=== PATIENT | female | born 1975 | race Hispanic/Latino ===

== ENCOUNTER 2020-10-05 17:20 | Inpatient (IN) | payer SELFPAY ==
[2020-10-05] MEDS ORDERED: METHYLPREDNISOLONE 125 MG INJ ONE (19:07)
[2020-10-05] MEDS ORDERED: NA CHLORIDE 0.9% 250 ML ONE (19:07)
[2020-10-05] MEDS ORDERED: CEFTRIAXONE 1000 MG/VIAL ONE (19:07)
[2020-10-05] MEDS ORDERED: AZITHROMYCIN 500 MG INJ IVPB ONE (19:07)
[2020-10-05 19:18] LABS: Absolute Lymphocytes (CBC) 0.6 K/uL (0.7-4.9); Basophils % 0.9 % (0-1.3); Hematocrit 39.4 % (36.0-45.0); Lymphocytes % 7.6 % (15.3-44.8); MPV 8.9 fL (7.6-11.3); RBC Red Blood Cell Count 4.82 M/uL (3.86-4.86)
--- NOTE | 2020-10-05 19:27 | RAD REPORT ---
EXAM DESCRIPTION: RAD - Chest Single View - 10/05/2020 7:14 pm CLINICAL HISTORY: CONGESTIONreason history of COVID pneumonia COMPARISON: None TECHNIQUE: AP portable chest image was obtained 10/05/2020 7:14 pm . FINDINGS: Lung volumes are very low. Bilateral airspace opacities are present in a pattern commonly seen in COVID pneumonia. Heart and vasculature are normal. No pneumothorax or large pleural effusion. Small pleural effusions could be masked by the exam limitations. No acute bony abnormality seen. No acute aortic findings suspected. IMPRESSION: Bilateral moderate severity pneumonia pattern consistent with a COVID-19 pneumonia.
[2020-10-05 19:30] LABS: Protime INR 1.13
[2020-10-05 19:40] LABS: ALT/SGPT 57 U/L (12-78); AST/SGOT 21 U/L (15-37); Alkaline Phosphatase 72 U/L (45-117); Amylase 32 U/L (25-115); BUN Blood Urea Nitrogen 7 mg/dL (7-18); Bicarbonate 27 mmol/L (21-32); Bilirubin Direct 0.2 mg/dL (0-0.2); CKMB Creatine Kinase MB 3.1 ng/mL (0.3-3.6); Creatine Phosphokinase 54 U/L (26-192); Glucose Level 186 mg/dL (74-106); Lipase 96 U/L (73-393); Potassium 4.1 mmol/L (3.5-5.1); Protein, Total 7.6 g/dL (6.4-8.2); Sodium Level 139 mmol/L (136-145); Troponin (Emerg Dept Use Only) 0.04 ng/mL (0.0-0.045)
[2020-10-05] MEDS ORDERED: IPRATROPIUM BROM 0.5MG/2.5ML ONE ×2 (19:41→19:50)
[2020-10-05] MEDS ORDERED: LEVALBUTEROL 1.25 MG/3 ML NEB ONE (19:41)
--- NOTE | 2020-10-05 20:27 | RAD REPORT ---
EXAM DESCRIPTION: CT - Chest For Pe Angio - 10/05/2020 8:16 pm CLINICAL HISTORY: CHEST PAIN COMPARISON: Chest Single View dated 10/05/2020 TECHNIQUE: Dynamically enhanced 3 mm thick images of the chest were obtained during administration o f approximately 150mL Isovue 370 IV contrast. Coronal and oblique MIP reconstruction images were gene rated and reviewed. Exam utilizes a protocol to evaluate the pulmonary arterial tree. All CT scans are performed using dose optimization technique as appropriate and may include automated exposure control or mA/KV adjustment according to patient size. FINDINGS: Pulmonary emboli are present at the right pulmonary bifurcation into the right middle, rig ht upper and right lower lobe pulmonary arteries. Additional segmental branch pulmonary emboli seen i n the right lower lobe and right middle lobe. Suspected medial segmental left lower lobe pulmonary em boli noted. No saddle embolus is present. No left upper lobe pulmonary emboli confirmed. The aorta as imaged shows no acute or suspicious finding. No pericardial thickening or effusion. Extensive bilateral airspace opacification is present in a pattern commonly described with significan t COVID-19 pneumonia. No pleural effusion or pleural thickening. No mediastinal or hilar suspicious masses. No chest wall masses or abnormal axillary lymphadenopathy. IMPRESSION: Multiple lobar and segmental size pulmonary emboli identified. Extensive bilateral COVID-19 pneumonia changes of the lung parenchyma.
[2020-10-05 20:40] LABS: Urine Blood Negative (Negative); Urine Glucose Negative (Negative); Urine Protein 2+ (Negative); Urine Specific Gravity >=1.030 (1.005-1.030); Urine pH 5.5 (5.0-7.0)
[2020-10-05 20:45] LABS: SARS-COV-2 RT PCR POSITIVE (NEGATIVE)
[2020-10-05 20:49] LABS: C-Reactive Protein 70.4 mg/L (<3.00); Ferritin 34.9 ng/mL (8-388)
--- NOTE | 2020-10-05 20:49 | ER ---
Nurse's Notes [facility] Name: Saida Coyle Age: 45 yrs Sex: Female : 1975 Arrival Date: 10/05/2020 Time: 17:22 Bed 24 Private MD: Diagnosis: Pulmonary embolism;Pneumonia due to SARS-associated coronavirus;Dyspnea Presentation: 10/05 17:22 Chief complaint: EMS states: Covid+ 09/06/2020. Also had Covid Pneumonia. Called in for ca1 SOB, SPO2 at 89% on RA, now sats at 95% at 4LPM. BGL 254, HR 120, RR 16, BP 160/74. Reports chest pain with deep breathing. Coronavirus screen: Client denies travel out of the [place] in the last 14 days. Client reports previous positive COVID test result. Date of collection: September 06, 2020 Staff notified of need for isolation. Ebola Screen: Patient negative for fever greater than or equal to 101.5 degrees Fahrenheit, and additional compatible Ebola Virus Disease symptoms Patient denies exposure to infectious person. Patient denies travel to an Ebola-affected area in the 21 days before illness onset. No symptoms or risks identified at this time. Initial Sepsis Screen: Does the patient meet any 2 criteria? RR > 20 per min. HR > 90 bpm. Yes Does the patient have a suspected source of infection? Yes: Productive cough/pneumonia. Risk Assessment: Do you want to hurt yourself or someone else? Patient reports no desire to harm self or others. Onset of symptoms was October 05, 2020. 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 Flu vaccine is not up to date. - Social history:: Smoking status: Patient denies any tobacco usage or history of. Screenin:20 Abuse screen: Denies threats or abuse. Denies injuries from another. Nutritional rr5 screening: No deficits noted. Tuberculosis screening: No symptoms or risk factors identified. Fall Risk IV access (20 points). Total Swenson Fall Scale indicates No Risk (0-24 pts). Assessment: 18:42 Reassessment: SOB when pt stood up from wheelchair and moved to the bed. O2 sats went ca1 down to 78% at 4LPM. Notified Dr. Singh. 19:30 General: Appears in no apparent distress. uncomfortable, Behavior is calm, cooperative. rr5 Pain: Denies pain. Neuro: Level of Consciousness is awake, alert, obeys commands, Oriented to person, place, time. Cardiovascular: Capillary refill < 3 seconds Patient's skin is warm and dry. Respiratory: Reports shortness of breath cough that is Airway is patent Respiratory effort is even, unlabored, Respiratory pattern is tachypnea. GI: Abdomen is round obese. : No signs and/or symptoms were reported regarding the genitourinary system. EENT: No signs and/or symptoms were reported regarding the EENT system. Derm: Bruising that is dark purple, on abdomen. Musculoskeletal: Capillary refill < 3 seconds. 20:17 Reassessment: not to give the whole bolus per sepsis, verbal order to give first 2 rr5 liters. 20:30 Reassessment: Patient appears in no apparent distress at this time. Patient is alert, rr5 oriented x 3, equal unlabored respirations, skin warm/dry/pink. 21:00 Reassessment: Patient appears in no apparent distress at this time. hospitalist called rr5 with telephone order " can give the lovenox". Vital Signs: 17:29 BP 153 / 88; Pulse 128; Resp 20; Temp 97.5(TE); Pulse Ox 93% on 4 lpm NC; Weight 125.65 ca1 kg (R); Height 5 ft. 2 in. (157.48 cm) (R); Pain 8/10; 18:41 BP 126 / 94; Pulse 128; Resp 40; Pulse Ox 88% on 4 lpm NC; ca1 20:03 BP 137 / 92; Pulse 121; Resp 30; Pulse Ox 92% on 4 lpm NC; rr5 20:52 BP 156 / 72; Pulse 125; Resp 36; Pulse Ox 90% on 4 lpm NC; rr5 17:29 Body Mass Index 50.66 (125.65 kg, 157.48 cm) ca1 ED Course: 17:22 Patient arrived in ED. ca1 17:27 Triage completed. ca1 17:31 Arm band placed on right wrist. ca1 17:36 EKG completed in triage. Results shown to MD. ca1 18:40 Inserted saline lock: 20 gauge in right antecubital area, using aseptic technique. kg 18:44 Naila Pickard, PUJA is Primary Nurse. tr6 18:56 Serina Hartley is Primary Nurse. kg 19:14 Chest Single View XRAY In Process Unspecified. EDMS 19:17 Report given to Phil LUO. kg 19:18 Primary Nurse role handed off by Serina Hartley mw2 19:19 Phil Chaidez RN is Primary Nurse. rr5 19:21 Sean Douglas NP is PHCP. pm1 19:21 Ruben Drummond MD is Attending Physician. pm1 19:30 Patient has correct armband on for positive identification. Bed in low position. Call rr5 light in reach. 19:30 hall monitor on. Pulse ox on. NIBP on. rr5 20:16 CT Chest For PE Angio In Process Unspecified. EDMS 20:48 Phil Pedroza MD is Hospitalizing Provider. pm1 21:30 No provider procedures requiring assistance completed. Patient admitted, IV remains in rr5 place. intact, No redness/swelling at site. 05 09:49 Primary Nurse role handed off by Phil Chaidez RN sv Administered Medications: 10/05 19:18 Drug: Rocephin (cefTRIAXone) 1 grams Route: IV; Rate: calculated rate; Site: right kg antecubital; 20:23 Follow up: Response: No adverse reaction; IV Status: Completed infusion; IV Intake: [id number] 19:18 Drug: AZITHromycin 500 mg Route: IVPB; Infused Over: 1 hrs; Site: right antecubital; kg 20:30 Follow up: Response: No adverse reaction; IV Status: Completed infusion; IV Intake: rr5 250ml 19:18 Drug: MethylPrednisoLONE 125 mg Route: IVP; Site: right antecubital; kg 20:20 Follow up: Response: No adverse reaction rr5 19:19 Drug: NS 0.9% (30 ml/kg) 30 ml/kg Route: IV; Rate: bolus; Site: right antecubital; kg 19:26 Drug: Xopenex (levalbuterol) 1.25 mg Route: Inhalation; kg 20:30 Follow up: Response: No adverse reaction rr5 19:26 Drug: AtroVENT (ipratropium) Aerosol 0.5 mg Route: Inhalation; kg 19:38 Drug: AtroVENT (ipratropium) Aerosol 0.5 mg Route: Inhalation; rr5 20:00 Drug: AtroVENT (ipratropium) Aerosol 0.5 mg Route: Inhalation; rr5 21:00 Follow up: Response: No adverse reaction rr5 20:12 Drug: NS 0.9% (30 ml/kg) 30 ml/kg Route: IV; Rate: bolus; Site: right antecubital; rr5 21:30 Follow up: Response: No adverse reaction; IV Status: Order to discontinue infusion; IV rr5 Intake: 2000ml 21:00 Drug: Lovenox (enoxaparin) 1 mg/kg Route: Sub-Q; Site: left lower abdomen; rr5 22:25 Follow up: Response: No adverse reaction rr5 22:18 Drug: Flagyl (metroNIDAZOLE) 2 grams Route: PO; rr5 22:25 Follow up: Response: No adverse reaction rr5 Intake: 20:23 IV: 10ml; Total: 10ml. rr5 20:30 IV: 250ml; Total: 260ml. rr5 21:30 IV: 2000ml; Total: 2260ml. rr5 Outcome: 20:49 Decision to Hospitalize by Provider. pm1 21:30 Admitted to ER Hold. Please see [facility] for further documentation. rr5 21:30 Condition: stable 21:30 Instructed on the need for admit. 10/06 21:47 Patient left the ED. mw2 Signatures: Dispatcher [employer] EDMS Stephanie Munroe RN Sean Yarbrough NP FRUIT HARVEST WORKER pm1 Alejandro Montelongo mw2 Phil Chaidez RN RN rr5 Teresita Howell RN RN ca1 Naila Pickard RN RN tr6 Serina Hartley kg Corrections: (The following items were deleted from the chart) 10/05 17:30 17:22 Chief complaint: EMS states: Covid+ 09/06/2020. Also had Covid Pneumonia. Called ca1 in for SOB, SPO2 at 89% on RA, now sats at 95% at 4LPM. BGL 254, HR 120, RR 16, BP 160/74 ca1 17:32 17:22 Acuity: VERITO 3 ca1 ca1 18:41 17:22 Initial Sepsis Screen: Does the patient meet any 2 criteria? No. Patient's ca1 initial sepsis screen is negative. Does the patient have a suspected source of infection? No. Patient's initial sepsis screen is negative. ca1
--- NOTE | 2020-10-05 20:49 | EDPHYS ---
Physician Documentation [facility] Name: Saida Coyle Age: 45 yrs Sex: Female : 1975 Arrival Date: 10/05/2020 Time: 17:22 Bed 24 Private MD: ED Physician Ruben Drummond HPI: 10/05 19:06 This 45 yrs old Female presents to ER via EMS with complaints of Shortness Of pm1 Breath. 19:06 The patient has shortness of breath at rest. Onset: The symptoms/episode began/occurred pm1 yesterday. Duration: The symptoms are continuous. The patient's shortness of breath is aggravated by light activity, is alleviated by nothing. Associated signs and symptoms: The patient has no apparent associated signs or symptoms, Pertinent negatives: chest pain, non-productive cough, fever, nausea, vomiting. Severity of symptoms: in the emergency department the symptoms are worse. The patient has experienced a previous episode, Patient was admitted for 1 week and discharged home for COVID with PE. Discharged 9 days ago. Discharged home with eliquis. 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 Flu vaccine is not up to date. - Social history:: Smoking status: Patient denies any tobacco usage or history of. ROS: 19:06 Constitutional: Negative for fever, chills, and weight loss, Eyes: Negative for injury, pm1 pain, redness, and discharge, ENT: Negative for injury, pain, and discharge, Neck: Negative for injury, pain, and swelling, Cardiovascular: Negative for chest pain, palpitations, and edema. 19:06 Abdomen/GI: Negative for abdominal pain, nausea, vomiting, diarrhea, and constipation, Back: Negative for injury and pain, : Negative for injury, bleeding, discharge, and swelling, MS/Extremity: Negative for injury and deformity, Skin: Negative for injury, rash, and discoloration, Neuro: Negative for headache, weakness, numbness, tingling, and seizure. 19:06 Respiratory: Positive for shortness of breath, Negative for cough, sputum production, wheezing. Exam: 19:06 Constitutional: This is a well developed, well nourished patient who is awake, alert, pm1 and in no acute distress. Head/Face: Normocephalic, atraumatic. Eyes: Pupils equal round and reactive to light, extra-ocular motions intact. Lids and lashes normal. Conjunctiva and sclera are non-icteric and not injected. Cornea within normal limits. Periorbital areas with no swelling, redness, or edema. ENT: Nares patent. No nasal discharge, no septal abnormalities noted. Tympanic membranes are normal and external auditory canals are clear. Oropharynx with no redness, swelling, or masses, exudates, or evidence of obstruction, uvula midline. Mucous membranes moist. Chest/axilla: Normal chest wall appearance and motion. Nontender with no deformity. No lesions are appreciated. 19:06 Abdomen/GI: Soft, non-tender, with normal bowel sounds. No distension or tympany. No guarding or rebound. No evidence of tenderness throughout. Back: No spinal tenderness. No costovertebral tenderness. Full range of motion. Skin: Warm, dry with normal turgor. Normal color with no rashes, no lesions, and no evidence of cellulitis. MS/ Extremity: Pulses equal, no cyanosis. Neurovascular intact. Full, normal range of motion. 19:06 Cardiovascular: Rate: tachycardic, Rhythm: regular, Pulses: no pulse deficits are appreciated, Heart sounds: normal, Edema: is not appreciated. 19:06 Respiratory: mild respiratory distress is noted, Respirations: tachypnea, Breath sounds: are clear throughout, no rales, rhonchi, no wheezing. 19:06 Neuro: Orientation: is normal, Mentation: is normal, Motor: is normal, moves all fours. Vital Signs: 17:29 BP 153 / 88; Pulse 128; Resp 20; Temp 97.5(TE); Pulse Ox 93% on 4 lpm NC; Weight 125.65 ca1 kg (R); Height 5 ft. 2 in. (157.48 cm) (R); Pain 8/10; 18:41 BP 126 / 94; Pulse 128; Resp 40; Pulse Ox 88% on 4 lpm NC; ca1 20:03 BP 137 / 92; Pulse 121; Resp 30; Pulse Ox 92% on 4 lpm NC; rr5 20:52 BP 156 / 72; Pulse 125; Resp 36; Pulse Ox 90% on 4 lpm NC; rr5 17:29 Body Mass Index 50.66 (125.65 kg, 157.48 cm) ca1 MDM: 19:33 Patient medically screened. pm1 20:47 Data reviewed: vital signs. pm1 20:47 Counseling: I had a detailed discussion with the patient and/or guardian regarding: the pm1 historical points, exam findings, and any diagnostic results supporting the discharge/admit diagnosis, lab results, radiology results, the need for further work-up and treatment in the hospital. 10/05 18:42 Order name: Amylase, Serum; Complete Time: 19:42 [facility] 10/05 18:42 Order name: Basic Metabolic Panel; Complete Time: 19:42 mt2 10/05 18:42 Order name: Blood Culture Adult (2) [facility] 10/05 18:42 Order name: CBC with Diff; Complete Time: 19:34 mt2 10/05 18:42 Order name: Ckmb; Complete Time: 19:42 mt2 10/05 18:42 Order name: CPK; Complete Time: 19:42 mt2 10/05 18:42 Order name: Lactate; Complete Time: 19:42 [facility] 10/05 18:42 Order name: LFT's; Complete Time: 19:42 mt2 10/05 18:42 Order name: Lipase; Complete Time: 19:42 [facility] 10/05 18:42 Order name: Protime (+inr); Complete Time: 19:34 mt2 10/05 18:42 Order name: Ptt, Activated; Complete Time: 19:34 mt2 10/05 18:42 Order name: Troponin (emerg Dept Use Only); Complete Time: 19:42 mt2 10/05 18:42 Order name: Urine Microscopic Only; Complete Time: 21:31 ma2 10/05 19:08 Order name: Glucose, Ancillary Testing; Complete Time: 19:26 EDMS 10/05 19:43 Order name: CRP; Complete Time: 20:53 la1 10/05 19:43 Order name: Ferritin; Complete Time: 20:53 la1 10/05 20:40 Order name: Urine Dipstick-Ancillary; Complete Time: 20:41 EDMS 10/05 20:40 Order name: Urine --Ancillary (enter results); Complete Time: 21:00 [facility] 10/05 20:46 Order name: COVID-19/FLU A+B; Complete Time: 20:53 [facility] 10/05 22:29 Order name: Glucose, Ancillary Testing; Complete Time: 00:24 [facility] 10/06 00:03 Order name: Troponin I; Complete Time: 00:24 [facility] 10/06 05:27 Order name: CBC with Automated Diff; Complete Time: 00:24 [facility] 10/06 05:59 Order name: Comprehensive Metabolic Panel; Complete Time: 00:24 [facility] 10/06 05:59 Order name: Troponin I; Complete Time: 00:24 [facility] 10/06 05:59 Order name: C-Reactive Protein; Complete Time: 00:24 [facility] 10/06 05:59 Order name: T4 Free; Complete Time: 00:24 [facility] 10/06 05:59 Order name: Magnesium; Complete Time: 00:24 [facility] 10/05 17:32 Order name: EKG; Complete Time: 17:33 [facility] 10/05 17:32 Order name: EKG - Nurse/Tech; Complete Time: 17:36 [facility] 10/05 18:42 Order name: Chest Single View XRAY; Complete Time: 19:34 mt2 10/05 18:42 Order name: Accucheck; Complete Time: 18:57 [facility] 10/05 18:42 Order name: Cardiac monitoring; Complete Time: 18:57 [facility] 10/05 18:42 Order name: IV Saline Lock - Large Bore; Complete Time: 18:57 [facility] 10/05 18:42 Order name: Labs collected and sent; Complete Time: 18:58 mt2 10/05 18:42 Order name: O2 Per Protocol; Complete Time: 18:57 mt2 10/05 18:42 Order name: O2 Sat Monitoring; Complete Time: 18:57 mt2 10/05 18:42 Order name: Urine Dipstick-Ancillary (obtain specimen); Complete Time: 22:19 [facility] 10/05 18:42 Order name: CT Chest For PE Angio; Complete Time: 20:32 mt2 10/06 05:59 Order name: Thyroid Stimulating Hormone; Complete Time: 00:24 [facility] 10/06 05:59 Order name: Ferritin; Complete Time: 00:24 EDMS 10/06 06:07 Order name: Hemoglobin A1c; Complete Time: 00:24 EDMS 10/06 08:50 Order name: CBC Smear Scan; Complete Time: 00:24 EDMS 10/06 08:54 Order name: Glucose, Ancillary Testing; Complete Time: 00:24 EDMS 10/06 08:57 Order name: Urinalysis; Complete Time: 00:24 EDMS 10/06 11:33 Order name: Glucose, Ancillary Testing; Complete Time: 00:24 EDMS 10/06 15:30 Order name: Glucose, Ancillary Testing; Complete Time: 00:24 EDMS Administered Medications: 19:18 Drug: Rocephin (cefTRIAXone) 1 grams Route: IV; Rate: calculated rate; Site: right kg antecubital; 20:23 Follow up: Response: No adverse reaction; IV Status: Completed infusion; IV Intake: 16mopb4 19:18 Drug: AZITHromycin 500 mg Route: IVPB; Infused Over: 1 hrs; Site: right antecubital; kg 20:30 Follow up: Response: No adverse reaction; IV Status: Completed infusion; IV Intake: rr5 250ml 19:18 Drug: MethylPrednisoLONE 125 mg Route: IVP; Site: right antecubital; kg 20:20 Follow up: Response: No adverse reaction rr5 19:19 Drug: NS 0.9% (30 ml/kg) 30 ml/kg Route: IV; Rate: bolus; Site: right antecubital; kg 19:26 Drug: Xopenex (levalbuterol) 1.25 mg Route: Inhalation; kg 20:30 Follow up: Response: No adverse reaction rr5 19:26 Drug: AtroVENT (ipratropium) Aerosol 0.5 mg Route: Inhalation; kg 19:38 Drug: AtroVENT (ipratropium) Aerosol 0.5 mg Route: Inhalation; rr5 20:00 Drug: AtroVENT (ipratropium) Aerosol 0.5 mg Route: Inhalation; rr5 21:00 Follow up: Response: No adverse reaction rr5 20:12 Drug: NS 0.9% (30 ml/kg) 30 ml/kg Route: IV; Rate: bolus; Site: right antecubital; rr5 21:30 Follow up: Response: No adverse reaction; IV Status: Order to discontinue infusion; IV rr5 Intake: 2000ml 21:00 Drug: Lovenox (enoxaparin) 1 mg/kg Route: Sub-Q; Site: left lower abdomen; rr5 22:25 Follow up: Response: No adverse reaction rr5 22:18 Drug: Flagyl (metroNIDAZOLE) 2 grams Route: PO; rr5 22:25 Follow up: Response: No adverse reaction rr5 Disposition: 10/06 22:13 Co-signature as Attending Physician, Ruben Drummond MD. [email or web address] Disposition: 10/05/20 20:49 Hospitalization ordered by Phil Pedroza for Inpatient Admission. Preliminary diagnosis are Pneumonia due to SARS-associated coronavirus, Pulmonary embolism, Dyspnea. - Bed requested for Intensive Care Unit. - Status is Inpatient Admission. mw2 - Condition is Stable. - Problem is new. - Symptoms have improved. Signatures: Dispatcher [employer] EDMS Ruben Drummond MD MD pkMaurice White, SPRINKLER TRUCK DRIVER-C SPRINKLER TRUCK DRIVER-Cla1 Maribell Easley, RN RN cg Sean Douglas, DIVE SUPERVISOR DIVE SUPERVISOR pm1 Andrew Singh MD MD ma2 Alejandro Montelongo mw2 Phil Chaidez, RN RN rr5 Teresita Howell RN RN ca1 Serina Hartley kg Corrections: (The following items were deleted from the chart) 10/05 19:35 19:22 CORONAVIRUS+MR.LAB.BRZ ordered. EDIL EDMS 19:51 19:47 Influenza Screen (A \T\ B)+BA.LAB.BRZ ordered. EDIL EDMS 21:27 20:49 Hospitalization Ordered by Phil Pedroza MD for Inpatient Admission. Preliminary mw2 diagnosis is Pneumonia due to SARS-associated coronavirusPulmonary embolism; Dyspnea. Bed requested for Telemetry/MedSurg (Inpatient). Status is Inpatient Admission. Condition is Stable. Problem is new. Symptoms have improved. pm1 10/06 19:37 10/05 21:27 10/05/2020 20:49 Hospitalization Ordered by Phil Pedroza MD for Inpatient cg Admission. Preliminary diagnosis is Pneumonia due to SARS-associated coronavirusPulmonary embolism; Dyspnea. Bed requested for [facility] ER HOLD. Status is Inpatient Admission. Condition is Stable. Problem is new. Symptoms have improved. mw2 10/06 21:47 19:37 10/05/2020 20:49 Hospitalization Ordered by Phli Pedroza MD for Inpatient mw2 Admission. Preliminary diagnosis is Pneumonia due to SARS-associated coronavirusPulmonary embolism; Dyspnea. Bed requested for Intensive Care Unit. Status is Inpatient Admission. Condition is Stable. Problem is new. Symptoms have improved. cg
[2020-10-05 20:56] LABS: Urine Specific Gravity/Preg >1.030 (1.005-1.030)
[2020-10-05] MEDS ORDERED: ENOXAPARIN 100 MG/ML SYR SQ ONE (21:06)
[2020-10-05] MEDS ORDERED: ENOXAPARIN 30 MG/0.3 ML SQ ONE (21:06)
[2020-10-05 21:15] LABS: Urine RBC NONE SEEN /HPF (NONE SEEN)
[2020-10-05 21:17] LABS: Urine Bacteria <20 /HPF (<20); Urine Trichomonas PRESENT (NONE SEEN)
--- NOTE | 2020-10-05 21:45 | P.HP ---
Certification for Inpatient Patient admitted to: Inpatient With expected LOS: >2 Midnights Patient will require the following post-hospital care: None Practitioner: I am a practitioner with admitting privileges, knowledge of patient current condition, hospital course, and medical plan of care. Services: Services provided to patient in accordance with Admission requirements found in Title 42 Section 412.3 of the Code of Federal Regulations Patient History Date of Service: 10/05/20 Reason for admission: Pulmonary embolism, COVID-19 pneumonia History of Present Illness: 45-year-old female with history of diabetes mellitus type 2, COVID presents emergency department for shortness of breath. Patient 1st tested positive for [place] virus on 09/06/2020 and was admitted from 09/09/20 to 09/24/2020 in [facility], patient reports that she is on nasal cannula throughout most of this admission there was discharged on Eliquis 2.5 mg p.o. twice daily for DVT prophylaxis. Patient ports increasing shortness of breath over the course of the last few days, upon arrival to the hospital patient is to be significantly hypoxic. Labs reveal C-reactive protein 70.4, glucose 186 chest x-ray demonstrates moderate bilateral COVID-19, CT PE protocol demonstrates multiple lobar and segmental size pulmonary emboli identified with extensive bilateral COVID-19 changes. Patient currently on nasal cannula around 5-6 L saturating around 90-91%. Case was discussed with pulmonology, pulmonology recommends admission with high-dose Eliquis (10mg PO BID), high dose steroids, oral supplements,ivermectin and he will evaluate in the morning. 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 moist/pink Neck: Supple, 2+ carotid pulse no bruit, No LAD Respiratory: Diminished, Other (Patient dyspneic, tachypneic) Cardiovascular: Regular rate/rhythm (Sinus tachycardia 120), Normal S1 S2 Capillary refill: <2 Seconds Gastrointestinal: Normal bowel sounds, No tenderness Musculoskeletal: No tenderness Integumentary: No rashes Neurological: Normal speech, Normal strength at 5/5 x4 extr, Normal tone, Normal affect - Studies Laboratory Data (last 24 hrs) 10/05/20 18:42: PT 13.0 H, INR 1.13, APTT 32.4 10/05/20 18:42: WBC 7.80, Hgb 12.7, Hct 39.4, Plt Count 172 10/05/20 18:42: Sodium 139, Potassium 4.1, BUN 7, Creatinine 0.62, Glucose 186 H, Total Bilirubin 1.0, AST 21, ALT 57, Alkaline Phosphatase 72, Amylase 32, Lipase 96 Assessment and Plan - Plan Assessment Acute hypoxic respiratory failure secondary to bilateral COVID-19 pneumonia complicated with bilateral segmental/subsegmental pulmonary emboli Diabetes mellitus type 2 Plan Acute hypoxic respiratory failure secondary to bilateral COVID-19 pneumonia complicated with bilateral segmental/subsegmental pulmonary emboli: Monitor on telemetry, continue with high-dose IV steroids, oral supplements, ivermectin, supplemental oxygen to maintain saturations greater than 92%, full-dose PE treatment with Eliquis 10 mg p.o. b.i.d. per pulmonology. Trend CRP, ferritin levels. Appreciate further input from pulmonology. Diabetes mellitus type 2: A.c. HS Accu-Cheks, sliding scale insulin therapy. A1c. Discharge Plan: Home Plan to discharge in: Greater than 2 days - Advance Directives Does patient have a Living Will: No Does patient have a Durable POA for Healthcare: No - Code Status/Comfort Care Code Status Assessed: Yes (Full code) Critical Care: No Time Spent Managing Pts Care (In Minutes): 55
[2020-10-05] MEDS ORDERED: BENZONATATE 100 MG CAP PO PRN (21:49)
[2020-10-05] MEDS ORDERED: ACETAMINOPHEN 500 MG TAB PO PRN (21:49)
[2020-10-05] MEDS ORDERED: ONDANSETRON 4 MG/2 ML VIAL IV PRN (21:49)
[2020-10-05] MEDS ORDERED: metroNIDAZOLE 500 MG TABLET ONE (22:26)
[2020-10-05] MEDS: INSULIN -REGULAR HUMAN 50 UNIT/0.5 ML ML SQ SCH (22:47)
[2020-10-05] MEDS ORDERED: INSULIN -REGULAR HUMAN 50 UNIT/0.5 ML ML ONE (23:04)
[2020-10-06] MEDS ORDERED: ACETAMINOPHEN 500 MG TAB ONE (00:53)
[2020-10-06] MEDS: MELATONIN 5 MG TABLET PO PRN (01:27)
[2020-10-06] MEDS ORDERED: MELATONIN 5 MG TABLET PO ONE (01:34)
[2020-10-06 05:26] LABS: Absolute Lymphocytes (CBC) 0.4 K/uL (0.7-4.9); Basophils % 0.4 % (0-1.3); Hematocrit 34.4 % (36.0-45.0); Lymphocytes % 7.4 % (15.3-44.8); MPV 8.7 fL (7.6-11.3); RBC Red Blood Cell Count 4.26 M/uL (3.86-4.86)
[2020-10-06 05:59] LABS: ALT/SGPT 45 U/L (12-78); AST/SGOT 17 U/L (15-37); Albumin 2.5 g/dL (3.4-5.0); Alkaline Phosphatase 61 U/L (45-117); BUN Blood Urea Nitrogen 8 mg/dL (7-18); Bicarbonate 23 mmol/L (21-32); Bilirubin Total 0.7 mg/dL (0.2-1.0); Glucose Level 254 mg/dL (74-106); Magnesium 2.1 mg/dL (1.8-2.4); Potassium 4.3 mmol/L (3.5-5.1); Protein, Total 6.7 g/dL (6.4-8.2); Sodium Level 139 mmol/L (136-145); Thyroid Stimulating Hormone 0.334 uIU/mL (0.360-3.740); Troponin I 0.07 ng/mL (0.0-0.045)
[2020-10-06] MEDS: INSULIN -REGULAR HUMAN 50 UNIT/0.5 ML ML SQ SCH ×4 (08:00→20:32)
--- NOTE | 2020-10-06 08:07 | P.CNS ---
Date of Consult: 10/06/20 Reason for Consult: Pulmonary embolism in huber virus pneumonia Chief Complaint: Pulmonary embolism, COVID-19 pneumonia History of Present Illness: Patient is 45 years of age with diabetes and history of huber virus presented to the emergency room with shortness of breath his 1st diagnosed on September 06 in the [facility] [place] and was discharged on low-dose Eliquis the main with worsening dyspnea for hypoxic and was found to have bilateral pulmonary emboli feeling a little better Allergies No Known Drug Allergies Allergy (Verified 10/06/20 01:49) Unknown - Past Medical/Surgical History Diabetic: Yes -: Diabetes mellitus type 2 -: Huber virus infection -: Tubal ligation Psychosocial/ Personal History: 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 [employer] - Family History Father History Unknown: Yes Medical History: Diabetes Mother Medical History: Diabetes - Social History Alcohol use: Yes CD- Drugs: No Caffeine use: Yes Place of Residence: Home Review of Systems 10-point ROS is otherwise unremarkable General: Weakness Respiratory: Cough, Shortness of Breath Physical Examination Temp Pulse Resp BP Pulse Ox 98.8 F 107 H 28 H 110/71 94 10/06/20 04:00 10/06/20 04:00 10/06/20 04:00 10/06/20 04:00 10/06/20 04:00 Laboratory Data (last 24 hrs) 10/05/20 18:42: PT 13.0 H, INR 1.13, APTT 32.4 10/05/20 18:42: WBC 7.80, Hgb 12.7, Hct 39.4, Plt Count 172 10/05/20 18:42: Sodium 139, Potassium 4.1, BUN 7, Creatinine 0.62, Glucose 186 H, Total Bilirubin 1.0, AST 21, ALT 57, Alkaline Phosphatase 72, Amylase 32, Lipase 96 - Problems (1) Pulmonary embolism associated with COVID-19 Current Visit: Yes Status: Acute Plan: Patient is 45 years of age admitted with pulmonary embolism from huber virus currently on high-flow oxygen chest x-ray shows significant interstitial changes blood pressure stable continue with full anticoagulation with Eliquis blood pressure is stable continue with high-dose steroids possible discharge tomorrow if he can wean her down to 4 L full therapeutic anticoagulation and steroids
[2020-10-06 08:49] LABS: Blood Morphology Comment NOT SEEN (NOT SEEN); Platelet Estimate ADEQ; Platelets, Giant PRESENT; White Blood Cell Scan OK (OK)
[2020-10-06] MEDS ORDERED: ZINC SULFATE 220 MG CAP ONE (08:53)
[2020-10-06] MEDS ORDERED: APIXABAN 5 MG TABLET ONE ×2 (08:53→19:54)
[2020-10-06] MEDS ORDERED: METHYLPREDNISOLONE 125 MG INJ ONE (08:53)
[2020-10-06] MEDS ORDERED: FUROSEMIDE 20 MG/ 2ML VIAL ONE (08:53)
[2020-10-06] MEDS ORDERED: VITAMIN D 1000 UNIT TAB ONE (08:53)
[2020-10-06] MEDS ORDERED: THIAMINE HCL 100 MG TABLET ONE (08:53)
[2020-10-06] MEDS ORDERED: ASCORBIC ACID 500 MG TABLET ONE ×4 (08:53→19:54)
[2020-10-06] MEDS ORDERED: INSULIN -REGULAR HUMAN 50 UNIT/0.5 ML ML ONE ×4 (08:54→20:51)
[2020-10-06 08:57] LABS: Urine Appearance CLEAR (Clear); Urine Bilirubin NEGATIVE (Negataive); Urine Blood NEGATIVE (Negative); Urine Color YELLOW (Yellow); Urine Glucose 3+ (Negative); Urine Microscopic Reflex NO UMIC; Urine Protein NEGATIVE (Negative); Urine Specific Gravity >=1.030 (1.005-1.030); Urine Urobilinogen 0.2 mg/dL (0.2-1.0); Urine pH 5.5 (5.0-7.0)
[2020-10-06] MEDS: ZINC SULFATE 220 MG CAP PO SCH (08:58)
[2020-10-06] MEDS: THIAMINE HCL 100 MG TABLET PO SCH (08:58)
[2020-10-06] MEDS: ASCORBIC ACID 500 MG TABLET PO SCH ×4 (08:58→20:33)
[2020-10-06] MEDS: APIXABAN 5 MG TABLET PO SCH ×2 (08:58→20:33)
[2020-10-06] MEDS: VITAMIN D 1000 UNIT TAB PO SCH (08:58)
[2020-10-06] MEDS: FUROSEMIDE 20 MG/ 2ML VIAL IV SCH (08:58)
[2020-10-06] MEDS: IVERMECTIN 3 MG TABLET PO SCH (09:00)
[2020-10-06] MEDS: METHYLPREDNISOLONE 40 MG INJ IV SCH ×3 (09:02→20:33)
[2020-10-06] MEDS ORDERED: METHYLPREDNISOLONE 40 MG INJ ONE ×3 (09:21→19:54)
--- NOTE | 2020-10-06 18:09 | P.PN ---
Subjective Date of Service: 10/06/20 Chief Complaint: Pulmonary embolism, COVID-19 pneumonia Subjective: Improving (feeling better, still requiring HFNC, but breathing more comfortably. has some chest pain - states same she has had since COVID diagnosis, no change. no nausea/vomiting) Review of Systems 10-point ROS is otherwise unremarkable Physical Examination - Vital Signs Temperature: 98.5 F Blood Pressure: 136/85 Pulse: 110 Respirations: 23 Pulse Ox (%): 91 - Studies Laboratory Data (last 24 hrs) 10/05/20 18:42: PT 13.0 H, INR 1.13, APTT 32.4 10/05/20 18:42: WBC 7.80, Hgb 12.7, Hct 39.4, Plt Count 172 10/05/20 18:42: Sodium 139, Potassium 4.1, BUN 7, Creatinine 0.62, Glucose 186 H, Total Bilirubin 1.0, AST 21, ALT 57, Alkaline Phosphatase 72, Amylase 32, Lipase 96 Assessment & Plan Physician Review Additional Text: Physical Exam General: Alert, NAD HEENT: normal conjunctiva, sclera anicteric Respiratory: Diminished, tachypneic, on HFNC Cardiovascular: sinus tachycardia, 100-110s Gastrointestinal: soft, nontender,nondistended Integumentary: No rashes Neurological: Normal speech, Normal strength at 5/5 x4 extr, Normal tone, Normal affect Problem List Acute hypoxic respiratory failure secondary to bilateral COVID-19 pneumonia complicated with bilateral segmental/subsegmental pulmonary emboli Diabetes mellitus type 2 -IV steroids, supplements, oxygen as needed -eliquis 10mg PO BID per pulm -trend inflammatory markers -echo ordered to eval r heart strain -insulin sliding scale, accucheks VTE: eliquis Code: full Dispo: anticipate dc home with home O2, when stable <4L NC Time Spent Managing Pts Care (In Minutes): 35
[2020-10-07 04:40] LABS: Absolute Lymphocytes (CBC) 0.5 K/uL (0.7-4.9); Hematocrit 31.8 % (36.0-45.0); Lymphocytes % 5.4 % (15.3-44.8); MPV 8.6 fL (7.6-11.3); RBC Red Blood Cell Count 3.96 M/uL (3.86-4.86)
[2020-10-07 05:17] LABS: ALT/SGPT 35 U/L (12-78); AST/SGOT 11 U/L (15-37); Albumin 2.5 g/dL (3.4-5.0); Alkaline Phosphatase 57 U/L (45-117); BUN Blood Urea Nitrogen 14 mg/dL (7-18); Bicarbonate 27 mmol/L (21-32); Bilirubin Total 0.5 mg/dL (0.2-1.0); Ferritin 33.9 ng/mL (8-388); Glucose Level 245 mg/dL (74-106); Potassium 3.9 mmol/L (3.5-5.1); Protein, Total 6.4 g/dL (6.4-8.2); Sodium Level 141 mmol/L (136-145)
[2020-10-07] MEDS: INSULIN -REGULAR HUMAN 50 UNIT/0.5 ML ML SQ SCH ×4 (07:30→19:36)
[2020-10-07] MEDS: ZINC SULFATE 220 MG CAP PO SCH (08:13)
[2020-10-07] MEDS: VITAMIN D 1000 UNIT TAB PO SCH (08:13)
[2020-10-07] MEDS: ASCORBIC ACID 500 MG TABLET PO SCH ×4 (08:13→19:35)
[2020-10-07] MEDS: APIXABAN 5 MG TABLET PO SCH ×2 (08:13→19:35)
[2020-10-07] MEDS: FUROSEMIDE 20 MG/ 2ML VIAL IV SCH (08:13)
[2020-10-07] MEDS: THIAMINE HCL 100 MG TABLET PO SCH (08:13)
[2020-10-07] MEDS: METHYLPREDNISOLONE 40 MG INJ IV SCH (08:14)
--- NOTE | 2020-10-07 12:16 | P.PN ---
Subjective Date of Service: 10/07/20 Chief Complaint: Pulmonary embolism, COVID-19 pneumonia Subjective: Improving (Patient is improving subjectively feeling better) Review of Systems General: Weakness Respiratory: Shortness of Breath Physical Examination - Vital Signs Temperature: 99.5 F Blood Pressure: 119/76 Pulse: 100 Respirations: 34 Pulse Ox (%): 95 Assessment & Plan - Problems (Diagnosis) (1) Pulmonary embolism associated with COVID-19 Current Visit: Yes Status: Acute Plan: Admitted with huber virus pneumonia pulmonary embolism improving continue with full anticoagulation titrate O2 down possible discharge chemistries reviewed
--- NOTE | 2020-10-07 13:55 | P.PN ---
Subjective Date of Service: 10/07/20 Chief Complaint: Pulmonary embolism, COVID-19 pneumonia No major changes from yesterday. She is maintained on high-flow oxygen. Physical Examination - Vital Signs Temperature: 99.5 F Blood Pressure: 119/76 Pulse: 100 Respirations: 34 Pulse Ox (%): 95 - Physical Exam General: Alert, In no apparent distress HEENT: Other (High-flow oxygen) Neck: JVD not distended Respiratory: Other (Nonlabored breathing) Cardiovascular: No edema, Normal S1 S2, Other (Regular and tachycardic) Gastrointestinal: Soft and benign, Non-distended, No tenderness Musculoskeletal: No swelling Integumentary: No rashes Neurological: Normal strength at 5/5 x4 extr Assessment And Plan - Current Problems (Diagnosis) (1) Pulmonary embolism associated with COVID-19 Current Visit: Yes Status: Acute (2) Acute respiratory failure with hypoxemia Current Visit: Yes Status: Acute (3) Pneumonia due to COVID-19 virus Current Visit: Yes Status: Acute (4) DM type 2 (diabetes mellitus, type 2) Current Visit: Yes Status: Acute (5) Morbid obesity Current Visit: Yes Status: Acute Physician Review Additional Text: Problem List Acute hypoxic respiratory failure secondary to bilateral COVID-19 pneumonia complicated with bilateral segmental/subsegmental pulmonary emboli Diabetes mellitus type 2 -continue IV steroids, supplements, oxygen as needed -continue eliquis 10mg PO BID. -trend inflammatory markers -insulin sliding scale for glucose management -wean oxygen as tolerated. VTE: eliquis Code: full
[2020-10-07] MEDS: METHYLPREDNISOLONE 125 MG INJ IV SCH ×2 (14:09→19:35)
[2020-10-08 04:52] LABS: Absolute Lymphocytes (CBC) 0.5 K/uL (0.7-4.9); Basophils % 0.5 % (0-1.3); Hematocrit 34.4 % (36.0-45.0); Lymphocytes % 6.2 % (15.3-44.8); MPV 8.8 fL (7.6-11.3); RBC Red Blood Cell Count 4.26 M/uL (3.86-4.86)
[2020-10-08 05:11] LABS: ALT/SGPT 34 U/L (12-78); AST/SGOT 10 U/L (15-37); Albumin 2.6 g/dL (3.4-5.0); Alkaline Phosphatase 61 U/L (45-117); BUN Blood Urea Nitrogen 21 mg/dL (7-18); Bicarbonate 29 mmol/L (21-32); Bilirubin Total 0.5 mg/dL (0.2-1.0); Ferritin 33.1 ng/mL (8-388); Glucose Level 251 mg/dL (74-106); Magnesium 2.3 mg/dL (1.8-2.4); Potassium 3.8 mmol/L (3.5-5.1); Protein, Total 6.5 g/dL (6.4-8.2); Sodium Level 140 mmol/L (136-145)
[2020-10-08] MEDS: INSULIN -REGULAR HUMAN 50 UNIT/0.5 ML ML SQ SCH ×4 (07:30→20:39)
[2020-10-08] MEDS: VITAMIN D 1000 UNIT TAB PO SCH (08:16)
[2020-10-08] MEDS: METHYLPREDNISOLONE 125 MG INJ IV SCH ×3 (08:17→20:38)
[2020-10-08] MEDS: IVERMECTIN 3 MG TABLET PO SCH (08:17)
[2020-10-08] MEDS: APIXABAN 5 MG TABLET PO SCH ×2 (08:17→20:40)
[2020-10-08] MEDS: THIAMINE HCL 100 MG TABLET PO SCH (08:18)
[2020-10-08] MEDS: FUROSEMIDE 20 MG/ 2ML VIAL IV SCH (08:18)
[2020-10-08] MEDS: ASCORBIC ACID 500 MG TABLET PO SCH ×4 (08:18→20:40)
[2020-10-08] MEDS: ZINC SULFATE 220 MG CAP PO SCH (08:18)
--- NOTE | 2020-10-08 09:29 | ECHO ---
HEIGHT: 5 ft 2 in WEIGHT: 260 lb 12.8 oz DATE OF STUDY: 10/07/[address]: Phil Pedroza MD 2-DIMENSIONAL: YES M.MODE: YES DOPPLER: YES COLOR FLOW: YES TDS: PORTABLE: DEFINITY: BUBBLE STUDY: DIAGNOSIS: PE, EVALUATE RIGHT HEART STRAIN CARDIAC HISTORY: CATHERIZATION: NO SURGERY: NO PROSTHETIC VALVE: NO PACEMAKER: NO MEASUREMENTS (cm) DIASTOLIC (NORMALS) SYSTOLIC (NORMALS) IVSd 1.0 (0.6-1.2) LA Diam 2.8 (1.9-4.0) LVEF 57% LVIDd 2.7 (3.5-5.7) LVIDs 1.9 (2.0-3.5) %FS 29% LVPWd 1.1 (0.6-1.2) Ao Diam 2.7 (2.0-3.7) 2 DIMENSIONAL ASSESSMENT: RIGHT ATRIUM: NORMAL LEFT ATRIUM: NORMAL RIGHT VENTRICLE: NORMAL LEFT VENTRICLE: NORMAL TRICUSPID VALVE: NORMAL MITRAL VALVE: NORMAL PULMONIC VALVE: NORMAL AORTIC VALVE: NORMAL PERICARDIAL EFFUSION: NONE AORTIC ROOT: NORMAL LEFT VENTRICULAR WALL MOTION: NORMAL DOPPLER/COLOR FLOW: NORMAL COMMENTS: NORMAL LEFT VENTRICULAR SIZE AND FUNCTION. NO WALL MOTION ABNORMALITY. NO PULMONARY HYPERTENSION. TECHNOLOGIST: MARISABEL SANDOVAL
[2020-10-08] MEDS ORDERED: PNEUMOCOCCAL VACCINE 0.5 ML IMVAC ONE (12:00)
--- NOTE | 2020-10-08 16:02 | P.PN ---
Subjective Date of Service: 10/08/20 Chief Complaint: Pulmonary embolism, COVID-19 pneumonia Patient doing better today. She is requiring high-flow oxygen but FiO2 being weaned down. Physical Examination - Vital Signs Temperature: 97.2 F Blood Pressure: 130/72 Pulse: 96 Respirations: 36 Pulse Ox (%): 86 - Physical Exam General: Alert, In no apparent distress HEENT: Other (High-flow oxygen) Respiratory: Other (Nonlabored breathing) Cardiovascular: Regular rate/rhythm, Normal S1 S2 Gastrointestinal: Soft and benign, Non-distended Musculoskeletal: No swelling Integumentary: No rashes Neurological: Normal strength at 5/5 x4 extr Assessment And Plan - Current Problems (Diagnosis) (1) Pulmonary embolism associated with COVID-19 Current Visit: Yes Status: Acute (2) Acute respiratory failure with hypoxemia Current Visit: Yes Status: Acute (3) Pneumonia due to COVID-19 virus Current Visit: Yes Status: Acute (4) DM type 2 (diabetes mellitus, type 2) Current Visit: Yes Status: Acute (5) Morbid obesity Current Visit: Yes Status: Acute Physician Review Additional Text: Problem List Acute hypoxic respiratory failure secondary to bilateral COVID-19 pneumonia complicated with bilateral segmental/subsegmental pulmonary emboli Diabetes mellitus type 2 -gradually improving -continue IV steroids, supplements, oxygen as needed -continue eliquis 10mg PO BID. -insulin sliding scale for glucose management -continue to wean oxygen as tolerated. VTE: eliquis Code: full
[2020-10-08] MEDS: MELATONIN 5 MG TABLET PO PRN (20:40)
[2020-10-09 05:51] LABS: C-Reactive Protein 8.34 mg/L (<3.00)
[2020-10-09] MEDS: METHYLPREDNISOLONE 125 MG INJ IV SCH ×3 (08:29→20:03)
[2020-10-09] MEDS: FUROSEMIDE 20 MG/ 2ML VIAL IV SCH (08:30)
[2020-10-09] MEDS: VITAMIN D 1000 UNIT TAB PO SCH (08:30)
[2020-10-09] MEDS: ZINC SULFATE 220 MG CAP PO SCH (08:32)
[2020-10-09] MEDS: INSULIN -REGULAR HUMAN 50 UNIT/0.5 ML ML SQ SCH ×4 (08:32→20:03)
[2020-10-09] MEDS: APIXABAN 5 MG TABLET PO SCH ×2 (08:32→20:04)
[2020-10-09] MEDS: ASCORBIC ACID 500 MG TABLET PO SCH ×4 (08:33→20:04)
[2020-10-09] MEDS: THIAMINE HCL 100 MG TABLET PO SCH (08:49)
--- NOTE | 2020-10-09 15:06 | P.PN ---
Subjective Date of Service: 10/09/20 Chief Complaint: Pulmonary embolism, COVID-19 pneumonia Patient doing much better. She is now tolerating oxygen by nasal cannula. Physical Examination - Vital Signs Temperature: 97.7 F Blood Pressure: 125/84 Pulse: 99 Respirations: 23 Pulse Ox (%): 90 - Physical Exam General: Alert, In no apparent distress, Oriented x3 HEENT: Other (Oxygen by nasal cannula) Neck: JVD not distended Respiratory: Other (Nonlabored breathing) Cardiovascular: No edema, Regular rate/rhythm, Normal S1 S2 Gastrointestinal: Soft and benign, Non-distended Musculoskeletal: No swelling Integumentary: No rashes Neurological: Normal strength at 5/5 x4 extr Assessment And Plan - Current Problems (Diagnosis) (1) Pulmonary embolism associated with COVID-19 Current Visit: Yes Status: Acute (2) Acute respiratory failure with hypoxemia Current Visit: Yes Status: Acute (3) Pneumonia due to COVID-19 virus Current Visit: Yes Status: Acute (4) DM type 2 (diabetes mellitus, type 2) Current Visit: Yes Status: Acute (5) Morbid obesity Current Visit: Yes Status: Acute Physician Review Additional Text: Problem List Acute hypoxic respiratory failure secondary to bilateral COVID-19 pneumonia complicated with bilateral segmental/subsegmental pulmonary emboli Diabetes mellitus type 2 -significantly improved -continue IV steroids, supplements, oxygen as needed -continue eliquis 10mg PO BID. -insulin sliding scale for glucose management -continue to wean oxygen as tolerated. -possible discharge in am once she is able to tolerate 4 L oxygen by nasal cannula. VTE: eliquis Code: full
[2020-10-09] MEDS ORDERED: D50W 25 GM/50 ML SYRINGE IV PRN (15:08)
[2020-10-09] MEDS ORDERED: GLUCAGON 1 MG/VIAL IM PRN (15:08)
--- NOTE | 2020-10-09 15:10 | CON ---
Date of Consultation: 10/06/2020 Reason For Consultation: Shortness of breath. History Of Present Illness: Ms. Coyle is a 45-year-old female with history of diabetes f or which she takes metformin who comes in with shortness of breath, progressive with minimal __ she was discharged home on Eliquis. When she came back, CT angiogram and chest x-ray revealed mul tiple . Past Medical History: As stated above. Allergies: NONE. Review of Systems: Negative. Social History: Negative. Family History: Negative. Medications: At home include metformin and Physical Examination: Vital Signs: Stable. She was tachycardic . Neck: Supple with no bruit. Chest: Reveals crackles at bases. Cardiac: Reveals gallops or rubs. Abdomen: Benign. Extremities: Revealed no clubbing, cyanosis, or edema. Diagnostic Data: Shows glucose of 255. C-reactive protein . Impression: . NB/MODL Voice ID: [id number] Report ID: [id number]
[2020-10-09] MEDS ORDERED: INSULIN GLARGINE 100 UNITS/ML SQ SCH (21:00)
[2020-10-10 05:32] LABS: Absolute Lymphocytes (CBC) 0.6 K/uL (0.7-4.9); Basophils % 0.7 % (0-1.3); Hematocrit 36.6 % (36.0-45.0); Lymphocytes % 8.7 % (15.3-44.8); RBC Red Blood Cell Count 4.51 M/uL (3.86-4.86)
[2020-10-10 06:28] LABS: ALT/SGPT 44 U/L (12-78); AST/SGOT 13 U/L (15-37); Albumin 2.6 g/dL (3.4-5.0); Alkaline Phosphatase 55 U/L (45-117); BUN Blood Urea Nitrogen 22 mg/dL (7-18); Bicarbonate 31 mmol/L (21-32); Bilirubin Total 0.4 mg/dL (0.2-1.0); C-Reactive Protein 5.17 mg/L (<3.00); Ferritin 28.8 ng/mL (8-388); Glucose Level 285 mg/dL (74-106); Potassium 4.5 mmol/L (3.5-5.1); Protein, Total 6.3 g/dL (6.4-8.2); Sodium Level 140 mmol/L (136-145)
[2020-10-10] MEDS: VITAMIN D 1000 UNIT TAB PO SCH (07:39)
[2020-10-10] MEDS: FUROSEMIDE 20 MG/ 2ML VIAL IV SCH (07:40)
[2020-10-10] MEDS: APIXABAN 5 MG TABLET PO SCH ×2 (07:40→20:36)
[2020-10-10] MEDS: THIAMINE HCL 100 MG TABLET PO SCH (07:40)
[2020-10-10] MEDS: INSULIN -REGULAR HUMAN 50 UNIT/0.5 ML ML SQ SCH ×4 (07:40→20:36)
[2020-10-10] MEDS: ZINC SULFATE 220 MG CAP PO SCH (07:53)
[2020-10-10] MEDS: ASCORBIC ACID 500 MG TABLET PO SCH ×4 (07:53→20:36)
[2020-10-10] MEDS: METHYLPREDNISOLONE 125 MG INJ IV SCH ×2 (07:53→20:35)
[2020-10-10 08:22] LABS: Blood Morphology Comment NOT SEEN (NOT SEEN); Platelet Estimate ADEQ
--- NOTE | 2020-10-10 10:31 | P.PN ---
Subjective Date of Service: 10/10/20 Chief Complaint: Pulmonary embolism, COVID-19 pneumonia Subjective: Improving (Patient is improving although experiencing significant desat on minimal exertion this take of 4 - 5 min to recover) Review of Systems General: Weakness Respiratory: Shortness of Breath Physical Examination - Vital Signs Temperature: 97.0 F Blood Pressure: 139/84 Pulse: 72 Respirations: 20 Pulse Ox (%): 96 Assessment & Plan - Problems (Diagnosis) (1) Pulmonary embolism associated with COVID-19 Current Visit: Yes Status: Acute Plan: Patient is improving room-air sats satisfactory on 3 L however she is experiencing desat on minimal exertion CT scan shows extensive disease blood sugars elevated increase insulin reduce the dose of Solu-Medrol repeat chest x- ray had ivermectin labs reviewed
[2020-10-10] MEDS: IVERMECTIN 3 MG TABLET PO SCH (11:09)
--- NOTE | 2020-10-10 14:19 | P.PN ---
Subjective Date of Service: 10/10/20 Chief Complaint: Pulmonary embolism, COVID-19 pneumonia Patient is tolerating 3L oxygen by nasal cannula but easy desaturates with the slightest exertion. Physical Examination - Vital Signs Temperature: 97.0 F Blood Pressure: 139/84 Pulse: 72 Respirations: 20 Pulse Ox (%): 96 - Physical Exam General: Alert, In no apparent distress Neck: JVD not distended Respiratory: Other (Nonlabored breathing) Cardiovascular: No edema, Regular rate/rhythm Gastrointestinal: Soft and benign, Non-distended Musculoskeletal: No swelling Integumentary: No rashes Assessment And Plan - Current Problems (Diagnosis) (1) Pulmonary embolism associated with COVID-19 Current Visit: Yes Status: Acute (2) Acute respiratory failure with hypoxemia Current Visit: Yes Status: Acute (3) Pneumonia due to COVID-19 virus Current Visit: Yes Status: Acute (4) DM type 2 (diabetes mellitus, type 2) Current Visit: Yes Status: Acute (5) Morbid obesity Current Visit: Yes Status: Acute Physician Review Additional Text: Problem List Acute hypoxic respiratory failure secondary to bilateral COVID-19 pneumonia complicated with bilateral segmental/subsegmental pulmonary emboli Diabetes mellitus type 2 -significantly improved. -continue IV steroids, supplements, oxygen as needed -continue eliquis 10mg PO BID. -insulin sliding scale for glucose management -continue to wean oxygen as tolerated. -will monitor her for 1 or 2 more days until she is able to tolerate oxygen with exertion. VTE: eliquis Code: full
[2020-10-10] MEDS: INSULIN 70/30 100 UNITS/ML SQ SCH (16:33)
[2020-10-11 05:19] LABS: Absolute Lymphocytes (CBC) 0.6 K/uL (0.7-4.9); Basophils % 0.3 % (0-1.3); Lymphocytes % 7.6 % (15.3-44.8); RBC Red Blood Cell Count 4.59 M/uL (3.86-4.86)
[2020-10-11 05:58] LABS: BUN Blood Urea Nitrogen 23 mg/dL (7-18); Bicarbonate 33 mmol/L (21-32); C-Reactive Protein < 2.90 mg/L (<3.00); Ferritin 28.6 ng/mL (8-388); Glucose Level 236 mg/dL (74-106); Potassium 4.4 mmol/L (3.5-5.1); Sodium Level 139 mmol/L (136-145)
[2020-10-11] MEDS: THIAMINE HCL 100 MG TABLET PO SCH (08:21)
[2020-10-11] MEDS: ASCORBIC ACID 500 MG TABLET PO SCH ×4 (08:21→21:55)
[2020-10-11] MEDS: INSULIN -REGULAR HUMAN 50 UNIT/0.5 ML ML SQ SCH ×4 (08:21→21:00)
[2020-10-11] MEDS: VITAMIN D 1000 UNIT TAB PO SCH (08:21)
[2020-10-11] MEDS: APIXABAN 5 MG TABLET PO SCH (08:21)
[2020-10-11] MEDS: ZINC SULFATE 220 MG CAP PO SCH (08:21)
[2020-10-11] MEDS: METHYLPREDNISOLONE 125 MG INJ IV SCH ×2 (08:22→21:00)
[2020-10-11] MEDS: INSULIN 70/30 100 UNITS/ML SQ SCH ×2 (08:22→20:40)
--- NOTE | 2020-10-11 11:30 | P.DS ---
Admission Date: 10/05/20 Discharge Date: 10/11/20 Disposition: ROUTINE DISCHARGE Discharge Condition: FAIR Reason for Admission: Pulmonary embolism, COVID-19 pneumonia - Problems (1) Pulmonary embolism associated with COVID-19 Current Visit: Yes Status: Acute (2) Acute respiratory failure with hypoxemia Current Visit: Yes Status: Acute (3) Pneumonia due to COVID-19 virus Current Visit: Yes Status: Acute (4) DM type 2 (diabetes mellitus, type 2) Current Visit: Yes Status: Acute (5) Morbid obesity Current Visit: Yes Status: Acute Brief History of Present Illness: 45-year-old woman with a history of diabetes mellitus type 2, COVID infection presented to the emergency department with a complaint of shortness of breath. Patient 1st tested positive for COVID on 09/06/2020 and was admitted from 09/09/2020 to 09/24/2020. Patient was on nasal cannula throughout most of that admission and was discharged on Eliquis 2.5 mg twice a day. She was hypoxic on arrival to the ED. Chest x-ray demonstrated bilateral pneumonia CT PE protocol demonstrated multiple lobar and segmental pulmonary emboli and extensive bilateral infiltrates. She was requiring 5-6 L of oxygen. Patient was admitted for further management. Hospital Course: Patient admitted to the medical floor and started on IV steroid, bronchodilators, vitamin supplementation. She was given Ivermectin. Her respiratory condition got worse, patient required high-flow oxygen. She was l ater weaned off high-flow oxygen to oxygen by nasal cannula which she tolerated. Patient has clinically improved. She is tolerating 3 L of oxygen by nasal cannula. She does have some shortness of breath with ambulation. Patient seen by pulmonary in consultation who assisted with treatment. Her blood sugar was managed with Novolin 70/30 and insulin sliding scale. She has steroid induced hyperglycemia. Patient deemed clinically stable for discharge. She is discharged with Eliquis protocol for acute pulmonary embolus. Vital Signs/Physical Exam: Temp Pulse Resp BP Pulse Ox 97.4 F 58 20 101/62 98 10/11/20 04:00 10/11/20 04:00 10/11/20 04:00 10/11/20 04:00 10/11/20 04:00 General: Alert, In no apparent distress HEENT: Other (Oxygen by nasal canula) Neck: JVD not distended Respiratory: Other (Nonlabored breathing) Cardiovascular: Regular rate/rhythm, Normal S1 S2 Gastrointestinal: Soft and benign, Non-distended Musculoskeletal: No swelling Integumentary: No rashes Neurological: Normal strength at 5/5 x4 extr Laboratory Data at Discharge: WBC 8.00 K/uL (4.3-10.9) 10/11/20 04:19 Hgb 12.0 g/dL (12.0-15.0) 10/11/20 04:19 Hct 37.0 % (36.0-45.0) 10/11/20 04:19 Plt Count 247 K/uL (152-406) 10/11/20 04:19 PT 13.0 SECONDS (9.5-12.5) H 10/05/20 18:42 INR 1.13 10/05/20 18:42 APTT 32.4 SECONDS (24.3-36.9) 10/05/20 18:42 Sodium 139 mmol/L (136-145) 10/11/20 04:19 Potassium 4.4 mmol/L (3.5-5.1) 10/11/20 04:19 BUN 23 mg/dL (7-18) H 10/11/20 04:19 Creatinine 0.60 mg/dL (0.55-1.3) 10/11/20 04:19 Glucose 236 mg/dL (74-106) H 10/11/20 04:19 Magnesium 2.3 mg/dL (1.8-2.4) 10/08/20 04:09 Total Bilirubin 0.4 mg/dL (0.2-1.0) 10/10/20 04:12 AST 13 U/L (15-37) L 10/10/20 04:12 ALT 44 U/L (12-78) 10/10/20 04:12 Alkaline Phosphatase 55 U/L (45-117) 10/10/20 04:12 Troponin I 0.07 ng/mL (0.0-0.045) H 10/06/20 05:00 Amylase 32 U/L (25-115) 10/05/20 18:42 Lipase 96 U/L (73-393) 10/05/20 18:42 Home Medications: Albuterol Sulfate [Proair Hfa] 2 puff IH Q4HP PRN 10/06/20 Fluticasone Furoate [Arnuity Ellipta] 1 in IN DAILY 10/06/20 Metformin HCl [Glucophage*] 1 tab PO BID 10/06/20 Apixaban [Eliquis] 10 mg PO BID #64 tablet 10/11/20 Ascorbic Acid [Vitamin C*] 500 mg PO QID #120 tablet 10/11/20 Benzonatate [Tessalon Perle*] 100 mg PO TID PRN #30 cap 10/11/20 Cholecalciferol (Vitamin D3) [Vitamin D 1000 Iu Tab*] 4,000 unit PO DAILY #120 tab 10/11/20 Insulin 70/30 NPH/Reg Human [Novolin *] 12 unit SQ BIDAC #10 ml 10/11/20 Thiamine HCl [Vitamin B-1*] 200 mg PO DAILY #30 tablet 10/11/20 Zinc Sulfate [Zinc Sulfate*] 220 mg PO DAILY #30 cap 10/11/20 predniSONE [Prednisone] 20 mg PO BID #21 tablet 10/11/20 New Medications: Apixaban [Eliquis] 10 mg PO BID #64 tablet Insulin 70/30 NPH/Reg Human [Novolin 7030*] 12 unit SQ BIDAC #10 ml predniSONE [Prednisone] 20 mg PO BID #21 tablet Benzonatate [Tessalon Perle*] 100 mg PO TID PRN #30 cap PRN Reason: Cough Thiamine HCl [Vitamin B-1*] 200 mg PO DAILY #30 tablet Ascorbic Acid [Vitamin C*] 500 mg PO QID #120 tablet Cholecalciferol (Vitamin D3) [Vitamin D 1000 Iu Tab*] 4,000 unit PO DAILY #120 tab Zinc Sulfate [Zinc Sulfate*] 220 mg PO DAILY #30 cap Diet: ADA Activity: Ad summer Followup: NONE,NONE [Primary Care Provider] - Harjinder Cruz MD [ACTIVE - CAN ADMIT] - 1 Week Time spent managing pt's care (in minutes): 40
[2020-10-11] MEDS ORDERED: PNEUMOCOCCAL VACCINE 0.5 ML IMVAC ONE (12:53)
[2020-10-11] MEDS ORDERED: ENOXAPARIN 60 MG/0.6 ML SQ SCH (21:00)
[2020-10-11] MEDS ORDERED: WARFARIN SODIUM 5 MG TAB PO SCH (21:00)
[2020-10-11 22:31] LABS: Potassium 4.6 mmol/L (3.5-5.1)
[2020-10-11] MEDS ORDERED: WARFARIN SODIUM 2.5 MG TAB ONE (22:46)
[2020-10-12 04:17] LABS: Protime INR 1.18
[2020-10-12] MEDS: INSULIN -REGULAR HUMAN 50 UNIT/0.5 ML ML SQ SCH ×4 (08:15→20:19)
[2020-10-12] MEDS: INSULIN 70/30 100 UNITS/ML SQ SCH ×2 (08:16→16:52)
[2020-10-12] MEDS: THIAMINE HCL 100 MG TABLET PO SCH (08:20)
[2020-10-12] MEDS: IVERMECTIN 3 MG TABLET PO SCH (08:20)
[2020-10-12] MEDS: Enoxaparin 120 MG/0.8 ML SYR SQ SCH ×2 (08:20→20:21)
[2020-10-12] MEDS: METHYLPREDNISOLONE 125 MG INJ IV SCH ×2 (08:21→20:19)
[2020-10-12] MEDS: VITAMIN D 1000 UNIT TAB PO SCH (08:21)
[2020-10-12] MEDS: ZINC SULFATE 220 MG CAP PO SCH (08:21)
[2020-10-12] MEDS: ASCORBIC ACID 500 MG TABLET PO SCH ×4 (09:00→20:19)
--- NOTE | 2020-10-12 12:13 | P.PN ---
Subjective Date of Service: 10/12/20 Chief Complaint: Pulmonary embolism, COVID-19 pneumonia Patient is tolerating 3L oxygen by nasal cannula. Patient was able to afford Eliquis. She has no new complain. Physical Examination - Vital Signs Temperature: 97.6 F Blood Pressure: 122/78 Pulse: 61 Respirations: 27 Pulse Ox (%): 95 - Physical Exam General: Alert, In no apparent distress Neck: JVD not distended Respiratory: Other (Nonlabored breathing.) Cardiovascular: No edema, Regular rate/rhythm Gastrointestinal: Normal bowel sounds, Soft and benign, Non-distended Musculoskeletal: No swelling Integumentary: No rashes Neurological: Normal strength at 5/5 x4 extr Assessment And Plan - Current Problems (Diagnosis) (1) Pulmonary embolism associated with COVID-19 Current Visit: Yes Status: Acute (2) Acute respiratory failure with hypoxemia Current Visit: Yes Status: Acute (3) Pneumonia due to COVID-19 virus Current Visit: Yes Status: Acute (4) DM type 2 (diabetes mellitus, type 2) Current Visit: Yes Status: Acute (5) Morbid obesity Current Visit: Yes Status: Acute Physician Review Additional Text: Problem List Acute hypoxic respiratory failure secondary to bilateral COVID-19 pneumonia complicated with bilateral segmental/subsegmental pulmonary emboli Diabetes mellitus type 2 -significantly improved and stable on 3 L oxygen by nasal cannula. -continue IV steroids, supplements, oxygen as needed -Eliquis changed to Coumadin with Lovenox bridge. Titrate Coumadin for INR target of 2. INR need to be therapeutic before discharge. -insulin sliding scale for glucose management -continue to wean oxygen as tolerated. VTE: Coumadin. Code: full
--- NOTE | 2020-10-12 15:49 | P.PN ---
Subjective Date of Service: 10/11/20 Chief Complaint: Pulmonary embolism, COVID-19 pneumonia Patient is tolerating 3L oxygen by nasal cannula. Patient was able to afford Eliquis. She has no new complain. Physical Examination - Vital Signs Temperature: 97.6 F Blood Pressure: 122/78 Pulse: 61 Respirations: 27 Pulse Ox (%): 95 Assessment And Plan - Current Problems (Diagnosis) (1) Pulmonary embolism associated with COVID-19 Current Visit: Yes Status: Acute (2) Acute respiratory failure with hypoxemia Current Visit: Yes Status: Acute (3) Pneumonia due to COVID-19 virus Current Visit: Yes Status: Acute (4) DM type 2 (diabetes mellitus, type 2) Current Visit: Yes Status: Acute (5) Morbid obesity Current Visit: Yes Status: Acute Physician Review Additional Text: Problem List Acute hypoxic respiratory failure secondary to bilateral COVID-19 pneumonia complicated with bilateral segmental/subsegmental pulmonary emboli Diabetes mellitus type 2 -significantly improved and stable on 3 L oxygen by nasal cannula. -continue IV steroids, supplements, oxygen as needed -Eliquis changed to Coumadin with Lovenox bridge. Titrate Coumadin for INR target of 2. INR need to be therapeutic before discharge. -insulin sliding scale for glucose management -continue to wean oxygen as tolerated. VTE: Coumadin. Code: full
[2020-10-12] MEDS ORDERED: WARFARIN SODIUM 5 MG TAB PO SCH (17:00)
[2020-10-12] MEDS: MELATONIN 5 MG TABLET PO PRN (20:19)
[2020-10-12] MEDS ORDERED: MELATONIN 5 MG TABLET PO ONE (20:35)
[2020-10-13 05:13] LABS: Absolute Lymphocytes (CBC) 0.5 K/uL (0.7-4.9); Basophils % 0.3 % (0-1.3); Hematocrit 37.2 % (36.0-45.0); Lymphocytes % 6.2 % (15.3-44.8); RBC Red Blood Cell Count 4.62 M/uL (3.86-4.86)
[2020-10-13 05:19] LABS: Protime INR 1.69
[2020-10-13 05:34] LABS: Ferritin 26.5 ng/mL (8-388)
[2020-10-13 05:37] LABS: C-Reactive Protein < 2.90 mg/L (<3.00)
[2020-10-13 06:41] VITALS: BMI 47.2
[2020-10-13] MEDS: INSULIN -REGULAR HUMAN 50 UNIT/0.5 ML ML SQ SCH ×4 (08:20→21:29)
[2020-10-13] MEDS: INSULIN 70/30 100 UNITS/ML SQ SCH ×2 (09:02→17:06)
[2020-10-13] MEDS: Enoxaparin 120 MG/0.8 ML SYR SQ SCH ×2 (09:03→21:28)
[2020-10-13] MEDS: THIAMINE HCL 100 MG TABLET PO SCH (09:03)
[2020-10-13] MEDS: METHYLPREDNISOLONE 125 MG INJ IV SCH ×2 (09:03→21:29)
[2020-10-13] MEDS: ASCORBIC ACID 500 MG TABLET PO SCH ×4 (09:04→21:29)
[2020-10-13] MEDS: VITAMIN D 1000 UNIT TAB PO SCH (09:05)
[2020-10-13] MEDS: ZINC SULFATE 220 MG CAP PO SCH (09:05)
--- NOTE | 2020-10-13 12:24 | P.PN ---
Subjective Date of Service: 10/13/20 Chief Complaint: Pulmonary embolism, COVID-19 pneumonia Patient is doing well on 3L oxygen by nasal cannula. Patient not able to afford Eliquis. She has no new complain. Physical Examination - Vital Signs Temperature: 97.8 F Blood Pressure: 124/86 Pulse: 71 Respirations: 23 Pulse Ox (%): 86 - Physical Exam General: Alert, In no apparent distress Respiratory: Other (Nonlabored breathing) Cardiovascular: No edema, Regular rate/rhythm, Normal S1 S2 Gastrointestinal: Soft and benign, Non-distended Musculoskeletal: No swelling Integumentary: No rashes Neurological: Normal strength at 5/5 x4 extr Assessment And Plan - Current Problems (Diagnosis) (1) Pulmonary embolism associated with COVID-19 Current Visit: Yes Status: Acute (2) Acute respiratory failure with hypoxemia Current Visit: Yes Status: Acute (3) Pneumonia due to COVID-19 virus Current Visit: Yes Status: Acute (4) DM type 2 (diabetes mellitus, type 2) Current Visit: Yes Status: Acute (5) Morbid obesity Current Visit: Yes Status: Acute Physician Review Additional Text: Problem List Acute hypoxic respiratory failure secondary to bilateral COVID-19 pneumonia complicated with bilateral segmental/subsegmental pulmonary emboli Diabetes mellitus type 2 -stable on 3 L oxygen by nasal cannula. -continue IV steroids, supplements, oxygen as needed -continue Coumadin with Lovenox bridge. Titrate Coumadin for INR target of 2. INR need to be therapeutic before discharge. -insulin sliding scale for glucose management. -resume metformin -continue to wean oxygen as tolerated. VTE: Coumadin. Code: full
[2020-10-13] MEDS ORDERED: ALBUTEROL INHALER 60 PUFF/8 GM IH PRN (12:25)
[2020-10-13] MEDS ORDERED: WARFARIN SODIUM 7.5 MG TAB PO SCH (17:00)
[2020-10-13] MEDS: METFORMIN HCL 500 MG TAB PO SCH (21:28)
[2020-10-14 07:40] VITALS: TEMP 97.4
[2020-10-14] MEDS: ZINC SULFATE 220 MG CAP PO SCH (07:48)
[2020-10-14] MEDS: ASCORBIC ACID 500 MG TABLET PO SCH ×2 (07:48→12:11)
[2020-10-14] MEDS: THIAMINE HCL 100 MG TABLET PO SCH (07:48)
[2020-10-14] MEDS: METFORMIN HCL 500 MG TAB PO SCH (07:48)
[2020-10-14] MEDS: VITAMIN D 1000 UNIT TAB PO SCH (07:48)
[2020-10-14] MEDS: Enoxaparin 120 MG/0.8 ML SYR SQ SCH (07:49)
[2020-10-14] MEDS: METHYLPREDNISOLONE 125 MG INJ IV SCH (07:49)
[2020-10-14] MEDS: INSULIN -REGULAR HUMAN 50 UNIT/0.5 ML ML SQ SCH ×2 (07:50→11:30)
[2020-10-14] MEDS: INSULIN 70/30 100 UNITS/ML SQ SCH (07:50)
[2020-10-14 08:41] VITALS: O2SAT 97
[2020-10-14] MEDS ORDERED: HOME MED 1 EA UNK (Fluticasone Furoate [Arnuity Ellipta] 100 MCG Blst.W.Dev) IH SCH (09:00)
[2020-10-14 14:20] VITALS: BP 139/96
--- NOTE | 2020-10-14 20:36 | P.DS ---
Admission Date: 10/05/20 Discharge Date: 10/14/20 Disposition: ROUTINE DISCHARGE Discharge Condition: FAIR Reason for Admission: Pulmonary embolism, COVID-19 pneumonia Consultations: Pulm - Dr. Cruz Procedures: CXR (10/05): Bilateral moderate severity pneumonia pattern consistent with a COVID-19 pneumonia. CTA Chest (10/05): Multiple lobar and segmental size pulmonary emboli identified. Extensive bilateral COVID-19 pneumonia changes of the lung parenchyma. TTE (10/07): normal LVEF (57%), no wall motion abnormality. no pulmonary hypertension. Problem List acute hypoxemic respiratory failure COVID 19 pneumonia PE associated with COVID-19 DM2, insulin dependent Morbid obesity Brief History of Present Illness: 45-year-old woman with a history of diabetes mellitus type 2, COVID infection presented to the emergency department with a complaint of shortness of breath. Patient 1st tested positive for COVID on 09/06/2020 and was admitted from 09/09/2020 to 09/24/2020. Patient was on nasal cannula throughout most of that admission and was discharged on Eliquis 2.5 mg twice a day. She was hypoxic on arrival to the ED. Chest x-ray demonstrated bilateral pneumonia CT PE protocol demonstrated multiple lobar and segmental pulmonary emboli and extensive bilateral infiltrates. She was requiring 5-6 L of oxygen. Patient was admitted for further management. Hospital Course: Patient admitted to the medical floor and started on IV steroid, bronchodilators, vitamin supplementation. She was given Ivermectin. Her respiratory condition got worse, patient required high-flow oxygen. She was later weaned off high-flow oxygen to oxygen by nasal cannula which she tolerated. Patient has clinically improved. She is tolerating 2 L of oxygen by nasal cannula. She does have some shortness of breath with ambulation. Patient seen by pulmonary in consultation who assisted with treatment. Her blood sugar was managed with Novolin 70/30 and insulin sliding scale. She has steroid induced hyperglycemia. Patient deemed clinically stable for discharge. She was initially discharged with Eliquis, however patient stated she couldn't afford this medication so she remained in the hospital until she was successfully bridged to coumadin with lovenox. She was discharged on 5mg daily coumadin and will need to have her INR checked later this week. Follow up with PCP in 3-5 days. Follow up with Dr. Quinteros in ~1 week. Vital Signs/Physical Exam: Temp Pulse Resp BP Pulse Ox 97.4 F 102 H 19 139/96 H 96 10/14/20 07:38 10/14/20 11:36 10/14/20 11:36 10/14/20 11:36 10/14/20 11:36 General: Alert, In no apparent distress, Oriented x3 HEENT: Sclerae nonicteric Neck: Supple, 2+ carotid pulse no bruit Respiratory: Normal air movement, Other (nonlabored respirations) Cardiovascular: No edema, Regular rate/rhythm, Normal S1 S2 Gastrointestinal: Soft and benign, Non-distended, No tenderness Musculoskeletal: No erythema, No tenderness Integumentary: No rashes, No breakdown Neurological: Normal speech, Normal affect Laboratory Data at Discharge: WBC 8.40 K/uL (4.3-10.9) 10/13/20 04:35 Hgb 12.1 g/dL (12.0-15.0) 10/13/20 04:35 Hct 37.2 % (36.0-45.0) 10/13/20 04:35 Plt Count 257 K/uL (152-406) 10/13/20 04:35 PT 34.9 SECONDS (9.5-12.5) H 10/14/20 04:28 INR 3.00 10/14/20 04:28 APTT 32.4 SECONDS (24.3-36.9) 10/05/20 18:42 Sodium 136 mmol/L (136-145) 10/11/20 21:57 Potassium 4.6 mmol/L (3.5-5.1) 10/11/20 21:57 BUN 27 mg/dL (7-18) H 10/11/20 21:57 Creatinine 0.87 mg/dL (0.55-1.3) 10/11/20 21:57 Glucose 477 mg/dL (74-106) H* 10/11/20 21:57 Magnesium 2.3 mg/dL (1.8-2.4) 10/08/20 04:09 Total Bilirubin 0.4 mg/dL (0.2-1.0) 10/10/20 04:12 AST 13 U/L (15-37) L 10/10/20 04:12 ALT 44 U/L (12-78) 10/10/20 04:12 Alkaline Phosphatase 55 U/L (45-117) 10/10/20 04:12 Troponin I 0.07 ng/mL (0.0-0.045) H 10/06/20 05:00 Amylase 32 U/L (25-115) 10/05/20 18:42 Lipase 96 U/L (73-393) 10/05/20 18:42 Home Medications: Albuterol Sulfate [Proair Hfa] 2 puff IH Q4HP PRN 10/06/20 Fluticasone Furoate [Arnuity Ellipta] 1 in IN DAILY 10/06/20 Metformin HCl [Glucophage*] 1 tab PO BID 10/06/20 Alcohol Antiseptic Pads [Alcohol Swabs] 1 each TP TID #100 med..pad 10/11/20 Ascorbic Acid [Vitamin C*] 500 mg PO QID #120 tablet 10/11/20 Benzonatate [Tessalon Perle*] 100 mg PO TID PRN #30 cap 10/11/20 Blood Sugar Diagnostic [Glucose Test Strip] 1 each MC TID #90 strip 10/11/20 Cholecalciferol (Vitamin D3) [Vitamin D 1000 Iu Tab*] 4,000 unit PO DAILY #120 tab 10/11/20 Insulin 70/30 NPH/Reg Human [Novolin 70/30*] 12 unit SQ BIDAC #10 ml 10/11/20 Lancets [Lancets Thin] 1 each MC TID #100 each 10/11/20 Syring-Needl,Disp,Insul,0.3 ml [Insulin Syringe] 1 each MC TID #100 disp.syrin 10/11/20 Thiamine HCl [Vitamin B-1*] 200 mg PO DAILY #30 tablet 10/11/20 Zinc Sulfate [Zinc Sulfate*] 220 mg PO DAILY #30 cap 10/11/20 predniSONE [Prednisone] 20 mg PO BID #21 tablet 10/11/20 Warfarin Sodium [Coumadin] 5 mg PO DAILY 5 PM 30 Days #30 tab 10/14/20 New Medications: Alcohol Antiseptic Pads [Alcohol Swabs] 1 each TP TID #100 med..pad Warfarin Sodium [Coumadin] 5 mg PO DAILY 5 PM 30 Days #30 tab Blood Sugar Diagnostic [Glucose Test Strip] 1 each MC TID #90 strip Syring-Needl,Disp,Insul,0.3 ml [Insulin Syringe] 1 each MC TID #100 disp.syrin Lancets [Lancets Thin] 1 each MC TID #100 each Insulin 70/30 NPH/Reg Human [Novolin 70/30*] 12 unit SQ BIDAC #10 ml predniSONE [Prednisone] 20 mg PO BID #21 tablet Benzonatate [Tessalon Perle*] 100 mg PO TID PRN #30 cap PRN Reason: Cough Thiamine HCl [Vitamin B-1*] 200 mg PO DAILY #30 tablet Ascorbic Acid [Vitamin C*] 500 mg PO QID #120 tablet Cholecalciferol (Vitamin D3) [Vitamin D 1000 Iu Tab*] 4,000 unit PO DAILY #120 tab Zinc Sulfate [Zinc Sulfate*] 220 mg PO DAILY #30 cap Physician Discharge Instructions: Follow up with your PCP. You are started on Coumadin (blood thinner) 5mg once a day. You will need a lab test (INR) later this week. Your PCP will continue to manage these results / coumadin dosage. Follow up with Dr. Cruz in 1 week - call his office to schedule appointment. Diet: ADA Activity: Ad summer Followup: Harjinder Cruz MD [ACTIVE - CAN ADMIT] - 1 Week (call to schedule appointment) NONE,NONE [Primary Care Provider] - (call to schedule appointment) Time spent managing pt's care (in minutes): 40
== END 2020-10-14 13:25 | disposition home or self-care (01) | DRG 177 ==
LOC: ER 17:20 → ERHOLD 21:04 → 3RD-ICU 10-06 21:19 → UNDODISIN 10-11 14:45
PROVIDERS: ADMIT Hospitalist; ATTEND Hospitalist
PROC: 5A09557 Assistance with Respiratory Ventilation, Greater than 96 Consecutive Hours, Continuous Positive Airway Pressure (ICD-10-PCS; principal; 2020-10-05)
DX: U07.1 COVID-19 (principal); J12.82 Pneumonia due to coronavirus disease 2019; J96.01 Acute respiratory failure with hypoxia; I26.93 Single subsegmental thrombotic pulmonary embolism without acute cor pulmonale; Z68.42 Body mass index [BMI] 45.0-49.9, adult; E66.01 Morbid (severe) obesity due to excess calories; E11.65 Type 2 diabetes mellitus with hyperglycemia; T38.0X5A Adverse effect of glucocorticoids and synthetic analogues, initial encounter; R00.0 Tachycardia, unspecified; Z98.51 Tubal ligation status; Z23 Encounter for immunization; Z79.52 Long term (current) use of systemic steroids; Z79.01 Long term (current) use of anticoagulants; Z79.899 Other long term (current) drug therapy; Z79.4 Long term (current) use of insulin
CPT/HCPCS: 0240U; 36415; 71045; 71275; 80048; 80053; 80076; 81003; 81015; 81025; 82150; 82550; 82553; 82728; 82947; 83036; 83605; 83690; 83735; 84439; 84443; 84484; 85025; 85610; 85730; 86140; 87040; 90471; 90732; 93005; 93306; 94002; 94003; 96365; 96367; 96368; 96372; 96375; 99285; J0456; J1650; J1815; J1940; J2920; J2930; J7050; Q9967

== ENCOUNTER 2020-10-25 10:05 | Inpatient (IN) | payer OTHER, SELFPAY ==
--- OUTSIDE RECORDS SUMMARY | 2020-10-25 10:08 | XMS REPORT | Continuity of Care Document ---
:1975 Author Organization [facility] t Address [address] [place] [address] Care Team Providers Name Role Phone Kurt MENDOZA Attending Clinician Problems This patient has no known problems. Allergies, Adverse Reactions, Alerts This patient has no known allergies or adverse reactions. Medications This patient has no known medications. Procedures This patient has no known procedures. Encounters Start End Encounter Admission Attending Care Care Encounter Source Date/Time Date/Time Type Type Clinicians Facility Department ID 2019-01-04 [id number] 10:35:24 12:30:00 Ovi Dalal [id number] [place] [id number] [place] [id number] Results This patient has no known results.
[2020-10-25 11:07] LABS: Absolute Lymphocytes (CBC) 0.8 K/uL (0.7-4.9); Basophils % 0.4 % (0-1.3); Hematocrit 36.7 % (36.0-45.0); Lymphocytes % 7.5 % (15.3-44.8); RBC Red Blood Cell Count 4.56 M/uL (3.86-4.86)
[2020-10-25] MEDS ORDERED: ONDANSETRON 4 MG/2 ML VIAL ONE ×2 (11:13→14:33)
[2020-10-25] MEDS ORDERED: MORPHINE 2 MG/ML SYR ONE (11:13)
[2020-10-25] MEDS ORDERED: NA CHLORIDE 0.9% 1,000 ML ONE ×3 (11:13→14:51)
[2020-10-25 11:15] LABS: Protime INR 3.21
[2020-10-25] MEDS ORDERED: MORPHINE 4 MG/ML SYR ONE (11:16)
[2020-10-25 11:37] LABS: ALT/SGPT 40 U/L (12-78); AST/SGOT 12 U/L (15-37); Albumin 1.9 g/dL (3.4-5.0); Alkaline Phosphatase 95 U/L (45-117); Amylase 17 U/L (25-115); BUN Blood Urea Nitrogen 9 mg/dL (7-18); Bicarbonate 24 mmol/L (21-32); Bilirubin Direct 0.4 mg/dL (0-0.2); Bilirubin Total 1.5 mg/dL (0.2-1.0); CKMB Creatine Kinase MB < 1.0 ng/mL (1.0-3.6); Creatine Phosphokinase 32 U/L (26-192); Glucose Level 326 mg/dL (74-106); Lipase 51 U/L (73-393); Potassium 4.2 mmol/L (3.5-5.1); Protein, Total 7.4 g/dL (6.4-8.2); Sodium Level 136 mmol/L (136-145); Troponin (Emerg Dept Use Only) < 0.02 ng/mL (0.0-0.045)
--- NOTE | 2020-10-25 11:48 | RAD REPORT ---
EXAM DESCRIPTION: RAD - Chest Single View - 10/25/2020 11:43 am CLINICAL HISTORY: SOB Chest pain. COMPARISON: Chest Single View dated 10/05/2020 FINDINGS: Portable technique limits examination quality. Moderate bilateral pulmonary opacities appear similar to comparative study 10/05/2020. This is presum ably related to infection/ pneumonia. Heart is upper normal size.
--- NOTE | 2020-10-25 12:18 | RAD REPORT ---
EXAM DESCRIPTION: CTAbdomen Pelvis W Contrast - 10/25/2020 12:03 pm CLINICAL HISTORY: Abdominal pain. ESTRELLITA-RECTAL ABCESS COMPARISON: No comparisons TECHNIQUE: Biphasic CT imaging of the abdomen and pelvis was performed with 100 ml non-ionic IV cont rast. All CT scans are performed using dose optimization technique as appropriate and may include automated exposure control or mA/KV adjustment according to patient size. FINDINGS: Moderate bibasilar interstitial lung opacities. The liver, spleen, pancreas, adrenal glands and kidneys are within normal limits. No bowel obstruction, free air, free fluid or abscess. The appendix is normal. No evidence of signi ficant lymphadenopathy. No suspicious bony findings. There is a large amount of inflammation in the buttock soft tissue air p resent as well as skin thickening and phlegmon. The approximate size of the region follow-up is 19 x 10 cm. 21 x 16 mm perirectal abscess is present anterior aspect rectum significant thickening of soft tissues noted. IMPRESSION: Significant necrotizing infection is suspected involving the left buttock with soft tiss ue gas present. Area inflammation involving left but off quite extensive almost 20 x 10 cm. Small 21 mm perirectal abscess is also present on the left.
[2020-10-25] MEDS ORDERED: HYDROMORPHONE HCL 2 MG/ML inj ONE (12:41)
[2020-10-25] MEDS ORDERED: PIPER/TAZO/NS 3.375gm 3.375 GM/100 ML BAG ONE (12:42)
[2020-10-25] MEDS ORDERED: Levofloxacin 750mg IV 750 MG/150 ML BAG IV ONE (12:42)
[2020-10-25 12:44] LABS: Blood Morphology Comment NOT SEEN (NOT SEEN); Platelet Estimate ADEQ
--- NOTE | 2020-10-25 13:01 | ER ---
Nurse's Notes [facility] Name: Saida Coyle Age: 45 yrs Sex: Female : 1975 Arrival Date: 10/25/2020 Time: 10:08 Bed 14 Private MD: Diagnosis: Sepsis, unspecified organism-Due to perirectal abscess;Abscess of anal and rectal regions-perirectal abscess Presentation: 10/25 10:13 Chief complaint: Patient states: possible abcess to left buttocks that began 4 days aa5 ago. Pt reports she was d/c'd from hospital 1 week ago with COVID-19 Pneumonia and on home O2. 10:13 Acuity: VERITO 2 aa5 10:13 Method Of Arrival: Wheelchair aa5 10:13 Coronavirus screen: Client reports previous positive COVID test result. Ebola Screen: aa5 Patient negative for fever greater than or equal to 101.5 degrees Fahrenheit, and additional compatible Ebola Virus Disease symptoms. Initial Sepsis Screen: Does the patient meet any 2 criteria? RR > 20 per min. HR > 90 bpm. Yes Does the patient have a suspected source of infection? Yes:. Risk Assessment: Do you want to hurt yourself or someone else? Patient reports no desire to harm self or others. Onset of symptoms was October 2020. TREE MARKER: 13:55 LMP N/A - Tubal ligation vg1 Historical: - Allergies: 10:16 No Known Allergies; aa5 - PMHx: 10:16 Diabetes - NIDDM; aa5 - PSHx: 10:16 None; aa5 - Immunization history:: Adult Immunizations unknown. - Social history:: Smoking status: Patient denies any tobacco usage or history of. Screenin:07 Abuse screen: Denies threats or abuse. Nutritional screening: No deficits noted. vg1 Tuberculosis screening: No symptoms or risk factors identified. Fall Risk No fall in past 12 months (0 pts). No secondary diagnosis (0 pts). IV access (20 points). Ambulatory Aid- None/Bed Rest/Nurse Assist (0 pts). Gait- Normal/Bed Rest/Wheelchair (0 pts) Mental Status- Oriented to own ability (0 pts). Total Swenson Fall Scale indicates No Risk (0-24 pts). Assessment: 10:15 General: Appears in no apparent distress. uncomfortable, Behavior is calm, cooperative, vg1 crying. Pain: Complains of pain in buttocks Pain currently is 10 out of 10 on a pain scale. Noted to be grimacing, moaning. Neuro: Level of Consciousness is awake, alert, obeys commands, Oriented to person, place, time, situation. Cardiovascular: Patient's skin is warm and dry. Rhythm is sinus tachycardia. Respiratory: Airway is patent Respiratory effort is even, unlabored, Respiratory pattern is tachypnea Breath sounds are clear bilaterally. GI: No signs and/or symptoms were reported involving the gastrointestinal system. : No signs and/or symptoms were reported regarding the genitourinary system. EENT: No signs and/or symptoms were reported regarding the EENT system. Derm: Skin is intact, Abscess located on buttocks. Musculoskeletal: Circulation, motion, and sensation intact. 11:53 Reassessment: Received VO from Stella PERALTA to straight cath pt for urine sample. vg1 12:58 Reassessment: Patient appears in no apparent distress at this time. No changes from vg1 previously documented assessment. Patient and/or family updated on plan of care and expected duration. Pain level reassessed. Patient is alert, oriented x 3, equal unlabored respirations, skin warm/dry/pink. Vital Signs: 10:13 BP 118 / 75; Pulse 150; Resp 30 S; Temp 99.5(TE); Pulse Ox 87% on R/A; Weight 112.04 kg aa5 (R); Height 5 ft. 2 in. (157.48 cm) (R); 10:56 BP 105 / 70; Pulse 132; Resp 26; Pulse Ox 100% on 2 lpm NC; vg1 11:00 BP 103 / 78; Pulse 130; Resp 22; Pulse Ox 100% on 2 lpm NC; vg1 12:40 BP 110 / 72; Pulse 126; Resp 22; Pulse Ox 100% on 2 lpm NC; vg1 10:13 Body Mass Index 45.18 (112.04 kg, 157.48 cm) aa5 ED Course: 10:08 Patient arrived in ED. mr 10:13 Arm band placed on. aa5 10:15 Triage completed. aa5 10:27 Sean Douglas NP is PHCP. pm1 10:27 Bassem Valladares MD is Attending Physician. pm1 10:48 Initial lab(s) drawn, by me, sent to lab. Inserted saline lock: 22 gauge in right vg1 antecubital area, using aseptic technique. Blood collected. 10:48 First set of blood cultures drawn by me. vg1 10:55 Deirdre Easley, RN is Primary Nurse. vg1 11:06 Second set of blood cultures drawn by me. vg1 11:07 Patient has correct armband on for positive identification. Placed in gown. Bed in low vg1 position. Call light in reach. Side rails up X 1. 11:42 Chest Single View XRAY In Process Unspecified. EDMS 12:03 CT Abd/Pelvis - IV Contrast Only In Process Unspecified. EDMS 12:45 Straight cath inserted, using sterile technique, 16 Fr. Specimen obtained. vg1 13:00 Mat Em is Hospitalizing Provider. pm1 14:20 No provider procedures requiring assistance completed. Patient admitted, IV remains in vg1 place. Administered Medications: 10:59 Drug: morphine 4 mg Route: IVP; Site: right forearm; tr6 12:39 Follow up: Response: No adverse reaction; Pain is unchanged, physician notified vg1 10:59 Drug: Zofran (Ondansetron) 4 mg Route: IVP; Site: right forearm; tr6 12:39 Follow up: Response: No adverse reaction; Nausea is decreased vg1 11:00 Drug: NS 0.9% (30 ml/kg) 30 ml/kg Route: IV; Rate: bolus; Site: right antecubital; vg1 12:28 Drug: Dilaudid (HYDROmorphone) 1 mg Route: IVP; Site: right antecubital; vg1 13:00 Follow up: Response: No adverse reaction; Pain is unchanged, physician notified vg1 12:30 Drug: Zosyn (piperacillin-tazobactam) 3.375 grams Route: IVPB; Infused Over: 60 mins; vg1 Site: right antecubital; 13:54 Follow up: IV Status: Completed infusion; IV Intake: 100ml vg1 12:45 Drug: NS 0.9% (30 ml/kg) 30 ml/kg Route: IV; Rate: bolus; Site: left antecubital; vg1 12:59 Follow up: IV Intake: 1000ml vg1 12:45 Drug: LevaQUIN (levofloxacin) 750 mg Volume: 150 ml; Route: IVPB; Infused Over: 90 vg1 mins; Site: left antecubital; 14:20 Follow up: IV Status: Completed infusion vg1 13:06 Drug: Dilaudid (HYDROmorphone) 1 mg Route: IVP; Site: right antecubital; vg1 13:54 Follow up: Response: No adverse reaction; Pain is unchanged, physician notified vg1 Intake: 12:59 IV: 1000ml; Total: 1000ml. vg1 13:54 IV: 100ml; Total: 1100ml. vg1 Outcome: 13:00 Decision to Hospitalize by Provider. pm1 14:21 Admitted to OR accompanied by nurse, via stretcher, with chart. vg1 14:21 Condition: stable 14:21 Instructed on the need for admit. 14:21 Patient left the ED. vg1 Signatures: Dispatcher [employer] EDHaley Corbett Audri RN RN aa5 Sean Douglas NP SIGNAL REPAIRER pm1 Deirdre Easley RN RN vg1 Naila Pickard RN RN tr6
--- NOTE | 2020-10-25 13:01 | EDPHYS ---
Physician Documentation [facility] Name: Saida Coyle Age: 45 yrs Sex: Female : 1975 Arrival Date: 10/25/2020 Time: 10:08 Bed 14 Private MD: ED Physician Bassem Valladares HPI: 10/25 11:03 This 45 yrs old Female presents to ER via Wheelchair with complaints of pm1 Abscess. 11:03 The patient presents with an abscess of the buttocks. Description: swollen, tense. pm1 Onset: The symptoms/episode began/occurred 3 day(s) ago. Possible cause(s): unknown. Associated signs and symptoms: Pertinent positives: constipation for 4 days, Pertinent negatives: discharge, drainage, fever. Modifying factors: the symptoms are alleviated by nothing, the symptoms are aggravated by movement, pressure, sitting, touching. Severity of symptoms: in the emergency department the symptoms are actually worse, larger and more painful. The patient has not experienced similar symptoms in the past. The patient has been recently seen by a physician: Dr. Cruz on Tuesday for follow up of covid and PE. Patient is currently taking coumadin for management. [place]: 13:55 LMP N/A - Tubal ligation vg1 Historical: - Allergies: 10:16 No Known Allergies; aa5 - PMHx: 10:16 Diabetes - NIDDM; aa5 - PSHx: 10:16 None; aa5 - Immunization history:: Adult Immunizations unknown. - Social history:: Smoking status: Patient denies any tobacco usage or history of. ROS: 11:03 Constitutional: Negative for fever, chills, and weight loss, Eyes: Negative for injury, pm1 pain, redness, and discharge, ENT: Negative for injury, pain, and discharge, Neck: Negative for injury, pain, and swelling, Cardiovascular: Negative for chest pain, palpitations, and edema, Respiratory: Negative for shortness of breath, cough, wheezing, and pleuritic chest pain, Back: Negative for injury and pain, : Negative for injury, bleeding, discharge, and swelling, MS/Extremity: Negative for injury and deformity. 11:03 Neuro: Negative for headache, weakness, numbness, tingling, and seizure. 11:03 Abdomen/GI: Positive for constipation, Negative for abdominal pain, nausea, vomiting, and diarrhea. 11:03 Skin: Positive for abscess, of the left gluteus gabriele. Exam: 11:03 Head/Face: Normocephalic, atraumatic. pm1 11:03 Back: No spinal tenderness. No costovertebral tenderness. Full range of motion. MS/ Extremity: Pulses equal, no cyanosis. Neurovascular intact. Full, normal range of motion. 11:03 Constitutional: The patient appears alert, awake, non-diaphoretic, non-toxic, well developed, well hydrated, well groomed, well nourished, in obvious pain. 11:03 Eyes: Exam is negative for acute changes, Periorbital structures: appear normal, Extraocular movements: no acute changes, Conjunctiva: normal, Lids and lashes: appear normal. 11:03 ENT: Mouth: Lips: normal, Oral mucosa: normal, pink and intact, moist. 11:03 Cardiovascular: Rate: tachycardic, Rhythm: regular, Pulses: no pulse deficits are appreciated, Heart sounds: normal, normal S1and S2, Edema: is not appreciated. 11:03 Respiratory: the patient does not display signs of respiratory distress, Respirations: normal, Breath sounds: are clear throughout. 11:03 Abdomen/GI: Inspection: obese Palpation: abdomen is soft and non-tender, in all quadrants, Rectal exam: rectal tone normal, Stool: brown, hemorrhoid(s), are not appreciated, Left gluteus with large area of tenderness and swelling. Supervisor Fleshing: Zoey LUO. 11:03 Skin: Appearance: normal except for affected area, cellulitis, well demarcated, on the left gluteus gabriele. 11:03 Neuro: Exam negative for acute changes, Orientation: is normal, Motor: is normal, moves all fours. Vital Signs: 10:13 BP 118 / 75; Pulse 150; Resp 30 S; Temp 99.5(TE); Pulse Ox 87% on R/A; Weight 112.04 kg aa5 (R); Height 5 ft. 2 in. (157.48 cm) (R); 10:56 BP 105 / 70; Pulse 132; Resp 26; Pulse Ox 100% on 2 lpm NC; vg1 11:00 BP 103 / 78; Pulse 130; Resp 22; Pulse Ox 100% on 2 lpm NC; vg1 12:40 BP 110 / 72; Pulse 126; Resp 22; Pulse Ox 100% on 2 lpm NC; vg1 10:13 Body Mass Index 45.18 (112.04 kg, 157.48 cm) aa5 MDM: 10:27 Patient medically screened. [place] 12:40 Data reviewed: vital signs. pm1 12:42 Counseling: I had a detailed discussion with the patient and/or guardian regarding: the pm1 historical points, exam findings, and any diagnostic results supporting the discharge/admit diagnosis, lab results, radiology results, the need for further work-up and treatment in the hospital. 12:45 Physician consultation: Michael Guerra MD was called at 12:45, was contacted at 12:45, pm1 regarding consult, patient's condition, and will see patient in ED, shortly. 12:56 Physician consultation: Mat Em was called at 12:52, was contacted at 12:52, pm1 regarding admission, patient's condition, and will see patient. 13:32 Physician consultation: Michael Guerra MD in the emergency department to see patient at pm1 13:32. 10/25 10:42 Order name: Amylase, Serum pm10/25 10:42 Order name: Basic Metabolic Panel pm1 10/25 10:42 Order name: Blood Culture Adult (2) pm10/25 10:42 Order name: CBC with Diff; Complete Time: 13:02 pm10/25 10:42 Order name: Ckmb; Complete Time: 11:46 pm10/25 10:42 Order name: CPK; Complete Time: 11:46 pm10/25 10:42 Order name: Lactate; Complete Time: 11:46 pm10/25 10:42 Order name: LFT's; Complete Time: 11:46 pm10/25 10:42 Order name: Lipase; Complete Time: 11:46 pm10/25 10:42 Order name: Procalcitonin; Complete Time: 11:58 pm10/25 10:42 Order name: Protime (+inr); Complete Time: 11:46 pm10/25 10:42 Order name: Ptt, Activated; Complete Time: 11:46 pm10/25 10:42 Order name: Troponin (emerg Dept Use Only); Complete Time: 11:47 pm1 06/05 10:42 Order name: Urine Microscopic Only; Complete Time: 14:18 pm1 10/25 10:42 Order name: Chest Single View XRAY; Complete Time: 11:58 pm1 10/25 10:42 Order name: CT Abd/Pelvis - IV Contrast Only; Complete Time: 12:28 pm1 10/25 10:42 Order name: Amylase; Complete Time: 11:46 EDMS 10/25 10:42 Order name: Basic Metabolic Panel; Complete Time: 11:46 EDMS 10/25 12:44 Order name: Manual Differential; Complete Time: 13:02 EDMS 10/25 13:03 Order name: Urine Dipstick-Ancillary; Complete Time: 13:11 EDMS 10/25 13:10 Order name: Urine --Ancillary (enter results); Complete Time: 14:18 eb 10/25 13:19 Order name: COVID-19 : Document "Date of Symptom Onset" if Symptomatic. vg1 10/25 14:15 Order name: Lactate Sepsis 2 HR Follow-up; Complete Time: 14:18 EDMS 10/25 10:42 Order name: Urine Test (obtain specimen); Complete Time: 13:23 pm1 10/25 10:42 Order name: Accucheck; Complete Time: 11:06 pm1 10/25 10:42 Order name: Cardiac monitoring; Complete Time: 11:06 pm1 10/25 10:42 Order name: EKG - Nurse/Tech; Complete Time: 11:06 pm1 10/25 10:42 Order name: IV Saline Lock - Large Bore; Complete Time: 11:06 pm1 10/25 10:42 Order name: Labs collected and sent; Complete Time: 11:06 pm10/25 10:42 Order name: O2 Per Protocol; Complete Time: 11:06 pm10/25 10:42 Order name: O2 Sat Monitoring; Complete Time: 11:06 pm1 10/25 10:42 Order name: Urine Dipstick-Ancillary (obtain specimen); Complete Time: 13:23 pm1 10/25 11:56 Order name: Straight Cath - Urine; Complete Time: 13:06 vg1 Administered Medications: 10:59 Drug: morphine 4 mg Route: IVP; Site: right forearm; tr6 12:39 Follow up: Response: No adverse reaction; Pain is unchanged, physician notified vg1 10:59 Drug: Zofran (Ondansetron) 4 mg Route: IVP; Site: right forearm; tr6 12:39 Follow up: Response: No adverse reaction; Nausea is decreased vg1 11:00 Drug: NS 0.9% (30 ml/kg) 30 ml/kg Route: IV; Rate: bolus; Site: right antecubital; vg1 12:28 Drug: Dilaudid (HYDROmorphone) 1 mg Route: IVP; Site: right antecubital; vg1 13:00 Follow up: Response: No adverse reaction; Pain is unchanged, physician notified vg1 12:30 Drug: Zosyn (piperacillin-tazobactam) 3.375 grams Route: IVPB; Infused Over: 60 mins; vg1 Site: right antecubital; 13:54 Follow up: IV Status: Completed infusion; IV Intake: 100ml vg1 12:45 Drug: NS 0.9% (30 ml/kg) 30 ml/kg Route: IV; Rate: bolus; Site: left antecubital; vg1 12:59 Follow up: IV Intake: 1000ml vg1 12:45 Drug: LevaQUIN (levofloxacin) 750 mg Volume: 150 ml; Route: IVPB; Infused Over: 90 vg1 mins; Site: left antecubital; 14:20 Follow up: IV Status: Completed infusion vg1 13:06 Drug: Dilaudid (HYDROmorphone) 1 mg Route: IVP; Site: right antecubital; vg1 13:54 Follow up: Response: No adverse reaction; Pain is unchanged, physician notified vg1 Disposition: 10/25/20 13:00 Hospitalization ordered by Mat Em for Inpatient Admission. Preliminary diagnosis are Sepsis, unspecified organism - Due to perirectal abscess, Abscess of anal and rectal regions - perirectal abscess. - Bed requested for Intensive Care Unit. - Status is Inpatient Admission. vg1 - Condition is Stable. - Problem is new. - Symptoms have improved. Addendum: 10/28/2020 07:39 Co-signature as Attending Physician, Bassem Valladares MD I agree with the assessment and c gill plan of care. Signatures: Dispatcher [employer] Bassem Marina MD MD cha Calderon, Audri, RN RN aa5 Sean Douglas, VITREO RETINAL SURGEON VITREO RETINAL SURGEON pm1 Deirdre Easley, RN RN vg1 Naila Pickard RN RN tr6 Corrections: (The following items were deleted from the chart) 10/25 14:21 13:00 Hospitalization Ordered by Mat Em for Inpatient Admission. Preliminary vg1 diagnosis is Sepsis, unspecified organism - Due to perirectal abscess; Abscess of anal and rectal regions - perirectal abscess. Bed requested for Intensive Care Unit. Status is Inpatient Admission. Condition is Stable. Problem is new. Symptoms have improved. pm1
[2020-10-25 13:03] LABS: Urine Blood Trace-intact (Negative); Urine Glucose 3+ (Negative); Urine Protein 2+ (Negative); Urine pH 5.5 (5.0-7.0)
[2020-10-25 13:18] LABS: Urine Bacteria <20 /HPF (<20)
[2020-10-25 13:19] LABS: Urine Amorphous Sediment 1+ /HPF (NONE SEEN); Urine Coarse Granular Casts 0-5 /LPF (NONE SEEN)
--- NOTE | 2020-10-25 13:37 | P.HP ---
Certification for Inpatient Patient admitted to: Inpatient With expected LOS: >2 Midnights Practitioner: I am a practitioner with admitting privileges, knowledge of patient current condition, hospital course, and medical plan of care. Services: Services provided to patient in accordance with Admission requirements found in Title 42 Section 412.3 of the Code of Federal Regulations Patient History Date of Service: 10/25/20 Reason for admission: Left gluteal swelling and pain History of Present Illness: 45-year-old woman recently hospitalized for COVID pneumonia with hypoxia, p ulmonary embolus and discharged with Coumadin anticoagulation and home oxygen presented to the emergency department with a complaint of painful swelling in the left gluteal area which rapidly increased in size over the past 4 days. Patient reports severe pain with the swelling. CT done in the emergency department demonstrated large gluteal abscess with necrotic changes, small perirectal abscess. Her pro calcitonin is elevated. No leukocytosis and patient does not meet criteria for sepsis. INR elevated to 3. General surgery Dr. Guerra was contacted who recommended urgent surgical debridement. Patient started on IV antibiotics and hospitalized for further management. Patient was seen after the surgical debridement. Allergies No Known Drug Allergies Allergy (Verified 10/06/20 01:49) Unknown Home Medications: Albuterol Sulfate [Proair Hfa] 2 puff IH Q4HP PRN 10/06/20 Fluticasone Furoate [Arnuity Ellipta] 1 in IN DAILY 10/06/20 Metformin HCl [Glucophage*] 1 tab PO BID 10/06/20 Alcohol Antiseptic Pads [Alcohol Swabs] 1 each TP TID #100 med..pad 10/11/20 Ascorbic Acid [Vitamin C*] 500 mg PO QID #120 tablet 10/11/20 Benzonatate [Tessalon Perle*] 100 mg PO TID PRN #30 cap 10/11/20 Blood Sugar Diagnostic [Glucose Test Strip] 1 each MC TID #90 strip 10/11/20 Cholecalciferol (Vitamin D3) [Vitamin D 1000 Iu Tab*] 4,000 unit PO DAILY #120 tab 10/11/20 Insulin 70/30 NPH/Reg Human [Novolin 70/30*] 12 unit SQ BIDAC #10 ml 10/11/20 Lancets [Lancets Thin] 1 each MC TID #100 each 10/11/20 Syring-Needl,Disp,Insul,0.3 ml [Insulin Syringe] 1 each MC TID #100 disp.syrin 10/11/20 Thiamine HCl [Vitamin B-1*] 200 mg PO DAILY #30 tablet 10/11/20 Zinc Sulfate [Zinc Sulfate*] 220 mg PO DAILY #30 cap 10/11/20 predniSONE [Prednisone] 20 mg PO BID #21 tablet 10/11/20 Warfarin Sodium [Coumadin] 5 mg PO DAILY 5 PM 30 Days #30 tab 10/14/20 - Past Medical/Surgical History Diabetic: Yes -: Diabetes mellitus type 2 -: [place] virus infection -: Pulmonary embolism -: Tubal ligation Psychosocial/ Personal History: 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 Physical Examination - Physical Exam General: Alert, In no apparent distress, Oriented x3 HEENT: Normocephalic, PERRLA, Mucous membr. moist/pink, EOMI, Sclerae nonicteric Neck: Supple, JVD not distended Respiratory: Clear to auscultation bilaterally, Normal air movement Cardiovascular: No edema, Regular rate/rhythm, Normal S1 S2 Capillary refill: <2 Seconds Gastrointestinal: Normal bowel sounds, Soft and benign, Non-distended, No tenderness Musculoskeletal: No swelling, No tenderness Integumentary: Other (Dressed wound in the left gluteal area) Neurological: Normal strength at 5/5 x4 extr, Cranial nerves 3-12 intact Lymphatics: No axilla or inguinal lymphadenopathy - Studies Laboratory Data (last 24 hrs) 10/25/20 10:48: PT 37.4 H, INR 3.21, APTT 37.9 H 10/25/20 10:48: WBC 10.80 D, Hgb 11.9 L, Hct 36.7, Plt Count 270 10/25/20 10:48: Sodium 136, Potassium 4.2, BUN 9, Creatinine 0.90, Glucose 326 H, Total Bilirubin 1.5 H, AST 12 L, ALT 40, Alkaline Phosphatase 95, Amylase 17 L, Lipase 51 L Assessment and Plan - Problems (Diagnosis) (1) Gluteal abscess Current Visit: Yes Status: Acute (2) Perirectal abscess Current Visit: Yes Status: Acute (3) Acute respiratory failure with hypoxemia Current Visit: No Status: Acute (4) DM type 2 (diabetes mellitus, type 2) Current Visit: No Status: Acute (5) Morbid obesity Current Visit: No Status: Acute (6) Pulmonary embolism Current Visit: Yes Status: Acute (7) History of COVID-19 Current Visit: Yes Status: Acute - Plan Patient admitted to the medical floor. Start IV vancomycin and Cefepime. Follow deep tissue wound culture. Follow blood culturess. Pain management with IV opioid. Aggressive blood sugar control with insulin sliding scale and Novolin 70/30. Supplemental oxygen p.r.n. Hold Coumadin for elevated INR. Monitor INR daily and resume Coumadin once INR is between 2-3. Her COVID pneumonia has been relatively stable. Patient stated she has been using oxygen only intermittently. Discontinue steroid. General surgery to follow. Wound care per surgery. - Advance Directives Does patient have a Living Will: No Does patient have a Durable POA for Healthcare: No
[2020-10-25] MEDS ORDERED: dexAMETHasone 4 MG/ML VIAL ONE (14:32)
[2020-10-25] MEDS ORDERED: FENTANYL CITR 100 MCG/2 ML ONE (14:32)
[2020-10-25] MEDS ORDERED: MIDAZOLAM HCL 2 MG/2 ML INJ ONE (14:32)
[2020-10-25] MEDS ORDERED: ETOMIDATE 20 MG/10 ML VIAL IV ONE (14:33)
--- NOTE | 2020-10-25 14:39 | P.CNS ---
Date of Consult: 10/25/20 PC: This 45-year-old female presented to the emergency room with severe left perirectal and buttock pain for diagnosis and treatment. HPC: Patient been recently in the hospital, was treated for cavity. She had been discharged and have been doing okay at home. Over the last 2 days she noticed she was developing what she thought was a boy a red pimple in the left side of her buttock in the perirectal area. It has however increase intensified and now she no longer stand the pain. PMH: [id number] diabetes PSHx: Negative SOC: No known drug allergies SYS REVIEW: No cough or wheeze, no urinary complaints. Has not had a bowel movement however and 2-3 days. Finding it very uncomfortable at the moment to try to walk. Had some temperatures and fevers last night. O/E awake alert tachycardic HEENT: Not jaundiced Chest: Chest movement equal bilaterally, not tachypneic ABD: Soft nontender LOCO: Her left buttock is tense and under pressure. I do not palpate any crepitus. DATA: White count normal, CT scan demonstrates left perirectal and buttock abscess IMPRESSION: Abscess of left buttock and perirectal area PLAN: I will to the operating room for incision, drainage, sharp debridement of this abscess of her left buttock and deya rectal area. The risks of this procedure have been discussed. The possibility of bleeding, infection, injury to surrounding structures has been explained. The possible need for further surgeries and procedures was discussed. Complicated postoperative wound care was outlined. She understands and wants to proceed.
--- NOTE | 2020-10-25 15:24 | P.OP ---
Preoperative diagnosis: Large perirectal abscess (8 x 18 cm) Postoperative diagnosis: The same Primary procedure: Incision, drainage, sharp debridement of perirectal abscess Anesthesia: General Estimated blood loss: Less than 15 cc Specimen: Cultures sent for both a aerobic and anaerobic culture Operative Technique: The patient brought the operating room and placed supine on the table. After the induction of adequate general endotracheal anesthesia, the patient was placed in lithotomy position. The area of the perineum and left buttock was then prepped with a Betadine solution, and she is draped in usual aseptic manner. At this point AE 14 gauge needle on a 10 cc syringe was used to identify and localize the abscess. It was inserted through the skin and aspirated. We encounter some bloody purulent drainage. This was sent for culture both a aerobic and anaerobic. Having identified the area of maximum fluctuance, an 11 blade was used to make a skin incision. This brought down through the skin and subcutaneous tissue. We encounter this large abscess cavity. The opening was widened to allow AE index finger to explore the abscess itself. It extended quite extensively around. The loculations were broken down. The [place] suction was now used to aspirate the purulent material. We were able to make a counter incision higher on the buttock. Through this were able to irrigate out this wound, and placing a finger on the other incision insure that we had broken down all the loculations of this abscess cavity. The abscess cavity was now sharply debrided with a cutting 11 surgical blade, and a surgical curette. At this point the wound was irrigated with a copious amount of saline solution. A [place] drain was passed into the superior portion and brought out the inferior tied upon itself to keep it open and draining during the postoperative period. At the end of the procedure she was in a stable condition when sent to the recovery room. Needle sponge instrument count were correct. 1 specimen was sent for culture and sensitivity. 1 [place] drain was placed. Estimated blood loss was less than 50 cc. Complications: None Drain(s): Other ([place] drain) Transferred to: Recovery Room Condition: Good
[2020-10-25] MEDS: INSULIN -REGULAR HUMAN 50 UNIT/0.5 ML ML SQ SCH ×2 (15:44→20:22)
[2020-10-25] MEDS ORDERED: ACETAMINOPHEN 500 MG TAB PO PRN (15:50)
[2020-10-25] MEDS ORDERED: ONDANSETRON 4 MG/2 ML VIAL IV PRN ×2 (15:50)
[2020-10-25] MEDS ORDERED: HYDROCODONE/APAP 5/325 MG TAB PO PRN (15:50)
[2020-10-25] MEDS: NA CHLORIDE 0.9% 1,000 ML IV SCH ×2 (15:50→20:13)
[2020-10-25] MEDS: HYDROMORPHONE HCL 1 MG/ML INJ ONE ×2 (16:08→16:19)
[2020-10-25] MEDS ORDERED: NA CHLORIDE 0.9% 500 ML ONE (16:27)
[2020-10-25] MEDS: CEFEPIME/SWI 1gm 10 ML IV SCH (17:00)
[2020-10-25] MEDS ORDERED: CEFEPIME 1 GM/VIAL IV SCH (17:00)
[2020-10-25 18:15] VITALS: BMI 47.3
[2020-10-25] MEDS: VANCOMYCIN 2 GM in NA CHLORIDE 0.9% 500 ML IVPB SCH (18:29)
[2020-10-25] MEDS: MORPHINE 4 MG/ML SYR IV PRN (18:30)
[2020-10-25] MEDS: MINERAL OIL 30 ML UCUP PO ONE ×2 (19:00→20:13)
[2020-10-25] MEDS ORDERED: GLUCAGON 1 MG/VIAL IM PRN (19:07)
[2020-10-25] MEDS ORDERED: D50W 25 GM/50 ML SYRINGE IV PRN (19:07)
[2020-10-25] MEDS: INSULIN 70/30 100 UNITS/ML SQ SCH (20:23)
[2020-10-25] MEDS: HYDROCODONE/APAP 7.5/325 MG TAB PO PRN (20:42)
[2020-10-26] MEDS: CEFEPIME/SWI 1gm 10 ML IV SCH ×3 (00:15→16:32)
[2020-10-26] MEDS: NA CHLORIDE 0.9% 1,000 ML IV SCH ×2 (04:11→16:36)
[2020-10-26 06:07] LABS: Absolute Lymphocytes (CBC) 0.5 K/uL (0.7-4.9); Basophils % 0.4 % (0-1.3); Hematocrit 29.9 % (36.0-45.0); Lymphocytes % 8.5 % (15.3-44.8); MPV 9.2 fL (7.6-11.3); RBC Red Blood Cell Count 3.67 M/uL (3.86-4.86)
[2020-10-26 06:08] LABS: BUN Blood Urea Nitrogen 8 mg/dL (7-18); Bicarbonate 23 mmol/L (21-32); Glucose Level 197 mg/dL (74-106); Magnesium 1.7 mg/dL (1.8-2.4); Phosphorus 3.3 mg/dL (2.5-4.9); Potassium 3.5 mmol/L (3.5-5.1); Sodium Level 138 mmol/L (136-145)
[2020-10-26 06:25] LABS: Protime INR 4.28
[2020-10-26] MEDS: HYDROCODONE/APAP 7.5/325 MG TAB PO PRN ×2 (08:39→20:44)
[2020-10-26] MEDS: INSULIN 70/30 100 UNITS/ML SQ SCH ×2 (08:40→20:40)
[2020-10-26] MEDS: INSULIN -REGULAR HUMAN 50 UNIT/0.5 ML ML SQ SCH ×4 (08:41→20:39)
[2020-10-26] MEDS ORDERED: MAGNESIUM SULFATE 1 gm IVPB 1 GM/100 ML BAG IV ONE (09:00)
[2020-10-26] MEDS ORDERED: POTASSIUM CL SA 10 MEQ TAB PO ONE (09:00)
[2020-10-26] MEDS: MORPHINE 4 MG/ML SYR IV PRN ×3 (10:39→16:31)
--- NOTE | 2020-10-26 10:57 | P.PN ---
Subjective Date of Service: 10/26/20 Chief Complaint: Left gluteal swelling and pain Status post I&D of left gluteal abscess. Patient complaining of pain. Blood sugar readings have improved compared to yesterday. No fever. No leukocytosis. INR increased to 4 today. Physical Examination - Vital Signs Temperature: 97.9 F Blood Pressure: 97/53 Pulse: 88 Respirations: 18 Pulse Ox (%): 94 - Physical Exam General: Alert, In no apparent distress, Oriented x3, Obese HEENT: Mucous membr. moist/pink Neck: JVD not distended Respiratory: Clear to auscultation bilaterally, Normal air movement Cardiovascular: No edema, Regular rate/rhythm, Normal S1 S2 Gastrointestinal: Soft and benign, Non-distended, No tenderness Musculoskeletal: No swelling Integumentary: Other (Large left gluteal abscess I and D wound with soaked dressing) Neurological: Normal strength at 5/5 x4 extr - Studies Laboratory Data (last 24 hrs) 10/25/20 10:48: PT 37.4 H, INR 3.21, APTT 37.9 H 10/25/20 10:48: WBC 10.80 D, Hgb 11.9 L, Hct 36.7, Plt Count 270 10/25/20 10:48: Sodium 136, Potassium 4.2, BUN 9, Creatinine 0.90, Glucose 326 H, Total Bilirubin 1.5 H, AST 12 L, ALT 40, Alkaline Phosphatase 95, Amylase 17 L, Lipase 51 L Assessment And Plan - Current Problems (Diagnosis) (1) Gluteal abscess Current Visit: Yes Status: Acute (2) Perirectal abscess Current Visit: Yes Status: Acute (3) Acute respiratory failure with hypoxemia Current Visit: No Status: Acute (4) DM type 2 (diabetes mellitus, type 2) Current Visit: No Status: Acute (5) Morbid obesity Current Visit: No Status: Acute (6) Pulmonary embolism Current Visit: Yes Status: Acute (7) History of COVID-19 Current Visit: Yes Status: Acute - Plan Continue IV vancomycin and Cefepime. Follow deep tissue wound culture. Follow blood cultures. Pain management with IV morphine and oral hydrocodone. Continue current dose Novolin 70/30 and insulin sliding scale. Blood sugar target of less than 180. Supplemental oxygen p.r.n. Hold Coumadin for elevated INR. Monitor INR daily and resume Coumadin once INR is between 2-3. General surgery to follow. Wound care per surgery.
[2020-10-26] MEDS: MORPHINE 2 MG/ML SYR IV PRN (11:49)
[2020-10-26] MEDS: VANCOMYCIN 2 GM in NA CHLORIDE 0.9% 500 ML IVPB SCH (13:10)
--- NOTE | 2020-10-26 16:25 | P.PN ---
Date of Service: 10/26/20 S: The patient is a feels much better, still says she is having lot of pain in her buttock. Has just started getting up and moving around this afternoon. O: Buttock onto or nearly restored. Minimal drainage out onto the dressing. Overlying cellulitis seems to have resolved. A: Surgically improving P: Continue IV antibiotics, continue pain medicine. Will allow patient to shower, and instruct on dressing changes. Hopefully and will be able to discharge in the a.m. with follow up with me in my office.
[2020-10-27] MEDS: CEFEPIME/SWI 1gm 10 ML IV SCH ×3 (00:10→18:22)
[2020-10-27] MEDS: HYDROCODONE/APAP 7.5/325 MG TAB PO PRN ×2 (03:59→14:53)
[2020-10-27] MEDS: VANCOMYCIN 2 GM in NA CHLORIDE 0.9% 500 ML IVPB SCH ×2 (05:14→23:58)
[2020-10-27 05:38] LABS: Absolute Lymphocytes (CBC) 0.8 K/uL (0.7-4.9); Basophils % 0.4 % (0-1.3); Hematocrit 27.2 % (36.0-45.0); MPV 8.8 fL (7.6-11.3); Protime INR 3.83; RBC Red Blood Cell Count 3.36 M/uL (3.86-4.86)
[2020-10-27 05:45] LABS: BUN Blood Urea Nitrogen 7 mg/dL (7-18); Bicarbonate 27 mmol/L (21-32); Glucose Level 94 mg/dL (74-106); Potassium 3.4 mmol/L (3.5-5.1); Sodium Level 142 mmol/L (136-145)
[2020-10-27] MEDS: INSULIN -REGULAR HUMAN 50 UNIT/0.5 ML ML SQ SCH ×4 (07:30→21:50)
[2020-10-27] MEDS: NA CHLORIDE 0.9% 1,000 ML IV SCH ×2 (08:55→21:51)
[2020-10-27] MEDS: INSULIN 70/30 100 UNITS/ML SQ SCH ×2 (09:00→21:50)
[2020-10-27] MEDS ORDERED: POTASSIUM CL SA 10 MEQ TAB PO ONE (09:00)
[2020-10-27] MEDS: MORPHINE 2 MG/ML SYR IV PRN ×2 (09:04→22:09)
--- NOTE | 2020-10-27 12:49 | P.PN ---
Subjective Date of Service: 10/27/20 Chief Complaint: Left gluteal swelling and pain Status post I&D of left gluteal abscess. Patient complaining of pain and insomnia related to the pain. No fever. Physical Examination - Vital Signs Temperature: 98 F Blood Pressure: 114/59 Pulse: 106 Respirations: 20 Pulse Ox (%): 99 - Physical Exam General: Alert, Mild distress (Due to pain), Obese HEENT: Mucous membr. moist/pink Neck: JVD not distended Respiratory: Clear to auscultation bilaterally, Normal air movement Cardiovascular: No edema, Regular rate/rhythm, Normal S1 S2 Gastrointestinal: Soft and benign, Non-distended, No tenderness Musculoskeletal: No swelling Integumentary: Other (Left gluteal abscess I&D wound dressed.) Neurological: Normal strength at 5/5 x4 extr Assessment And Plan - Current Problems (Diagnosis) (1) Gluteal abscess Current Visit: Yes Status: Acute (2) Perirectal abscess Current Visit: Yes Status: Acute (3) Acute respiratory failure with hypoxemia Current Visit: No Status: Acute (4) DM type 2 (diabetes mellitus, type 2) Current Visit: No Status: Acute (5) Morbid obesity Current Visit: No Status: Acute (6) Pulmonary embolism Current Visit: Yes Status: Acute (7) History of COVID-19 Current Visit: Yes Status: Acute (8) Acute blood loss anemia Current Visit: Yes Status: Acute - Plan Wound culture is growing GNR and GPC. Continue IV vancomycin and Cefepime. Follow deep tissue wound culture. Blood cultures: No growth to date. Pain management with IV morphine and oral hydrocodone. Titrate hydrocodone. Continue current dose Novolin 70/30 and insulin sliding scale. Blood sugar target of less than 180. Supplemental oxygen p.r.n. Hold Coumadin for elevated INR. Monitor INR daily and resume Coumadin once INR is between 2-3. Consult to wound care. Continue to monitor H&H. Transfuse p.r.n. for hemoglobin less than 7. Dispo: Waiting for wound culture organism identification and sensitivity for appropriate outpatient antibiotics. Patient will follow up with wound care for wound dressing.
--- NOTE | 2020-10-27 14:49 | P.PN ---
Date of Service: 10/27/20 S: Patient early very uncomfortable. Says is not a lot of pain in that buttock. However she does got up, walked around, use the restroom. O: Wound actually looks very much improved. Even less swollen than yesterday. Having some drainage out through the [place] drain. Remains afebrile. A: Surgically stable P: Still having some difficulty with getting her pain under control. This was a considerable size abscess and her buttock. Will continue work on pain management, and wound care. Anticipate discharge hopefully in a.m..
[2020-10-27] MEDS ORDERED: IBUPROFEN 400 MG TAB PO PRN (17:40)
[2020-10-28] MEDS: HYDROCODONE/APAP 10/325 TAB PO PRN ×5 (01:18→21:33)
[2020-10-28] MEDS: CEFEPIME/SWI 1gm 10 ML IV SCH ×3 (01:51→16:18)
[2020-10-28 06:36] LABS: Absolute Lymphocytes (CBC) 0.9 K/uL (0.7-4.9); Basophils % 0.8 % (0-1.3); Hematocrit 29.2 % (36.0-45.0); Lymphocytes % 15.2 % (15.3-44.8); MPV 8.5 fL (7.6-11.3); Protime INR 1.92; RBC Red Blood Cell Count 3.63 M/uL (3.86-4.86)
[2020-10-28 06:38] LABS: BUN Blood Urea Nitrogen 5 mg/dL (7-18); Bicarbonate 28 mmol/L (21-32); Glucose Level 146 mg/dL (74-106); Potassium 3.1 mmol/L (3.5-5.1); Sodium Level 139 mmol/L (136-145)
[2020-10-28] MEDS ORDERED: KCL 20 MEQ/100 mL IVPB 20 MEQ/100 ML BAG IV SCH (07:00)
[2020-10-28] MEDS: INSULIN -REGULAR HUMAN 50 UNIT/0.5 ML ML SQ SCH ×4 (07:30→21:28)
--- NOTE | 2020-10-28 08:58 | P.PN ---
Date of Service: 10/28/20 S: Patient is still complaining of discomfort. She is afraid to move due to the pain. O: Vital signs are stable, incisions clean, minimal drainage. Culture report noted. A: This patient is doing well status post incision drainage of this large abscess on her buttock. She is however having dealt difficulty mobilizing herself. PE: I will ask for a PT console. The patient is be encouraged to get up out of bed ambulate move around continue were incentive spirometry.
[2020-10-28] MEDS: INSULIN 70/30 100 UNITS/ML SQ SCH ×2 (09:00→21:27)
[2020-10-28] MEDS ORDERED: POTASSIUM CL SA 10 MEQ TAB PO ONE (09:00)
--- NOTE | 2020-10-28 09:43 | P.PN ---
Subjective Date of Service: 10/28/20 Chief Complaint: Left gluteal swelling and pain Subjective: Improving (minimal improvement with pain, +flatus, no nausea/vomiting. not moving much due to pain, gets up to 8-9/10, down to 4-5/10 after pain medication) Review of Systems 10-point ROS is otherwise unremarkable Physical Examination - Vital Signs Temperature: 100.0 F Blood Pressure: 122/74 Pulse: 118 Respirations: 20 Pulse Ox (%): 93 Assessment & Plan Physician Review Additional Text: Physical Exam General: Alert, appears uncomfortable HEENT: Mucous membr. moist/pink Respiratory: Clear to auscultation bilaterally, Normal air movement, on 2L NC Cardiovascular: No edema, Regular rate/rhythm, Normal S1 S2 Gastrointestinal: Soft and benign, Non-distended, No tenderness Musculoskeletal: No joint swelling Integumentary: Left gluteal abscess with wound dressing in place Neurological: Normal strength at 5/5 x4 extr Problem List Gluteal/perirectal abscess Acute respiratory failure with hypoxemia DM type 2, insulin - dependent Morbid obesity h/o Pulmonary embolism h/o COVID-19 on home O2 Acute blood loss anemia -febrile last night to 101.6 -wound cx - GNR & GPC, awaiting final cultures - expect them to return today, -continue IV Vanc and cefepime for now, ID consulted -blood cx - no growth -pain management with PO norco 10s -continue insulin, target glc <180 -continue O2 PRN -coumadin held due to supratherapeutic levels, will restart today -continue wound care - consulted -H/H stable Dispo: needs final cultures and better symptomatic control, still febrile anticipate dc home tomorrow Patient will follow up with wound care for wound dressing. Time Spent Managing Pts Care (In Minutes): 40
--- NOTE | 2020-10-28 10:41 | P.CNS ---
Date of Consult: 10/28/20 Chief Complaint: Left gluteal swelling and pain History of Present Illness: The patient is a 45-year-old woman with a past medical history of diabetes type 2, and recent hospitalization due to COVID 19 pneumonia with pulmonary embolism requiring anticoagulation therapy who presented to the emergency department due two painful swelling in the left gluteal/perianal area. Patient reports severe pain and states that the size increased over the past [address] showed large gluteal abscess with necrotic changes with a small perirectal abscess. Patient also had elevated procalcitonin at 2.01, no leukocytosis noted. Dr. Guerra has been consulted and he performed a surgical I and D on 10/25, he then placed a [place] drain which is still placed. Patient empirically started on vancomycin and cefepime. Wound cultures growing Proteus meropenem sensitive to cefepime, vancomycin has been Dc. Patient currently denying any nausea, vomiting, diarrhea, shortness breath, chest pain. Patient still has significant pain to left gluteal/perianal abscess I and D incision. Allergies No Known Drug Allergies Allergy (Verified 10/06/20 01:49) Unknown Home Medications: Albuterol Sulfate [Proair Hfa] 2 puff IH Q4HP PRN 10/06/20 Fluticasone Furoate [Arnuity Ellipta] 1 in IN DAILY 10/06/20 Metformin HCl [Glucophage*] 1 tab PO BID 10/06/20 Alcohol Antiseptic Pads [Alcohol Swabs] 1 each TP TID #100 med..pad 10/11/20 Ascorbic Acid [Vitamin C*] 500 mg PO QID #120 tablet 10/11/20 Benzonatate [Tessalon Perle*] 100 mg PO TID PRN #30 cap 10/11/20 Blood Sugar Diagnostic [Glucose Test Strip] 1 each MC TID #90 strip 10/11/20 Cholecalciferol (Vitamin D3) [Vitamin D 1000 Iu Tab*] 4,000 unit PO DAILY #120 tab 10/11/20 Insulin 70/30 NPH/Reg Human [Novolin 70/30*] 12 unit SQ BIDAC #10 ml 10/11/20 Lancets [Lancets Thin] 1 each MC TID #100 each 10/11/20 Syring-Needl,Disp,Insul,0.3 ml [Insulin Syringe] 1 each MC TID #100 disp.syrin 10/11/20 Thiamine HCl [Vitamin B-1*] 200 mg PO DAILY #30 tablet 10/11/20 Zinc Sulfate [Zinc Sulfate*] 220 mg PO DAILY #30 cap 10/11/20 Warfarin Sodium [Coumadin] 5 mg PO DAILY 5 PM 30 Days #30 tab 10/14/20 - Past Medical/Surgical History Diabetic: Yes -: Diabetes mellitus type 2 -: [place] virus infection -: Pulmonary embolism -: Tubal ligation Psychosocial/ Personal History: 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 [employer] - Family History Father Medical History: Diabetes Mother Medical History: Diabetes - Social History Alcohol use: Yes CD- Drugs: No Caffeine use: Yes Place of Residence: Home Review of Systems 10-point ROS is otherwise unremarkable Physical Examination Temp Pulse Resp BP Pulse Ox 100.0 F 118 H 20 122/74 93 10/28/20 09:43 10/28/20 09:43 10/28/20 09:43 10/28/20 09:43 10/28/20 09:43 General: Alert, In no apparent distress, Obese HEENT: Atraumatic, Normocephalic Neck: Supple, 2+ carotid pulse no bruit Respiratory: Clear to auscultation bilaterally, Normal air movement Cardiovascular: No edema, Normal pulses, Regular rate/rhythm Capillary refill: <2 Seconds Gastrointestinal: Normal bowel sounds, Soft and benign Musculoskeletal: No clubbing, No swelling External genitalia: Other (Left gluteal/. A known abscess status post I and D: Area still draining serosanguineous fluid. The erythema and swelling noted to area P) Temp Pulse Resp BP Pulse Ox 100.0 F 118 H 20 122/74 93 10/28/20 09:43 10/28/20 09:43 10/28/20 09:43 10/28/20 09:43 10/28/20 09:43 Laboratory Last Values WBC 10.80 K/uL (4.3-10.9) D 10/25/20 10:48 RBC 4.56 M/uL (3.86-4.86) 10/25/20 10:48 Hgb 11.9 g/dL (12.0-15.0) L 10/25/20 10:48 Hct 36.7 % (36.0-45.0) 10/25/20 10:48 MCV 80.6 fL (80-100) 10/25/20 10:48 MCH 26.1 pg (27.0-35.0) L 10/25/20 10:48 MCHC 32.4 g/dL (32.0-36.0) 10/25/20 10:48 RDW 19.3 % (12.1-15.2) H 10/25/20 10:48 Plt Count 270 K/uL (152-406) 10/25/20 10:48 MPV 9.0 fL (7.6-11.3) 10/25/20 10:48 Neutrophils % 87.7 % (41.7-73.7) H 10/25/20 10:48 Lymphocytes % 7.5 % (15.3-44.8) L 10/25/20 10:48 Monocytes % 4.3 % (3.3-12.3) 10/25/20 10:48 Eosinophils % 0.1 % (0-4.4) 10/25/20 10:48 Basophils % 0.4 % (0-1.3) 10/25/20 10:48 Absolute Neutrophils 9.5 K/uL (1.8-8.0) H 10/25/20 10:48 Segmented Neutrophils 84 % (40-80) H 10/25/20 10:48 Band Neutrophils 4 % (0-1) H 10/25/20 10:48 Absolute Lymphocytes 0.8 K/uL (0.7-4.9) 10/25/20 10:48 Lymphocytes 8 % (15-42) L 10/25/20 10:48 Monocytes 4 % (0-10) 10/25/20 10:48 Absolute Monocytes 0.5 K/uL (0.1-1.3) 10/25/20 10:48 Absolute Eosinophils 0.0 K/uL (0-0.5) 10/25/20 10:48 Absolute Basophils 0.0 K/uL (0-0.5) 10/25/20 10:48 Platelet Estimate Adeq 10/25/20 10:48 Morphology Comment Not seen (NOT SEEN) 10/25/20 10:48 PT 37.4 SECONDS (9.5-12.5) H 10/25/20 10:48 INR 3.21 10/25/20 10:48 APTT 37.9 SECONDS (24.3-36.9) H 10/25/20 10:48 Sodium 136 mmol/L (136-145) 10/25/20 10:48 Potassium 4.2 mmol/L (3.5-5.1) 10/25/20 10:48 Chloride 101 mmol/L (98-107) 10/25/20 10:48 Carbon Dioxide 24 mmol/L (21-32) 10/25/20 10:48 BUN 9 mg/dL (7-18) 10/25/20 10:48 Creatinine 0.90 mg/dL (0.55-1.3) 10/25/20 10:48 Estimated GFR 67 mL/min (=/>90) L 10/25/20 10:48 Glucose 326 mg/dL (74-106) H 10/25/20 10:48 Lactic Acid 3.1 mmol/L (0.4-2.0) H 10/25/20 10:48 Calcium 9.5 mg/dL (8.5-10.1) 10/25/20 10:48 Total Bilirubin 1.5 mg/dL (0.2-1.0) H 10/25/20 10:48 Direct Bilirubin 0.4 mg/dL (0-0.2) H 10/25/20 10:48 AST 12 U/L (15-37) L 10/25/20 10:48 ALT 40 U/L (12-78) 10/25/20 10:48 Alkaline Phosphatase 95 U/L (45-117) 10/25/20 10:48 Creatine Kinase 32 U/L (26-192) 10/25/20 10:48 CK-MB (CK-2) < 1.0 ng/mL (1.0-3.6) L 10/25/20 10:48 Rapid Troponin I < 0.02 ng/mL (0.0-0.045) 10/25/20 10:48 Serum Total Protein 7.4 g/dL (6.4-8.2) 10/25/20 10:48 Albumin 1.9 g/dL (3.4-5.0) L 10/25/20 10:48 Globulin 5.5 g/dL (2.3-3.5) H 10/25/20 10:48 Albumin/Globulin Ratio 0.3 (1.1-1.8) L 10/25/20 10:48 Amylase 17 U/L (25-115) L 10/25/20 10:48 Lipase 51 U/L (73-393) L 10/25/20 10:48 Procalcitonin 2.01 ng/mL (<0.050) H 10/25/20 10:48 Urine pH 5.5 (5.0-7.0) 10/25/20 13:00 Ur Specific [place] 1.010 (1.005-1.030) 10/25/20 13:00 Glucose (UA)(Auto) 3+ (Negative) H 10/25/20 13:00 Urine Ketones 4+ (Negative) H 10/25/20 13:00 Urine Blood Trace-intact (Negative) H 10/25/20 13:00 Urine Nitrite Negative (Negative) 10/25/20 13:00 Ur Leukocyte Esterase Negative (Negative) 10/25/20 13:00 Urine RBC 10-20 /HPF (NONE SEEN) H 10/25/20 12:54 Urine WBC <5 /HPF (<5) 10/25/20 12:54 Ur Squamous Epith Cells 5-10 /HPF (NONE SEEN) H 10/25/20 12:54 Amorphous Sediment 1+ /HPF (NONE SEEN) 10/25/20 12:54 Urine Bacteria <20 /HPF (<20) 10/25/20 12:54 Fine Granular Casts 0-5 /LPF (NONE SEEN) 10/25/20 12:54 Coarse Granular Casts 0-5 /LPF (NONE SEEN) 10/25/20 12:54 Urine Yeast Transport Conductor 10/25/20 12:54 Ur Yeast w Hyphae Transport Conductor 10/25/20 12:54 Urine Sperm Transport Conductor 10/25/20 12:54 Urine Culture Reflexed Not needed 10/25/20 12:54 Urine Total Protein 2+ (Negative) H 10/25/20 13:00 Ur Specific [place] (HCG) 1.010 (1.005-1.030) 10/25/20 13:10 Urine Test Neg (NEG) 10/25/20 13:10 SARS-CoV-2 RNA (RT-PCR) Positive (NEGATIVE) A 10/25/20 13:25 Conclusions/Impression: Antibiotics: Vancomycin Start: 10/25 stop: 10/28 Cefepime Start: 10/25 stop: -- Assessment: -left gluteal/ perianal abscess status post I&D -morbid obesity -diabetes mellitus type 2 -recent hospitalization due to cocaine 19 pneumonia with pulmonary embolism Plan: -surgical I& D performed on 10/25. Wound cultures growing Proteus mirabilis sensitive to cefepime. Continue IV cefepime for duration of hospital stay, can switch to oral Augmentin for discharge. Patient will need antibiotic course of at least 2 weeks. Patient will need follow up outpatient with primary care physician. -medical management per primary team -continue monitor CBC and BMP -continue monitor for signs infection Plan of care discussed with Dr. Mayfield Thank you for consultation.
[2020-10-28] MEDS ORDERED: VANCOMYCIN 2 GM in NA CHLORIDE 0.9% 500 ML IVPB SCH (12:00)
[2020-10-28] MEDS ORDERED: KETOROLAC 30 MG/ML INJ IV ONE (15:00)
[2020-10-28] MEDS ORDERED: D50W 25 GM/50 ML VIAL IV PRN (16:00)
[2020-10-28] MEDS ORDERED: ALBUMIN HUM 5% 500 ML IV SCH (17:30)
[2020-10-28] MEDS ORDERED: WARFARIN SODIUM 5 MG TAB PO SCH (18:00)
--- NOTE | 2020-10-28 18:34 | RAD REPORT ---
EXAM DESCRIPTION: [place] Single View10/28/2020 6:03 pm CLINICAL HISTORY: Chest pain COMPARISON: October 25 2020 FINDINGS: No significant change in the diffuse bilateral pulmonary opacities. The heart is normal size. A pleural effusion is not seen IMPRESSION: No significant change in the bilateral pulmonary opacities likely pneumonia
[2020-10-28 19:04] LABS: Urine Appearance TURBID (Clear); Urine Bilirubin NEGATIVE (Negative); Urine Blood 3+ (Negative); Urine Color DK YELLOW (Yellow); Urine Glucose 1+ (Negative); Urine Protein 2+ (Negative); Urine pH 6.5 (5.0-7.0)
[2020-10-28 19:06] LABS: Urine Amorphous Sediment 2+ /HPF (NONE SEEN); Urine Bacteria >50 /HPF (<20); Urine Microscopic Reflex ORDER UMIC; Urine RBC >50 /HPF (NONE SEEN)
[2020-10-29] MEDS: CEFEPIME/SWI 1gm 10 ML IV SCH ×2 (00:34→12:55)
[2020-10-29] MEDS: HYDROCODONE/APAP 10/325 TAB PO PRN ×4 (01:12→15:19)
[2020-10-29 04:31] LABS: Protime INR 1.8
[2020-10-29 04:37] LABS: Absolute Lymphocytes (CBC) 1.4 K/uL (0.7-4.9); Basophils % 0.9 % (0-1.3); Hematocrit 28.1 % (36.0-45.0); Lymphocytes % 21.8 % (15.3-44.8); MPV 8.7 fL (7.6-11.3); RBC Red Blood Cell Count 3.51 M/uL (3.86-4.86)
[2020-10-29 04:53] LABS: ALT/SGPT 71 U/L (12-78); AST/SGOT 38 U/L (15-37); Albumin 1.8 g/dL (3.4-5.0); Alkaline Phosphatase 81 U/L (45-117); BUN Blood Urea Nitrogen 5 mg/dL (7-18); Bicarbonate 28 mmol/L (21-32); Bilirubin Total 0.8 mg/dL (0.2-1.0); Glucose Level 99 mg/dL (74-106); Protein, Total 6.3 g/dL (6.4-8.2); Sodium Level 142 mmol/L (136-145)
[2020-10-29] MEDS: INSULIN -REGULAR HUMAN 50 UNIT/0.5 ML ML SQ SCH ×2 (07:30→11:30)
[2020-10-29] MEDS: INSULIN 70/30 100 UNITS/ML SQ SCH (08:45)
--- NOTE | 2020-10-29 09:47 | P.PN ---
Subjective Date of Service: 10/29/20 Chief Complaint: Left gluteal swelling and pain Patient seen examined at bedside, fever of 99. Continue to monitor. Review of Systems 10-point ROS is otherwise unremarkable Physical Examination - Vital Signs Temperature: 99 F Blood Pressure: 111/69 Pulse: 120 Respirations: 18 Pulse Ox (%): 96 - Studies Microbiology 10/25/20 11:06 Blood - Blood Aerobic Blood Culture - Preliminary No growth in 24 hours. 10/25/20 11:06 Blood - Blood Anaerobic Blood Culture - Preliminary No growth in 24 hours. 10/25/20 10:48 Blood - Blood Aerobic Blood Culture - Preliminary No growth in 24 hours. 10/25/20 10:48 Blood - Blood Anaerobic Blood Culture - Preliminary No growth in 24 hours. Laboratory Last Values WBC 10.80 K/uL (4.3-10.9) D 10/25/20 10:48 RBC 4.56 M/uL (3.86-4.86) 10/25/20 10:48 Hgb 11.9 g/dL (12.0-15.0) L 10/25/20 10:48 Hct 36.7 % (36.0-45.0) 10/25/20 10:48 MCV 80.6 fL (80-100) 10/25/20 10:48 MCH 26.1 pg (27.0-35.0) L 10/25/20 10:48 MCHC 32.4 g/dL (32.0-36.0) 10/25/20 10:48 RDW 19.3 % (12.1-15.2) H 10/25/20 10:48 Plt Count 270 K/uL (152-406) 10/25/20 10:48 MPV 9.0 fL (7.6-11.3) 10/25/20 10:48 Neutrophils % 87.7 % (41.7-73.7) H 10/25/20 10:48 Lymphocytes % 7.5 % (15.3-44.8) L 10/25/20 10:48 Monocytes % 4.3 % (3.3-12.3) 10/25/20 10:48 Eosinophils % 0.1 % (0-4.4) 10/25/20 10:48 Basophils % 0.4 % (0-1.3) 10/25/20 10:48 Absolute Neutrophils 9.5 K/uL (1.8-8.0) H 10/25/20 10:48 Segmented Neutrophils 84 % (40-80) H 10/25/20 10:48 Band Neutrophils 4 % (0-1) H 10/25/20 10:48 Absolute Lymphocytes 0.8 K/uL (0.7-4.9) 10/25/20 10:48 Lymphocytes 8 % (15-42) L 10/25/20 10:48 Monocytes 4 % (0-10) 10/25/20 10:48 Absolute Monocytes 0.5 K/uL (0.1-1.3) 10/25/20 10:48 Absolute Eosinophils 0.0 K/uL (0-0.5) 10/25/20 10:48 Absolute Basophils 0.0 K/uL (0-0.5) 10/25/20 10:48 Platelet Estimate Adeq 10/25/20 10:48 Morphology Comment Not seen (NOT SEEN) 10/25/20 10:48 PT 37.4 SECONDS (9.5-12.5) H 10/25/20 10:48 INR 3.21 10/25/20 10:48 APTT 37.9 SECONDS (24.3-36.9) H 10/25/20 10:48 Sodium 136 mmol/L (136-145) 10/25/20 10:48 Potassium 4.2 mmol/L (3.5-5.1) 10/25/20 10:48 Chloride 101 mmol/L (98-107) 10/25/20 10:48 Carbon Dioxide 24 mmol/L (21-32) 10/25/20 10:48 BUN 9 mg/dL (7-18) 10/25/20 10:48 Creatinine 0.90 mg/dL (0.55-1.3) 10/25/20 10:48 Estimated GFR 67 mL/min (=/>90) L 10/25/20 10:48 Glucose 326 mg/dL (74-106) H 10/25/20 10:48 Lactic Acid 3.1 mmol/L (0.4-2.0) H 10/25/20 10:48 Calcium 9.5 mg/dL (8.5-10.1) 10/25/20 10:48 Total Bilirubin 1.5 mg/dL (0.2-1.0) H 10/25/20 10:48 Direct Bilirubin 0.4 mg/dL (0-0.2) H 10/25/20 10:48 AST 12 U/L (15-37) L 10/25/20 10:48 ALT 40 U/L (12-78) 10/25/20 10:48 Alkaline Phosphatase 95 U/L (45-117) 10/25/20 10:48 Creatine Kinase 32 U/L (26-192) 10/25/20 10:48 CK-MB (CK-2) < 1.0 ng/mL (1.0-3.6) L 10/25/20 10:48 Rapid Troponin I < 0.02 ng/mL (0.0-0.045) 10/25/20 10:48 Serum Total Protein 7.4 g/dL (6.4-8.2) 10/25/20 10:48 Albumin 1.9 g/dL (3.4-5.0) L 10/25/20 10:48 Globulin 5.5 g/dL (2.3-3.5) H 10/25/20 10:48 Albumin/Globulin Ratio 0.3 (1.1-1.8) L 10/25/20 10:48 Amylase 17 U/L (25-115) L 10/25/20 10:48 Lipase 51 U/L (73-393) L 10/25/20 10:48 Procalcitonin 2.01 ng/mL (<0.050) H 10/25/20 10:48 Urine pH 5.5 (5.0-7.0) 10/25/20 13:00 Ur Specific [place] 1.010 (1.005-1.030) 10/25/20 13:00 Glucose (UA)(Auto) 3+ (Negative) H 10/25/20 13:00 Urine Ketones 4+ (Negative) H 10/25/20 13:00 Urine Blood Trace-intact (Negative) H 10/25/20 13:00 Urine Nitrite Negative (Negative) 10/25/20 13:00 Ur Leukocyte Esterase Negative (Negative) 10/25/20 13:00 Urine RBC 10-20 /HPF (NONE SEEN) H 10/25/20 12:54 Urine WBC <5 /HPF (<5) 10/25/20 12:54 Ur Squamous Epith Cells 5-10 /HPF (NONE SEEN) H 10/25/20 12:54 Amorphous Sediment 1+ /HPF (NONE SEEN) 10/25/20 12:54 Urine Bacteria <20 /HPF (<20) 10/25/20 12:54 Fine Granular Casts 0-5 /LPF (NONE SEEN) 10/25/20 12:54 Coarse Granular Casts 0-5 /LPF (NONE SEEN) 10/25/20 12:54 Urine Yeast Learning Facilitator 10/25/20 12:54 Ur Yeast w Hyphae Learning Facilitator 10/25/20 12:54 Urine Sperm Learning Facilitator 10/25/20 12:54 Urine Culture Reflexed Not needed 10/25/20 12:54 Urine Total Protein 2+ (Negative) H 10/25/20 13:00 Ur Specific [place] (HCG) 1.010 (1.005-1.030) 10/25/20 13:10 Urine Test Neg (NEG) 10/25/20 13:10 SARS-CoV-2 RNA (RT-PCR) Positive (NEGATIVE) A 10/25/20 13:25 Assessment And Plan - Plan General: Alert, In no apparent distress, Obese HEENT: Atraumatic, Normocephalic Neck: Supple, 2+ carotid pulse no bruit Respiratory: Clear to auscultation bilaterally, Normal air movement Cardiovascular: No edema, Normal pulses, Regular rate/rhythm Capillary refill: <2 Seconds Gastrointestinal: Normal bowel sounds, Soft and benign Musculoskeletal: No clubbing, No swelling External genitalia: Other (Left gluteal/. A known abscess status post I and D: Area still draining serosanguineous fluid. The erythema and swelling noted to area ) Conclusions/Impression: Antibiotics: current: Cefepime Start: 10/25 stop: -- DC: Vancomycin Start: 10/25 stop: 10/28 Assessment: -left gluteal/ perianal abscess status post I&D -morbid obesity -diabetes mellitus type 2 -recent hospitalization due to cocaine 19 pneumonia with pulmonary embolism Plan: -surgical I& D performed on 10/25. Wound cultures growing Proteus mirabilis sensitive to cefepime. Continue IV cefepime for duration of hospital stay, can switch to oral Augmentin for discharge. Patient will need antibiotic course of at least 2 weeks. Patient will need follow up outpatient with primary care physician. -medical management per primary team -continue monitor CBC and BMP -continue monitor for signs infection Plan of care discussed with Dr. Mayfield Thank you for consultation. Physician Review Additional Text: Physical Exam General: Alert, appears uncomfortable HEENT: Mucous membr. moist/pink Respiratory: Clear to auscultation bilaterally, Normal air movement, on 2L NC Cardiovascular: No edema, Regular rate/rhythm, Normal S1 S2 Gastrointestinal: Soft and benign, Non-distended, No tenderness Musculoskeletal: No joint swelling Integumentary: Left gluteal abscess with wound dressing in place Neurological: Normal strength at 5/5 x4 extr Problem List Gluteal/perirectal abscess Acute respiratory failure with hypoxemia DM type 2, insulin - dependent Morbid obesity h/o Pulmonary embolism h/o COVID-19 on home O2 Acute blood loss anemia -febrile last night to 101.6 -wound cx - GNR & GPC, awaiting final cultures - expect them to return today, -continue IV Vanc and cefepime for now, ID consulted -blood cx - no growth -pain management with PO norco 10s -continue insulin, target glc <180 -continue O2 PRN -coumadin held due to supratherapeutic levels, will restart today -continue wound care - consulted -H/H stable Dispo: needs final cultures and better symptomatic control, still febrile anticipate dc home tomorrow Patient will follow up with wound care for wound dressing.
[2020-10-29] MEDS ORDERED: ALBUMIN HUMAN 25% 100 ML IV ONE (10:52)
[2020-10-29] MEDS ORDERED: POTASSIUM 25 MEQ EFFERV TAB PO ONE (11:22)
[2020-10-29 11:47] VITALS: BP 106/67; TEMP 97
[2020-10-29 13:44] VITALS: O2SAT 96
--- NOTE | 2020-10-29 14:04 | P.DS ---
Admission Date: 10/25/20 Discharge Date: 10/29/20 Disposition: ROUTINE DISCHARGE Discharge Condition: FAIR Reason for Admission: Left gluteal swelling and pain Consultations: General Surgery - Dr. Guerra Infectious Disease - Dr. Mayfield Procedures: CXR (10/25): Moderate bilateral pulmonary opacities appear similar to comparative study 10/05/2020. This is presumably related to infection/ pneumonia. Heart is upper normal size. CT Abd/pelvis (10/25): FINDINGS: Moderate bibasilar interstitial lung opacities. The liver, spleen, pancreas, adrenal glands and kidneys are within normal limits. No bowel obstruction, free air, free fluid or abscess. The appendix is normal. No evidence of significant lymphadenopathy. No suspicious bony findings. There is a large amount of inflammation in the buttock soft tissue air present as well as skin thickening and phlegmon. The approximate size of the region follow-up is 19 x 10 cm. 21 x 16 mm perirectal abscess is present anterior aspect rectum significant thickening of soft tissues noted. IMPRESSION: Significant necrotizing infection is suspected involving the left buttock with soft tissue gas present. Area inflammation involving left but off quite extensive almost 20 x 10 cm. Small 21 mm perirectal abscess is also present on the left. I&D perirectal abscess (10/25) by Dr. Guerra: 8x18cm. Wound abscess culture: proteus mirabilis CXR (10/28): FINDINGS: No significant change in the diffuse bilateral pulmonary opacities. The heart is normal size. A pleural effusion is not seen IMPRESSION: No significant change in the bilateral pulmonary opacities likely pneumonia Problem List Gluteal/perirectal abscess (8x18cm) Acute on chronic respiratory failure with hypoxemia DM type 2, insulin - dependent Morbid obesity h/o Pulmonary embolism on coumadin Supratherapeutic INR h/o COVID-19 on home O2 Acute blood loss anemia Brief History of Present Illness: 45-year-old woman recently hospitalized for COVID pneumonia with hypoxia, pulmonary embolus and discharged with Coumadin anticoagulation and home oxygen presented to the emergency department with a complaint of painful swelling in the left gluteal area which rapidly increased in size over the past 4 days. Patient reports severe pain with the swelling. CT done in the emergency department demonstrated large gluteal abscess with necrotic changes, small perirectal abscess. Her pro calcitonin is elevated. No leukocytosis and pat ient does not meet criteria for sepsis. INR elevated to 3. General surgery Dr. Guerra was contacted who recommended urgent surgical debridement. Patient started on IV antibiotics and hospitalized for further management. Patient was seen after the surgical debridement. Hospital Course: Large perirectal abscess - taken to OR by Dr. Guerra for I&D, diego drain placement. Cultures grew proteus. Patient was treated empirically with Cefepime and Vanc, discharged on Bactrim per ID and General surgery preference/recommendations. -patient had significant pain and required high doses of pain medication. Continue daily wound care hypoxia, h/o COVID-19 and PE, with supratherapeutic INR while taking coumadin. Patient had elevated INR, coumadin was initially held. Coumadin restarted on 10/28. On discharge her coumadin dose was pre-emptively reduced by 50% to 2.5mg due to interaction /risk with Bactrim (CYP inhibition). She will need INR check in 3-5 days. Patient expressed understanding. She was noted to have sinus tachycardia throughout her hospitalization. At one point her blood pressure was low and patient received some albumin for volume resuscitation with improvement. Her albumin on admission was 1.9. Sinus tachycardia seemed to only partially respond to volume resuscitation and responded better to pain control and improved on day of discharge. Follow up: PCP in 3-[address] Guerra this coming Tuesday Vital Signs/Physical Exam: Physical Exam General: Alert, NAD without movement HEENT: Mucous membr. moist/pink Respiratory: Clear to auscultation bilaterally, Normal air movement, on 3L NC Cardiovascular: No edema, Regular rate/rhythm, Normal S1 S2 Gastrointestinal: Soft and benign, Non-distended, No tenderness Musculoskeletal: No joint swelling Integumentary: Left gluteal abscess s/p I&D, drain in place, tender to palpation, +induration Neurological: Normal strength at 5/5 x4 extr Temp Pulse Resp BP Pulse Ox 97 F 117 H 16 106/67 96 10/29/20 11:46 10/29/20 11:46 10/29/20 11:46 10/29/20 11:46 10/29/20 11:46 Laboratory Data at Discharge: WBC 6.40 K/uL (4.3-10.9) 10/29/20 04:01 Hgb 9.4 g/dL (12.0-15.0) L 10/29/20 04:01 Hct 28.1 % (36.0-45.0) L 10/29/20 04:01 Plt Count 224 K/uL (152-406) 10/29/20 04:01 PT 20.8 SECONDS (9.5-12.5) H 10/29/20 04:01 INR 1.80 10/29/20 04:01 APTT 37.9 SECONDS (24.3-36.9) H 10/25/20 10:48 Sodium 142 mmol/L (136-145) 10/29/20 04:01 Potassium 3.0 mmol/L (3.5-5.1) L 10/29/20 04:01 BUN 5 mg/dL (7-18) L 10/29/20 04:01 Creatinine 0.47 mg/dL (0.55-1.3) L 10/29/20 04:01 Glucose 99 mg/dL (74-106) 10/29/20 04:01 Phosphorus 3.0 mg/dL (2.5-4.9) 10/29/20 04:01 Magnesium 2.0 mg/dL (1.8-2.4) 10/29/20 04:01 Total Bilirubin 0.8 mg/dL (0.2-1.0) 10/29/20 04:01 AST 38 U/L (15-37) H 10/29/20 04:01 ALT 71 U/L (12-78) 10/29/20 04:01 Alkaline Phosphatase 81 U/L (45-117) 10/29/20 04:01 Amylase 17 U/L (25-115) L 10/25/20 10:48 Lipase 51 U/L (73-393) L 10/25/20 10:48 Home Medications: Albuterol Sulfate [Proair Hfa] 2 puff IH Q4HP PRN 10/06/20 Fluticasone Furoate [Arnuity Ellipta] 1 in IN DAILY 10/06/20 Metformin HCl [Glucophage*] 1 tab PO BID 10/06/20 Alcohol Antiseptic Pads [Alcohol Swabs] 1 each TP TID #100 med..pad 10/11/20 Ascorbic Acid [Vitamin C*] 500 mg PO QID #120 tablet 10/11/20 Benzonatate [Tessalon Perle*] 100 mg PO TID PRN #30 cap 10/11/20 Blood Sugar Diagnostic [Glucose Test Strip] 1 each MC TID #90 strip 10/11/20 Cholecalciferol (Vitamin D3) [Vitamin D 1000 Iu Tab*] 4,000 unit PO DAILY #120 tab 10/11/20 Insulin 70/30 NPH/Reg Human [Novolin 70/30*] 12 unit SQ BIDAC #10 ml 10/11/20 Lancets [Lancets Thin] 1 each MC TID #100 each 10/11/20 Syring-Needl,Disp,Insul,0.3 ml [Insulin Syringe] 1 each MC TID #100 disp.syrin 10/11/20 Thiamine HCl [Vitamin B-1*] 200 mg PO DAILY #30 tablet 10/11/20 Zinc Sulfate [Zinc Sulfate*] 220 mg PO DAILY #30 cap 10/11/20 Sulfamethoxazole/Trimethoprim [Bactrim Ds Tablet] 2 each PO BID 12 Days #48 tablet 10/29/20 Warfarin Sodium [Coumadin*] 2.5 mg PO DAILY 5 PM 30 Days #30 tab 10/29/20 New Medications: Sulfamethoxazole/Trimethoprim [Bactrim Ds Tablet] 2 each PO BID 12 Days #48 tablet Warfarin Sodium [Coumadin*] 2.5 mg PO DAILY 5 PM 30 Days #30 tab Physician Discharge Instructions: You were found to have a large abscess in your buttocks. This required incision and drainage, as well as IV antibiotics. You are stable for discharge home to continue to improve. You are discharged with antibiotics and pain medication. The antibiotic can make the warfarin more effective, so for the next 2 weeks, please take 2.5mg warfarin instead of your 5mg. You will need to have your INR checked in 3-5 days. Follow up with your PCP in ~1 week Follow up with Dr. Guerra on Tuesday. Diet: ADA Activity: Ad summer Followup: Michael Guerra MD [ACTIVE - CAN ADMIT] - NONE,NONE [Primary Care Provider] - Time spent managing pt's care (in minutes): 50
== END 2020-10-29 17:09 | disposition home or self-care (01) | DRG 356 ==
LOC: ER 10:05 → ERHOLD 13:29 → 2ND 17:42
PROVIDERS: ADMIT Internal Medicine; ATTEND Internal Medicine
PROC: 0JBC0ZZ Excision of Pelvic Region Subcutaneous Tissue and Fascia, Open Approach (ICD-10-PCS; principal; 2020-10-25 14:30)
DX: K61.1 Rectal abscess (principal); J96.21 Acute and chronic respiratory failure with hypoxia; Z68.42 Body mass index [BMI] 45.0-49.9, adult; D62 Acute posthemorrhagic anemia; B96.4 Proteus (mirabilis) (morganii) as the cause of diseases classified elsewhere; E11.9 Type 2 diabetes mellitus without complications; E66.01 Morbid (severe) obesity due to excess calories; R00.0 Tachycardia, unspecified; Z99.81 Dependence on supplemental oxygen; Z86.711 Personal history of pulmonary embolism; Z79.01 Long term (current) use of anticoagulants; Z86.16 Personal history of COVID-19
CPT/HCPCS: 36415; 51702; 71045; 74177; 80048; 80053; 80076; 80202; 81003; 81015; 81025; 82150; 82550; 82553; 82947; 83605; 83690; 83735; 84100; 84145; 84484; 85025; 85610; 85730; 86140; 87040; 87070; 87075; 87077; 87086; 87088; 87186; 87205; 93005; 94010; 94760; 97110; 97116; 97161; 97530; 99285; J0692; J1100; J1170; J1815; J2250; J2270; J2405; J2543; J3010; J3370; J3475; J7030; J7040; P9045; P9047; Q9967; U0003

== ENCOUNTER 2020-11-22 11:32 | Emergency (ER) | payer OTHER ==
--- OUTSIDE RECORDS SUMMARY | 2020-11-22 11:49 | XMS REPORT | Continuity of Care Document ---
:1975 Author Organization [facility] t Address [address] [place] [address] Care Team Providers Name Role Phone Mario Bradford Attending Clinician Anton Hahn Attending Clinician Kurt MENDOZA Attending Clinician Anton Hahn Admitting Clinician Problems Condition Condition Condition Status Onset Resolution Last Treating Co mments Source Name Details Category Date Date Treatment Clinician Date LF Diagnosis Active 2020-11-20 Mem oria BILLING#31 6-11 09:24:00 l 01 LF 00:00: Garland BILLING#31 00 01 Active [facility] CVA Diagnosis Active 2020-11-20 Mem oria 6- 09:24:00 l CVA 00:00: Chivo 00 Active 10/31/2020 [facility] Morbid Problem Active 2020-11-10 Memor ia obesity 22:13:19 l (disorder) Morbid Herm jose antonio obesity (disorder) Active Problem 11/10/2020 [facility] CEREBRAL Diagnosis Active 2020-11-20 M emoria INFARCTION 09:24:00 l , CEREBRAL Harlan n UNSPECIFIE INFARCTION D , UNSPECIFIE D Active [facility] Morbid Problem 2020-11-10 2020-11-10 M emoria (severe) 6-12 22:13:19 22:13:19 l obesity Morbid 12:49: Chivo due to (severe) 14 excess obesity calories due to excess calories 11/10/2020 [facility] Allergies, Adverse Reactions, Alerts This patient has no known allergies or adverse reactions. Social History Social Habit Start Date Stop Date Quantity Comments Source Social History 2020-11-01 2020-11-01 [facility] 06:05:22 06:05:22 Medications Ordered Filled Start Stop Current Ordering Indication Dosage Frequency Signature Comments Components Source Medication Medication Date Date Medication? Clinician (SIG) Name Name Warfarin No Notes: Memoria 6-19 Nurse to l 22:00: ensure Garland 00 documentat ion of patient education per anticoagul ation policy. Avoid large intake of vitamin-K containing foods diet. WASTE: F/P - P Waste Black; E - P Waste Black (Same As: Coumadin) Hazardous Drug Group 3:Reproduc tive risk Hazardous Drug -- Refer to safe handling procedure PPE Matrix warfarin 4 Yes 4 mg = 1 Mem oria mg oral 6-19 tab, PO, l tablet 19:22: Q5PM, PCP Harlan le 00 FU on Tuesday11/10/2020 for further coumadin dosing. pt is on lovenox-co umadin bridge, # 1 tab, 0 Refill(s), Pharmacy: [facility] #[id number], 157.48, cm, 11/01/20 18:30:00 CDT, Height, 112.273, kg, 11/01/20 18:30:00 CD... midodrine 5 Yes 5 mg = 1 Me moria mg oral 6-19 tab, PO, l tablet 14:11: BID, # 60 Harlan n 00 tab, 0 Refill(s), Pharmacy: [facility] #[id number], 157.48, cm, 11/01/20 18:30:00 CDT, Height, 112.273, kg, 11/01/20 18:30:00 CDT, Weight potassium Yes 10 mEq = 1 Me moria chloride 10 6-19 tab, PO, l mEq oral 14:11: Daily, # Belle nn tablet, 00 30 tab, 0 extended Refill(s), release Pharmacy: ([facility] #[id number], 157.48, cm, 11/01/20 18:30:00 CDT, Height, 112.273, kg, 11/01/20 18:30:00 CDT, Weight Docusate Yes 2 tab, PO, Mem oria Sodium 50 6-19 Q12H, 0 l MG / 14:11: Refill(s) Chivo garcia, 00 ALF 8.6 MG Oral Tablet tramadol Yes 25 mg = Memori a hydrochlori 6-19 0.5 tab, l de 50 MG 14:11: PO, Daily, Her martin Oral Tablet 00 PRN Pain Score 7-10, to be given prior to wound change, X 10 day, # 10 tab, 0 Refill(s) Furosemide Yes 40 mg = 1 Me moria 40 MG Oral 6-19 tab, PO, l Tablet 14:10: Daily, # Garland 00 30 tab, 0 Refill(s), Pharmacy: [facility] #[id number], 157.48, cm, 11/01/20 18:30:00 CDT, Height, 112.273, kg, 11/01/20 18:30:00 CDT, Weight atorvastati Yes 20 mg = 1 M emoria n 20 mg 6-19 tab, PO, l oral tablet 14:09: Bedtime, He rmann 00 see PCP for refills, # 30 tab, 1 Refill(s), Pharmacy: [facility] #[id number], 157.48, cm, 11/01/20 18:30:00 CDT, Height, 112.273, kg, 11/01/20 18:30:00 CDT, Weight ciprofloxac No 500 mg = 1 Memoria in 500 mg 6-19 tab, PO, l oral tablet 14:09: [id number], X Garland 00 1 day, # 1 tab, 0 Refill(s), Pharmacy: [facility] #[id number], 157.48, cm, 11/01/20 18:30:00 CDT, Height, 112.273, kg, 11/01/20 18:30:00 CDT, Weight potassium No Notes: Memori a chloride 10 6-19 (Same as: l mEq oral 14:00: K-Dur 10) Herm jose antonio tablet, 00 "Do Not extended Crush" release With food (KCL) and full glass of water Warfarin No Notes: Jmoria 6-18 Nurse to l 22:00: ensure Chivo documentat ion of patient education per anticoagul ation policy. Avoid large intake of vitamin-K containing foods diet. WASTE: F/P - P Waste Black; E - P Waste Black (Same As: Coumadin) Hazardous Drug Group 3:Reproduc tive risk Hazardous Drug -- Refer to safe handling procedure PPE Matrix Lovenox No Notes: Memoria 6-18 Nurse to l 14:52: ensure [place] 00 documentat ion of patient education per anticoagul ation policy. (Same as: Lovenox) ciprofloxac No 500 mg = 1 Memoria in 500 mg 6-18 tab, PO, l oral tablet 14:52: [id number], 0 [place] 00 Refill(s) atorvastati No 20 mg = 1 M emoria n 20 mg 6-18 tab, PO, l oral tablet 14:52: Bedtime, 0 Gar[place] 00 Refill(s) 1 ML No 110 mg, Memoria Enoxaparin 6-18 SUB-Q, l sodium 100 14:52: Q12H, 340 He rmann MG/ML 00 b, X 2 Prefilled day, # 4 Syringe ea, 0 [Lovenox] Refill(s) Fluticasone Yes 100 Memori a propionate 6-18 microgram l 0.05 14:52: = 2 spray, Garland MG/ACTUAT 00 Each Metered Affected Dose Nasal Nostril, Hart Daily, 0 [Flonase] Refill(s) Furosemide No 40 mg = 1 Me moria 40 MG Oral 6-18 tab, PO, l Tablet 14:52: Daily, 0 Chivo 00 Refill(s) midodrine 5 No 5 mg = 1 Me moria mg oral 6-18 tab, PO, l tablet 14:52: Q8H, 0 [place] 00 Refill(s) potassium No 20 mEq = 1 Me moria chloride 20 6-18 tab, PO, l mEq oral 14:52: Daily, 0 Belle nn tablet, 00 Refill(s) extended release (KCL) Aspirin 81 Yes 81 mg = 1 Me moria MG Enteric 6-18 tab, PO, l Coated 14:51: Daily, 0 Chivo Tablet 00 Refill(s) Fluticasone No Notes: Chay kate propionate 6-18 (Same as: l 0.05 14:00: Flonase) Chivo MG/ACTUAT 00 Metered Dose Nasal Hart [Flonase] silver/sodi No Route: Chay kate um alginate 6-18 MISC, l 14:00: Daily, Gar[place] 00 Start date: 11/07/20 9:00:00 CDT, Duration: 30 day, Stop date: 12/06/20 9:00:00 CDT Warfarin No Notes: Merly 6 Nurse to l 22:00: ensure Chivo 00 documentat ion of patient education per anticoagul ation policy. Avoid large intake of vitamin-K containing foods diet. (Same As: Coumadin) WASTE: F/P - P Waste Black; E - P Waste Black Hazardous Drug Group 3:Reproduc tive risk Hazardous Drug -- Refer to safe handling procedure PPE Matrix potassium No Notes: Memori a chloride 20 -17 (Same as: l mEq oral 14:00: K-Dur 20) Herm jose antonio tablet, 00 "Do Not extended Crush" release Give with (KCL) food and full glass of water For patients unable to swallow tablet, dissolve in one half glass of water. Allow about 2 minutes for the tablets to disintegra te. Stir before giving to prepare slurry and administer . Please exclude Patient s with feeding tube less than 14 Russian (Dobhoff, J-tube etc) and pediatric and patients. Warfarin No Notes: Merly 6 Nurse to l 22:00: ensure Chivo 00 documentat ion of patient education per anticoagul ation policy. Avoid large intake of vitamin-K containing foods diet. (Same As: Coumadin) WASTE: F/P - P Waste Black; E - P Waste Black Hazardous Drug Group 3:Reproduc tive risk Hazardous Drug -- Refer to safe handling procedure PPE Matrix Tramadol No Notes: 25 Chay kate 6-16 mg = 1/2 x l 20:38: 50 mg TAB Chivo 00 Not to exceed 400mg/day. (Same As: Ultram) Midodrine No Notes: Memori a 6-15 (Same l 04:02: as:Proamat ine) insulin, No Notes: Memoria isophane 6-15 (Same as: l 02:00: Humulin N) Roll in palms of hands gently; Do not shake vigorously . WASTE: F/P - Black; E - Municipal Trash Bin Stable for 31 days at room temperatur e Expires in days from ____Date Lasix No Notes: Memoria 6-14 (Same as: l 20:20: Lasix) May cause GI upset. Give with food or milk. Iohexol No 85 mL, Memoria 6-13 Route: l 17:39: IVP, Drug Form: SOLN, Dosing Weight 112.273, kg, ONCALL, STAT, Start date: 11/02/20 12:39:00 CDT, Duration: 1 doses or times, Dose = 2.2ml/kg, Max dose = 100ml -- "To be infused by Radiology Staff ONLY" Docusate No Notes: Memoria Sodium 50 11-02 (Same as l MG / 14:00: Senokot-S) sennosides, 00 Equiv. to ALF 8.6 MG Ani-Colac Oral Tablet e. Miralax No Notes: Memoria 6-13 Dissolve l 14:00: in 8 oz of water or juice. (Same as: Miralax) cefdinir No 300 mg, Memori a 300 MG Oral 11-02 Route: PO, l Capsule 13:00: Drug form: Herm CAP, [id number], Dosing Weight 112.273, kg, Start date: 11/02/20 8:00:00 CDT, Duration: 14 day, Stop date: 11/15/20 20:00:00 CDT Ciprofloxac No Notes: May Memoria in 6-13 interfere l 13:00: w/enteral Garland 00 feedings - Take 1 hr before or 2 hrs after antacids, dairy pdt & minerals. On empty stomach. Warfarin No Notes: Memoria 12 Nurse to l 22:00: ensure documentat ion of patient education per [facility] policy. Avoid large intake of vitamin-K containing foods diet. WASTE: F/P - P Waste Black; E - P Waste Black (Same As: Coumadin) Hazardous Drug Group 3:Reproduc tive risk Hazardous Drug -- Refer to safe handling procedure PPE Matrix Home No Refill(s) Memoria Medication 12 0 l 19:16: canaglifloz Yes 2, PO, Chay kate in-metformi 11-01 QAM, 0 l n 19:13: Refill(s) Garland extended-re 00 lease Prednisone No Notes: Memor ia -12 Take with l 17:15: food. Albuterol Yes Notes: Memori a 0.833 MG/ML 11-01 (Same as: l / 16:48: Duoneb) Ipratropium 00 Elizabeth 0.167 MG/ML Inhalant Solution [DuoNeb] Lasix No Notes: Memoria - (Same as: l 16:44: Lasix) warfarin 5 Yes 5 mg = 1 Mem oria mg oral 11-01 tab, PO, l tablet 16:38: Daily, # 00 30 tab, 0 Refill(s) Dextrose No 12.5 gm, Memor ia 50% Syringe 11-01 25 mL, l (D50W) 16:26: Route: IVP, Drug Form: INJ, Dosing Weight 118.182, kg, PRN, PRN Blood Glucose Results, Start date: 11/01/20 11:26:00 CDT, Duration: 30 day, Stop date: 12/01/20 11:25:00 CDT, 0 Glucagon No 1 mg, Memoria 11-01 Route: IM, l 16:26: Drug form: PDR/INJ, PRN, Dosing Weight 118.182, kg, PRN Blood Glucose Results, Start date: 11/01/20 11:26:00 CDT, Duration: 30 day, Stop date: 12/01/20 11:25:00 CDT, 0 Insulin No Notes: Memoria Lispro 6-12 (Same as: l 16:26: Humalog) Roll in palms of hands gently; Do not shake vigorously . WASTE: F/P - Black; E - Municipal Trash Bin Stable for 28 days at room temperatur e. Expires in days from ____Date Aspirin No Notes: Do Memor ia 6-12 not crush l 15:43: or chew. Chivo 00 (Same As: Ecotrin) Potassium No Notes: Memori a Chloride -12 (Same as: l 10:22: K-Dur 20) "Do Not Crush" Give with food and full glass of water For patients unable to swallow tablet, dissolve in one half glass of water. Allow about 2 minutes for the tablets to disintegra te. Stir before giving to prepare slurry and administer . Please exclude Patient s with feeding tube less than 14 Russian (Dobhoff, J-tube etc) and pediatric and patients. Docusate No Notes: Memoria 6-12 (Same as: l 02:00: Colace) (Do Not Crush) atorvastati No Notes: Chay kate n 6-12 (Same As: l 02:00: Lipitor) Saline No Notes: Memoria Flush 0.9% 12 (Same as: l 02:00: BD Posiflush) Coumadin No Notes: Memoria 6-12 Nurse to l 01:26: ensure documentat ion of patient education per anticoagul ation policy. Avoid large intake of vitamin-K containing foods diet. WASTE: F/P - P Waste Black; E - P Waste Black (Same As: Coumadin) Hazardous Drug Group 3:Reproduc tive risk Hazardous Drug -- Refer to safe handling procedure PPE Matrix Ketorolac No 4 days. Chay kate 6-12 l 01:25: Chivo 00 Aspirin 81 No Notes: Do Me moria MG Enteric 6-11 not crush l Coated 22:00: or chew. Garland Tablet (Same As: Ecotrin) Labetalol No 105 mmHg, Me moria 6-11 Start l 21:54: date: Garland 00 10/31/20 16:54:00 CDT, Duration: 30 day, Stop date: 11/30/20 16:53:00 CDT, 0 Ondansetron No Notes: Chay kate -11 (Same as: l 21:54: Zofran) MEDICATION WASTE Product Size: 4 mg Product Wasted: ___ mg Bisacodyl No Notes: Memori a -11 (Same As: l 21:54: Dulcolax, Bisco-Lax) Acetaminoph No Notes: Do M emoria en - not exceed l 21:54: 4 gm/day. Chivo 00 (Same as: Tylenol) Saline No Notes: Memoria Flush 0.9% 10-31 (Same as: l 21:54: BD Posiflush) Ativan No 0.5 mg, Memoria - Route: l 21:23: IVP, Drug form: INJ, ONCE, Dosing Weight 118.182, kg, Priority: STAT, Start date: 10/31/20 16:23:00 CDT, Stop date: 10/31/20 16:23:00 CDT Fentanyl No Notes: Memoria 6-11 (Same as: l 20:26: Sublimaze) Preservat darron free. Vancomycin No 2001 mg: Me moria 6-11 infuse l 19:57: over 2.5 hours For adult patients only: Round to nearest 250 mg per Medical Staff approval MEDICATION WASTE Product Size: 1000 mg Product Wasted: ___ mg cefepime No Notes: Memoria 6-11 (Same As: l 19:57: Maxipime) MEDICATION WASTE Product Size: 1000 mg Product Wasted: ___ mg Aspirin 325 No Notes: Chay kate MG Oral 6-11 Take with l Tablet 19:41: food. Chivo 00 Vancomycin No 2001 mg: Me moria 6-11 infuse l 19:08: over 2.5 Garland 00 hours For adult patients only: Round to nearest 250 mg per Medical Staff approval MEDICATION WASTE Product Size: 1000 mg Product Wasted: ___ mg cefepime No 1 gm, Memoria 6-11 Route: l 19:08: IVPB, Chivo 00 ONCE, Dosing Weight 118.182, kg, Priority: STAT, Start date: 10/31/20 14:08:00 CDT, Stop date: 10/31/20 14:08:00 CDT, ABX Indication : Bacteremia Isolyte S No Notes: Memori a PH-7.4 6-11 (Same as: l (Bolus) IV 19:08: Isolyte S He rmann 00 PH7.4, Normosol-R PH 7.4, Plasma-Lyt e A ) Rocephin + No Notes: Memor ia sterile 6-11 (Same As: l water 10 mL 19:07: Rocephin). Garland 00 Use with 100 mL NS and infuse over 30 min MEDICATION WASTE Product Size: 1000 mg Product Wasted: ___ mg Saline No Notes: Memoria Flush 0.9% 6-11 (Same as: l 16:13: BD Chivo 00 Posiflush) Vital Signs Vital Name Observation Time Observation Value Comments Source Respitory Rate 2020-11-08 21:00:00 Memori al Chivo Respitory Rate 2020-11-08 20:00:00 Memori al [place] Systolic (mm Hg) 2020-11-08 20:00:00 Chay rial Chivo Diastolic (mm Hg) 2020-11-08 20:00:00 Mem orial Chivo Temperature Oral (F) 2020-11-08 20:00:00 98.2 F [facility] [place] Respitory Rate 2020-11-08 19:00:00 Memori al [place] Systolic (mm Hg) 2020-11-08 19:00:00 Chay rial Chivo Diastolic (mm Hg) 2020-11-08 19:00:00 Mem orial [place] Systolic (mm Hg) 2020-11-08 18:00:00 Chay rial Chivo Diastolic (mm Hg) 2020-11-08 18:00:00 Mem orial [place] Temperature Oral (F) 2020-11-08 16:00:00 98.0 F [facility] [place] Temperature Oral (F) 2020-11-08 12:00:00 97.9 F [facility] [place] Respitory Rate 2020-11-03 07:00:00 Memori al Chivo Systolic (mm Hg) 2020-11-03 07:00:00 Chay rial [place] Diastolic (mm Hg) 2020-11-03 07:00:00 Mem orial Hcivo Respitory Rate 2020-11-03 06:00:00 Memori al [place]ivo Systolic (mm Hg) 2020-11-03 06:00:00 Chay rial Chivo Diastolic (mm Hg) 2020-11-03 06:00:00 Mem orial Chivo Respitory Rate 2020-11-03 05:00:00 Memori al Chivo Systolic (mm Hg) 2020-11-03 05:00:00 Chay rial Chivo Diastolic (mm Hg) 2020-11-03 05:00:00 Mem orial Chivo Temperature Oral (F) 2020-11-03 04:27:00 98.0 F [facility] [place] Temperature Oral (F) 2020-11-03 00:56:00 98.7 F [facility] [place] Temperature Oral (F) 2020-11-02 12:54:00 98.2 F [facility] [place] Height 2020-11-01 14:00:00 157.48 cm [facility] [place] BMI Calculated 2020-11-01 14:00:00 Memori al [place]ivo Weight 2020-11-01 14:00:00 [facility] [place] Height 2020-11-01 01:00:00 157.48 cm [facility] [place] Weight 2020-11-01 01:00:00 [facility] [place] BMI Calculated 2020-11-01 01:00:00 Memori al [place] Height 2020-10-31 16:48:00 157.48 cm [facility] [place]ivo BMI Calculated 2020-10-31 16:48:00 Memori al Chivo Weight 2020-10-31 16:48:00 Karrie Waldron Heart Rate 2020-10-31 16:29:00 [facility] [place] Procedures This patient has no known procedures. Encounters Start End Encounter Admission Attending Care Care Encounter Source Date/Time Date/Time Type Type Clinicians Facility Department ID 2020-10-31 2020-11-08 Outpatient SUPA Bradford [facility] [id number] 11:29:00 16:50:00 Cony Martin 66 2020-10-31 2020-10-31 Outpatient [facility] [id number] [facility] 12:39:00 12:39:00 2020-10-31 2020-10-31 Outpatient Jovani [facility] [id number] 11:29:00 11:29:00 Dave Walton 66 2020-10-31 2020-10-31 Outpatient Jovani [facility] [id number] 11:29:00 11:29:00 Dave Renae 2020-10-31 2020-10-31 Inpatient E [facility] [id number] [facility] 13:17:00 10:43:00 2019-01-04 2019-01-04 Emergency Hicks, [facility] [id number] 10:35:24 12:30:00 Ovi Dalal [id number] [place] [id number] [place] [id number] Results Test Description Test Time Test Comments Results Result Comments Source HEMATOLOGY 2020-11-08 30.2 [facility] [place] nn 07:13:00 HEMATOLOGY 2020-11-08 83.4 [facility] [place] nn 07:13:00 HEMATOLOGY 2020-11-08 07:13:00 Test Item Value Reference Range Interpretation Comme nts MCH (test code = MCH) 29.2 pg 27.0-31.0 [facility] KprzupoNVLEWWAYNW3936-89-63 07:13:0035.1[facility]ann[facility]OLOGY 2020-11-08 07:13:0020.4[facility] OahfdrtFATHEWVNMV5857-98-11 07:13:06218Bgeirsbv WbehbweRHFRSOHPSB0670-09-64 07:13:007.2[facility] HermannCHEM YHWPT0377-97-58 07:13:88699Foyzqiyr HermannCHEM FQVVY2238-79-16 07:13:0020[facility] HermannCHEM KUYZS2478-89-32 07:13:000.69[facility] HermannCHEM IWRTZ8535-21-02 07:13:84752 [facility]annCHE[facility] IEDWU8277-87-21 07:13:004.0[facility] HermannCHEM PANEL 2020-11-08 07:13:29076Tkvwrjrl HermannCHEM VBJIC1276-68-31 07:13:0031[facility] HermannCHEM FENMS6494-27-37 07:13:009.4[facility] HermannCHEM BVQMD6550-08-44 07:13:0010.0[facility] HermannCHEM HDPHK0469-42-12 07:13:14952Mkfahdtb Chivo IEMQMVTHIM5454-25-74 07:13:0055.5[facility] PfgpbspWITLIMMBTZ2952-81-89 07:13:00 32.3[facility] UmfcdekPVYZBIJPDL1965-13-52 07:13:008.9[facility] HermannHEMATOLOGY 2020-11-08 07:13:002.5[facility] KcsbvwvDLEVCYFOZE4606-54-89 07:13:000.8[facility] VthxuwyPZYIGKUJDR6601-42-34 07:13:003.2[facility] MedmbsrQJTQEBAQAK1259-06-29 07:13:001.8[facility] WfcaoxxULIYSBPNIV0903-91-73 07:13:000.5[facility] [place] QUFCHRTNYD5068-16-31 07:13:000.1[facility] DnacfqlMPFHATIGLT0124-61-47 07:13:00 Test Item Value Reference Range Interpretation Comments PT (test code = PT) 18.8 s 12.0-14.7 [facility] UbzmubyTWHBFDAUTZ8745-53-01 07:13:00 Test Item Value Reference Range Interpretation Comments INR (test code = INR) 1.62 1 0.85-1.17 [facility] SofkrhyOZOODAXBLU7832-91-61 07:13:005.7[facility] HermannHEMATOLOGY 2020-11-08 07:13:003.62[facility] UwiozbtQJOLXHIOYK1897-63-88 07:13:0010.6[facility] HermannANEMIA LKEMF9388-72-29 16:02:0053Mem[facility] HermannANEMIA RQJXU6036-69-78 16:02:33523Iqjvmiwe HermannANEMIA XJFQX4683-32-47 16:02:0013[facility] HermannCHEM RUFZM8344-99-82 06:36:01852Gseurfrw HermannCHEM XZTXV9142-31-53 06:36:0017 [facility]annCHEM BZTLG7502-00-17 06:36:000.66[facility] HermannCHEM PANEL 2020-11-07 06:36:65338Rmnphnum HermannCHEM XWRKI7393-11-80 06:36:004.3[facility] HermannCHEM CXVOO0263-40-28 06:36:54595Nyuniysg HermannCHEM NMRYM9165-27-80 06:36:0031[facility] HermannCHEM BAVXD1689-20-07 06:36:009.3[facility] HermannCHEM WZWAY7667-61-26 06:36:0010.3[facility] HermannCHEM CDMNO3463-79-41 06:36:81619 Memorial VtrvlqjMMQCCSOVKF5854-18-52 06:36:007.2[facility] HermannHEMATOLOGY 2020-11-07 06:36:003.47[facility] NfqniyjNLZEEXDTNH2208-68-26 06:36:0010.0[facility] UxmbybyEAEYODRABI9125-12-56 06:36:0029.3[facility] WujkiyhXQLFCECCEP4766-78-26 06:36:0084.5[facility] TrtwgkbTHSXHRCRAO9377-70-22 06:36:00 Test Item Value Reference Range Interpretation Comments MCH (test code = MCH) 29.0 pg 27.0-31.0 [facility] QwaemywSFRVDPBIVV1082-94-97 06:36:0034.3[facility] HermannHEMATOLOGY 2020-11-07 06:36:0020.1[facility] RilqazlGSWVUDIFFZ9603-94-05 06:36:73163Xczntghx YozctnhRKROOQUUMF1349-62-10 06:36:007.2[facility] LorgyqeMYCYCRIADD4112-40-18 06:36:00 Test Item Value Reference Range Interpretation Comments PT (test code = PT) 18.2 s 12.0-14.7 [facility] BmihdnqZOHSVJSQCB9955-91-97 06:36:00 Test Item Value Reference Range Interpretation Comments INR (test code = INR) 1.55 1 0.85-1.17 [facility] ZgmhiayEFODLNNGAS8399-65-17 06:36:0072.6[facility] HermannHEMATOLOGY 2020-11-07 06:36:0018.9[facility] MjkxxtwECMEFNEUGD8659-38-72 06:36:006.9[facility] JymmbjhCUCFTOXLOP2502-42-53 06:36:000.4[facility] LmmntgvEAWIAIXFVK6843-87-41 06:36:001.2[facility] QywjszqMETDRRIHED5651-22-62 06:36:005.2[facility] [place] XDGEHDHNZG7512-77-92 06:36:001.4[facility] JxpiptfSRJFXFGFYD8060-89-66 06:36:000.5 [facility] MskbfvrCQQVNHAFSU4546-34-30 06:36:000.1[facility] HermannHEMATOLOGY 2020-11-06 06:06:0030.3[facility] KrzycrsFAVSMMLTDU5674-85-95 06:06:0083.3[facility] PlxqqgtGSEOYYBALY7613-86-07 06:06:00 Test Item Value Reference Range Interpretation Comments MCH (test code = MCH) 27.9 pg 27.0-31.0 [facility] BxlrkidIGODLSFXRT4424-73-34 06:06:0033.4[facility] HermannHEMATOLOGY 2020-11-06 06:06:0020.5[facility] CqjgbekRKGSNPVAZU8296-75-58 06:06:89680Kizwnkpa KpkavfhOAOAOURBSP6135-78-87 06:06:007.4[facility] MozsbfgPMJIDQYZZX6591-72-71 06:06:0071.5[facility] UuijdeqUVMJMFTFSK5306-33-53 06:06:0018.8[facility] [place] RQWRFTKHSY6348-61-21 06:06:008.1[facility] LgenjnmBEBDJJJKYB8107-20-64 06:06:000.7 [facility] ZkzicirFINRSIHEGN8579-03-74 06:06:000.9[facility] HermannHEMATOLOGY 2020-11-06 06:06:005.4[facility] MthnboxDRCOYEMXLC0535-21-90 06:06:001.4[facility] SvegtaqWDGGCFQBFE3200-20-38 06:06:000.6[facility] DrpuotsSXDPXVCAGL2533-61-53 06:06:000.1[facility] XqyiwffVJZECVUMLG7537-29-01 06:06:000.1[facility] HermannCHEM JTAPH9109-81-06 06:06:95497Pncjuzll HermannCHEM QZUJX6379-06-63 06:06:0015 [facility] HermannCHEM ZJNKG6334-19-18 06:06:000.63[facility] HermannCHEM PANEL 2020-11-06 06:06:49628Ooyqpegg HermannCHEM LLPXR4030-48-40 06:06:004.1[facility] HermannCHEM ZFZMU7593-72-02 06:06:0099[facility] HermannCHEM PYDBK1595-56-13 06:06:0035[facility] HermannCHEM GNGLP5834-28-53 06:06:006.1[facility] HermannCHEM UITUP1129-06-96 06:06:009.1[facility] HermannCHEM FUNBF2108-77-21 06:06:33398 [facility] XgeemanLMPVZDVXQB7127-82-17 06:06:00 Test Item Value Reference Range Interpretation Comments PT (test code = PT) 19.4 s 12.0-14.7 [facility] HlveeveQLKACQBISN1506-61-71 06:06:00 Test Item Value Reference Range Interpretation Comments INR (test code = INR) 1.69 1 0.85-1.17 [facility] HyvkvzkMUNTKQGMDL7080-21-85 06:06:007.5[facility] HermannHEMATOLOGY 2020-11-06 06:06:003.64[facility] GtmdrjzMOTYKEKTBX2302-73-56 06:06:0010.1[facility] XbxmntcTSCVQZGTFM2235-93-42 13:58:00Normal (11/05/20 8:58 AM)[facility] ZFVOLDCGQE1113-20-07 13:58:000.2[facility] JrauofaQJGNULXHUE2229-13-50 13:58:000.1 [facility] GehufeoHIDBLXJDCE3793-35-75 13:58:001+ *ABN*(11/05/20 8:58 AM)[facility]annCHEM SLXKI8208-98-91 12:25:000.07[facility]annCHEM ZNWLX9787-28-32 12:25:001.0[facility]annCHEM FICHP0994-68-75 06:18:27801Zkyiqmug HermannCHEM HCGPE8624-63-81 06:18:009[facility]annCHEM HPSAZ9689-37-25 06:18:000.48 [facility]annCHEM UUMGI5267-18-55 06:18:05967Nzjupfwi HermannCHEM PANEL 2020-11-03 06:18:003.8[facility] HermannCHEM WGHUR5990-27-58 06:18:30378Azroaxux HermannCHEM JXJKC6731-81-43 06:18:0035[facility]annCHEM CPKKW5569-64-23 06:18:008.3[facility]annCHEM SRZVC4599-16-60 06:18:007.8[facility]annCHEM XYIAG3423-11-02 06:18:33085Bzgcxnut HermannCHEM SRUCM2985-20-12 06:18:002.3 [facility]annCHEM RKATW3868-70-49 06:18:003.2[facility]annHEMATOLOGY 2020-11-03 06:18:00 Test Item Value Reference Range Interpretation Comments PT (test code = PT) 44.2 s 12.0-14.7 [facility] ImozmftSKHZOBXCQN0345-83-38 06:18:00 Test Item Value Reference Range Interpretation Comments INR (test code = INR) 5.04 1 0.85-1.17 [facility] ColviziIPFEOAYCUL0521-03-73 06:18:006.4[facility]annHEMATOLOGY 2020-11-03 06:18:003.18[facility] AikewfbOSMPMPFKGV0271-07-22 06:18:008.6[facility] YnxwmmuFTDMUQRGLQ1376-76-26 06:18:0026.4[facility] KqjcbupQBACPUALTO8081-64-08 06:18:0083.1[facility] SpnteelIVYJWUNMAE1226-48-04 06:18:00 Test Item Value Reference Range Interpretation Comments MCH (test code = MCH) 27.2 pg 27.0-31.0 [facility] GxguvnxHQJPVMSCJH7565-05-93 06:18:0032.7[facility]annHEMATOLOGY 2020-11-03 06:18:0020.5[facility] LcsbqmnOWHEPWAYQH7972-05-38 06:18:89084Xmzyhage UvdnmstJGTPXJUZUS2515-16-99 06:18:008.0[facility] HermannPARATHYROID PROFILE 2020-11-03 06:18:001.09[facility] HermannPARATHYROID JUQXJLW6155-18-62 06:18:00 1.12[facility] HermannCARDIAC OTONNSE1407-72-24 06:12:93361Sasifgno HermannCHEM NEGGY3219-88-42 06:12:16794Mydvctph HermannCHEM JXHAG6861-25-60 06:12:007 [facility] WKZAH2145-34-35 06:12:000.38[facility]annCHEM PANEL 2020-11-02 06:12:22864Rdefxgzk HermannCHEM OLPLG8642-65-72 06:12:003.6[facility]annCHEM RNCUZ3549-04-35 06:12:92960Oezdlfbd HermannCHEM WGQBY3975-28-05 06:12:0033[facility]annCHEM AWJUM0947-91-96 06:12:009.6[facility]annCHEM QWAMS2613-22-55 06:12:008.6[facility]annCHEM DIQOB6898-39-60 06:12:52860 [facility]annCHE[facility] PERSP1134-58-06 06:12:002.2[facility] HermannCHEM PANEL 2020-11-02 06:12:003.9[facility] RbsvijqLBFPQOXQQK5315-11-10 06:12:00 Test Item Value Reference Range Interpretation Comments PT (test code = PT) 37.1 s 12.0-14.7 [facility] McpzlmuSJCGAVEQSM1997-94-55 06:12:00 Test Item Value Reference Range Interpretation Comments INR (test code = INR) 3.99 1 0.85-1.17 [facility] QdgvqukOZYCVCBEPX8804-69-76 06:12:0083.6[facility] HermannHEMATOLOGY 2020-11-02 06:12:0011.7[facility] NbpidptEZRGFAIAGO7037-68-14 06:12:003.7[facility] MhhatwyVHTKZDQEJB6274-61-41 06:12:000.3[facility] TloketbOAWFDWWTGQ6585-45-61 06:12:000.7[facility] CwfbpjlIJIKNENLLR9057-15-16 06:12:004.6[facility] EGXQBKDYPJ6032-66-26 06:12:000.6[facility] JwjaeigJDXLVTPAWW6766-89-99 06:12:000.2 [facility] XpwkmluYAWZDMUWIS8335-14-37 06:12:005.5[facility] HermannHEMATOLOGY 2020-11-02 06:12:003.15[facility] BnfpdnvQQXOWVGPMK1100-73-70 06:12:008.9[facility] QvoxsgaOEEOVNIBIX7196-22-31 06:12:0025.9[facility] HwqrexaAYOHUWBZNR5517-23-72 06:12:0082.4[facility] GhsqgqqOQIFRSXQBG9639-29-83 06:12:00 Test Item Value Reference Range Interpretation Comments MCH (test code = MCH) 28.1 pg 27.0-31.0 [facility] TganfzqPTHBNLMGLD0496-50-46 06:12:0034.2[facility] HermannHEMATOLOGY 2020-11-02 06:12:0020.2[facility] OcnmlzrWKSSQOBHOY4220-62-40 06:12:79243Qfmhdioc ZcdbjoaMZOPYSFZEW3778-78-12 06:12:007.6[facility] HermannPARATHYROID PROFILE 2020-11-02 06:12:001.06[facility] HermannPARATHYROID PKVFOLZ7792-65-59 06:12:00 1.12[facility]annCHEM ZVHJW8103-30-59 16:18:72210Jjmitukd HermannCHEM PANEL 2020-11-01 16:18:006[facility]annCHEM MYNBT7085-20-80 16:18:000.41[facility]annCHEM ZPMOF2113-55-75 16:18:83771Iozpufka HermannCHEM LJSEQ8871-42-22 16:18:004.3[facility]annCHEM RLJJJ8947-19-81 16:18:77046Btkmvhzc HermannCHEM VMBFL1396-19-11 16:18:0031[facility]annCHEM KDINU1768-39-89 16:18:008.3 [facility]annCHE[facility] UHHDD6049-48-78 16:18:008.2[facility] HermannCHEM PANEL 2020-11-01 16:18:35982Wjlldcvf QyhpchqGHWBJINRZY1025-26-80 14:17:00Not Detected (11/01/20 9:17 AM)[facility] HermannCARDIAC HZTPQXZ9227-48-20 07:18:41217Arrqcmux HermannCARDIAC GEVDLEF4497-20-60 07:18:000.07[facility]annCHEM PANEL 2020-11-01 07:18:75420Lirhrkmk HermannCHEM UCHBM7145-68-60 07:18:005[facility]annCHEM HVNHU7674-06-75 07:18:000.42[facility]annCHEM PKVJQ6275-13-39 07:18:07592Nrbhirsa HermannCHEM HYGQW3061-78-41 07:18:003.2[facility]annCHEM GIUEX6603-70-65 07:18:74969Gedjuwil HermannCHEM ATEBN0342-67-78 07:18:0032 [facility]annCHE[facility] SKLDF5897-46-38 07:18:008.2[facility]annCHEM PANEL 2020-11-01 07:18:008.2[facility]annCHEM VQWIX2943-12-80 07:18:00 Test Item Value Reference Range Interpretation Comments B/C Ratio (test code = B/C Ratio) 12 11-14 [facility]annCHEM TRQYU0351-68-10 07:18:005.7[facility] HermannCHEM PANEL 2020-11-01 07:18:001.7[facility]annCHEM YRGFP6399-60-11 07:18:004.0[facility] HermannCHEM MKZLI0503-88-51 07:18:00 Test Item Value Reference Range Interpretation Comments A/G Ratio (test code = A/G Ratio) 0.4 1 0.7-1.6 [facility] HermannCHEM VBYIU6827-97-65 07:18:0033[facility] HermannCHEM PANEL 2020-11-01 07:18:0020[facility] HermannCHEM UOCDD2469-35-79 07:18:0079[facility] HermannCHEM TARAO2709-71-25 07:18:000.6[facility] HermannCHEM OYBJQ3777-34-68 07:18:41369Vhymxlho DpbmrjrHBHPLBWOVH2485-16-41 07:18:00 Test Item Value Reference Range Interpretation Comments PT (test code = PT) 28.9 s 12.0-14.7 [facility] HoogeaaXWZJVSRYTB9286-08-08 07:18:00 Test Item Value Reference Range Interpretation Comments INR (test code = INR) 2.86 1 0.85-1.17 [facility] UxsymerVBLXOPVFKG4062-68-22 07:18:00 Test Item Value Reference Range Interpretation Comments PTT (test code = PTT) 49.3 s 22.9-35.8 [facility] DcomlowYINDFLMGTE8331-69-84 07:18:0066.1[facility] HermannHEMATOLOGY 2020-11-01 07:18:0018.9[facility] UhgziioIXRDGGRGTN6917-35-92 07:18:005.8[facility] PzzrzefMDNNCATHUC0375-96-39 07:18:008.9[facility] XibzkbbCAEBKSQIUH0256-37-84 07:18:000.3[facility] ZdjemqnQZFWWTMWBL5041-35-98 07:18:003.7[facility] BGAWOTEUXF8337-57-02 07:18:001.1[facility] RiisngoWOOSTJYDFG0923-34-42 07:18:000.3 [facility] RoqaigvTNEMZSJXWC0949-36-76 07:18:000.5[facility] HermannHEMATOLOGY 2020-11-01 07:18:005.6[facility] FttdblkTLEBKIGDME2616-50-21 07:18:003.00[facility] KtjbvrnLJAYRZJGII0654-19-69 07:18:008.3[facility] BiflfdyFXHLSQCKOK3809-77-71 07:18:0025.0[facility] NasejjrVSFMCMJIIN2830-61-15 07:18:0083.4[facility] VMKHBEYGHO4631-01-14 07:18:00 Test Item Value Reference Range Interpretation Comments MCH (test code = MCH) 27.7 pg 27.0-31.0 [facility] DgrnwrmACOCKKKQCJ7676-72-54 07:18:0033.2[facility] HermannHEMATOLOGY 2020-11-01 07:18:0020.6[facility] MbhqtaxHMWYPEVUMJ8245-52-21 07:18:88795Vdcrgpht JlcxvmjPBYMHSKOGD4719-92-30 07:18:008.0[facility] HermannCARDIAC MVFTKPP7305-50-96 23:33:000.13[facility] HermannDRUG XNUULS3660-62-95 22:31:00Negative *NA*(10/31/20 5:31 PM)[facility]annDR[facility] CCIHUT9321-11-68 22:31:00Negative *NA*(10/31/20 5:31 PM)[facility]annDR[facility] RHDNFJ5379-90-38 22:31:00Negative *NA*(10/31/20 5:31 PM)[facility]annDR[facility] SGWUDM2852-70-72 22:31:00Negative *NA*(10/31/20 5:31 PM) [facility] NRZXNR1701-95-70 22:31:00Negative *NA*(10/31/20 5:31 PM) [facility] ISZQLX7379-94-31 22:31:00Positive *ABN*(10/31/20 5:31 PM) [facility]DR[facility] KHLNLE4345-34-73 22:31:00Negative *NA*(10/31/20 5:31 PM) [facility] DPMFDP8492-54-55 22:31:00See Note (10/31/20 5:31 PM)[facility] AND QXWBS0065-21-64 22:31:00Yellow *NA*(10/31/20 5:31 PM)[facility] SRDBR6582-15-40 22:31:00Clear (10/31/20 5:31 PM)[facility]INE AND CHNLU3454-27-31 22:31:00 Test Item Value Reference Range Interpretation Comments UA Spec Grav (test code = UA Spec 1.027 1 Grav) [facility] EANPO5949-22-93 22:31:00 Test Item Value Reference Range Interpretation Comments UA pH (test code = UA pH) 7.0 1 5.0-8.0 [facility] WGWLF6982-60-46 22:31:00Negative *NA*(10/31/20 5:31 PM) [facility] OSVXM2899-97-79 22:31:00Negative (10/31/20 5:31 PM) [facility] IVUPJ6878-79-02 22:31:00<1.0[facility] DKGDA6303-00-73 22:31:00Negative (10/31/20 5:31 PM)[facility] RHFZT4077-02-53 22:31:00Negative (10/31/20 5:31 PM)[facility] XYJLB6901-31-83 22:31:002[facility] KZRWM4828-62-66 22:31:00<1 [facility]annCARDIAC RQTJVCX5977-09-67 22:15:000.11[facility] HermannIMMUNOLOGY 2020-10-31 22:15:76505.0[facility] OvieugeKDVGJJ1114-88-90 22:15:77666Sndoivyo DwkhxrlOOWCET4952-99-55 22:15:63320Linnixmu DfkmadpXXXRIY5317-69-68 22:15:0013 [facility] VarqdesZNBRMG6143-66-16 22:15:00 Test Item Value Reference Range Interpretation Comments CHD Risk (test code = CHD Risk) 9.08 1 3.90-5.80 [facility] XgxggubZDAGTS6198-76-86 22:15:0069[facility] LtttfvbLLEFKO4211-45-55 22:15:00 Test Item Value Reference Range Interpretation Comments VLDL (test code = VLDL) 36 1 [facility]annSPECIAL BPFIRDLPL0435-02-64 22:15:009.6[facility] BSSDUOQYWY2609-89-69 20:47:13 Test Item Value Reference Range Interpretation Comments PTT (test code = PTT) 42.2 s 22.9-35.8 [facility] XJSAM0569-42-28 17:40:00Yellow *NA*(10/31/20 12:40 PM) [facility] JOACC6210-70-24 17:40:00Marked *ABN*(10/31/20 12:40 PM) [facility] WBVUA5906-72-23 17:40:00 Test Item Value Reference Range Interpretation Comments UA Spec Grav (test code = UA Spec 1.017 1 Grav) [facility] SOLCU3117-90-49 17:40:00 Test Item Value Reference Range Interpretation Comments UA pH (test code = UA pH) 7.0 1 5.0-8.0 [facility] OEFPG9332-53-69 17:40:00Negative *NA*(10/31/20 12:40 PM)[facility] STAEA7365-95-14 17:40:00Large *ABN*(10/31/20 12:40 PM)[facility] CEMAF8286-76-99 17:40:00<1.0[facility] URINE AND JNPBY5027-53-92 17:40:00Negative (10/31/20 12:40 PM)[facility] URINE AND ZRLBN2918-28-04 17:40:00Large *ABN*(10/31/20 12:40 PM)[facility] URINE AND NPZFM5785-50-75 17:40:007[facility] AND ZTLMI0812-46-57 17:40:009[facility] HqygkmaFECTMJIKLJ8043-37-22 17:10:00Not Detected (10/31/20 12:10 PM)[facility] HermannCARDIAC TOCORVR6036-12-55 16:24:3162[facility] CHEM CNJFB4126-05-86 16:24:312.1[facility] HermannCHEM ABAJS1314-45-12 16:24:313.0 [facility] RtshhpyDKFBJZRGVU3989-27-68 16:24:317.3[facility] HermannHEMATOLOGY 2020-10-31 16:24:313.44[facility] LoeiocfLJFPOMAMUQ7157-42-26 16:24:319.3[facility] IvxxhwvQOUOXRMOZQ1469-34-65 16:24:3128.2[facility] LkaatktNQCHOOIJKU8513-72-05 16:24:3182.0[facility] GzihlvwRSIWAPSXYT1815-00-97 16:24:31 Test Item Value Reference Range Interpretation Comments MCH (test code = MCH) 27.1 pg 27.0-31.0 [facility] QcaasgkKFYMMPDRCB8148-57-93 16:24:3133.1[facility] HermannHEMATOLOGY 2020-10-31 16:24:3120.1[facility] VzsgnhpBUDEXFSTJU9750-02-61 16:24:54630Eakmqydb HemdvoxTEMWEPKUKG6168-95-27 16:24:318.0[facility] LfwiwnfLRMBAGOCML2784-84-74 16:24:31Normal (10/31/20 11:24 AM)[facility] UrymgoyJYFHRXTVYP7252-46-40 16:24:31 Normal (10/31/20 11:24 AM)[facility] VhobvnnOSRGATCKWF2780-55-75 16:24:3178.4 [facility] DyszkbhUYKKTUJVQF0596-69-41 16:24:3111.7[facility] HermannHEMATOLOGY 2020-10-31 16:24:314.6[facility] WaokhrlCZZGYHSXCB9543-04-22 16:24:314.4[facility] TggfedmMGDOZMUXUT5851-20-87 16:24:310.9[facility] RczqvpaJOUAZFTRCG6887-20-58 16:24:315.7[facility] VezajzrEZGNIKJPYC8826-84-07 16:24:310.9[facility] LFGCHCOOLY6745-64-31 16:24:310.3[facility] OetvyesGHKNCIXNLZ6319-53-21 16:24:310.3 [facility] KhpkhonNITUEYFIDG1775-85-87 16:24:310.1[facility]
[2020-11-22 14:09] LABS: Absolute Lymphocytes (CBC) 1.9 K/uL (0.7-4.9); Basophils % 1.2 % (0-1.3); Hematocrit 35.3 % (36.0-45.0); Lymphocytes % 31.7 % (15.3-44.8); MPV 8.6 fL (7.6-11.3)
[2020-11-22 14:19] LABS: Protime INR 4.14
--- NOTE | 2020-11-22 14:22 | RAD REPORT ---
EXAM DESCRIPTION: RAD - Chest Single View - 11/22/2020 2:01 pm CLINICAL HISTORY: shortness of breath Chest pain. COMPARISON: <Comparisons> FINDINGS: Portable technique limits examination quality. Mild bilateral pulmonary opacities are present probably representing viral infection/bronchitis. Find ings are less severe than on the comparative 10/28/2020 radiograph. The heart is upper limit of nat l in size. No displaced fractures.
[2020-11-22 14:31] LABS: ALT/SGPT 41 U/L (12-78); AST/SGOT 29 U/L (15-37); Albumin 3.1 g/dL (3.4-5.0); Alkaline Phosphatase 75 U/L (45-117); BUN Blood Urea Nitrogen 5 mg/dL (7-18); Bicarbonate 26 mmol/L (21-32); Bilirubin Direct 0.2 mg/dL (0-0.2); Bilirubin Total 0.6 mg/dL (0.2-1.0); Glucose Level 102 mg/dL (74-106); Magnesium 2.1 mg/dL (1.8-2.4); NT PRO-BNP 34 pg/mL (<125); Potassium 3.9 mmol/L (3.5-5.1); Sodium Level 141 mmol/L (136-145); Troponin (Emerg Dept Use Only) < 0.02 ng/mL (0.0-0.045)
--- NOTE | 2020-11-22 15:09 | ER ---
Nurse's Notes [facility] Name: Saida Coyle Age: 45 yrs Sex: Female : 1975 Arrival Date: 11/22/2020 Time: 11:36 Bed 19 Private MD: Diagnosis: Acute upper respiratory infection, unspecified Presentation: 11/22 11:57 Chief complaint: Patient states: Cough, sneezing, nasal congestion, SOB x 1 day. kg Coronavirus screen: Client denies travel out of the [place] in the last 14 days. At this time, unable to obtain information related to travel outside the [place] At this time, the client does not indicate any symptoms associated with coronavirus-19. Ebola Screen: Patient negative for fever greater than or equal to 101.5 degrees Fahrenheit, and additional compatible Ebola Virus Disease symptoms Patient denies exposure to infectious person. Patient denies travel to an Ebola-affected area in the 21 days before illness onset. Onset: The symptoms/episode began/occurred gradually, yesterday. Anaphylaxis evaluation, no signs or symptoms of anaphylaxis were noted. Initial Sepsis Screen: Does the patient meet any 2 criteria? No. Patient's initial sepsis screen is negative. Does the patient have a suspected source of infection? No. Patient's initial sepsis screen is negative. Risk Assessment: Do you want to hurt yourself or someone else? Patient reports no desire to harm self or others. Onset of symptoms was November 21, 2020. 11:57 Method Of Arrival: Wheelchair kg 11:57 Acuity: VERITO 3 kg Triage Assessment: 12:00 General: Appears in no apparent distress. Behavior is calm, cooperative, appropriate kg for age, quiet. Pain: Complains of pain in chest Pain currently is 5 out of 10 on a pain scale. at worst was 7 out of 10 on a pain scale. level that patient reports is acceptable is 3 out of 10 on a pain scale. Quality of pain is described as tight, pressure Aggravated by taking deep breaths. 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 - Social history:: Smoking status: Patient denies any tobacco usage or history of. Patient uses alcohol, occasionally. Screenin:04 Abuse screen: Denies threats or abuse. Denies injuries from another. Nutritional kg screening: No deficits noted. Tuberculosis screening: No symptoms or risk factors identified. Fall Risk None identified. No fall in past 12 months (0 pts). No secondary diagnosis (0 pts). No IV (0 pts). Ambulatory Aid- None/Bed Rest/Nurse Assist (0 pts). Gait- Weak (10 pts.). Mental Status- Oriented to own ability (0 pts). Total Swenson Fall Scale indicates No Risk (0-24 pts). Assessment: 12:04 Respiratory: Airway is patent Trachea midline Respiratory effort is even, unlabored, kg relaxed, Respiratory pattern is regular. 12:30 General: Appears in no apparent distress. ill, Behavior is calm, cooperative, zb appropriate for age, Reports feeling ill for > 3 days, fatigue for >3 days. Pain: Complains of pain in forehead Pain currently is 5 out of 10 on a pain scale. Pain began 2-3 days ago. Is continuous. Neuro: Level of Consciousness is awake, alert, obeys commands, Oriented to person, place, time, situation. Cardiovascular: Heart tones S1 S2 present Capillary refill < 3 seconds Patient's skin is warm and dry. Respiratory: Reports shortness of breath at rest on exertion Airway is patent Trachea midline Respiratory effort is even, unlabored, relaxed, Respiratory pattern is regular, symmetrical, the patient has mild shortness of breath. GI: Abdomen is flat, Reports nausea. Derm: Skin is intact, is healthy with good turgor. Musculoskeletal: Circulation, motion, and sensation intact. Range of motion: intact in all extremities. 13:30 Reassessment: Patient appears in no apparent distress at this time. Patient and/or zb family updated on plan of care and expected duration. Pain level reassessed. Patient is alert, oriented x 3, equal unlabored respirations, skin warm/dry/pink. family at bedside. 14:26 Reassessment: Patient appears in no apparent distress at this time. Patient and/or zb family updated on plan of care and expected duration. Pain level reassessed. Patient is alert, oriented x 3, equal unlabored respirations, skin warm/dry/pink. family at bedside. 15:25 Respiratory: zb Vital Signs: 11:57 BP 136 / 95; Pulse 99; Resp 20; Temp 98.5(O); Pulse Ox 97% on R/A; Weight 108.86 kg kg (R); Height 5 ft. 2 in. (157.48 cm) (R); Pain 5/10; 13:30 BP 115 / 83; Pulse 105; Resp 21; Pulse Ox 98% on R/A; zb 14:25 BP 122 / 83; Pulse 104; Resp 20; Pulse Ox 98% on R/A; zb 15:24 BP 128 / 99; Pulse 98; Resp 18; Pulse Ox 100% on R/A; zb 11:57 Body Mass Index 43.90 (108.86 kg, 157.48 cm) kg ED Course: 11:36 Patient arrived in ED. ds1 12:00 Triage completed. kg 12:00 Arm band placed on right wrist. kg 12:04 Patient has correct armband on for positive identification. kg 12:27 Tunde Argueta PA is PHCP. jmm 12:27 Severo Hays MD is Attending Physician. jmm 12:32 Latonya Mathews, PUJA is Primary Nurse. zb 13:55 Pillow given. shelter monitor on. Pulse ox on. NIBP on. mh5 13:55 Initial lab(s) drawn, by wv, sent to lab. Inserted saline lock: 22 gauge in right mh5 forearm, using aseptic technique. Blood collected. 13:58 EKG done, by ED staff, reviewed by Tunde LEDESMA. zb 14:01 XRAY Chest (1 view) In Process Unspecified. EDMS 14:19 Notified Nurse Practitioner and/or Physician Insight Director of a critical lab result(s), sv INR-4.14. 15:24 No provider procedures requiring assistance completed. IV discontinued, intact, zb bleeding controlled, No redness/swelling at site. Pressure dressing applied. Administered Medications: 15:24 Drug: Rocephin (cefTRIAXone) 1 grams Route: IV; Rate: calculated rate; Site: right zb forearm; 15:24 Follow up: Response: Medication administered at discharge. zb 15:25 Follow up: Response: No adverse reaction; IV Status: Completed infusion; IV Intake: 5ml zb Intake: 15:25 IV: 5ml; Total: 5ml. zb Outcome: 15:09 Discharge ordered by MD. valdez 15:25 Discharged to home ambulatory. zb 15:25 Condition: good 15:25 Discharge instructions given to patient, Instructed on discharge instructions, follow up and referral plans. medication usage, Demonstrated understanding of instructions, follow-up care, medications, Prescriptions given X 2. 15:25 Patient left the ED. zb Signatures: Dispatcher [employer] EDStephanie Woods RN RN Tunde Henriquez PA PA jmm Sanford, Demi Jackie Garcia 5 Latonya Mathews RN RN zb Graham, Kristen, RN RN kg
--- NOTE | 2020-11-22 15:09 | EDPHYS ---
Physician Documentation [facility] Name: Saida Coyle Age: 45 yrs Sex: Female : 1975 Arrival Date: 11/22/2020 Time: 11:36 Bed 19 Private MD: ED Physician Severo Hays HPI: 11/22 13:09 This 45 yrs old Female presents to ER via Wheelchair with complaints of jmm Sneezing, Cough. 13:09 Onset: The symptoms/episode began/occurred gradually. Modifying factors: The symptoms jmm are alleviated by nothing. the symptoms are aggravated by nothing. Associated signs and symptoms: Pertinent positives: Pertinent negatives: fever. This is a 45 year old female with a history of DM, COVID, that presents to the ED with complaints of cough, congestion, shortness of breath beginning yesterday. Patient is currently taking warfarin for pe secondary to covid. . 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 - Social history:: Smoking status: Patient denies any tobacco usage or history of. Patient uses alcohol, occasionally. ROS: 13:09 Constitutional: Negative for fever, chills, and weight loss. jmm 13:09 Cardiovascular: 13:09 Respiratory: Positive for cough, shortness of breath. 13:09 All other systems are negative. Exam: 13:09 Constitutional: This is a well developed, well nourished patient who is awake, alert, jmm and in no acute distress. Head/Face: atraumatic. Eyes: EOMI, no conjunctival erythema appreciated ENT: Moist Mucus Membranes Neck: Trachea midline, Supple Chest/axilla: Normal chest wall appearance and motion. Cardiovascular: Regular rate and rhythm. No edema appreciated Respiratory: Normal respirations, no respiratory distress appreciated Abdomen/GI: Non distended, soft Back: Normal ROM Skin: General appearance color normal MS/ Extremity: Moves all extremities, no obvious deformities appreciated, no edema noted to the lower extremities Neuro: Awake and alert, normal gait Psych: Behavior is normal, Mood is normal, Patient is cooperative and pleasant Vital Signs: 11:57 BP 136 / 95; Pulse 99; Resp 20; Temp 98.5(O); Pulse Ox 97% on R/A; Weight 108.86 kg kg (R); Height 5 ft. 2 in. (157.48 cm) (R); Pain 5/10; 13:30 BP 115 / 83; Pulse 105; Resp 21; Pulse Ox 98% on R/A; zb 14:25 BP 122 / 83; Pulse 104; Resp 20; Pulse Ox 98% on R/A; zb 15:24 BP 128 / 99; Pulse 98; Resp 18; Pulse Ox 100% on R/A; zb 11:57 Body Mass Index 43.90 (108.86 kg, 157.48 cm) kg MDM: 13:09 Patient medically screened. [facility] 15:05 Data reviewed: vital signs, nurses notes. Counseling: I had a detailed discussion with courtney the patient and/or guardian regarding: the historical points, exam findings, and any diagnostic results supporting the discharge/admit diagnosis, lab results, radiology results, the need for outpatient follow up, to return to the emergency department if symptoms worsen or persist or if there are any questions or concerns that arise at home. ED course: Patient is alert and non toxic in appearance in the ED. VS wnl. Patient is advised to follow up with pcp. Will treat with oral abx. Patient advised to discontinue warfarin 1 day. Patient is otherwise given strict return precautions. Patient understood and agrees with the plan of care. . 11/22 13:10 Order name: Basic Metabolic Panel; Complete Time: 14:33 [facility] 11/22 13:10 Order name: CBC with Diff; Complete Time: 14:33 [facility] 11/22 13:10 Order name: LFT's; Complete Time: 14:33 [facility] 11/22 13:10 Order name: Magnesium; Complete Time: 14:33 [facility] 11/22 13:10 Order name: NT PRO-BNP; Complete Time: 14:33 [facility] 11/22 13:10 Order name: PT-INR; Complete Time: 14:33 [facility] 11/22 13:10 Order name: Troponin (emerg Dept Use Only); Complete Time: 14:33 [facility] 11/22 13:10 Order name: XRAY Chest (1 view); Complete Time: 14:33 [facility] 11/22 13:10 Order name: EKG; Complete Time: 13:11 [facility] 11/22 13:10 Order name: Cardiac monitoring; Complete Time: 13:53 [facility] 11/22 13:10 Order name: EKG - Nurse/Tech; Complete Time: 13:54 [facility] 11/22 13:10 Order name: IV Saline Lock; Complete Time: 13:54 [facility] 11/22 13:10 Order name: Labs collected and sent; Complete Time: 13:54 [facility] 11/22 13:10 Order name: O2 Per Protocol; Complete Time: 13:54 [facility] 11/22 13:10 Order name: O2 Sat Monitoring; Complete Time: 13:54 [facility] Administered Medications: 15:24 Drug: Rocephin (cefTRIAXone) 1 grams Route: IV; Rate: calculated rate; Site: right zb forearm; 15:24 Follow up: Response: Medication administered at discharge. zb 15:25 Follow up: Response: No adverse reaction; IV Status: Completed infusion; IV Intake: 5ml zb Disposition Summary: 11/22/20 15:09 Discharge Ordered Location: Home [facility] Condition: Stable [facility] Diagnosis - Acute upper respiratory infection, unspecified [facility] Followup: [facility] - With: Private Physician - When: 2 - 3 days - Reason: Recheck today's complaints, Continuance of care, Re-evaluation by your physician Discharge Instructions: - Discharge Summary Sheet [facility] - Upper Respiratory Infection, Adult [facility] Forms: - Medication Reconciliation Form [facility] - Thank You Letter [facility] - Antibiotic Education [facility] - Prescription Opioid Use [facility] Prescriptions: - albuterol sulfate 90 mcg/actuation Inhalation HFA aerosol inhaler - inhale 2 puff by INHALATION route every 4 hours; 1 Inhaler; Refills: 0, Product [facility] Selection Permitted - Zithromax Z-Wilfred 250 mg Oral Tablet - take 1 tablet by ORAL route as directed for 5 days Day 1 - take two (2) tablets [facility] one time. Day 2, 3, 4 , 5 take one (1) tablet once daily.; 6 tablet; Refills: 0, Product Selection Permitted Addendum: 11/24/2020 13:30 Co-signature as Attending Physician, Severo Hays MD I agree with the assessment and k dr plan of care. Signatures: Dispatcher [employer] Severo Martinez MD MD kdr Mickail, Joel, PA PA jmm Brown, Zipporah RN RN zSerina Pierce RN RN kg
[2020-11-22] MEDS ORDERED: CEFTRIAXONE/SWI 1gm 1 GM/10 ML SYR ONE (15:31)
[2020-11-22 15:38] VITALS: TEMP 98.5
[2020-11-22 15:42] VITALS: BP 128/99; O2SAT 100
--- NOTE | 2020-11-23 13:47 | EKG ---
Test Date: 2020-11-22 Test Time: 13:20:06 Molding Room Supervisor: KATIE MEASUREMENT RESULTS: Intervals: Rate: 103 RI: 136 QRSD: 76 QT: 342 QTc: 448 [place]: P: 54 RI: 136 QRS: 19 T: 25 INTERPRETIVE STATEMENTS: Sinus tachycardia Possible Inferior infarct, age undetermined Cannot rule out Anterior infarct, age undetermined Abnormal ECG Compared to ECG 10/25/2020 10:27:34 No significant changes Electronically Signed On 11-23-20 13:45:40 CDT by Garfield Faust
== END 2020-11-22 15:25 | disposition home or self-care (01) ==
LOC: ER 11:32
DX: J06.9 Acute upper respiratory infection, unspecified (principal); Z86.16 Personal history of COVID-19; E11.9 Type 2 diabetes mellitus without complications
CPT/HCPCS: 93005; 85025; 80048; 36415; 83735; 85610; 80076; 84484; 83880; 71045; 96374; 99285; J0696

== ENCOUNTER 2022-03-31 16:52 | Emergency (ER) | payer OTHER ==
--- OUTSIDE RECORDS SUMMARY | 2022-03-31 16:55 | XMS REPORT | Continuity of Care Document ---
:1975 Author Organization [facility] t Address [address] [place] [address] Care Team Providers Name Role Phone Kelly Di HOWELL Primary Care Physician JOSELYN GRIDER Attending Clinician Unavailable Cheo Joselyn JACKSON Attending Clinician [phone] Doctor Unassigned, [place] Attending Clinician Unavailable ARTHUR ALSTONHMeño Attending Clinician Unavailable Mónica Pineda MA Attending Clinician Unavailable Arthur Alston MD.HMeño Attending Clinician Jessica Garcias LMSW Attending Clinician Unavailable Sandra Reeves DO Attending Clinician SANDRA REEVES Attending Clinician Unavailable SANDRA REEVES Attending Clinician Unavailable 2, [facility] Attending Clinician Unavailable Marvin Montiel MD Attending Clinician MARVIN MONTIEL Attending Clinician Unavailable MARVIN MONTIEL Attending Clinician Unavailable LORENZO CARTER Attending Clinician Unavailable JOE MCKEON Attending Clinician Unavailable Ovi Hicks MD Attending Clinician AKINSIPE, JOSELYN C Admitting Clinician Unavailable GRACIA ERVIN Admitting Clinician Unavailable JOE MCKEON Admitting Clinician Unavailable Payers Payer Name Policy Type Policy Number Effective Date Expiration Date Aniyah QUIJANO MEDICAID [id number] 2020 2021 00:00:00 00:00:00 FORMERLY [facility] [id number] 2020 [place] ST[place] 00:00:00 [place] OF [place] [id number] 2020 00:00:00 Problems Condition Condition Condition Status Onset Resolution Last Treating Co mments Source Name Details Category Date Date Treatment Clinician Date Other Other Disease Active 2021-05 Univers general general 0-27 [place]y of counseling [place] and advice 00 Me dical for for Branch contracept contracept darron darron management management Morbid Morbid Disease Active 2021-05 Univers obesity obesity 0-27 ity of with BMI with BMI 00:00: [place] of of 00 Medical 45.0-49.9, 45.0-49.9, Br anch adult adult History of History of Disease Active 2021-05 U nivers tubal tubal 0-27 ity of ligation ligation 00:00: [place] 00 [facility] Pre-diabet Pre-diabet Disease Active 2021-05 U nivers es es 0-27 ity of 00:00: [place] 00 [facility] No known No known Disease Unive rs active active ity of problems problems [facility] Allergies, Adverse Reactions, Alerts Allergy Allergy Status Severity Reaction(s) Onset Inactive Treating Comm ents Source Name Type Date Date Clinician NO KNOWN Drug Active Univers ALLERGIE Class ity of S [facility] Social History Social Habit Start Date Stop Date Quantity Comments Source Exposure to 2022-03-16 2022-03-26 Not sure [facility] SARS-CoV-2 00:00:00 08:47:00 [facility] (event) [place] Alcohol intake 2022-03-26 2022-03-26 Ex-drinker [facility] 00:00:00 00:00:00 (finding) [facility] Tobacco use and 2020-12-02 2020-12-02 Smokeless tobacco Un iversity of exposure 00:00:00 00:00:00 non-user [facility] Sex Ass[birth year] Universit y of 00:00:00 00:00:00 [facility] Smoking Status Start Date Stop Date Source Never smoked tobacco [facility] Medications Ordered Filled Start Stop Current Ordering Indication Dosage Frequency Signature Comments Components Source Medication Medication Date Date Medication? Clinician (SIG) Name Name norgestimat 2021-05 Yes [id number] 1{tbl} Take 1 Univers e-ethinyl 0-27 tablet by ity o f estradioL [place] the Medical TRI-CYCLEN, morning. Bran ch 28,) 0.18/0.215/ 0.25 mg-35 mcg (28) tablet norgestimat 2021-05 Yes [id number] 1{tbl} Take 1 Univers e-ethinyl 0-27 tablet by ity o f estradioL [place] the Medical TRI-CYCLEN, morning. Bran ch 28,) 0.18/0.215/ 0.25 mg-35 mcg (28) tablet norgestimat 2021-05 Yes [id number] 1{tbl} Take 1 Univers e-ethinyl 0-27 tablet by ity o f estradioL [place] the Medical TRI-CYCLEN, morning. Bran ch 28,) 0.18/0.215/ 0.25 mg-35 mcg (28) tablet metoprolol Yes [id number] 25mg Take 1 Univers succinate 2-14 tablet by ity o f XL 25 mg 24 00:00: mouth [place] hr tablet 00 daily. Medical Branch atorvastati Yes [id number] 20mg Take 1 Univers n 20 mg 2-14 tablet by ity of tablet 00:00: mouth [place] 00 daily. Medical Branch metoprolol Yes [id number] 25mg Take 1 Univers succinate 2-14 tablet by ity o f XL 25 mg 24 00:00: mouth [place] hr tablet 00 daily. Medical Branch atorvastati Yes [id number] 20mg Take 1 Univers n 20 mg 2-14 tablet by ity of tablet 00:00: mouth [place] 00 daily. Medical Branch metoprolol Yes [id number] 25mg Take 1 Univers succinate 2-14 tablet by ity o f XL 25 mg 24 00:00: mouth [place] hr tablet 00 daily. Medical Branch atorvastati Yes [id number] 20mg Take 1 Univers n 20 mg 2-14 tablet by ity of tablet 00:00: mouth [place] 00 daily. Medical Branch metoprolol Yes [id number] 25mg Take 1 Univers succinate 2-14 tablet by ity o f XL 25 mg 24 00:00: mouth [place] hr tablet 00 daily. Medical Branch atorvastati Yes [id number] 20mg Take 1 Univers n 20 mg 2-14 tablet by ity of tablet 00:00: mouth [place] 00 daily. Medical Branch atorvastati Yes [id number] 20mg Take 1 Univers n 20 mg 2-14 tablet by ity of tablet 00:00: mouth [place] 00 daily. Medical Branch atorvastati Yes [id number] 20mg Take 1 Univers n 20 mg 2-14 tablet by ity of tablet 00:00: mouth [place] 00 daily. Medical Branch atorvastati Yes [id number] 20mg Take 1 Univers n 20 mg 2-14 tablet by ity of tablet 00:00: mouth [place] 00 daily. Medical Branch metoprolol 2021- No [id number] 25mg Take 1 Univers succinate 2-14 10-27 tablet by ity of XL 25 mg 24 00:00: 00:[place] hr tablet 00 :00 daily. Medical Branch metoprolol 2021- No [id number] 25mg Take 1 Univers succinate 2-14 10-27 tablet by ity of XL 25 mg 24 00:00: 00:[place] hr tablet 00 :00 daily. Medical Branch metoprolol 2021- No 25mg Take 1 Univ ers succinate 02-02 tablet by ity of XL 25 mg 24 00:00: 00:[place] hr tablet 00 :00 daily. Medical Branch warfarin 1 2021- No 1mg Take 1 mg U nivers mg tablet 11-17 by mouth. ity of 00:00: 00:00 [place] 00 :00 Medical Branch warfarin 2 2021- No TAKE 2 Univ ers mg tablet 11-10 TABLETS BY ity of 00:00: 00:00 MOUTH [place] 00 :00 EVERY Medical NIGHT Branch potassium 2020-0 Yes 10meq Take 10 Univ ers chloride 10 6-19 mEq by ity of mEq CR 00:00: mouth [place] tablet 00 every Medical morning. Branch furosemide 2020-0 Yes 40mg Take 40 mg U nivers 40 mg 6-19 by mouth ity of tablet 00:00: every [place] 00 morning. Medical Branch potassium 2020-0 Yes 10meq Take 10 Univ ers chloride 10 6-19 mEq by ity of mEq CR 00:00: mouth [place] tablet 00 every Medical morning. Branch furosemide 2020-0 Yes 40mg Take 40 mg U nivers 40 mg 6-19 by mouth ity of tablet 00:00: every [place] 00 morning. Medical Branch potassium 2020-0 Yes 10meq Take 10 Univ ers chloride 10 6-19 mEq by ity of mEq CR 00:00: mouth [place] tablet 00 every Medical morning. Branch furosemide 2020-0 Yes 40mg Take 40 mg U nivers 40 mg 6-19 by mouth ity of tablet 00:00: every [place] 00 morning. Medical Branch potassium 2020-0 Yes 10meq Take 10 Univ ers chloride 10 6-19 mEq by ity of mEq CR 00:00: mouth [place] tablet 00 every Medical morning. Branch furosemide 2020-0 Yes 40mg Take 40 mg U nivers 40 mg 6-19 by mouth ity of tablet 00:00: every [place] 00 morning. Medical Branch potassium 2020-0 2021- No 10meq Take 10 Uni vers chloride 10 6-19 10-27 mEq by ity o f mEq CR 00:00: 00:00 mouth [place] tablet 00 :00 every Medical morning. Branch furosemide 2020-0 2021- No 40mg Take 40 mg Univers 40 mg 6-19 10-27 by mouth ity of tablet 00:00: 00:00 every [place] 00 :00 morning. Medical Branch potassium 2020-0 2021- No 10meq Take 10 Uni vers chloride 10 6-19 10-27 mEq by ity o f mEq CR 00:00: 00:00 mouth [place] tablet 00 :00 every Medical morning. Branch furosemide 2020-0 2021- No 40mg Take 40 mg Univers 40 mg 6-19 10-27 by mouth ity of tablet 00:00: 00:00 every [place] 00 :00 morning. Medical Branch atorvastati 2021- No TAKE 1 Uni vers n 20 mg 11-08 TABLET BY ity of tablet 00:00: 00:00 MOUTH AT [place] 00 :00 BEDTIME Medical SEE PCP Branch FOR REFILLS ciprofloxac 2021- No TAKE 1 Uni vers in HCl 500 11-08 TABLET BY ity of mg tablet 00:00: 00:00 MOUTH BY [place] 00 :00 MOUTH FOR Medical 1 DAY. Branch warfarin 2021- No TAKE 1 Univer s 2.5 mg 10-29 TABLET BY ity of tablet 00:00: 00:00 MOUTH [place] 00 :00 DAILY AT 5 Medical PM Branch metFORMIN 2020-0 Yes 500mg Take 500 Uni vers 500 mg 5-05 mg by ity of tablet 00:00: mouth 2 (two) Medical times Branch daily. metFORMIN 2020- Yes 500mg Take 500 Uni vers 500 mg 5-05 mg by ity of tablet 00:00: mouth 2 [place] (two) Medical times Branch daily. metFORMIN 2020-0 Yes 500mg Take 500 Uni vers 500 mg 5-05 mg by ity of tablet 00:00: mouth 2 [place] (two) Medical times Branch daily. metFORMIN 2020-0 Yes 500mg Take 500 Uni vers 500 mg 5-05 mg by ity of tablet 00:00: mouth 2 [place] (two) Medical times Branch daily. metFORMIN 2020-0 Yes 500mg Take 500 Uni vers 500 mg 5-05 mg by ity of tablet 00:00: mouth 2 [place] (two) Medical times Branch daily. metFORMIN 2020-0 Yes 500mg Take 500 Uni vers 500 mg 5-05 mg by ity of tablet 00:00: mouth 2 [place] (two) Medical times Branch daily. metFORMIN 2020-0 Yes 500mg Take 500 Uni vers 500 mg 5-05 mg by ity of tablet 00:00: mouth 2 [place] (two) Medical times Branch daily. traMADol 50 2021- No [id number] 50mg Take 1 Univers mg tablet 01-04 [id number] tablet by it y of 00:00: 00:00 mouth [place] 00 :00 every 6 Medical (six) Branch hours as needed for Pain (scale 4-6). ibuprofen 2021- No [id number] 800mg Take 1 Univers 800 mg 01-04 [id number] tablet by ity o f tablet 00:00: 00:00 mouth [place] 00 :00 every 8 Medical (eight) Branch hours. traMADol 50 2021- No [id number] 50mg Take 1 Univers mg tablet 01-04 [id number] tablet by it y of 00:00: 00:00 mouth [place] 00 :00 every 6 Medical (six) Branch hours as needed for Pain (scale 4-6). Immunizations Ordered Filled Immunization Date Status Comments [facility] e Immunization Name Name SARS-COV-2 COVID-19 2021-05-29 Completed Unive rsity of MODERNA VACCINE 00:00:00 [place] Med ical Branch SARS-COV-2 COVID-19 2021-05-29 Completed Unive rsity of MODERNA 12+ YRS 00:00:00 [place] Med ical VACCINE Branch SARS-COV-2 COVID-19 2021-05-29 Completed Unive rsity of MODERNA 12+ YRS 00:00:00 [place] Med ical VACCINE Branch SARS-COV-2 COVID-19 2021-05-29 Completed Unive rsity of MODERNA 12+ YRS 00:00:00 [place] Med ical VACCINE Branch SARS-COV-2 COVID-19 2021-05-29 Completed Unive rsity of MODERNA 12+ YRS 00:00:00 [place] Med ical VACCINE Branch SARS-COV-2 COVID-19 2021-05-29 Completed Unive rsity of MODERNA 12+ YRS 00:00:00 [place] Med ical VACCINE Branch SARS-COV-2 COVID-19 2021-01-27 Completed Unive rsity of MODERNA VACCINE 00:00:00 [place] Med ical Branch SARS-COV-2 COVID-19 2021-01-27 Completed Unive rsity of MODERNA VACCINE 00:00:00 [place] Med ical Branch SARS-COV-2 COVID-19 2021-01-27 Completed Unive rsity of MODERNA 12+ YRS 00:00:00 [place] Med ical VACCINE Branch SARS-COV-2 COVID-19 2021-01-27 Completed Unive rsity of MODERNA 12+ YRS 00:00:00 [place] Med ical VACCINE Branch SARS-COV-2 COVID-19 2021-01-27 Completed Unive rsity of MODERNA 12+ YRS 00:00:00 [place] Med ical VACCINE Branch SARS-COV-2 COVID-19 2021-01-27 Completed Unive rsity of MODERNA 12+ YRS 00:00:00 [place] Med ical VACCINE Branch SARS-COV-2 COVID-19 2021-01-27 Completed Unive rsity of MODERNA 12+ YRS 00:00:00 [facility] ical VACCINE Branch Vital Signs Vital Name Observation Time Observation Value Comments Source Systolic blood 2022-03-18 14:18:00 125 mm[Hg] Univer sity of pressure [place] [facility] Diastolic blood 2022-03-18 14:18:00 69 mm[Hg] Unive rsity of pressure [facility] Heart rate 2022-03-18 14:18:00 83 /min Universi ty of [facility] Body temperature 2022-03-18 14:18:00 36.39 Armida Univ ersity of [facility] Respiratory rate 2022-03-18 14:18:00 18 /min Univ ersity of [facility] Body height 2022-03-18 14:18:00 157.5 cm Universi ty of [place] Medical [place] Body weight 2022-03-18 14:18:00 113.172 kg Universi ty of [facility] BMI 2022-03-18 14:18:00 45.63 kg/m2 Universi ty of [facility] Branch Systolic blood 2021-07-06 19:52:00 131 mm[Hg] Univer sity of pressure [facility] Diastolic blood 2021-07-06 19:52:00 84 mm[Hg] Unive rsity of pressure [place] [facility] Heart rate 2021-07-06 19:52:00 96 /min Universi ty of [place] [facility] Respiratory rate 2021-07-06 19:52:00 19 /min Univ ersity of [facility] Branch Body height 2021-07-06 19:52:00 157.5 cm Universi ty of [place] [facility] Body weight 2021-07-06 19:52:00 117.981 kg Universi ty of [place] [facility] BMI 2021-07-06 19:52:00 47.57 kg/m2 Universi ty of [facility] Oxygen saturation in 2021-07-06 19:52:00 94 /min [facility] Arterial blood by [facility] Pulse oximetry Branch Procedures Procedure Date / Time Performed Performing Clinician Parisa gray NOTICE OF PRIVACY 2022-03-26 13:44:59 Doctor Unassigned, No [facility] PRACTICES Name Medical Branch CONSENT/REFUSAL FOR 2022-03-26 13:44:36 [facility], [facility] Name Medical Branch TREATMENT ASSIGNMENT OF BENEFITS 2022-03-26 13:44:18 Doctor Unassigned, No [facility] HIV 1/2 AG-AB WITH 2022-03-18 15:30:[address] [facility] REFLEX Medical Branch GALV ONLY - SYPHILIS 2022-03-18 15:30:00 Joselyn Grider Un [facility] IGG/IGM Medical Branch ASSIGNMENT OF BENEFITS 2022-03-18 13:33:34 Doctor Unassigned, No [facility] REFERRAL- 2022-02-10 05:01:00 Doctor Unassigned, No [facility] REQUEST/RESPONSE Name Medical Branch Encounters Start End Encounter Admission Attending Care Care Encounter Source Date/Time Date/Time Type Type Clinicians Facility Department ID 2021-12-18 Outpatient G[facility]ISANO [facility] [id number] [place] 11:11:48 [id number] Health 2022-06-18 2022-06-18 Outpatient R CHEO, [facility] [id number] Univers 09:00:00 09:00:00 JOSELYN john o f [facility] 2022-03-26 2022-03-26 [facility] [id number] Univers 08:47:30 23:59:00 JOSELYN leóny o f [facility] 2022-03-26 2022-03-26 [facility] [id number] [facility] 08:47:30 23:59:00 Encounter Joselyn [place] [id number] [place] [id number] [facility] [id number] [facility] 800 Branch 2022-03-26 2022-03-26 Outpatient SFA MARY [id number] Javon 13:18:40 13:18:40 1104 F Alfredo 2022-03-182022-03-18 Outpatient R CHEO [facility] [id number] Univers 09:15:00 10:31:43 JOSELYN john o f [facility] 2022-03-18 2022-03-18 Office Cheo [facility] [id number] Univers 09:15:00 10:31:43 Visit Joselyn Dawn [employer] [id number] ity of [facility] [id number] Steve as MATERNAL [phone] [facility] ical & CHILD [address] [place] [address] 2022-03-18 2022-03-18 Orders Doctor JASS [id number] Univers 00:00:00 00:00:00 Only Unassigned, VAN [id number] ity of [place] [facility] [id number] Steve as [phone] [address] 2022-02-10 2022-02-10 Orders Doctor JASS [id number] Univers 00:00:00 00:00:00 Only Unassigned, VAN [id number] ity of [place] [facility] [id number] Steve as [phone] [address] 2021-08-31 2021-08-31 Outpatient Юлия ALSTON [facility] [id number] Univers 09:00:00 09:00:00 SENDIL ity [facility] 2021-08-31 2021-08-31 Outpatient Юлия ALSTON [facility] [id number] Univers 09:00:00 09:00:00 SENDIL ity [facility] 2021-08-17 2021-08-17 Case MARIANNE PinedaCarter [id number] Univers 00:00:00 00:00:00 Management Mónica OSORIO [id number] [id number] [id number] [facility] 086 [place] 2021-07-29 2021-07-29 Outpatient Юлия ALSTON [facility] [id number] Univers 10:00:00 10:00:00 SENDIL ity [facility] 2021-07-28 2021-07-28 [facility] [id number] Univers 10:00:00 10:00:00 SENDIL ity [facility] 2021-07-28 2021-07-28 Outpatient R [facility] [id number] Univers 09:15:00 09:15:00 ity of [facility] 2021-07-28 2021-07-28 Outpatient R [facility] [id number] Univers 09:15:00 09:15:00 ity [facility] 2021-07-07 2021-07-07 [facility] [id number] Univers 00:00:00 00:00:00 Sendil Jennifer [place] [id number] ity of [facility] [id number] [phone] Ny dical NAL 9 [facility] 2021-07-06 2021-07-06 [facility] [id number] Univers 14:00:00 14:26:01 [facility]-07-[facility] 2021-07-06 [facility] [id number] Univers 14:00:00 14:26:01 Visit Sendkenzie [place] [id number] ity of [facility] [id number] [phone] Ny dicok NAL [address] [place] [address] 2021-05-08 2021-05-08 [facility] [id number] Univers 11:00:00 11:00:00 SENDIL ity [facility] 2021-04-22 2021-04-22 NELSON Andres [id number] Univers 00:00:00 00:00:00 Management Jessica OSORIO [id number] [id number] [phone] [address] 2021-03-13 2021-03-13 Office [facility] [id number] Univers 13:47:33 14:29:24 Visit Sandra [place] [id number] i ty of [place].2.[place] Profess[place] [phone] Ny dical nal 085 [facility] 2021-03-13 2021-03-13 Outpatient R SANDRA REEVES [facility] [id number] Univers 13:40:00 13:40:00 SANDRA REEVES i ty of [facility] 2021-02-04 2021-02-04 Residential Direct Support Professional 2, Adc Lab [facility] 1.2.840.114 [id number] Univers 09:12:57 09:27:57 Visit Arthur Alston 350.1.13. 10 ity of [id number] Profess[place] [phone] Ny dical nal 353 [facility] 2021-02-04 2021-02-04 Residential Direct Support Professional 2, Adc Lab [facility] 1.2.840.114 [id number] Univers 09:12:57 09:27:57 Visit Arthur Alston 350.1.13. 10 ity of [place] Profess[place] [phone] Ny dicok nal 353 [facility] 2021-02-04 2021-02-04 Office Alecia [facility] 1.2.840.114 [id number] Univers 08:33:29 09:06:01 Visit Arthur [place] [id number] ity of [place] [id number] Profess[place] [phone] Ny dicok nal 059 [facility] 2021-02-04 2021-02-04 Outpatient R ALECIA [facility] [id number] Univers 09:00:00 09:00:00 SENDIL itdona of [facility] 2021-02-02 2021-02-02 Telephone Alecia [facility] [id number] Univers 00:00:00 00:00:00 Arthur [place] [id number] ity of [place] Profess[place] [phone] Ny dical nal 059 [facility] 2021-02-02 2021-02-02 [facility] [id number] Univers 00:00:00 00:00:00 Sendil Jennifer [place] [id number] ity of [place] 4[place].2.[place] [phone] Ny dical nal 059 [facility] 2021-01-28 2021-01-28 [facility] [id number] Univers 10:33:19 23:59:00 Encounter Sendil Jennifer [place] [id number] ity of [id number] Profess[place] [phone] Ny dicok nal 843 [facility] 2021-01-28 2021-01-28 [facility] [id number] Univers 11:00:00 11:00:00 SENDIL ity [facility] 2021-01-08 2021-01-08 [facility] [id number] Univers 08:00:00 08:00:00 SENDIL ity [facility] 2021-01-08 2021-01-08 Orders Doctor JASS [id number] [id number] Univers 00:00:00 00:00:00 Only Unassigned, VAN 350.1.13.10 ity of [place] [facility] 4.2.7.2.686 Steve as [phone] [address] 2021-01-08 2021-01-08 Orders Doctor REGAN 1.2.840.114 [id number] Univers 00:00:00 00:00:00 Only Unassigned, VAN 350.1.13.10 ity of [place] [facility] 4.2.7.2.686 Steve as [phone] [address] 2020-12-23 2020-12-23 Office [facility] 1.2.840.114 [id number] Univers 09:37:45 10:22:19 Visit Sendil DanitaMeñoArpanMeño [place] 350.1.13.10 ity of [place] Profess[place] [phone] Ny dical nal 059 [facility] 2020-12-23 2020-12-23 Outpatient Юлия ALSTON [facility] [id number] Univers 09:30:00 09:30:00 SENDKENZIE john [facility] 2020-12-02 2020-12-02 Office Tiana [facility] [id number] [facility] 13:37:13 16:45:02 Visit Marvin [place] [id number] ity [facility] [id number] Profess[place] [phone] [facility] nal 092 [facility] 2020-12-02 2020-12-02 Outpatient R MARVIN MONTIEL [facility] [id number] Univers 13:40:00 13:40:00 MARVIN MONTIEL [facility] 2020-12-02 2020-12-02 Orders Doctor JASS 1.2.840.114 [id number] Univers 00:00:00 00:00:00 Only Unassigned, VAN 350.1.13.10 ity of [place] [facility] 4.2.7.2.686 Steve as [phone] [address] 2020-11-18 2020-11-18 Orders Doctor JASS 1.2.840.114 [id number] Univers 00:00:00 00:00:00 Only Unassigned, VAN 350.1.13.10 ity of [place] [facility] 4.2.7.2.686 Steve as [phone] [address] 2020-10-31 2020-11-08 Inpatient Shruthi [facility] [id number] [facility] 13:17:00 16:50:00 LORENZO 2020-10-31 2020-10-31 Outpatient MIKE [facility] MARIA 9370 [facility] 12:39:00 23:59:00 JOE 2019-01-04 2019-01-04 [facility] [id number] Univers 10:35:24 12:30:00 Ovi [place] 350.1.13.10 i ty of [place] 4.2.7.2.686 [facility] [phone] [facility] 084 [place] 2019-01-04 2019-01-04 Emergency DAVIN Hicks [id number] 10:35:24 12:30:00 Ovi [place] [id number] [place] 4.2.7.2.686 [place] [phone] [id number] Results Test Description Test Time Test Comments Results Result Comments Source GALV ONLY - [place] IGG/IGM 2022-03-19 16:01:15 Test Item Value Reference Range Interpretation Comme nts Syphilis IgG/IgM (test code = Non-reactive Non-reactive 17146-8) PANCHO (test code = PANCHO) Non-reactive - No serologic evidence of T. pallidum infection. Cannot exclude incubating or early syphilis. Submit a second specimen in 2-4 weeks if syphilis is clinically suspected. Equivocal - Further testing to follow. Reactive - Further testing to follow. Lab Interpretation (test code = Normal 02421-7) [facility] ONLY - [place] [id number] 16:01:15 Test Item Value Reference Range Interpretation Comments Syphilis IgG/IgM (test Non-reactive Non-reactive code = 99591-5) PANCHO (test code = PANCHO) Non-reactive - No serologic evidence of T. pallidum infection. Cannot exclude incubating or early syphilis. Submit a second specimen in 2-4 weeks if syphilis is clinically suspected. Equivocal - Further testing to follow. Reactive - Further testing to follow. Lab Interpretation (test Normal code = 16869-9) [facility] 1/2 AG-AB WITH [id number] 07:03:37 Test Item Value Reference Range Interpretation Comments HIV Negative Negative Semi-quantitative (test code = 91610-2) PANCHO (test code = Non-reactive for HIV-1 PANCHO) antigen and HIV-1/HIV-2 antibodies. ?No laboratory evidence of HIV infection. ?Repeat in 2-4 weeks if acute HIV infection is suspected. [facility] 1/2 AG-AB WITH [id number] 07:03:37 Test Item Value Reference Range Interpretation Comments HIV Negative Negative Semi-quantitative (test code = 52120-1) PANCHO (test code = Non-reactive for HIV-1 PANCHO) antigen and HIV-1/HIV-2 antibodies. ?No laboratory evidence of HIV infection. ?Repeat in 2-4 weeks if acute HIV infection is suspected. [facility] [id number] 04:36:38 Test Item Value Reference Range Interpretation Comments HEMOGLOBIN A1c (test 6.7 % 4.2-5.6 H AMERIC AN DIABETES code = 79455) ASSOCIATION IDELINES FOR HGB A1C: PREDIABETES/INC REASED RISK . . . . . . . 5.7 -6.4% DIAGNOSIS OF DI ABETES . . . . . . . . . >=6 .5% WITH CONFIRMATION OR APPROPRIATE SYMPTOMS NOTE: ASSAY MAY BE AFFECTED BY HEMOGLOBINOPATH IES (SICKLE CELL ANEMIA, S- C DISEASE, OTHERS) OR JOAQUIN FICIALLY LOWERED BY DECR EASED RED CELL SURVIVAL ( HEMOLYTIC ANEMIAS, BLOOD LOSS, ETC.). CONSIDER ALTERN ATE TESTING OR LABORATORY C ONSULTATION. UNLESS OTHERWIS E INDICATED, ALL TESTING PER FORMED [facility], [place] [address] [place] [phone] LABORATORY DIRE CTOR: ZOILA ARRIETA M.D. CLIA NUMBER [id number] [place]. [id number] VITAMIN [id number] 06:03:13 Test Item Value Reference Range Interpretation Comments VITAMIN B-12 (test code = 2840) 275 PG/ML 200-950 ALBUMIN/CREATININE RATIO, URINE, [id number] 04:35:05 Test Item Value Reference Range Interpretation Comments CREATININE, URINE, 102.5 MG/DL NOT ESTAB RANDOM (test code = 2072) ALBUMIN, URINE, 3.1 MG/DL NOT ESTAB RANDOM (test code = 00987) CALC 30 MG/G <30 H Note: ALBUMIN/CREAT, RND Albumin/C reatinine ratio (test code = reference inter octavia 49749) reflects ADA an d NKF guidelines. UNL ESS OTHERWISE INDIC ATED, ALL TESTING PERFORM ED ATCLINICAL PATH [facility], [place] [address] [place] [address] LABORATORY DIRE CTOR: ZOILA HOLLOWAY M.D. CLIA NUMBER [id number] [place] [id number] HEMOGLOBIN [id number] 04:00:09 Test Item Value Reference Range Interpretation Comments HEMOGLOBIN A1c (test 6.7 % 4.2-5.6 H AMERIC AN DIABETES code = 33737) ASSOCIATION IDELINES FOR HGB A1C: PREDIABETES/INC REASED RISK . . . . . . . 5.7 -6.4% DIAGNOSIS OF DI ABETES . . . . . . . . . >=6 .5% WITH CONFIRMATION OR APPROPRIATE SYMPTOMS NOTE: ASSAY MAY BE AFFECTED BY HEMOGLOBINOPATH IES (SICKLE CELL ANEMIA, S- C DISEASE, OTHERS) OR JOAQUIN FICIALLY LOWERED BY DECR EASED RED CELL SURVIVAL ( HEMOLYTIC ANEMIAS, BLOOD LOSS, ETC.). CONSIDER ALTERN ATE TESTING OR LABORATORY C ONSULTATION. CBC W/AUTO DIFF WITH [id number] 02:32:28 Test Item Value Reference Range Interpretation Comments WBC (test code = 6.4 K/UL 3.5-11.0 1001) RBC (test code = 4.93 M/UL 3.80-5.40 1002) HEMOGLOBIN (test code 11.7 G/DL 11.5-15.5 = 1003) HEMATOCRIT (test code 36.9 % 34.0-45.0 = 1004) MCV (test code = 74.8 fL 80.0-99.0 L 1005) MCH (test code = 23.7 PG 25.0-33.0 L 1006) MCHC (test code = 31.7 G/DL 31.0-36.0 1007) RDW (test code = 17.1 % 11.5-15.0 H 1038) NEUTROPHILS (test 61.7 % code = 1008) LYMPHOCYTES (test 28.3 % code = 1010) MONOCYTES (test code 7.0 % = 1011) EOSINOPHILS (test 2.0 % code = 1012) BASOPHILS (test code 0.8 % = 1013) IMMATURE GRANULOCYTES 0.2 % (test code = 1036) NUCLEATED RBCS (test 0.0 /100 WBC'S See_Comment [Aut omated code = 1065) message] The sy stem which generated this result transmitted reference range : 0.0. The refere nce range was not u sed to interpret th is result as normal/abnormal . PLATELET COUNT (test 362 K/UL 130-400 code = 1015) ABSOLUTE NEUTROPHILS 3.98 K/UL 1.50-7.50 (test code = 1066) ABSOLUTE LYMPHOCYTES 1.82 K/UL 1.00-4.00 (test code = 1067) ABSOLUTE MONOCYTES 0.45 K/UL 0.20-1.00 (test code = 1068) ABSOLUTE EOSINOPHILS 0.13 K/UL 0.00-0.50 (test code = 1040) ABSOLUTE BASOPHILS 0.05 K/UL 0.00-0.20 (test code = 1069) ABS IMMATURE 0.01 K/UL 0.00-0.10 GRANULOCYTES (test code = 1020) ABS NUCLEATED RBCS 0.00 K/UL 0.00-0.11 (test code = 08057)
[2022-03-31] MEDS ORDERED: DIPHENHYDRAMINE 50 MG/ML VIAL ONE (18:12)
[2022-03-31] MEDS ORDERED: dexAMETHasone 10 MG/ML VIAL ONE (18:13)
[2022-03-31] MEDS ORDERED: FAMOTIDINE 20 MG/2 ML VIAL IV ONE (18:13)
--- NOTE | 2022-03-31 19:50 | ER ---
Nurse's Notes [facility] Name: Saida Coyle Age: 46 yrs Sex: Female : 1975 Arrival Date: 03/31/2022 Time: 16:56 Bed 10 Private MD: Diagnosis: Angioedema Presentation: 03/31 17:07 Chief complaint: Patient states: Lower lip swelling started today. Upper lip starting ll1 to swell slightly. No new medication. Coronavirus screen: Vaccine status: Patient reports receiving the 2nd dose of the covid vaccine. Client denies travel out of the [place] in the last 14 days. At this time, the client does not indicate any symptoms associated with coronavirus-19. Ebola Screen: Patient denies travel to an Ebola-affected area in the 21 days before illness onset. Initial Sepsis Screen: Does the patient meet any 2 criteria? No. Patient's initial sepsis screen is negative. Does the patient have a suspected source of infection? Yes: Skin breakdown/wound. Risk Assessment: Do you want to hurt yourself or someone else? Patient reports no desire to harm self or others. Onset of symptoms was March 31, 2022. 17:07 Method Of Arrival: Ambulatory ll1 17:07 Acuity: VERITO 4 ll1 17:42 Acuity: VERITO 3 iw Triage Assessment: 20:07 General: Appears in no apparent distress. Behavior is calm, cooperative. kb3 FAMILY PRACTICE MD: 20:07 LMP N/A - Irregular menses kb3 Historical: - Allergies: 17:08 No Known Drug Allergies; ll1 - Home Meds: 17:55 metformin 1,000 mg oral tab daily [Active]; Lisinopril Oral once daily [Active]; iw Victoza 2-Wilfred 0.6 mg/0.1 mL (18 mg/3 mL) subcutaneous pnij once daily [Active]; control [Active]; - PMHx: 17:08 Pneumonia; Diabetes - NIDDM; COVID; Abcess left buttock; TIA; ll1 - PSHx: 17:08 I\T\D of left buttock; tubal ligation; ll1 - Immunization history:: Client reports receiving the 2nd dose of the Covid vaccine. - Social history:: Smoking status: Patient denies any tobacco usage or history of. Screenin:50 Abuse screen: Denies threats or abuse. Denies injuries from another. Nutritional iw screening: No deficits noted. Tuberculosis screening: No symptoms or risk factors identified. Fall Risk None identified. Assessment: 18:50 Reassessment: Patient appears in no apparent distress at this time. Patient and/or iw family updated on plan of care and expected duration. Pain level reassessed. Patient is alert, oriented x 3, equal unlabored respirations, skin warm/dry/pink. 19:50 General: Pt reports feeling much better, no swelling noted. . kb3 19:50 Pain: Denies pain. kb3 Vital Signs: 17:07 BP 140 / 85; Pulse 88; Resp 18; Temp 98.6; Pulse Ox 99% ; Weight 112.49 kg; Height 5 ll1 ft. 2 in. (157.48 cm); Pain 0/10; 19:50 BP 142 / 82; Pulse 80; Resp 20; Pulse Ox 99% ; kb3 17:07 Body Mass Index 45.36 (112.49 kg, 157.48 cm) ll1 ED Course: 16:56 Patient arrived in ED. mr 17:08 Triage completed. ll1 17:09 Arm band placed on. ll1 17:30 Sean Douglas NP is PHCP. pm1 17:30 Severo Hays MD is Attending Physician. pm1 17:42 Tawanna Ramon, PUJA is Primary Nurse. iw 17:55 Inserted saline lock: 22 gauge in right antecubital area, using aseptic technique. iw 19:00 No provider procedures requiring assistance completed. iw 19:50 Patient has correct armband on for positive identification. Bed in low position. kb3 19:50 IV discontinued, intact, bleeding controlled, No redness/swelling at site. Pressure kb3 dressing applied. Administered Medications: 18:22 Drug: Decadron - Dexamethasone 10 mg Route: IVP; Site: right antecubital; iw 19:51 Follow up: Response: No adverse reaction kb3 18:22 Drug: Benadryl (diphenhydrAMINE) 25 mg Route: IVP; Site: right antecubital; iw 19:51 Follow up: Response: No adverse reaction kb3 18:22 Drug: Pepcid (famotidine) 20 mg Route: IVP; Site: right antecubital; iw 19:51 Follow up: Response: No adverse reaction kb3 Medication: 19:50 VIS not applicable for this client. kb3 Outcome: 19:49 Discharge ordered by . pm1 19:50 Discharged to home ambulatory, with family. kb3 19:50 Condition: stable 19:50 Discharge instructions given to patient, Instructed on discharge instructions, follow up and referral plans. medication usage, Demonstrated understanding of instructions, follow-up care, medications, Prescriptions given X 3. 20:07 Patient left the ED. kb3 Signatures: Haley Gonzales mr Taawnna Ramon, RN RN iw Sean Douglas, FABIAN MANUAL ARTS THERAPIST pm1 Amarilis Zurita RN RN ll1 Margaret Malave, RN RN kb3
--- NOTE | 2022-03-31 19:50 | EDPHYS ---
Physician Documentation [facility] Name: Saida Coyle Age: 46 yrs Sex: Female : 1975 Arrival Date: 03/31/2022 Time: 16:56 Bed 10 Private MD: ED Physician Severo Hays HPI: 03/31 17:34 This 46 yrs old Female presents to ER via Ambulatory with complaints of Lips pm1 Swelling. 17:34 The patient presents with swelling. The problem is located in the mouth. Onset: The pm1 symptoms/episode began/occurred today. Duration: The symptoms are continuous, and are steadily getting worse. Modifying factors: The symptoms are alleviated by nothing, the symptoms are aggravated by nothing. Associated signs and symptoms: Pertinent negatives: dysphagia, sore throat, shortness of breath. Severity of symptoms: in the emergency department the symptoms are actually worse, started in right lower lip and now present to left lower lip and right upper lip. The patient has not experienced similar symptoms in the past. The patient has not recently seen a physician. Patient denies any new medications or foods. Patient does take ACEI. DIGESTION OPERATOR: 20:07 LMP N/A - Irregular menses kb3 Historical: - Allergies: 17:08 No Known Drug Allergies; ll1 - Home Meds: 17:55 metformin 1,000 mg oral tab daily [Active]; Lisinopril Oral once daily [Active]; iw Victoza 2-Wilfred 0.6 mg/0.1 mL (18 mg/3 mL) subcutaneous pnij once daily [Active]; control [Active]; - PMHx: 17:08 Pneumonia; Diabetes - NIDDM; COVID; Abcess left buttock; TIA; ll1 - PSHx: 17:08 I\T\D of left buttock; tubal ligation; ll1 - Immunization history:: Client reports receiving the 2nd dose of the Covid vaccine. - Social history:: Smoking status: Patient denies any tobacco usage or history of. ROS: 17:34 Constitutional: Negative for fever, chills, and weight loss. pm1 17:34 Cardiovascular: Negative for chest pain, palpitations, and edema, Respiratory: Negative for shortness of breath, cough, wheezing, and pleuritic chest pain, Skin: Negative for injury, rash, and discoloration, Neuro: Negative for headache, weakness, numbness, tingling, and seizure. 17:34 ENT: Positive for swelling to lips, Negative for sore throat, difficulty swallowing, hoarseness. 17:34 All other systems are negative. Exam: 17:34 Constitutional: This is a well developed, well nourished patient who is awake, alert, pm1 and in no acute distress. Head/Face: Normocephalic, atraumatic. 17:34 Skin: Warm, dry with normal turgor. Normal color with no rashes, no lesions, and no evidence of cellulitis. MS/ Extremity: Pulses equal, no cyanosis. Neurovascular intact. Full, normal range of motion. 17:34 Eyes: Exam is negative for acute changes, Extraocular movements: no acute changes, Conjunctiva: no acute changes, no injection. 17:34 ENT: Mouth: Lips: mild swelling to lower lip, and trace swelling to right upper lip. Negative for trismus, swelling of tongue, drooling. Normal voice, Oral mucosa: normal, pink and intact, moist, Gums: normal with healthy appearance, Tongue: is normal. 17:34 Cardiovascular: Exam negative for acute changes, Rate: normal, Rhythm: regular, Pulses: no pulse deficits are appreciated. 17:34 Respiratory: Exam negative for acute changes, respiratory distress, shortness of breath. 17:34 Neuro: Exam negative for acute changes, Orientation: is normal, Mentation: is normal, Motor: is normal, moves all fours. Vital Signs: 17:07 BP 140 / 85; Pulse 88; Resp 18; Temp 98.6; Pulse Ox 99% ; Weight 112.49 kg; Height 5 ll1 ft. 2 in. (157.48 cm); Pain 0/10; 19:50 BP 142 / 82; Pulse 80; Resp 20; Pulse Ox 99% ; kb3 17:07 Body Mass Index 45.36 (112.49 kg, 157.48 cm) ll1 MDM: 17:30 Patient medically screened. pm1 19:53 Data reviewed: vital signs. Data interpreted: Pulse oximetry: on room air is 99 %. pm1 Interpretation: normal. 19:53 ED course: Patient's swelling to lip has decreased. Advised patient to stop taking her pm1 lisinopril and follow up with PCP for HTN management. 03/31 17:34 Order name: IV Saline Lock; Complete Time: 17:56 pm1 Administered Medications: 18:22 Drug: Decadron - Dexamethasone 10 mg Route: IVP; Site: right antecubital; iw 19:51 Follow up: Response: No adverse reaction kb3 18:22 Drug: Benadryl (diphenhydrAMINE) 25 mg Route: IVP; Site: right antecubital; iw 19:51 Follow up: Response: No adverse reaction kb3 18:22 Drug: Pepcid (famotidine) 20 mg Route: IVP; Site: right antecubital; iw 19:51 Follow up: Response: No adverse reaction kb3 Disposition Summary: 03/31/22 19:49 Discharge Ordered Location: Home pm1 Problem: new pm1 Symptoms: have improved pm1 Condition: Stable pm1 Diagnosis - Angioedema pm1 Followup: pm1 - With: Emergency Department - When: As needed - Reason: Worsening of condition Followup: pm1 - With: Private Physician - When: 2 - 3 days - Reason: Recheck today's complaints, Continuance of care, Re-evaluation by your physician Discharge Instructions: - Discharge Summary Sheet pm1 - Angioedema pm1 Forms: - Medication Reconciliation Form pm1 - Thank You Letter pm1 - Antibiotic Education pm1 - Prescription Opioid Use pm1 Prescriptions: - Benadryl 25 mg Oral Capsule - take 1 capsule by ORAL route every 6 hours As needed; 30 tablet; Refills: 0, pm1 Product Selection Permitted - Pepcid 20 mg Oral Tablet - take 1 tablet by ORAL route every 12 hours for 10 days; 20 tablet; Refills: 0, pm1 Product Selection Permitted - Prednisone 20 mg Oral Tablet - take 3 tablets by ORAL route once daily for 5 days; 15 tablet; Refills: 0, pm1 Product Selection Permitted Signatures: Tawanna Ramon RN RN iw Sean Douglas NP DATA REDUCTION TECHNICIAN pm1 Amarilis Zurita RN RN ll1 Margaret Malave RN kb3
[2022-03-31 21:13] VITALS: TEMP 98.6; O2SAT 99
[2022-03-31 21:14] VITALS: BP 142/82
== END 2022-03-31 20:07 | disposition home or self-care (01) ==
LOC: ER 16:52
DX: T78.3XXA Angioneurotic edema, initial encounter (principal); E11.9 Type 2 diabetes mellitus without complications
CPT/HCPCS: 96375; 96374; 99283; J1200; J1100

== ENCOUNTER → 2023-06-11 | Emergency (ER) | payer OTHER ==
--- OUTSIDE RECORDS SUMMARY | 2023-06-11 07:06 | XMS REPORT | Continuity of Care Document ---
Author Name Unknown Address [address] [facility] [place] [address] [facility] thconnect Address [address] [facility] [address] [place] [address] Care Team Providers Care [employer] Music Instructor Name Role Phone Joeslyn Garcia Primary Care Physicia n RADIOLOGY Attending Clinician Unavailable Radiology Attending Clinician Unavailable Doctor Unassigned, [place] Attending Clinician U Mónica Zuniga MA Attending Clinician Unavailrussel Reddy RN, Nataly Henderson Attending Clinician Unav ailable JOSELYN GRIDER Attending Clinician Unavail able Joselyn Garcia Attending Clinician + ARTHUR ALSTON K.HMeño Attending Clinician Unavailsteve Alston MD, Arthur K.HMeño Attending Clinician + [phone] Jessica Garcias LMSW Attending Clinician Unava ilable Sandra Reeves DO Attending Clinician [phone] SANDRA REEVES Attending Clinician Unavailable SANDRA REEVES Attending Clinician Unavailable 2, [facility] Attending Clinician Unavailable Marvin Montiel MD Attending Clinician [phone] MARVIN MONTIEL Attending Clinician Unavail MARVIN Castillo Attending Clinician Unavail LORENZO Hamilton Attending Clinician Unavailable JOE MCKEON Attending Clinician UnavailOvi Whaley MD Attending Clinician [phone] JOSELYN GRIDER Admitting Clinician Unavail able GRACIA ERVIN Admitting Clinician UnavailJOE Irene Admitting Clinician Unavailrussel gray Payers Payer Name Policy Type Policy Number Effective Date Expirati on Date Source [place] [id number] 2020 00:00:00 2021 00:00:00 [employer] [id number] 2021 00:00:00 MEDICAID OF [place] [id number] 2020 00:00:00 Problems Condition Name Condition Details Condition Category Status Onset Date Resolution Date Last Treatment Date Treating Clinician Comments Source Other general counseling and advice for contracept darron management Other general counseling and advice for contracept darron management Disease Active 2021-05 00:00: 00 [facility] Morbid obesity with BMI of 45.0-49.9, adult Morbid obesity with BMI of 45.0-49.9, adult Disease Active 2021-05 00:00: 00 [facility] History of tubal ligation History of tubal ligation Disease Active 2021-05 00:00: 00 [facility] Pre-diabet es Pre-diabet es Disease Active 2021-05 00:00: 00 [facility] No known active problems No known active problems Disease [facility] Allergies, Adverse Reactions, Alerts Allergy Name Allergy Type Status Severity Reaction(s) Onset Date Inactive Date Treating Clinician Comments Source NO KNOWN ALLERGIE S Drug Class Active [facility] Social History Social Habit Start Date Stop Date Quantity Comments Source Gender identity [facility] Sexual orientation U [facility] [place] [place] Exposure to SARS-CoV-2 (event) 2022-03-16 00:00:00 2022-03-26 08:47:00 Not sure [facility] Alcohol intake 2022-03-26 00:00:00 2022-03-26 00:00:00 Ex-drinker (finding) [facility] History of Social function 2021-07-06 00:00:00 2021-07-06 00:00:00 [facility] Tobacco use and exposure 2020-12-02 00:00:00 2020-12-02 00:00:00 Smokeless tobacco non-user [facility] Sex Assigned At 1975 00:00:00 1975 00:00:00 [facility] Smoking Status Start Date Stop Date Source Never smoked tobacco [facility] Medications Ordered Medication Name Filled Medication Name Start Date Stop Date Current Medication? Ordering Clinician Indication Dosage Frequency Signature (SIG) Comments Components Source TRI-SPRINTE C 0.18/0.215/ 0.25 mg-35 mcg (28) per tablet 06-08 00:00: 00 Yes [id number] TAKE 1 TABLET BY MOUTH IN THE MORNING [facility] TRI-SPRINTE C 0.18/0.215/ 0.25 mg-35 mcg (28) per tablet 06-08 00:00: 00 Yes [id number] TAKE 1 TABLET BY MOUTH IN THE MORNING [facility] TRI-SPRINTE C 0.18/0.215/ 0.25 mg-35 mcg (28) per tablet 06-08 00:00: 00 Yes [id number] TAKE 1 TABLET BY MOUTH IN THE MORNING [facility] TRI-SPRINTE C 0.18/0.215/ 0.25 mg-35 mcg (28) per tablet 06-08 00:00: 00 Yes [id number] TAKE 1 TABLET BY MOUTH IN THE MORNING [facility] TRI-SPRINTE C 0.18/0.215/ 0.25 mg-35 mcg (28) per tablet 06-08 00:00: 00 Yes [id number] TAKE 1 TABLET BY MOUTH IN THE MORNING [facility] TRI-SPRINTE C 0.18/0.215/ 0.25 mg-35 mcg (28) per tablet 06-08 00:00: 00 Yes [id number] TAKE 1 TABLET BY MOUTH IN THE MORNING [facility] norgestimat e-ethinyl estradioL (ORTHO TRI-CYCLEN, 28,) 0.18/0.215/ 0.25 mg-35 mcg (28) tablet 2021-05 0 00:00: 00 Yes [id number] 1{tbl} Take 1 tablet by mouth in the morning. [facility] norgestimat e-ethinyl estradioL (ORTHO TRI-CYCLEN, 28,) 0.18/0.215/ 0.25 mg-35 mcg (28) tablet 2021-05 0 00:00: 00 Yes [id number] 1{tbl} Take 1 tablet by mouth in the morning. [facility] norgestimat e-ethinyl estradioL (ORTHO TRI-CYCLEN, 28,) 0.18/0.215/ 0.25 mg-35 mcg (28) tablet 2021-05 0 00:00: 00 Yes [id number] 1{tbl} Take 1 tablet by mouth in the morning. [facility] norgestimat e-ethinyl estradioL (ORTHO TRI-CYCLEN, 28,) 0.18/0.215/ 0.25 mg-35 mcg (28) tablet 2021-05 0 00:00: 00 06-08 00:00 :00 No [id number] 1{tbl} Take 1 tablet by mouth in the morning. [facility] metoprolol succinate XL 25 mg 24 hr tablet 2-14 00:00: 00 Yes [id number] 25mg Take 1 tablet by mouth daily. [facility] atorvastati n 20 mg tablet 0 2-14 00:00: 00 Yes [id number] 20mg Take 1 tablet by mouth daily. [facility] metoprolol succinate XL 25 mg 24 hr tablet 0 2-14 00:00: 00 Yes [id number] 25mg Take 1 tablet by mouth daily. [facility] atorvastati n 20 mg tablet 2-14 00:00: 00 Yes [id number] 20mg Take 1 tablet by mouth daily. [facility] metoprolol succinate XL 25 mg 24 hr tablet 2-14 00:00: 00 Yes [id number] 25mg Take 1 tablet by mouth daily. [facility] atorvastati n 20 mg tablet 2021-0 2-14 00:00: 00 Yes [id number] 20mg Take 1 tablet by mouth daily. [facility] metoprolol succinate XL 25 mg 24 hr tablet 2021-0 2-14 00:00: 00 Yes [id number] 25mg Take 1 tablet by mouth daily. [facility] atorvastati n 20 mg tablet 2021-0 2-14 00:00: 00 Yes [id number] 20mg Take 1 tablet by mouth daily. [facility] atorvastati n 20 mg tablet 2021-0 2-14 00:00: 00 Yes [id number] 20mg Take 1 tablet by mouth daily. [facility] atorvastati n 20 mg tablet 2021-0 2-14 00:00: 00 Yes [id number] 20mg Take 1 tablet by mouth daily. [facility] atorvastati n 20 mg tablet 2021-0 2-14 00:00: 00 Yes [id number] 20mg Take 1 tablet by mouth daily. [facility] atorvastati n 20 mg tablet 2021-0 2-14 00:00: 00 Yes [id number] 20mg Take 1 tablet by mouth daily. [facility] atorvastati n 20 mg tablet 2021-0 2-14 00:00: 00 Yes [id number] 20mg Take 1 tablet by mouth daily. [facility] atorvastati n 20 mg tablet 2021-0 2-14 00:00: 00 Yes [id number] 20mg Take 1 tablet by mouth daily. [facility] atorvastati n 20 mg tablet 2021-0 2-14 00:00: 00 Yes [id number] 20mg Take 1 tablet by mouth daily. [facility] atorvastati n 20 mg tablet 2021-0 2-14 00:00: 00 Yes [id number] 20mg Take 1 tablet by mouth daily. [facility] atorvastati n 20 mg tablet 2021-0 2-14 00:00: 00 Yes [id number] 20mg Take 1 tablet by mouth daily. [facility] metoprolol succinate XL 25 mg 24 hr tablet 2-14 00:00: 00 03-18 00:00 :00 No [id number] 25mg Take 1 tablet by mouth daily. [facility] metoprolol succinate XL 25 mg 24 hr tablet 2-14 00:00: 00 03-18 00:00 :00 No [id number] 25mg Take 1 tablet by mouth daily. [facility] metoprolol succinate XL 25 mg 24 hr tablet 9-13 00:00: 00 07-06 00:00 :00 No 25mg Take 1 tablet by mouth daily. [facility] warfarin 1 mg tablet 11-17 00:00: 00 07-06 00:00 :00 No 1mg Take 1 mg by mouth. [facility] warfarin 2 mg tablet 11-10 00:00: 00 07-06 00:00 :00 No TAKE 2 TABLETS BY MOUTH EVERY NIGHT [facility] potassium chloride 10 mEq CR tablet 11-08 00:00: 00 Yes 10meq Take 10 mEq by mouth every morning. [facility] furosemide 40 mg tablet 11-08 00:00: 00 Yes 40mg Take 40 mg by mouth every morning. [facility] potassium chloride 10 mEq CR tablet 11-08 00:00: 00 Yes 10meq Take 10 mEq by mouth every morning. [facility] furosemide 40 mg tablet 11-08 00:00: 00 Yes 40mg Take 40 mg by mouth every morning. [facility] potassium chloride 10 mEq CR tablet 11-08 00:00: 00 Yes 10meq Take 10 mEq by mouth every morning. [facility] furosemide 40 mg tablet 11-08 00:00: 00 Yes 40mg Take 40 mg by mouth every morning. [facility] potassium chloride 10 mEq CR tablet 11-08 00:00: 00 Yes 10meq Take 10 mEq by mouth every morning. [facility] furosemide 40 mg tablet 11-08 00:00: 00 Yes 40mg Take 40 mg by mouth every morning. [facility] potassium chloride 10 mEq CR tablet 11-08 00:00: 00 03-18 00:00 :00 No 10meq Take 10 mEq by mouth every morning. [facility] furosemide 40 mg tablet 11-08 00:00: 00 03-18 00:00 :00 No 40mg Take 40 mg by mouth every morning. [facility] potassium chloride 10 mEq CR tablet 11-08 00:00: 00 03-18 00:00 :00 No 10meq Take 10 mEq by mouth every morning. [facility] furosemide 40 mg tablet 11-08 00:00: 00 03-18 00:00 :00 No 40mg Take 40 mg by mouth every morning. [facility] atorvastati n 20 mg tablet 11-08 00:00: 00 07-06 00:00 :00 No TAKE 1 TABLET BY MOUTH AT BEDTIME SEE PCP FOR REFILLS [facility] ciprofloxac in HCl 500 mg tablet 11-08 00:00: 00 07-06 00:00 :00 No TAKE 1 TABLET BY MOUTH BY MOUTH FOR 1 DAY. [facility] warfarin 2.5 mg tablet 10-29 00:00: 00 07-06 00:00 :00 No TAKE 1 TABLET BY MOUTH DAILY AT 5 PM [facility] metFORMIN 500 mg tablet 09-24 00:00: 00 Yes 500mg Take 500 mg by mouth 2 (two) times daily. [facility] metFORMIN 500 mg tablet 09-24 00:00: 00 Yes 500mg Take 500 mg by mouth 2 (two) times daily. [facility] metFORMIN 500 mg tablet 09-24 00:00: 00 Yes 500mg Take 500 mg by mouth 2 (two) times daily. [facility] metFORMIN 500 mg tablet 09-24 00:00: 00 Yes 500mg Take 500 mg by mouth 2 (two) times daily. [facility] metFORMIN 500 mg tablet 09-24 00:00: 00 Yes 500mg Take 500 mg by mouth 2 (two) times daily. [facility] metFORMIN 500 mg tablet 09-24 00:00: 00 Yes 500mg Take 500 mg by mouth 2 (two) times daily. [facility] metFORMIN 500 mg tablet 09-24 00:00: 00 Yes 500mg Take 500 mg by mouth 2 (two) times daily. [facility] metFORMIN 500 mg tablet 09-24 00:00: 00 Yes 500mg Take 500 mg by mouth 2 (two) times daily. [facility] metFORMIN 500 mg tablet 09-24 00:00: 00 Yes 500mg Take 500 mg by mouth 2 (two) times daily. [facility] metFORMIN 500 mg tablet 09-24 00:00: 00 Yes 500mg Take 500 mg by mouth 2 (two) times daily. [facility] metFORMIN 500 mg tablet 09-24 00:00: 00 Yes 500mg Take 500 mg by mouth 2 (two) times daily. [facility] metFORMIN 500 mg tablet 09-24 00:00: 00 Yes 500mg Take 500 mg by mouth 2 (two) times daily. [facility] metFORMIN 500 mg tablet 09-24 00:00: 00 Yes 500mg Take 500 mg by mouth 2 (two) times daily. [facility] traMADol 50 mg tablet 01-04 00:00: 00 07-06 00:00 :00 No [id number] 50mg Take 1 tablet by mouth every 6 (six) hours as needed for Pain (scale 4-6). [facility] ibuprofen 800 mg tablet 01-04 00:00: 00 07-06 00:00 :00 No [id number] 800mg Take 1 tablet by mouth every 8 (eight) hours. [facility] traMADol 50 mg tablet 2019-0 8-15 00:00: 00 07-06 00:00 :00 No [id number] 50mg Take 1 tablet by mouth every 6 (six) hours as needed for Pain (scale 4-6). [facility] Immunizations Ordered Immunization Name Filled Immunization Name Date Status Comments Source SARS-COV-2 COVID-19 MODERNA VACCINE 2021-05-29 00:00:00 Completed [facility] SARS-COV-2 COVID-19 MODERNA 12+ YRS VACCINE 2021-05-29 00:00:00 Completed [facility] SARS-COV-2 COVID-19 MODERNA 12+ YRS VACCINE 2021-05-29 00:00:00 Completed [facility] SARS-COV-2 COVID-19 MODERNA 12+ YRS VACCINE 2021-05-29 00:00:00 Completed [facility] SARS-COV-2 COVID-19 MODERNA 12+ YRS VACCINE 2021-05-29 00:00:00 Completed [facility] SARS-COV-2 COVID-19 MODERNA 12+ YRS VACCINE 2021-05-29 00:00:00 Completed [facility] SARS-COV-2 COVID-19 MODERNA 12+ YRS VACCINE 2021-05-29 00:00:00 Completed [facility] SARS-COV-2 COVID-19 MODERNA 12+ YRS VACCINE 2021-05-29 00:00:00 Completed [facility] SARS-COV-2 COVID-19 MODERNA 12+ YRS VACCINE 2021-05-29 00:00:00 Completed [facility] SARS-COV-2 COVID-19 MODERNA 12+ YRS VACCINE 2021-05-29 00:00:00 Completed [facility] SARS-COV-2 COVID-19 MODERNA VACCINE 2021-01-27 00:00:00 Completed [facility] SARS-COV-2 COVID-19 MODERNA VACCINE 2021-01-27 00:00:00 Completed [facility] SARS-COV-2 COVID-19 MODERNA 12+ YRS VACCINE 2021-01-27 00:00:00 Completed [facility] SARS-COV-2 COVID-19 MODERNA 12+ YRS VACCINE 2021-01-27 00:00:00 Completed [facility] SARS-COV-2 COVID-19 MODERNA 12+ YRS VACCINE 2021-01-27 00:00:00 Completed [facility] SARS-COV-2 COVID-19 MODERNA 12+ YRS VACCINE 2021-01-27 00:00:00 Completed [facility] SARS-COV-2 COVID-19 MODERNA 12+ YRS VACCINE 2021-01-27 00:00:00 Completed [facility] SARS-COV-2 COVID-19 MODERNA 12+ YRS VACCINE 2021-01-27 00:00:00 Completed [facility] SARS-COV-2 COVID-19 MODERNA 12+ YRS VACCINE 2021-01-27 00:00:00 Completed [facility] SARS-COV-2 COVID-19 MODERNA 12+ YRS VACCINE 2021-01-27 00:00:00 Completed [facility] SARS-COV-2 COVID-19 MODERNA 12+ YRS VACCINE 2021-01-27 00:00:00 Completed [facility] SARS-COV-2 COVID-19 MODERNA 12+ YRS VACCINE Unknown Completed [facility] SARS-COV-2 COVID-19 MODERNA 12+ YRS VACCINE Unknown Completed [facility] SARS-COV-2 COVID-19 MODERNA 12+ YRS VACCINE Unknown Completed [facility] SARS-COV-2 COVID-19 MODERNA 12+ YRS VACCINE Unknown Completed [facility] Vital Signs Vital Name Observation Time Observation Value Comments S ource Systolic blood pressure 2022-03-18 14:18:00 125 [facility] Di[facility] blood pressure 2022-03-18 14:18:00 69 mm[Hg[facility] Heart rate 2022-03-18 14:18:00 83 /min [facility] Body temperature 2022-03-18 14:18:00 36.39 Armida [facility] Respiratory rate 2022-03-18 14:18:00 18 /min [facility] Body height 2022-03-18 14:18:00 157.5 cm [facility] Body weight 2022-03-18 14:18:00 113.172 kg [facility] BMI 2022-03-18 14:18:00 45.63 kg/m2 [facility] Systolic blood pressure 2021-07-06 19:52:00 131 mm[Hg[facility] Diastolic blood pressure 2021-07-06 19:52:00 84 mm[Hg[facility] Heart rate 2021-07-06 19:52:00 96 /min [facility] Respiratory rate 2021-07-06 19:52:00 19 /min [facility] Body height 2021-07-06 19:52:00 157.5 cm [facility] Body weight 2021-07-06 19:52:00 117.981 kg [facility] BMI 2021-07-06 19:52:00 47.57 kg/m2 [facility] Oxygen saturation in Arterial blood by Pulse oximetry 2021-07-06 19:52:00 94 /min [facility] Procedures Procedure Date / Time Performed Performing Clinicia n Source ASSIGNMENT OF BENEFITS 2023-06-08 22:10:12 Nicolás white Unassigned, [place] [facility] NOTICE OF PRIVACY PRACTICES 2022-03-26 13:44:59 Doctor Unassigned, [place] [facility] CONSENT/REFUSAL FOR DIAGNOSIS AND TREATMENT 2022-03-26 13:44:36 Doctor Unassigned, [place] [facility] ASSIGNMENT OF BENEFITS 2022-03-26 13:44:18 Nicolás white Unassigned, [place] [facility] HIV 1/2 AG-AB WITH REFLEX 2022-03-18 15:30:00 Joselyn Grider [facility] GALV ONLY - SYPHILIS IGG/IGM 2022-03-18 15:30:00 Joselyn Grider [facility] ASSIGNMENT OF BENEFITS 2022-03-18 13:33:34 Nicolás white Unassigned, [place] [facility] REFERRAL- REQUEST/RESPONSE 2022-02-10 05:01:00 Doctor Unassigned, [place] [facility] Encounters Start Date/Time End Date/Time Encounter Type Admission Type Attending Clinicians Care Facility Care Department Encounter ID Source 2021-12-18 11:11:[address] [facility] [id number] [facility] 2023-06-08 16:11:18 2023-06-08 23:59:00 Outpatient R RADIOLOGY [facility] [id number] [facility] 2023-06-08 16:11:18 2023-06-08 23:59:00 Hospital Encounter Radiology [facility] 1.840.114 350.1.13.10 4.2.7.2.686 [id number] [facility] 2023-06-08 00:00:00 2023-06-08 00:00:00 Orders Only Doctor Unassigned, [place] [facility] 1..840.114 350.1.13.10 4.2.7.2.686 [id number] [facility] 2023-06-07 16:35:11 2023-06-07 16:35:11 Outpatient SFA [facility] [id number] Javon Day Alfredo 2023-06-01 16:20:58 2023-06-01 16:20:58 Outpatient SFA [facility] [id number] Javon Day Alfredo 2023-05-30 17:17:39 2023-05-30 17:17:39 Outpatient SFA SFA [id number] Javon Fuentes 2023-04-12 16:21:07 2023-04-12 16:21:07 Outpatient SFA SFA [id number] Javon Day Alfredo 2023-03-15 17:33:42 2023-03-15 17:33:42 Outpatient SFA SFA [id number] Javon Day Alfredo 2023-02-07 16:17:23 2023-02-07 16:17:23 Outpatient SFA SFA [id number] Javon Day Alfredo 2022-12-30 17:13:38 2022-12-30 17:13:38 Outpatient SFA SFA [id number] Javon Day Alfredo 2022-12-21 00:00:00 2022-12-21 00:00:00 Case Management Mónica Pineda 1.2.840.114 350.1.13.10 4.2.7.2.686 [id number] [facility] 2022-11-30 17:17:31 2022-11-30 17:17:31 Outpatient SFA SFA [id number] Javon Fuentes 2022-10-19 16:15:21 2022-10-19 16:15:21 Outpatient SFA SFA [id number] Javon Fuentes 2022-09-09 16:31:28 2022-09-09 16:31:28 Outpatient SFA SFA [id number] Javon Fuentes 2022-09-04 11:41:20 2022-09-04 11:41:20 Outpatient SFA SFA [id number] Javon Day Alfredo 2022-06-26 11:28:23 2022-06-26 11:28:23 Outpatient SFA SFA [id number] Javon Fuentes 2022-06-23 00:00:00 2022-06-23 00:00:00 Telephone Nataly Reddy 1..840.114 350.1.13.10 4.2.7.2.686 [id number] [facility] 2022-06-23 00:00:00 2022-06-23 00:00:00 Telephone Nataly Reddy 1.2.840.114 350.1.13.10 4.2.7.2.686 [id number] [facility] 2022-06-18 09:00:00 2022-06-18 09:00:00 Outpatient JOSELYN SOMMER [facility] [id number] [facility] 2022-06-07 00:00:00 2022-06-07 00:00:00 Refill Joselyn Grider [facility] 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 [facility] 1.2.840.114 350.1.13.10 4.2.7.2.686 [id number] [facility] 2022-04-06 11:28:51 2022-04-06 11:28:51 Outpatient SFA SFA [id number] Javon Fuentes 2022-03-26 08:47:30 2022-03-26 23:59:00 Outpatient R JOSELYN GRIDER [facility] [id number] [facility] 2022-03-26 08:47:30 2022-03-26 23:59:00 Hospital Encounter Joselyn Grider [facility] 1.840.114 350.1.13.10 4.2.7.2.686 [id number] [facility] 2022-03-26 13:18:40 2022-03-26 13:18:40 Outpatient SFA [facility] [id number] Javon Fuentes 2022-03-18 09:15:00 2022-03-18 10:31:43 Outpatient R JOSELYN GRIDER [facility] [id number] [facility] 2022-03-18 09:15:00 2022-03-18 10:31:43 Office Visit Joselyn Grider [facility] 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 [facility] 1.2840.114 350.1.13.10 4.2.7.2.686 [id number] [facility] 2022-03-18 00:00:00 2022-03-18 00:00:00 Orders Only Doctor Unassigned, [place] [facility] 1.2840.114 350.1.13.10 4.2.7.2.686 [id number] [facility] 2022-02-10 00:00:00 2022-02-10 00:00:00 Orders Only Doctor Unassigned, [place] [facility] 1.2840.114 350.1.13.10 4.2.7.2.686 [id number] [facility] 2021-08-31 09:00:00 2021-08-31 09:00:00 Outpatient R ALSTONARTHUR SNYDER [facility] [id number] [facility] 2021-08-31 09:00:00 2021-08-31 09:00:00 Outpatient R ARTHUR ALSTON [facility] [id number] [facility] 2021-08-17 00:00:00 2021-08-17 00:00:00 Case Management Mónica Pineda 1.2.840.114 350.1.13.10 4.2.7.2.686 [id number] [facility] 2021-07-29 10:00:00 2021-07-29 10:00:00 Outpatient R ALECIA ARTHUR [facility] [id number] [facility] 2021-07-28 10:00:00 2021-07-28 10:00:00 Outpatient R ARTHUR ALSTON [facility] [id number] [facility] 2021-07-28 09:15:00 2021-07-28 09:15:00 Outpatient R [facility] [id number] [facility] 2021-07-28 09:15:00 2021-07-28 09:15:00 Outpatient R [facility] [id number] [facility] 2021-07-07 00:00:00 2021-07-07 00:00:00 Telephone Arthur Alston [facility] 1.2.840.114 350.1.13.10 4.2.7.2.686 [id number] [facility] 2021-07-06 14:00:00 2021-07-06 14:26:01 Outpatient R ARTHUR ALSTON [facility] [id number] [facility] 2021-07-06 14:00:00 2021-07-06 14:26:01 Office Visit Arthur Alston [facility] 1.2.840.114 350.1.13.10 4.2.7.2.686 [id number] [facility] 2021-05-08 11:00:00 2021-05-08 11:00:00 Outpatient R ARTHUR ALSTON [facility] [id number] [facility] 2021-04-22 00:00:00 2021-04-22 00:00:00 Case Management Jessica Garcias 1.2.840.114 350.1.13.10 4.2.7.2.686 [id number] [facility] 2021-03-13 13:47:33 2021-03-13 14:29:24 Office Visit Sandra Reeves [facility] 1.2.840.114 350.1.13.10 4.2.7.2.686 [id number] [facility] 2021-03-13 13:40:00 2021-03-13 13:40:00 Outpatient R SANDRA REEVES [facility] [id number] [facility] 2021-02-04 09:12:57 2021-02-04 09:27:57 Spinneret Cleaner Visit 2, Adc Lab Arthur AlstonHMeño [facility] 1.2.840.114 350.1.13.10 4.2.7.2.686 [id number] [facility] 2021-02-04 09:12:57 2021-02-04 09:27:57 Spinneret Cleaner Visit 2, Adc Lab Arthur Alston.HMeño [facility] 1.2.840.114 350.1.13.10 4.2.7.2.686 [id number] [facility] 2021-02-04 08:33:29 2021-02-04 09:06:01 Office Visit Arthur Alston [facility] 1.2.840.114 350.1.13.10 4.2.7.2.686 [id number] [facility] 2021-02-04 09:00:00 2021-02-04 09:00:00 Outpatient R ARTHUR ALSTON [facility] [id number] [facility] 2021-02-02 00:00:00 2021-02-02 00:00:00 Telephone Arthur AlstonArpanMeño [facility] [id number] 350.1.13.10 4.2.7.2.686 [id number] [facility] 2021-02-02 00:00:00 2021-02-02 00:00:00 Telephone [facility] 1.2.840.114 350.1.13.10 4.2.7.2.686 [id number] [facility] 2021-01-28 10:33:19 2021-01-28 23:59:00 Hospital Encounter [facility] 1.2.840.114 350.1.13.10 4.2.7.2.686 [id number] [facility] 2021-01-28 11:00:00 2021-01-28 11:00:00 Outpatient R ARTHUR ALSTON [facility] [id number] [facility] 2021-01-08 08:00:00 2021-01-08 08:00:00 Outpatient R ARTHUR ALSTON [facility] [id number] [facility] 2021-01-08 00:00:00 2021-01-08 00:00:00 Orders Only Doctor Unassigned, [place] [facility] 1.2.840.114 350.1.13.10 4.2.7.2.686 [id number] [facility] 2021-01-08 00:00:00 2021-01-08 00:00:00 Orders Only Doctor Unassigned, [place] [facility] 1.2840.114 350.1.13.10 4.2.7.2.686 [id number] [facility] 2020-12-23 09:37:45 2020-12-23 10:22:19 Office Visit Arthur Alston [facility] 1.2.840.114 350.1.13.10 4.2.7.2.686 [id number] [facility] 2020-12-23 09:30:00 2020-12-23 09:30:00 Outpatient ARTHUR GILES [facility] [id number] [facility] 2020-12-02 13:37:13 2020-12-02 16:45:02 Office Visit Marvin Montiel [facility] 1.284.114 350.1.13.10 4.2.7.2.686 [id number] [facility] 2020-12-02 13:40:00 2020-12-02 13:40:00 Outpatient MARVIN HERNADEZ [facility] [id number] [facility] 2020-12-02 00:00:00 2020-12-02 00:00:00 Orders Only Doctor Unassigned, [place] [facility] 1.2840.114 350.1.13.10 4.2.7.2.686 [id number] [facility] 2020-11-18 00:00:00 2020-11-18 00:00:00 Orders Only Doctor Unassigned, [place] [facility] 1.2840.114 350.1.13.10 4.2.7.2.686 [id number] [facility] 2020-10-31 13:17:00 2020-11-08 16:50:00 Inpatient LORENZO LIZARRAGA [facility] [id number] [facility] 2020-10-31 12:39:00 2020-10-31 23:59:00 Outpatient JOE MCKEON [facility] [address] [facility] 2019-01-04 10:35:24 2019-01-04 12:30:00 Emergency [facility] 1.2.840.114 350.1.13.10 4.2.7.2.686 [id number] [facility] 2019-01-04 10:35:24 2019-01-04 12:30:00 Emergency [facility] 1.2.840.114 350.1.13.10 4.2.7.2.686 [id number] Results Test Description Test Time Test Comments Results Result Co mments Source VITAMIN [id number] 05:36:54* Test Item Value Reference Range Interpretation Comme [facility] VITAMIN B-12 (test code = 2840) 285 PG/ML 200-950 FOLIC [id number] 05:36:54* Test Item Value Reference Range Interpretation Comme [facility] FOLIC ACID (test code = 2695) 9.6 UG/L SEE BELOW INTERPRETI VE RANGES DEFICIENCY . . . . . . . . . . . . . . . UG/L <4.0 POSSIBLE DEFICIENCY. . . . . . . . . . . UG/L 4.0-5.9 SUFFICIENT . . . . . . . . . . . . . . . UG/L >=6.0 UNLESS OTHERWISE INDICATED, ALL TESTING PERFORMED AT [facility] [address] [place] [id number] SURVEY CHIEF: HARRIETT CHARLES M.D. CLIA NUMBER [id number] [place]. [id number] HEPATITIS PANEL, [id number] 04:08:05* Test Item Value Reference Range Interpretation Comme nts HEPATITIS A IgM (test code = 53488) NON-REACTIVE NON-REACTIVE HEPATITIS B CORE IgM (test code = 4644) NON-REACTIVE NON-REACTIVE HEPATITIS B SURF AG (test code = 2739) NON-REACTIVE NON-REACTIVE HEPATITIS C ANTIBODY (test code = 4675) NON-REACTIVE NON-REACTIVE INTERPRETATION HEPATITIS A: (test code = 2552) (NOTE) Hepatitis A serology shows no evidence of acute hepatitis A. INTERPRETATION HEPATITIS B: (test code = 95157) (NOTE) Hepatitis B serology shows no evidence of acute hepatitis B andno indication of exposure to hepatitis B virus in the previous cecilia eight months. INTERPRETATION HEPATITIS C: (test code = 51119) (NOTE) Hepatitis C serology shows no evidence of exposure to hepatitisC virus at this time. It can take up to 12 months after exposure tothe hepatitis C virus for antibodies to become detectable in the blood in certain patients. [id number] 03:58:20* Test Item Value Reference Range Interpretation Comme nts RPR RESULT (test code = 3501) NON-REACTIVE NON-REACTIVE RPR TITER (test code = 3500) NOT INDIC. TITER NOT INDIC. CBC W/AUTO DIFF WITH [id number] 02:08:42* Test Item Value Reference Range Interpretation Comme nts WBC (test code = 1001) 5.9 K/UL 3.5-11.0 RBC (test code = 1002) 4.57 M/UL 3.80-5.40 HEMOGLOBIN (test code = 1003) 11.2 G/DL 11.5-15.5 L HEMATOCRIT (test code = 1004) 36.1 % 34.0-45.0 MCV (test code = 1005) 79.0 fL 80.0-99.0 L MCH (test code = 1006) 24.5 PG 25.0-33.0 L MCHC (test code = 1007) 31.0 G/DL 31.0-36.0 RDW (test code = 1038) 17.4 % 11.5-15.0 H NEUTROPHILS (test code = 1008) 62.2 % LYMPHOCYTES (test code = 1010) 25.5 % MONOCYTES (test code = 1011) 8.7 % EOSINOPHILS (test code = 1012) 2.6 % BASOPHILS (test code = 1013) 0.7 % IMMATURE GRANULOCYTES (test code = 1036) 0.3 % NUCLEATED RBCS (test code = 1065) 0.0 /100 WBC'S See_Comment [Automated messa ge] The system which generated this result transmitted reference range: 0.0. The reference range was not used to interpret this result as normal/abnormal. PLATELET COUNT (test code = 1015) 360 K/UL 130-400 ABSOLUTE NEUTROPHILS (test code = 1066) 3.64 K/UL 1.50-7.50 ABSOLUTE LYMPHOCYTES (test code = 1067) 1.49 K/UL 1.00-4.00 ABSOLUTE MONOCYTES (test code = 1068) 0.51 K/UL 0.20-1.00 ABSOLUTE EOSINOPHILS (test code = 1040) 0.15 K/UL 0.00-0.50 ABSOLUTE BASOPHILS (test code = 1069) 0.04 K/UL 0.00-0.20 ABS IMMATURE GRANULOCYTES (test code = 1020) 0.02 K/UL 0.00-0.10 ABS NUCLEATED RBCS (test code = 34014) 0.00 K/UL 0.00-0.11 ALBUMIN/CREATININE RATIO, URINE, [id number] 12:41:35* Test Item Value Reference Range Interpretation Comme nts CREATININE, URINE, CONC. (test code = 2072) TEST NOT PERFORMED MG/DL NOT ESTAB Unable to perform testing, specimen not received.Charges adjusted as applicable. ALBUMIN, URINE, RANDOM (test code = 95944) TEST NOT PERFORMED MG/DL NOT ESTAB CALC ALBUMIN/CREAT, RND (test code = 34413) TEST NOT PERFORMED MG/G <30 Note: Albumin/Creatinine ratio reference interval reflects ADA and NKF guidelines. NO URINE PROVIDED:2023-04-13 06:02:24* Test Item Value Reference Range Interpretation Comme nts NO URINE PROVIDED: (test code = 986) (NOTE) NOTE: Patient urine was not provided. Urine testing will be noted out if no urine specimen is received in an appropriate period of time. UNLESS OTHERWISE INDICATED, ALL TESTING PERFORMED AT [facility] [address] [place] [address] SURVEY CHIEF: HARRIETT CHARLES M.D. CLIA NUMBER [id number] [place]. [id number] HEMOGLOBIN [id number] 02:19:54* Test Item Value Reference Range Interpretation Comme nts HEMOGLOBIN A1c (test code = 23111) 6.1 % 4.2-5.6 H [employer] GUIDELINES FOR HGB A1C: PREDIABETES/INCREASED RISK . . . . . . . 5.7-6.4% DIAGNOSIS OF DIABETES . . . . . . . . . >=6.5% WITH CONFIRMATION OR APPROPRIATE SYMPTOMS NOTE: ASSAY MAY BE AFFECTED BY HEMOGLOBINOPATHIES (SICKLE CELL ANEMIA, S-C DISEASE, OTHERS) OR ARTIFICIALLY LOWERED BY DECREASED RED CELL SURVIVAL (HEMOLYTIC ANEMIAS, BLOOD LOSS, ETC.). CONSIDER ALTERNATE TESTING OR LABORATORY CONSULTATION. COMPREHENSIVE METABOLIC [id number] 06:14:26* Test Item Value Reference Range Interpretation Comme [facility] GLUCOSE (test code = 2217) 105 MG/DL 70-99 H BUN (test code = 2207) 8 MG/DL 6-20 CREATININE (test code = 2214) 0.68 MG/DL 0.60-1.30 eGFR (2020 CKD-EPI) (test code = 06982) 107 ML/MIN/1.73 >60 CALC BUN/CREAT (test code = 2235) 12 RATIO 6-28 SODIUM (test code = 2231) 139 MEQ/L 133-146 POTASSIUM (test code = 2228) 4.3 MEQ/L 3.5-5.4 CHLORIDE (test code = 2215) 105 MEQ/L 95-107 CARBON DIOXIDE (test code = 2206) 22 MEQ/L 19-31 CALCIUM (test code = 2209) 9.1 MG/DL 8.5-10.5 PROTEIN, TOTAL (test code = 222) 6.8 G/DL 6.1-8.3 ALBUMIN (test code = 2201) 3.8 G/DL 3.5-5.2 CALC GLOBULIN (test code = 2240) 3.0 G/DL 1.9-3.7 CALC A/G RATIO (test code = 2234) 1.3 RATIO 1.0-2.6 BILIRUBIN, TOTAL (test code = 2207) 0.4 MG/DL See_Comment [Automated me ssage] The system which generated this result transmitted reference range: <=1.2. The reference range was not used to interpret this result as normal/abnormal. ALKALINE PHOSPHATASE (test code = 4) 88 U/L 40-123 AST (test code = 2218) 12 U/L 9-40 ALT (test code = 2219) 12 U/L 5-40 LIPID [id number] 06:14:26* Test Item Value Reference Range Interpretation Comme nts CHOLESTEROL (test code = 2210) 196 MG/DL <200 TRIGLYCERIDES (test code = 2232) 97 MG/DL <150 HDL CHOLESTEROL (test code = 2220) 51 MG/DL >39 CALC LDL CHOL (test code = 2237) 125 MG/DL <100 H NOTE: CALCULATED LDL IS BASED ON SANDRA-FLETCHER METHOD WHICHINCLUDES ADJUSTABLE TRIGLYCERIDE:VLDL CHOLESTEROL RATIO.THIS FACTOR VARIES BY MEASURED TRIGLYCERIDE AND NON-HDLCHOLESTEROL CONCENTRATIONS WITH INCREASED CALCULATED LDL SEENIN HIGHER TRIGLYCERIDE OR LOWER NON-HDL SPECIMENS. FOR MOREINFORMATION, SEE CLIENT ANNOUNCEMENT AT [email or web address] RATIO LDL/HDL (test code = 2238) 2.45 RATIO <3.22 HEMOGLOBIN [id number] 03:39:23* Test Item Value Reference Range Interpretation Comme [facility] HEMOGLOBIN A1c (test code = 03052) 6.5 % 4.2-5.6 H [employer] GUIDELINES FOR HGB A1C: PREDIABETES/INCREASED RISK . . . . . . . 5.7-6.4% DIAGNOSIS OF DIABETES . . . . . . . . . >=6.5% WITH CONFIRMATION OR APPROPRIATE SYMPTOMS NOTE: ASSAY MAY BE AFFECTED BY HEMOGLOBINOPATHIES (SICKLE CELL ANEMIA, S-C DISEASE, OTHERS) OR ARTIFICIALLY LOWERED BY DECREASED RED CELL SURVIVAL (HEMOLYTIC ANEMIAS, BLOOD LOSS, ETC.). CONSIDER ALTERNATE TESTING OR LABORATORY CONSULTATION. [facility] has important pathology staff changes effective 07/21/2022. New pathology staff will provide uninterrupted, excellent patient care and clinical consultation. See URL: [email or web address]. UNLESS OTHERWISE INDICATED, ALL TESTING PERFORMED AT [facility] [address] [place] [address] CLIA: [id number], CAP: [id number] [facility] ONLY - SYPHILIS [id number] 16:01:15* Test Item Value Reference Range Interpretation Comme nts Syphilis IgG/IgM (test code = 79777-3) Non-reactive Non-reactive PANCHO (test code = PANCHO) Non-reactive - No serologic evidence of T. pallidum infection. Cannot exclude incubating or early syphilis. Submit a second specimen in 2-4 weeks if syphilis is clinically suspected. Equivocal - Further testing to follow. Reactive - Further testing to follow. Lab Interpretation (test code = 30784-6) Normal [facility] ONLY - SYPHILIS [id number] 16:01:15* Test Item Value Reference Range Interpretation Comme [facility] Syphilis IgG/IgM (test code = 09801-4) Non-reactive Non-reactive PANCHO (test code = PANCHO) Non-reactive - No serologic evidence of T. pallidum infection. Cannot exclude incubating or early syphilis. Submit a second specimen in 2-4 weeks if syphilis is clinically suspected. Equivocal - Further testing to follow. Reactive - Further testing to follow. Lab Interpretation (test code = 82658-7) Normal [facility] 1/2 AG-AB WITH [id number] 07:03:37* Test Item Value Reference Range Interpretation Comme [facility] HIV Semi-quantitative (test code = 02902-9) Negative Negative PANCHO (test code = PANCHO) Non-reactive for HIV-1 antigen and HIV-1/HIV-2 antibodies. ?No laboratory evidence of HIV infection. ?Repeat in 2-4 weeks if acute HIV infection is suspected. [facility] 1/2 AG-AB WITH [id number] 07:03:37* Test Item Value Reference Range Interpretation Comme [facility] HIV Semi-quantitative (test code = 28672-6) Negative Negative PANCHO (test code = PANCHO) Non-reactive for HIV-1 antigen and HIV-1/HIV-2 antibodies. ?No laboratory evidence of HIV infection. ?Repeat in 2-4 weeks if acute HIV infection is suspected. [id number] 04:36:38* Test Item Value Reference Range Interpretation Comme [facility] HEMOGLOBIN A1c (test code = 09881) 6.7 % 4.2-5.6 H [employer] GUIDELINES FOR HGB A1C: PREDIABETES/INCREASED RISK . . . . . . . 5.7-6.4% DIAGNOSIS OF DIABETES . . . . . . . . . >=6.5% WITH CONFIRMATION OR APPROPRIATE SYMPTOMS NOTE: ASSAY MAY BE AFFECTED BY HEMOGLOBINOPATHIES (SICKLE CELL ANEMIA, S-C DISEASE, OTHERS) OR ARTIFICIALLY LOWERED BY DECREASED RED CELL SURVIVAL (HEMOLYTIC ANEMIAS, BLOOD LOSS, ETC.). CONSIDER ALTERNATE TESTING OR LABORATORY CONSULTATION. UNLESS OTHERWISE INDICATED, ALL TESTING PERFORMED [facility] [employer] [address] [place] [address] SURVEY CHIEF: ZOILA ARRIETA M.D. CLIA NUMBER [id number] [place]. [id number] VITAMIN [id number] 06:03:13* Test Item Value Reference Range Interpretation Comme nts VITAMIN B-12 (test code = 2840) 275 PG/ML 200-950 ALBUMIN/CREATININE RATIO, URINE, [id number] 04:35:05* Test Item Value Reference Range Interpretation Comme nts CREATININE, URINE, RANDOM (test code = 2072) 102.5 MG/DL NOT ESTAB ALBUMIN, URINE, RANDOM (test code = 63977) 3.1 MG/DL NOT ESTAB CALC ALBUMIN/CREAT, RND (test code = 30341) 30 MG/G <30 H Note: Albumin/Cr eatinine ratio reference interval reflects ADA and NKF guidelines. UNLESS OTHERWISE INDICATED, ALL TESTING PERFORMED [facility] [employer] [address] [place] [address] SURVEY CHIEF: ZOILA ARRIETA M.D. CLIA NUMBER [id number] [place]. [id number] HEMOGLOBIN [id number] 04:00:09* Test Item Value Reference Range Interpretation Comme nts HEMOGLOBIN A1c (test code = 02869) 6.7 % 4.2-5.6 H [employer] GUIDELINES FOR HGB A1C: PREDIABETES/INCREASED RISK . . . . . . . 5.7-6.4% DIAGNOSIS OF DIABETES . . . . . . . . . >=6.5% WITH CONFIRMATION OR APPROPRIATE SYMPTOMS NOTE: ASSAY MAY BE AFFECTED BY HEMOGLOBINOPATHIES (SICKLE CELL ANEMIA, S-C DISEASE, OTHERS) OR ARTIFICIALLY LOWERED BY DECREASED RED CELL SURVIVAL (HEMOLYTIC ANEMIAS, BLOOD LOSS, ETC.). CONSIDER ALTERNATE TESTING OR LABORATORY CONSULTATION. CBC W/AUTO DIFF WITH [id number] 02:32:28* Test Item Value Reference Range Interpretation Comme nts WBC (test code = 1001) 6.4 K/UL 3.5-11.0 RBC (test code = 1002) 4.93 M/UL 3.80-5.40 HEMOGLOBIN (test code = 1003) 11.7 G/DL 11.5-15.5 HEMATOCRIT (test code = 1004) 36.9 % 34.0-45.0 MCV (test code = 1005) 74.8 fL 80.0-99.0 L MCH (test code = 1006) 23.7 PG 25.0-33.0 L MCHC (test code = 1007) 31.7 G/DL 31.0-36.0 RDW (test code = 1038) 17.1 % 11.5-15.0 H NEUTROPHILS (test code = 1008) 61.7 % LYMPHOCYTES (test code = 1010) 28.3 % MONOCYTES (test code = 1011) 7.0 % EOSINOPHILS (test code = 1012) 2.0 % BASOPHILS (test code = 1013) 0.8 % IMMATURE GRANULOCYTES (test code = 1036) 0.2 % NUCLEATED RBCS (test code = 1065) 0.0 /100 WBC'S See_Comment [Automated NuScriptRxa ge] The system which generated this result transmitted reference range: 0.0. The reference range was not used to interpret this result as normal/abnormal. PLATELET COUNT (test code = 1015) 362 K/UL 130-400 ABSOLUTE NEUTROPHILS (test code = 1066) 3.98 K/UL 1.50-7.50 ABSOLUTE LYMPHOCYTES (test code = 1067) 1.82 K/UL 1.00-4.00 ABSOLUTE MONOCYTES (test code = 1068) 0.45 K/UL 0.20-1.00 ABSOLUTE EOSINOPHILS (test code = 1040) 0.13 K/UL 0.00-0.50 ABSOLUTE BASOPHILS (test code = 1069) 0.05 K/UL 0.00-0.20 ABS IMMATURE GRANULOCYTES (test code = 1020) 0.01 K/UL 0.00-0.10 ABS NUCLEATED RBCS (test code = 79688) 0.00 K/UL 0.00-0.11
--- NOTE | 2023-06-11 07:21 | EDPHYS ---
Physician Documentation [facility] Name: Saida Coyle Age: 48 yrs Sex: Female : 1975 Arrival Date: 06/11/2023 Time: 07:02 Bed 5 Private MD: ED Physician Dima Murphy HPI: 06/11 07:22 This 48 yrs old Female presents to ER via Ambulatory with complaints of ec2 Numbness Of Arm, Arm Pain, Numbness Of Hand, Hand Pain. 07:22 Patient arrives today for left shoulder pain and left arm pain. Patient reports she has ec2 been experiencing for several weeks, states that she is having worsening pain and is having issues with sleep at night. Has been started on gabapentin and Robaxin with minimal alleviation in symptoms. Patient reports no specific traumas or injuries, denies any weaknesses. States that she feels some occasional numbness and tingling in the left upper extremity as well. States that is worse with positional movements, worse with lifting.. Historical: - Allergies: 07:19 No Known Drug Allergies; hb - Home Meds: 07:19 Metformin Oral [Active]; gabapentin 100 mg oral capsule 3 times per day [Active]; hb Robaxin Oral 750 mg every 8 hours [Active]; ibuprofen 800 mg Oral tablet every 8 hours [Active]; - PMHx: 07:11 Abcess left buttock; COVID; Diabetes - NIDDM; Pneumonia; TIA; ld1 - PSHx: 07:11 I\T\D of left buttock; tubal ligation; ld1 - Immunization history:: Adult Immunizations up to date. - Social history:: Smoking status: Patient denies any tobacco usage or history of. ROS: 07:22 Constitutional: as per hpi ec2 Exam: 07:22 Constitutional: GEN: NAD Head: atraumatic Eyes: EOMI Ears: External ears are ec2 normal. CV: regular rate LUNGS: no respiratory distress ABD: non-distended SKIN: no evidence of rashes MSK: No C/T/L-spine TTP, left trapezius spasm with TTP to the area, no crepitus appreciated, left upper extremity with good range of motion, intact distal neurovascular status. NEURO: moves all extremities equally Vital Signs: 07:10 BP 157 / 73; Pulse 73; Resp 16; Temp 97.9(TE); Pulse Ox 100% on R/A; Pain 7/10; hb 07:10 Pain Scale: Adult hb MDM: 07:08 Patient medically screened. ec2 07:22 Data reviewed: vital signs. ED course: Patient arrives today for evaluation of left ec2 upper extremity pain and numbness. Examination remarkable for well-appearing nontoxic individual is otherwise in no acute distress with MSK findings as noted above. I suspect a muscular spasm causing the patient's symptoms given the intense spasm of the left trapezius, possible neuropathy as well. I will start the patient on Valium to help with her symptoms. Patient discharged home. Return precautions given. I considered other processes such as C-spine fractures, spinal cord pathology.. Administered Medications: No medications were administered Disposition Summary: 06/11/23 07:21 Discharge Ordered Notes: Location: Home ec2 Condition: Stable ec2 Diagnosis - Muscle spasm ec2 Followup: ec2 - With: Private Physician - When: - Reason: Recheck today's complaints Discharge Instructions: - Discharge Summary Sheet ec2 - Muscle Cramps and Spasms ec2 Forms: - Work release form ec2 - Medication Reconciliation Form ec2 - Thank You Letter ec2 - Antibiotic Education ec2 - Prescription Opioid Use ec2 - Patient Portal Instructions ec2 - Leadership Thank You Letter ec2 Prescriptions: - Valium 10 mg Oral Tablet - take 1 tablet ORAL route every 8 hours As needed; 20 tablet; Refills: 0, ec2 Product Selection Permitted Signatures: Kelsy Coyle RN RN Bell Stearns RN RN ld1 Dima Murphy MD MD ec2 Corrections: (The following items were deleted from the chart) 07:20 07:20 Patient medically screened. ec2 ec2
--- NOTE | 2023-06-11 07:21 | ER ---
Nurse's Notes [facility] Name: Saida Coyle Age: 48 yrs Sex: Female : 1975 Arrival Date: 06/11/2023 Time: 07:02 Bed 5 Private MD: Diagnosis: Muscle spasm Presentation: 06/11 07:10 Chief complaint: Left arm pain and intermittent numbness x 2-3 weeks. Denies injury. hb Recently seen by PCP, started on Gabapentin, Robaxin, and Ibuprofen with little relief. Coronavirus screen: At this time, the client does not indicate any symptoms associated with coronavirus-19. Ebola Screen: No symptoms or risks identified at this time. Initial Sepsis Screen: Does the patient meet any 2 criteria? No. Patient's initial sepsis screen is negative. Does the patient have a suspected source of infection? No. Patient's initial sepsis screen is negative. Risk Assessment: Do you want to hurt yourself or someone else? Patient reports no desire to harm self or others. Onset of symptoms was May 2023. 07:10 Method Of Arrival: Ambulatory 07:10 Acuity: VERITO 3 hb Historical: - Allergies: 07:19 No Known Drug Allergies; hb - Home Meds: 07:19 Metformin Oral [Active]; gabapentin 100 mg oral capsule 3 times per day [Active]; hb Robaxin Oral 750 mg every 8 hours [Active]; ibuprofen 800 mg Oral tablet every 8 hours [Active]; - PMHx: 07:11 Abcess left buttock; COVID; Diabetes - NIDDM; Pneumonia; TIA; ld1 - PSHx: 07:11 I\T\D of left buttock; tubal ligation; ld1 - Immunization history:: Adult Immunizations up to date. - Social history:: Smoking status: Patient denies any tobacco usage or history of. Screenin:[facility] ED Fall Risk Assessment (Adult) History of falling in the last 3 months, ld1 including since admission No falls in past 3 months (0 pts). Abuse screen: Denies threats or abuse. Denies injuries from another. Nutritional screening: No deficits noted. Tuberculosis screening: No symptoms or risk factors identified. Assessment: 07:29 General: Appears in no apparent distress. comfortable, Behavior is calm, cooperative, ld1 appropriate for age. Pain: Denies pain. Neuro: Level of Consciousness is awake, alert, obeys commands, Oriented to person, place, time, situation. Cardiovascular: Capillary refill < 3 seconds Patient's skin is warm and dry. Respiratory: Airway is patent Respiratory effort is even, unlabored. GI: Abdomen is round non-distended. : No signs and/or symptoms were reported regarding the genitourinary system. EENT: No signs and/or symptoms were reported regarding the EENT system. Derm: No signs and/or symptoms reported regarding the dermatologic system. Musculoskeletal: Reports numbness in left arm. Vital Signs: 07:10 BP 157 / 73; Pulse 73; Resp 16; Temp 97.9(TE); Pulse Ox 100% on R/A; Pain 7/10; hb 07:10 Pain Scale: Adult hb ED Course: 07:07 Patient arrived in ED. jj6 07:10 Arm band placed on. hb 07:17 Triage completed. 07:20 Dima Murphy MD is Attending Physician. ec2 07:21 Bell Stearns RN is Primary Nurse. ld1 07:29 Patient has correct armband on for positive identification. Placed in gown. Bed in low ld1 position. Call light in reach. Side rails up X2. Pulse ox on. NIBP on. Door closed. Noise minimized. Warm blanket given. 07:29 No provider procedures requiring assistance completed. Patient did not have IV access ld1 during this emergency room visit. Administered Medications: No medications were administered Medication: 07:29 VIS not applicable for this client. ld1 Outcome: 07:21 Discharge ordered by . ec2 07:29 Discharged to home ambulatory, ld1 07:29 Condition: stable 07:29 Discharge instructions given to patient, Instructed on discharge instructions, follow up and referral plans. medication usage, Demonstrated understanding of instructions, follow-up care, medications, Prescriptions given X 1, 07:31 Patient left the ED. ld1 Signatures: Kelsy Coyle RN RN Bell Stearns RN RN ld1 Viky Gregory jj6 Dima Murphy MD MD [facility]
[2023-06-11 12:00] VITALS: BP 157/73; TEMP 97.9; O2SAT 100
== END ==
LOC: ER 07:02
DX: M62.838 Other muscle spasm (principal); M79.602 Pain in left arm; M79.642 Pain in left hand; M25.512 Pain in left shoulder; R20.0 Anesthesia of skin; E11.8 Type 2 diabetes mellitus with unspecified complications
CPT/HCPCS: 99283

== ENCOUNTER 2024-09-15 13:45 | Emergency (ER) | payer OTHER, SELFPAY ==
--- OUTSIDE RECORDS SUMMARY | 2024-09-15 13:57 | XMS REPORT | Continuity of Care Document ---
Author Name Unknown Address [address] [facility]. [address] [place] [address] [facility] [place] Address [address] [facility] [address] [place] [address] Care Team Providers Care Limousine Driver Name Role Phone NedangelicaJustin Echavarria Primary Care Physicia n Doctor Unassigned, [place] Attending Clinician U navailKaylynn Nichole Attending Clinician [phone] CHIQUITA GOMES Attending Clinician Unavailable CHIQUITA GOMES Attending Clinician Unavailable Cherry Trent DO Attending Clinician [phone] Laverne Staton MD Attending Clinician [phone] Chiquita Gomes MD Attending Clinician [phone] CORRY YU Attending Clinician UnavailCORRY Toro Attending Clinician UnavailJun Lee Attending Clinician [phone] Doctor Unassigned, [place] Attending Clinician U navailable RADIOLOGY Attending Clinician Unavailable Radiology Attending Clinician Unavailable Mónica Pineda MA Attending Clinician Unavailrussel Reddy RN, Nataly Henderson Attending Clinician Unaira ailJUSTIN Lawrence Attending Clinician Unavail able Cheo MICAELAPJustin Attending Clinician + THAIS ALSTON Attending Clinician Tobias Alston MD, Thais Rodriguez Attending Clinician [phone] Jessica Garcias LMSW Attending Clinician Unava ilable Sandra Reeves DO Attending Clinician [phone] SANDRA REEVES Attending Clinician Unavailable SANDRA REEVES Attending Clinician Unavailable 2, [facility] Attending Clinician Unavailable Marvin Gtz MD Attending Clinician [phone] MARVIN GTZ Attending Clinician Unavail able MARVIN GTZ Attending Clinician Unavail LORENZO Hamilton Attending Clinician Unavailable JOE MCKEON Attending Clinician UnavailOvi Whaley MD Attending Clinician [phone] LAVERNE STATON Admitting Clinician Unavailab Elsy MENDOZA, Laverne Thornton Admitting Clinician [phone] JUN DIXON Admitting Clinician JUSTIN Hare Admitting Clinician Unavail GRACIA Matias Admitting Clinician UnavailJOE Irene Admitting Clinician Unavailrussel gray Payers Payer Name Policy Type Policy Number Effective Date Expirati on Date Source [place]ICA[place] [id number] 2020 00:00:00 2021 00:00:00 MEDICAID [place] [id number] 2020 00:00:00 Problems Condition Name Condition Details Condition Category Status Onset Date Resolution Date Last Treatment Date Treating Clinician Comments Source Right arm weakness Right arm weakness Disease Active 2023-05 00:00: 00 [facility] Other general counseling and advice for contracept darron management Other general counseling and advice for contracept darron management Disease Active 2021-05 00:00: 00 [facility] Morbid obesity with BMI of 45.0-49.9, adult Morbid obesity with BMI of 45.0-49.9, adult Disease Active 2021-05 00:00: 00 [facility] History of tubal ligation History of tubal ligation Disease Active 2021-05 00:00: 00 [facility] Pre-diabet es Pre-diabet es Disease Active 2021-05 00:00: 00 [facility] No known active problems No known active problems Disease [facility] Allergies, Adverse Reactions, Alerts Allergy Name Allergy Type Status Severity Reaction(s) Onset Date Inactive Date Treating Clinician Comments Source NO KNOWN ALLERGIE S Drug Class Active [facility] Social History Social Habit Start Date Stop Date Quantity Comments Source Gender identity [facility] Alcoholic beverage intake 2024-04-05 00:00:00 2024-04-05 00:00:00 Ex-drinker (finding) [facility] Exposure to SARS-CoV-2 (event) 2022-03-16 00:00:00 2022-03-26 08:47:00 Not sure [facility] Alcohol intake 2022-03-26 00:00:00 2022-03-26 00:00:00 Ex-drinker (finding) [facility] History of Social function 2021-07-06 00:00:00 2021-07-06 00:00:00 [facility] Tobacco use and exposure 2020-12-02 00:00:00 2020-12-02 00:00:00 Smokeless tobacco non-user [facility] Sex assigned at 1975 00:00:00 1975 00:00:00 [facility] Smoking Status Start Date Stop Date Source Never smoked tobacco [facility] Medications Ordered Medication Name Filled Medication Name Start Date Stop Date Current Medication? Ordering Clinician Indication Dosage Frequency Signature (SIG) Comments Components Source methocarbam ol 500 mg tablet 06-19 00:00: 00 Yes 1mg Javon Fuentes ibuprofen 800 mg tablet 06-19 00:00: 00 Yes 1mg Javon Fuentes phentermine 37.5 mg capsule 06-19 00:00: 00 Yes 1mg Javon Fuentes gabapentin 100 mg capsule 06-19 00:00: 00 Yes 1mg Javon Fuentes albuterol sulfate HFA 90 mcg/actuati on aerosol inhaler 06-07 00:00: 00 Yes 12mcg/a ctuatio n Javon Fuentes methocarbam ol 500 mg tablet 06-06 00:00: 00 Yes 1mg Javon Fuentes gabapentin 100 mg capsule 06-06 00:00: 00 Yes 1mg Javon Fuentes topiramate 100 mg tablet 2023-05- 00:00: 00 Yes mg Javon Fuentes Lomaira 8 mg tablet 2023-05 00:00: 00 Yes 1mg Javon Fuentes albuterol sulfate HFA 90 mcg/actuati on aerosol inhaler 2023-05 00:00: 00 Yes 12mcg/a ctuatio n Javon Fuentes Lexapro 10 mg tablet 2023-05 00:00: 00 Yes 1mg Javon Fuentes losartan 25 mg tablet 2023-05 00:00: 00 Yes 1mg Javon Fuentes metformin 500 mg tablet 2023-05 00:00: 00 Yes mg Javon Fuentes albuterol sulfate HFA 90 mcg/actuati on aerosol inhaler 2023-05 00:00: 00 Yes 12mcg/a ctuatio n Javon Fuentes losartan 25 mg tablet 2023-05 00:00: 00 Yes 1mg Javon Fuentes Lexapro 10 mg tablet 2023-05 00:00: 00 Yes 1mg Javon Fuentes aspirin chewable tablet 81 mg 2023-05 18:00: 00 Yes 81mg 81 mg, Oral, DAILY, First dose on 04/07/24 at 1200, Until Discontinu ed, Routine [facility] aspirin 81 mg chewable tablet 2023-05 00:00: 00 10-05 04:59 :00 No [id number] 81mg Take 1 tablet by mouth in the morning for 180 days. [facility] perflutren lipid microsphere s (DEFINITY) injection 2 mL 2023-05 21:00: 00 04-06 20:36 :00 No [id number] 4101 2mL 2 mL, IV Push, ONCE, 1 dose, On Tue04/06/24 at 1500, Routine [facility] Saline Bubble Study 2023-05 20:56: 47 04-07 00:27 :37 No [id number] 4101 6mL 6 mL, Injection, SEE-INSTRU CTIONS, Starting on Tue04/06/24 at 1456, Until Tue04/06/24 at 1827, Routine [facility] atorvastati n (LIPITOR) tablet 40 mg 2023-05 03:00: 00 Yes 40mg 40 mg, Oral, QHS, First dose on Tue04/05/24 at 2100, Until Discontinu ed, Routine [facility] atorvastati n 40 mg tablet 2023-05 00:00: 00 10-04 04:59 :00 No [id number] 4101 40mg Take 1 tablet by mouth at bedtime for 180 days. [facility] LORazepam (ATIVAN) tablet 0.5 mg 2023-05 22:00: 00 04-05 23:05 :00 No .5mg 0.5 mg, Oral, ONCE, 1 dose, On Tue04/05/24 at 1600, Routine [facility] Sliding Scale Insulin-Reg ular 2023-05 17:30: 00 04-07 00:27 :37 No [facility] NaCl 0.9% (NS) 1000 mL + KCL 20 mEq 2023-05 16:45: 00 04-06 14:16 :54 No IV Infusion, at 75 mL/hr, CONTINUOUS , Starting on Tue04/05/24 at 1045, Until Tue04/06/24 at 0816, Routine [facility] glucagon HCL injection 1 mg 2023-05 16:40: 17 04-07 00:27 :37 No 1mg 1 mg, Intramuscu lar, PRN, Starting on Tue04/05/24 at 1040, Until Tue04/06/24 at 1827, MARAH, Low blood sugar, Blood Glucose < or = 70 mg/dL and patient is NPO, unable to swallow or has mental changes. [facility] dextrose 50 % in water (D50W) injection 25 mL 2023-05 16:40: 17 04-07 00:27 :37 No 25mL 25 mL, Slow IV Push, PRN, Starting on Tue04/05/24 at 1040, Until Tue04/06/24 at 1827, MARAH, Blood Glucose < or = 70 mg/dL and patient is NPO, unable to swallow or has mental status changes. [facility] labetaloL (NORMODYNE) 5 mg/mL injection 10 mg 2023-05 16:26: 59 04-07 00:27 :37 No 10mg [facility] hydralAZINE (APRESOLINE ) injection 10 mg 2023-05 16:26: 20 04-07 00:27 :37 No 10mg 10 mg, Slow IV Push, Q4HPRN, Starting on Tue04/05/24 at 1026, Until Tue04/06/24 at 1827, Routine, DBP=>100; SBP=>180 [facility] Tenecteplas e (TNKASE) for Acute Ischemic Stroke Injection 25 mg 2023-05 14:30: 00 04-05 13:45 :00 No 25mg 25 mg, Slow IV Push, ONCE, 1 dose, On Tue04/05/24 at 0830, STAT, Indication : ACUTE ISCHEMIC STROKE [facility] iopamidol (ISOVUE 370-500 mL) injection 85 mL 2023-05 13:21: 00 04-05 13:30 :00 No [id number] 4101 85mL 85 mL, Intravenou s, ONCE, 1 dose, On Tue04/05/24 at 0730, Routine [facility] NaCl 0.9% (NS) injection 5 mL 2023-05 13:06: 36 04-07 00:27 :37 No 5mL 5 mL, Slow IV Push, PRN - SEE INSTRUCTIO NS, Starting on Tue04/05/24 at 0706, Until Tue04/06/24 at 1827, 10 mL [facility] metformin 500 mg tablet 2023-05 00:00: 00 Yes mg Javon Fuentes topiramate 100 mg tablet 2023-05 00:00: 00 Yes mg Javon Fuentes phentermine 15 mg capsule 12-25 00:00: 00 Yes 1mg Javon Fuentes metformin 500 mg tablet 12-25 00:00: 00 Yes 1mg Javon Fuentes topiramate 100 mg tablet 12-25 00:00: 00 Yes 1mg Javon Fuentes Victoza 3-Wilfred 0.6 mg/0.1 mL (18 mg/3 mL) subcutaneou s pen injector 09-26 00:00: 00 Yes 1(18 mg/3 mL) Javon Fuentes topiramate 100 mg tablet 09-26 00:00: 00 Yes 1mg Javon Fuentes phentermine 15 mg capsule 09-26 00:00: 00 Yes 1mg Javon Fuentes TAKE 1 CAPSULE EVERY MORNING BEFORE BREAKFAST. 07-18 00:00: 00 Yes 15 Javon Fuentes TAKE 1 TABLET DAILY. 07-18 00:00: 00 Yes 100 Javon Fuentes INJECT 1.2 MG SUBCUTANEOU SLY EVERY DAY 07-18 00:00: 00 Yes 183 Javon Fuentes TAKE 1 TABLET EVERY 8 HOURS NEEDED. 06-22 00:00: 00 09-29 00:00 :00 No 800 Javon Fuentes TAKE 2 TABLETS IN THE MORNING. TAKE 1 TABLET AT BEDTIME 06-22 00:00: 00 09-29 00:00 :00 No 300 Javon Fuentes TAKE 1 TABLET TWICE DAILY. 06-22 00:00: 00 09-29 00:00 :00 No 750 Javon Fuentes TAKE 1 TABLET BY MOUTH EVERY 8 HOURS NEEDED 06-11 00:00: 00 Yes Javon Fuentes TAKE 1 CAPSULE EVERY MORNING BEFORE BREAKFAST. 06-07 00:00: 00 09-29 00:00 :00 No 15 Javon Fuentes 0.6 MG ONCE DAILY FOR 1 WEEK, THEN INCREASE TO 1.2 MG ONCE DAILY 16 00:00: 00 09-29 00:00 :00 No 183 Javon F Alfredo TAKE 1 TABLET DAILY. 16 00:00: 00 09-29 00:00 :00 No 100 Javon Barb Fuentes TAKE 1 CAPSULE 3 TIMES DAILY. 05-30 00:00: 00 09-29 00:00 :00 No 100 Javon Barb Fuentes TAKE 1 TABLET TWICE DAILY. 05-30 00:00: 00 09-29 00:00 :00 No 750 Javon F Alfredo TAKE 1 TABLET EVERY 8 HOURS NEEDED. 05-30 00:00: 00 09-29 00:00 :00 No 800 Javon Barb Fuentes TAKE 1 TABLET DAILY. 2022-05 00:00: 00 09-29 00:00 :00 No 100 Javon Barb Fuentes TAKE 1 CAPSULE EVERY MORNING BEFORE BREAKFAST. 2022-05 00:00: 00 09-29 00:00 :00 No 15 Javon F Alfredo TAKE 1 TABLET BY MOUTH EVERY DAY 2022-05 00:00: 00 Yes 1000 Javon F Alfredo TAKE 1 CAPSULE EVERY MORNING BEFORE BREAKFAST. 2022-05 00:00: 00 09-29 00:00 :00 No 15 Javon F Alfredo TAKE 1 TABLET BY MOUTH DAILY 2022-05 00:00: 00 09-29 00:00 :00 No 3 Javon Barb Fuentes TAKE 1 TABLET DAILY. 2022-05 00:00: 00 09-29 00:00 :00 No 100 Javon Barb Fuentes TAKE 1 CAPSULE EVERY MORNING BEFORE BREAKFAST. 2022-0524 00:00: 00 09-29 00:00 :00 No 15 Javon F Alfredo TAKE 1 TABLET DAILY. 2022-05 0-24 00:00: 00 09-29 00:00 :00 No 100 Javon Barb Fuentes TAKE 1 TABLET DAILY. 18 00:00: 00 09-29 00:00 :00 No 50 Javon F Alfredo TAKE 1 TABLET DAILY. 9-18 00:00: 00 09-29 00:00 :00 No 8 Javon F Alfredo INJECT 0.5 ML SUBCUTANEOU SLY WEEKLY. 8-11 00:00: 00 09-29 00:00 :00 No 23 Javon F Alfredo TAKE 1 TABLET DAILY. 8-11 00:00: 00 09-29 00:00 :00 No 25 Javon F Alfredo INJECT 0.5 ML SUBCUTANEOU SLY WEEKLY. 7-11 00:00: 00 09-29 00:00 :00 No 23 Javon Barb Fuentes TAKE 1 CAPSULE EVERY MORNING BEFORE BREAKFAST. 5-30 00:00: 00 09-29 00:00 :00 No 30 Javon Barb Fuentes TAKE 1 TABLET AT BEDTIME. 4-20 00:00: 00 09-29 00:00 :00 No 40 Javon Barb Fuentes TAKE 1 CAPSULE EVERY MORNING BEFORE BREAKFAST. 4-20 00:00: 00 09-29 00:00 :00 No 15 Javon F Alfredo METFORMIN 4-20 00:00: 00 09-29 00:00 :00 No Javon F Alfredo VICTOZA INJ /3ML 2-22 00:00: 00 Yes Javon Barb Fuentes INJECT 0.6MG SUBCUTANEOU SLY DAILY 2-20 00:00: 00 09-29 00:00 :00 No 183 Javon F Alfredo INJECT 0.6MG SUBCUTANEOU SLY DAILY 2-14 00:00: 00 09-29 00:00 :00 No 183 Javon F Alfredo METFORMIN 2-10 00:00: 00 09-29 00:00 :00 No Javon F Alfredo VENTOLIN HFA AER 2-05 00:00: 00 Yes Javon Barb Fuentes INHALE 1-2 PUFFS BY MOUTH EVERY 4-6 HOURS NEEDED. 2-04 00:00: 00 Yes Javon F Alfredo INHALE 1 TO 2 PUFFS EVERY 4 TO 6 HOURS NEEDED. 2-04 00:00: 00 09-29 00:00 :00 No [id number] Javon Fuentes LOSARTAN POT 2-04 00:00: 00 09-29 00:00 :00 No Javon Fuentes TRI-SPRINTE C 0.18/0.215/ 0.25 mg-35 mcg (28) per tablet 1- 00:00: 00 Yes [id number] TAKE 1 TABLET BY MOUTH IN THE MORNING [facility] TAKE 1 TABLET DAILY. 2021-05- 00:00: 00 09-29 00:00 :00 No 25 Javon Fuentes FAMOTIDINE 2021-05 00:00: 00 Yes Javon Fuentes PREDNISONE 2021-05 00:00: 00 Yes Javon Fuentes TAKE 3 TABLETS BY MOUTH ONCE DAILY FOR 5 DAYS 2021-05 00:00: 00 Yes Javon Fuentes TAKE 1 TABLET BY MOUTH EVERY DAY 2021-05 1- 00:00: 00 09-29 00:00 :00 No 1000 Javon Fuentes TRI-SPRINTE C TAB 2021-05 0-31 00:00: 00 09-29 00:00 :00 No Javon Fuentes Dose Unknown 2021-05 0-28 00:00: 00 09-29 00:00 :00 No Javon Fuentes norgestimat e-ethinyl estradioL (ORTHO TRI-CYCLEN, 28,) 0.18/0.215/ 0.25 mg-35 mcg (28) tablet 2021-05 0-27 00:00: 00 06-08 00:00 :00 No [id number] 1{tbl} Take 1 tablet by mouth in the morning. [facility] Dose Unknown 9-20 00:00: 00 09-29 00:00 :00 No Javon Fuentes Dose Unknown 8-24 00:00: 00 Yes Javon Fuentes Dose Unknown 8-18 00:00: 00 Yes Javon Fuentes Dose Unknown 7-17 00:00: 00 Yes Javon Fuentes Dose Unknown -17 00:00: 00 Yes Javon Fuentes Victoza 3-Wilfred 0.6 mg/0.1 mL (18 mg/3 mL) subcutaneou s pen injector 10-20 00:00: 00 Yes (18 mg/3 mL) Javon Fuentes lisinopril 2.5 mg tablet 10-20 00:00: 00 Yes 1mg Javon Fuentes metformin ER 1,000 mg 24 hr tablet,exte nded release (gastric reten.) 10-20 00:00: 00 Yes 1mg Javon Fuentes gabapentin 100 mg capsule 0 10-20 00:00: 00 Yes 1mg Javon Fuentes lisinopril 2.5 mg tablet 0 09-24 00:00: 00 Yes 1mg Javon Fuentes Dose Unknown 0 09-16 00:00: 00 Yes Javon Fuentes cetirizine 10 mg tablet - 00:00: 00 Yes 12mg Javon Fuentes metformin ER 1,000 mg 24 hr tablet,exte nded release (gastric reten.) 0 - 00:00: 00 Yes 1mg Javon Fuentes gabapentin 100 mg capsule 0 -26 00:00: 00 Yes 1mg Javon Fuentes Dose Unknown 0 4- 00:00: 00 Yes Javon Day Alfredo Dose Unknown 0 325 00:00: 00 Yes Javon Fuentes [employer] a 150 mg/mL intramuscul ar syringe 0 324 00:00: 00 Yes 1mg/mL Javon Day Alfredo Dose Unknown 2021-0 3-24 00:00: 00 Yes Javon F Alfredo Dose Unknown 2021-0 3-24 00:00: 00 Yes Javon F Alfredo Dose Unknown 2021-0 3-24 00:00: 00 Yes Javon F Alfredo Dose Unknown 2021-0 3-24 00:00: 00 Yes Javon F Alfredo Dose Unknown 2021-0 3-24 00:00: 00 Yes Javon F Alfredo Dose Unknown 2021-0 3-24 00:00: 00 Yes Javon F Alfredo Dose Unknown 2021-0 3-24 00:00: 00 Yes Javon F Alfredo Dose Unknown 2021-0 3-24 00:00: 00 Yes Javon Fuentes Dose Unknown 324 00:00: 00 Yes Javon Fuentes Dose Unknown 324 00:00: 00 Yes Javon Fuentes Dose Unknown 324 00:00: 00 Yes Javon Fuentes Dose Unknown 324 00:00: 00 Yes Javon Fuentes Dose Unknown 324 00:00: 00 Yes Javon Fuentes atorvastati n 20 mg tablet 214 00:00: 00 04-06 00:00 :00 No [id number] 20mg Take 1 tablet by mouth daily. [facility] metoprolol succinate XL 25 mg 24 hr tablet 07-06 00:00: 00 03-18 00:00 :00 No [id number] 25mg Take 1 tablet by mouth daily. [facility] Dose Unknown 2020-05 0 00:00: 00 Yes Javon Fuentes warfarin 1 mg tablet 2020-05 0- 00:00: 00 Yes 1mg Javon Fuentes warfarin 7.5 mg tablet 2020-05 005 00:00: 00 Yes 1mg Javon Fuentes Vitamin C 1,000 mg tablet 2020-05 0 00:00: 00 Yes 1mg Javon Fuentes Dose Unknown 2020-05 0 00:00: 00 Yes Javon Fuentes warfarin 7.5 mg tablet 02-17 00:00: 00 Yes 1mg Javon Fuentes warfarin 1 mg tablet 02-17 00:00: 00 Yes 1mg Javon Fuentes atorvastati n 40 mg tablet 02-17 00:00: 00 Yes 1mg Javon Fuentes warfarin 1 mg tablet 02-10 00:00: 00 Yes 1mg Javon Fuentes warfarin 7.5 mg tablet 02-10 00:00: 00 Yes 1mg Javon Fuentes warfarin 7.5 mg tablet 02-05 00:00: 00 Yes 1mg Javon Fuentes warfarin 1 mg tablet 02-05 00:00: 00 Yes 1mg Javon Fuentes metoprolol succinate XL 25 mg 24 hr tablet 02-02 00:00: 00 07-06 00:00 :00 No 25mg Take 1 tablet by mouth daily. [facility] Dose Unknown 01-27 00:00: 00 Yes Javon Fuentes warfarin 7.5 mg tablet 01-23 00:00: 00 Yes 1mg Javon Fuentes warfarin 1 mg tablet 01-23 00:00: 00 Yes 1mg Javon Fuentes warfarin 7.5 mg tablet 01-16 00:00: 00 Yes 1mg Javon Fuentes warfarin 1 mg tablet 01-16 00:00: 00 Yes 1mg Javon Fuentes warfarin 1 mg tablet 01-09 00:00: 00 Yes 1mg Javon Fuentes warfarin 7.5 mg tablet 01-09 00:00: 00 Yes 1mg Javon Fuentes warfarin 7.5 mg tablet 01-05 00:00: 00 Yes 1mg Javon Fuentes warfarin 1 mg tablet 01-05 00:00: 00 Yes 1mg Javon Fuentes metformin 1,000 mg tablet 01-05 00:00: 00 Yes 1mg Javon Fuentes atorvastati n 40 mg tablet 01-05 00:00: 00 Yes 1mg Javon Fuentes metformin ER 500 mg tablet,exte nded release 24 hr 01-01 00:00: 00 Yes 1mg Javon Fuentes atorvastati n 20 mg tablet 01-01 00:00: 00 Yes 1mg Javon Fuentes Dose Unknown 12-30 00:00: 00 Yes Javon Fuentes warfarin 7.5 mg tablet 12-26 00:00: 00 Yes 1mg Javon Fuentes Dose Unknown 12-22 00:00: 00 Yes Javon Fuentes Dose Unknown 12-18 00:00: 00 Yes Javon Fuentes warfarin 6 mg tablet 12-12 00:00: 00 Yes 1mg Javon Fuentes Dose Unknown 12-06 00:00: 00 Yes Javon Fuentes Dose Unknown 12-02 00:00: 00 Yes Javon Fuentes warfarin 6 mg tablet 12-01 00:00: 00 Yes 1mg Javon Fuentes warfarin 5 mg tablet 12-01 00:00: 00 Yes 1mg Javon Fuentes warfarin 6 mg tablet 11-27 00:00: 00 Yes 1mg Javon Fuentes warfarin 5 mg tablet 11-27 00:00: 00 Yes 1mg Javon Fuentes Bactrim DS 800 mg-160 mg tablet 11-25 00:00: 00 Yes 1mg Javon Fuentes Dose Unknown 11-20 00:00: 00 Yes Javon Fuentes mupirocin 2 % topical ointment 11-18 00:00: 00 Yes 1% Javon Fuentes Bactrim DS 800 mg-160 mg tablet 11-18 00:00: 00 Yes 1mg Javon Fuentes Dose Unknown 11-17 00:00: 00 Yes Javon Fuentes warfarin 1 mg tablet 11-17 00:00: 00 07-06 00:00 :00 No 1mg Take 1 mg by mouth. [facility] Dose Unknown 11-13 00:00: 00 Yes Javon Fuentes Lovenox 100 mg/mL subcutaneou s syringe 11-11 00:00: 00 Yes 1mg/mL Javon Fuentes aspirin 81 mg chewable tablet 11-10 00:00: 00 Yes 1mg Javon Fuentes furosemide 40 mg tablet 11-10 00:00: 00 Yes 1mg Javon Fuentes midodrine 5 mg tablet 11-10 00:00: 00 Yes 2mg Javon Fuentes tramadol 50 mg tablet 11-10 00:00: 00 Yes 5mg Javon Fuentes Invokamet 50 mg-500 mg tablet 11-10 00:00: 00 Yes 1mg Javon Fuentes atorvastati n 20 mg tablet 11-10 00:00: 00 Yes 1mg Javon Fuentes Dose Unknown 11-10 00:00: 00 Yes Javon Fuentes Flonase Allergy Relief 50 mcg/actuati on nasal spray,suspe nsion 11-10 00:00: 00 Yes 1mcg/ac tuation Javon Fuentes potassium chloride ER 10 mEq capsule,ext ended release 11-10 00:00: 00 Yes 1mEq Javon Fuentes ciprofloxac in 500 mg/5 mL oral suspension 11-10 00:00: 00 Yes 1mg/5 mL Javon Fuentes warfarin 2 mg tablet 11-10 00:00: 00 07-06 00:00 :00 No TAKE 2 TABLETS BY MOUTH EVERY NIGHT [facility] potassium chloride 10 mEq CR tablet 11-08 00:00: 00 03-18 00:00 :00 No 10meq Take 10 mEq by mouth every morning. [facility] furosemide 40 mg tablet 11-08 00:00: 00 03-18 00:00 :00 No 40mg Take 40 mg by mouth every morning. [facility] atorvastati n 20 mg tablet 11-08 00:00: 00 07-06 00:00 :00 No TAKE 1 TABLET BY MOUTH AT BEDTIME SEE PCP FOR REFILLS [facility] ciprofloxac in HCl 500 mg tablet 11-08 00:00: 00 07-06 00:00 :00 No TAKE 1 TABLET BY MOUTH BY MOUTH FOR 1 DAY. [facility] warfarin 2.5 mg tablet 10-29 00:00: 00 07-06 00:00 :00 No TAKE 1 TABLET BY MOUTH DAILY AT 5 PM [facility] metFORMIN 500 mg tablet 05 00:00: 00 Yes 500mg Take 1 tablet by mouth in the morning and 1 tablet in the evening. [facility] traMADol 50 mg tablet 01-04 00:00: 00 07-06 00:00 :00 No [id number] 50mg Take 1 tablet by mouth every 6 (six) hours as needed for Pain (scale 4-6). [facility] ibuprofen 800 mg tablet 2019-0 8-15 00:00: 00 07-06 00:00 :00 No [id number] 800mg Take 1 tablet by mouth every 8 (eight) hours. [facility] Dose Unknown 604 00:00: 00 Yes Javon Fuentes Dose Unknown 09-14 00:00: 00 Yes Javon Fuentes lisinopril 10 mg tablet 08-14 00:00: 00 Yes 1mg Javon Fuentes lovastatin 10 mg tablet 07-23 00:00: 00 Yes 1mg Javon Fuentes lisinopril 10 mg tablet 07-17 00:00: 00 Yes 1mg Javon Fuentes Dose Unknown 07-17 00:00: 00 Yes Javon Fuentes metformin 500 mg tablet 11-21 00:00: 00 Yes 1mg Javon Fuentes metformin 500 mg tablet 06-14 00:00: 00 Yes 1mg Javon Fuentes metformin 500 mg tablet 2015-05 2 00:00: 00 Yes 1mg Javon Fuentes metformin 500 mg tablet 02-10 00:00: 00 Yes 1mg Javon Fuentes Immunizations Ordered Immunization Name Filled Immunization Name Date Status Comments Source Moderna COVID-19 Vaccine Moderna COVID-19 Vaccine 2021-05-29 00:00:00 Completed Javon Fuentes Moderna COVID-19 Vaccine Moderna COVID-19 Vaccine 2021-05-29 00:00:00 Completed Javon Fuentes SARS-COV-2 COVID-19 MODERNA VACCINE 2021-05-29 00:00:00 Completed [facility] SARS-COV-2 COVID-19 MODERNA 12+ YRS VACCINE 2021-05-29 00:00:00 Completed [facility] SARS-COV-2 COVID-19 MODERNA 12+ YRS VACCINE 2021-05-29 00:00:00 Completed [facility] SARS-COV-2 COVID-19 MODERNA 12+ YRS VACCINE 2021-05-29 00:00:00 Completed [facility] SARS-COV-2 COVID-19 MODERNA 12+ YRS VACCINE 2021-05-29 00:00:00 Completed [facility] SARS-COV-2 COVID-19 MODERNA 12+ YRS VACCINE 2021-05-29 00:00:00 Completed [facility] SARS-COV-2 COVID-19 MODERNA 12+ YRS VACCINE 2021-05-29 00:00:00 Completed [facility] SARS-COV-2 COVID-19 MODERNA 12+ YRS VACCINE 2021-05-29 00:00:00 Completed [facility] SARS-COV-2 COVID-19 MODERNA 12+ YRS VACCINE 2021-05-29 00:00:00 Completed [facility] SARS-COV-2 COVID-19 MODERNA 12+ YRS VACCINE 2021-05-29 00:00:00 Completed [facility] Moderna COVID-19 Vaccine Moderna COVID-19 Vaccine 2021-01-27 00:00:00 Completed Javon Fuentes Moderna COVID-19 Vaccine Moderna COVID-19 Vaccine 2021-01-27 00:00:00 Completed Javon Fuentes SARS-COV-2 COVID-19 MODERNA VACCINE 2021-01-27 00:00:00 Completed [facility] SARS-COV-2 COVID-19 MODERNA VACCINE 2021-01-27 00:00:00 Completed [facility] SARS-COV-2 COVID-19 MODERNA 12+ YRS VACCINE 2021-01-27 00:00:00 Completed [facility] SARS-COV-2 COVID-19 MODERNA 12+ YRS VACCINE 2021-01-27 00:00:00 Completed [facility] SARS-COV-2 COVID-19 MODERNA 12+ YRS VACCINE 2021-01-27 00:00:00 Completed [facility] SARS-COV-2 COVID-19 MODERNA 12+ YRS VACCINE 2021-01-27 00:00:00 Completed [facility] SARS-COV-2 COVID-19 MODERNA 12+ YRS VACCINE 2021-01-27 00:00:00 Completed [facility] SARS-COV-2 COVID-19 MODERNA 12+ YRS VACCINE 2021-01-27 00:00:00 Completed [facility] SARS-COV-2 COVID-19 MODERNA 12+ YRS VACCINE 2021-01-27 00:00:00 Completed [facility] SARS-COV-2 COVID-19 MODERNA 12+ YRS VACCINE 2021-01-27 00:00:00 Completed [facility] SARS-COV-2 COVID-19 MODERNA 12+ YRS VACCINE 2021-01-27 00:00:00 Completed [facility] Moderna COVID-19 Vaccine Moderna COVID-19 Vaccine 2020-12-30 00:00:00 Completed [facility] Moderna COVID-19 Vaccine Moderna COVID-19 Vaccine 2020-12-30 00:00:00 Completed [facility] SARS-COV-2 COVID-19 MODERNA 12+ YRS VACCINE Unknown Completed [facility] SARS-COV-2 COVID-19 MODERNA 12+ YRS VACCINE Unknown Completed [facility] SARS-COV-2 COVID-19 MODERNA 12+ YRS VACCINE Unknown Completed [facility] SARS-COV-2 COVID-19 MODERNA 12+ YRS VACCINE Unknown Completed [facility] Vital Signs Vital Name Observation Time Observation Value Comments S ource Heart rate 2024-04-06 23:00:00 72 /min [facility] Oxygen saturation in Arterial blood by Pulse oximetry 2024-04-06 23:00:00 100 /[facility] Systolic blood pressure 2024-04-06 22:00:00 129 mm[Hg] [facility] Diastolic blood pressure 2024-04-06 22:00:00 72 mm[Hg] [facility] Body temperature 2024-04-06 22:00:00 36.33 Armida [facility] Respiratory rate 2024-04-06 20:00:00 23 /min [facility] Body height 2024-04-05 19:07:00 157.5 cm [facility] Body weight 2024-04-05 19:07:00 104.327 kg [facility] BMI 2024-04-05 19:07:00 42.07 kg/m2 [facility] Systolic blood pressure 2022-03-18 14:18:00 125 mm[Hg] [facility] Diastolic blood pressure 2022-03-18 14:18:00 69 mm[Hg] [facility] Heart rate 2022-03-18 14:18:00 83 /min Un[facility] Body temperature 2022-03-18 14:18:00 36.39 Armida [facility] Respiratory rate 2022-03-18 14:18:00 18 /min [facility] Body height 2022-03-18 14:18:00 157.5 cm [facility] Body weight 2022-03-18 14:18:00 113.172 kg [facility] BMI 2022-03-18 14:18:00 45.63 kg/m2 [facility] Systolic blood pressure 2021-07-06 19:52:00 131 mm[Hg] [facility] Diastolic blood pressure 2021-07-06 19:52:00 84 mm[Hg] [facility] Heart rate 2021-07-06 19:52:00 96 /min [facility] Respiratory rate 2021-07-06 19:52:00 19 /min [facility] Body height 2021-07-06 19:52:00 157.5 cm [facility] Body weight 2021-07-06 19:52:00 117.981 kg [facility] BMI 2021-07-06 19:52:00 47.57 kg/m2 [facility] Oxygen saturation in Arterial blood by Pulse oximetry 2021-07-06 19:52:00 94 /min [facility] BP Systolic 2024-06-19 10:12:00 138 mm[Hg] Step hen F Franklin BP Diastolic 2024-06-19 10:12:00 89 mm[Hg] Joseph phen F Alfredo Weight Measured 2024-06-19 10:12:00 244.20 pounds Javon F Alfredo Height Measured 2024-06-19 10:12:00 63.00 inches Javon F Alfredo Body Temperature 2024-06-19 10:12:00 98.00 degrees Javon F Alfredo Heart Rate 2024-06-19 10:12:00 71.00 /min Jessica en F Alfredo Respiratory Rate 2024-06-19 10:12:00 18.00 /min Javon F Alfredo BP Systolic 2024-06-06 15:18:00 132 mm[Hg] Step hen F Franklin BP Diastolic 2024-06-06 15:18:00 89 mm[Hg] Joseph phen F Alfredo Weight Measured 2024-06-06 15:18:00 241.00 pounds Javon F Alfredo Height Measured 2024-06-06 15:18:00 63.00 inches Javon F Alfredo Body Temperature 2024-06-06 15:18:00 98.20 degrees Javon F Alfredo Heart Rate 2024-06-06 15:18:00 89.00 /min Jessica en F Alfredo Respiratory Rate 2024-06-06 15:18:00 18.00 /min Javon F Alfredo BP Systolic 2024-05-08 17:04:00 134 mm[Hg] Step hen F Alfredo BP Diastolic 2024-05-08 17:04:00 83 mm[Hg] Joseph phen F Alfredo Weight Measured 2024-05-08 17:04:00 239.80 pounds Javon F Alfredo Height Measured 2024-05-08 17:04:00 63.00 inches Javon F Alfredo Body Temperature 2024-05-08 17:04:00 98.60 degrees Javon F Alfredo Heart Rate 2024-05-08 17:04:00 65.00 /min Jessica en F Alfredo Respiratory Rate 2024-05-08 17:04:00 18.00 /min Javon F Alfredo BP Systolic 2024-05-04 17:02:00 121 mm[Hg] Step hen F Alfredo BP Diastolic 2024-05-04 17:02:00 77 mm[Hg] Joseph phen F Alfredo Weight Measured 2024-05-04 17:02:00 242.40 pounds Javon F Alfredo Height Measured 2024-05-04 17:02:00 63.00 inches Javon F Alfredo Body Temperature 2024-05-04 17:02:00 98.30 degrees Javon F Alfredo Heart Rate 2024-05-04 17:02:00 68.00 /min Jessica en F Alfredo Respiratory Rate 2024-05-04 17:02:00 16.00 /min Javon F Alfredo BP Systolic 2024-04-09 16:16:00 136 mm[Hg] Step hen F Alfredo BP Diastolic 2024-04-09 16:16:00 86 mm[Hg] Joseph phen F Alfredo Weight Measured 2024-04-09 16:16:00 233.00 pounds Javon F Alfredo Height Measured 2024-04-09 16:16:00 63.00 inches Javon F Alfredo Body Temperature 2024-04-09 16:16:00 98.70 degrees Javon F Alfredo Heart Rate 2024-04-09 16:16:00 87.00 /min Jessica en F Alfredo Respiratory Rate 2024-04-09 16:16:00 18.00 /min Javon F Alfredo BP Systolic 2023-12-26 17:20:00 122 mm[Hg] Step hen F Alfredo BP Diastolic 2023-12-26 17:20:00 80 mm[Hg] Joseph phen F Alfredo Weight Measured 2023-12-26 17:20:00 233.80 pounds Javon F Alfredo Height Measured 2023-12-26 17:20:00 63.00 inches Javon F Alfredo Body Temperature 2023-12-26 17:20:00 97.60 degrees Javon F Alfredo Heart Rate 2023-12-26 17:20:00 98.00 /min Jessica en F Alfredo Respiratory Rate 2023-12-26 17:20:00 18.00 /min Javon F Alfredo BP Systolic 2023-09-27 17:28:00 137 mm[Hg] Step hen F Alfredo BP Diastolic 2023-09-27 17:28:00 87 mm[Hg] Joseph phen F Alfredo Weight Measured 2023-09-27 17:28:00 232.40 pounds Javon F Alfredo Height Measured 2023-09-27 17:28:00 63.00 inches Javon F Alfredo Body Temperature 2023-09-27 17:28:00 98.10 degrees Javon F Alfredo Heart Rate 2023-09-27 17:28:00 69.00 /min Jessica en F Alfredo Respiratory Rate 2023-09-27 17:28:00 19.00 /min Javon F Alfredo BP Systolic 2023-07-18 16:59:00 135 mm[Hg] Step hen F Alfredo BP Diastolic 2023-07-18 16:59:00 81 mm[Hg] Joseph phen F Alfredo Weight Measured 2023-07-18 16:59:00 229.20 pounds Javon F Alfredo Height Measured 2023-07-18 16:59:00 63.00 inches Javon F Alfredo Body Temperature 2023-07-18 16:59:00 98.10 degrees Javon F Alfredo Heart Rate 2023-07-18 16:59:00 82.00 /min Jessica en F Alfredo Respiratory Rate 2023-07-18 16:59:00 19.00 /min Javon F Alfredo BP Systolic 2023-06-22 17:03:00 130 mm[Hg] Step hen F Alfredo BP Diastolic 2023-06-22 17:03:00 85 mm[Hg] Joseph phen F Alfredo Weight Measured 2023-06-22 17:03:00 230.60 pounds Javon F Alfredo Height Measured 2023-06-22 17:03:00 63.00 inches Javon F Alfredo Body Temperature 2023-06-22 17:03:00 98.20 degrees Javon F Alfredo Heart Rate 2023-06-22 17:03:00 82.00 /min Jessica en F Alfredo Respiratory Rate 2023-06-22 17:03:00 19.00 /min Javon F Alfredo BP Systolic 2023-06-07 16:42:00 130 mm[Hg] Step hen F Alfredo BP Diastolic 2023-06-07 16:42:00 85 mm[Hg] Joseph phen F Alfredo Weight Measured 2023-06-07 16:42:00 234.60 pounds Javon F Alfredo Height Measured 2023-06-07 16:42:00 63.00 inches Javon F Alfredo Body Temperature 2023-06-07 16:42:00 98.10 degrees Javon F Alfredo Heart Rate 2023-06-07 16:42:00 68.00 /min Jessica en F Alfredo Respiratory Rate 2023-06-07 16:42:00 19.00 /min Javon F Alfredo BP Systolic 2023-05-30 17:22:00 139 mm[Hg] Step hen F Alfredo BP Diastolic 2023-05-30 17:22:00 87 mm[Hg] Joseph phen F Alfredo Weight Measured 2023-05-30 17:22:00 232.60 pounds Javon F Alfredo Height Measured 2023-05-30 17:22:00 63.00 inches Javon F Alfredo Body Temperature 2023-05-30 17:22:00 98.30 degrees Javon F Alfredo Heart Rate 2023-05-30 17:22:00 78.00 /min Jessica en F Alfredo Respiratory Rate 2023-05-30 17:22:00 Javon F Alfredo BP Systolic 2023-05-10 16:24:00 129 mm[Hg] Step hen F Alfredo BP Diastolic 2023-05-10 16:24:00 85 mm[Hg] Joseph phen F Alfredo Weight Measured 2023-05-10 16:24:00 236.20 pounds Javon F Alfredo Height Measured 2023-05-10 16:24:00 63.00 inches Javon F Alfredo Body Temperature 2023-05-10 16:24:00 98.30 degrees Javon F Alfredo Heart Rate 2023-05-10 16:24:00 75.00 /min Jessica en F Alfredo Respiratory Rate 2023-05-10 16:24:00 17.00 /min Javon F Alfredo BP Systolic 2023-04-11 16:44:00 129 mm[Hg] Step hen F Alfredo BP Diastolic 2023-04-11 16:44:00 83 mm[Hg] Joseph phen F Alfredo Weight Measured 2023-04-11 16:44:00 233.20 pounds Javon F Alfredo Height Measured 2023-04-11 16:44:00 63.00 inches Javon F Alfredo Body Temperature 2023-04-11 16:44:00 98.10 degrees Javon F Alfredo Heart Rate 2023-04-11 16:44:00 72.00 /min Jessica en F Alfredo Respiratory Rate 2023-04-11 16:44:00 Javon F Alfredo BP Systolic 2023-03-15 17:46:00 130 mm[Hg] Step hen F Alfredo BP Diastolic 2023-03-15 17:46:00 85 mm[Hg] Joseph phen F Alfredo Weight Measured 2023-03-15 17:46:00 236.80 pounds Javon F Alfredo Height Measured 2023-03-15 17:46:00 63.00 inches Javon F Alfredo Body Temperature 2023-03-15 17:46:00 97.90 degrees Javon F Alfredo Heart Rate 2023-03-15 17:46:00 69.00 /min Jessica en F Alfredo Respiratory Rate 2023-03-15 17:46:00 16.00 /min Javon F Alfredo BP Systolic 2023-02-07 16:22:00 138 mm[Hg] Step hen F Alfredo BP Diastolic 2023-02-07 16:22:00 90 mm[Hg] Joseph phen F Alfredo Weight Measured 2023-02-07 16:22:00 239.60 pounds Javonluis manuel Fuentes Height Measured 2023-02-07 16:22:00 63.00 inches Javon F Alfredo Body Temperature 2023-02-07 16:22:00 98.20 degrees Javon F Alfredo Heart Rate 2023-02-07 16:22:00 94.00 /min Jessica en F Alfredo Respiratory Rate 2023-02-07 16:22:00 19.00 /min Javon F Alfredo BP Systolic 2022-12-30 17:31:00 122 mm[Hg] Step hen F Alfredo BP Diastolic 2022-12-30 17:31:00 88 mm[Hg] Joseph phen F Alfredo Weight Measured 2022-12-30 17:31:00 240.60 pounds Javon Fuentes Height Measured 2022-12-30 17:31:00 63.00 inches Javon Fuentes Body Temperature 2022-12-30 17:31:00 98.10 degrees Javon Fuentes Heart Rate 2022-12-30 17:31:00 100.00 /min Step hen F Alfredo Respiratory Rate 2022-12-30 17:31:00 19.00 /min Javon Barb Fuentes Procedures Procedure Date / Time Performed Performing Clinician Source POCT GLUCOSE (AUTOMATED) 2024-04-06 22:35:00 Alma Rosa [facility] TRANSTHORACIC ECHO (TTE) COMPLETE W/ CONTRAST 2024-04-06 20:38:00 Nadia Cat [facility] POCT GLUCOSE (AUTOMATED) 2024-04-06 18:00:00 Alma Rosa [facility] POCT GLUCOSE (AUTOMATED) 2024-04-06 [facility]:29[facility]-06 11:27:00 Nadia Cat [facility] VITAMIN B12, LEVEL 2024-04-06 11:27:00 Eric Messer [facility] BASIC METABOLIC PANEL (NA, K , CL, CO2, GLUCOSE, BUN, CREATININE, CA) 2024-04-06 11:27:00 Stephania Nadia [facility] IRON PANEL 2024-04-06 11:27:00 Stephania Nadia [facility] CBC WITH DIFF 2024-04-06 10:25:00 Stephania Nadia [facility] POCT GLUCOSE (AUTOMATED) 2024-04-06 02:39:00 Laverne Staton [facility] URINE DRUG (IMMUNOASSAY) - COMPREHENSIVE DRUG SCREEN 2024-04-06 00:10:00 Stephania Nadia [facility] MR STROKE BRAIN WO CONTRAST 2024-04-06 00:01:40 Stephania [facility] XR CHEST 1 VW 2024-04-05 22:42:55 Stephania Nadia [facility] POCT GLUCOSE (AUTOMATED) 2024-04-05 22:37:00 Laverne Staton [facility] CT HEAD WO CONTRAST 2024-04-05 18:04:00 Stephania Nadia [facility] POCT GLUCOSE (AUTOMATED) 2024-04-05 18:03:00 Laverne Staton [facility] POCT GLUCOSE (AUTOMATED) 2024-04-05 17:46:00 Laverne Staton [facility] POCT GLUCOSE (AUTOMATED) 2024-04-05 17:34:00 Laverne Staton [facility] MRSA / MSSA SCREEN BY CHARITY DAILEY 2024-04-05 17:15:00 Stephania Nadia [facility] XR STROKE CHEST 1 VW 2024-04-05 13:58:00 Cherry Trent [facility] URINALYSIS 2024-04-05 13:57:00 Cherry Trent [facility] HB ECG ROUTINE & RHYTHM STRIP 2024-04-05 13:34:33 Cherry Trent [facility] POCT GLUCOSE (AUTOMATED) 2024-04-05 13:28:00 Cherry Trent [facility] CT STROKE HEAD WO CONTRAST 2024-04-05 13:25:04 Cherry Trent [facility] CT STROKE ANGIOGRAM HEAD 2024-04-05 13:25:00 Cherry Trent [facility] CT STROKE ANGIOGRAM NECK 2024-04-05 13:25:00 Cherry Trent [facility] TROPONIN I 2024-04-05 13:16:00 Cherry Trent [facility] BASIC METABOLIC PANEL (NA, K , CL, CO2, GLUCOSE, BUN, CREATININE, CA) 2024-04-05 13:16:00 Cherry Trent [facility] LIPID PANEL (10251)(TOTAL CHOLESTEROL, TRIGLYCERIDES, HDL) 2024-04-05 13:16:00 Nadia Cat [facility] CBC WITHOUT DIFF 2024-04-05 13:16:00 Cherry Trent [facility] GLYCOSYLATED HEMOGLOBIN (A1C) 2024-04-05 13:16:00 Nadia Cat [facility] PROTHROMBIN TIME / INR 2024-04-05 13:16:00 Cherry Trent [facility] ACTIVATED PARTIAL THRMPLAS CAROL 2024-04-05 13:16:00 Cherry Trent [facility] ELECTROENCEPHALOGRAM 2024-04-05 00:00:00 Nadia Cat [facility] REFERRAL- REQUEST/RESPONSE 2023-06-24 06:01:00 Doctor Unassigned, [place] [facility] ASSIGNMENT OF BENEFITS 2023-06-08 22:10:12 Doctor Unassigned, [place] [facility] NOTICE OF PRIVACY PRACTICES 2022-03-26 13:44:59 Doctor Unassigned, [place] [facility] CONSENT/REFUSAL FOR DIAGNOSI S AND TREATMENT 2022-03-26 13:44:36 Doctor Unassigned, [place] [facility] ASSIGNMENT OF BENEFITS 2022-03-26 13:44:18 Doctor Unassigned, [place] [facility] HIV 1/2 AG-AB WITH REFLEX 2022-03-18 15:30:00 Justin Grider [facility] GALV ONLY - SYPHILIS IGG/IGM 2022-03-18 15:30:00 Justin Grider [facility] ASSIGNMENT OF BENEFITS 2022-03-18 13:33:34 Doctor Unassigned, [place] [facility] REFERRAL- REQUEST/RESPONSE 2022-02-10 05:01:00 Doctor Unassigned, [place] [facility] Encounters Start Date/Time End Date/Time Encounter Type Admission Type Attending [facility] Care Facility Care Department Encounter ID Source 2021-12-18 11:11:48 Outpatient [facility] [id number] [facility] 2024-06-19 10:22:52 2024-06-19 10:22:52 Outpatient SFA [facility] [id number] Javon Fuentes 2024-06-19 00:00:00 2024-06-19 00:00:00 Outpatient Visit [facility] [id number] Javon Fuentes 2024-06-06 15:07:08 2024-06-06 15:07:08 Outpatient SFA [facility] [id number] Javon Fuentes 2024-06-06 00:00:00 2024-06-06 00:00:00 Outpatient Visit [facility] [id number] Javon Fuentes 2024 00:00:00 2024-05-26 18:17:13 Patient Secure Msg Doctor Unassigned, [place] Doctor Unassigned, [place] [facility] 1.2.840.114 350.1.13.10 4.2.7.2.686 [id number] [facility] 2024-05-12 11:18:05 2024-05-12 11:18:05 Outpatient SFA [facility] [id number] Javon Fuentes 2024-05-08 16:55:17 2024-05-08 16:55:17 Outpatient SFA [facility] [id number] Javon Fuentes 2024-05-08 00:00:00 2024-05-08 00:00:00 Outpatient Visit [facility] [id number] Javon Fuentes 2024-05-04 16:57:53 2024-05-04 16:57:53 Outpatient SFA [facility] [id number] Javon Fuentes 2024-05-04 00:00:00 2024-05-04 00:00:00 Outpatient Visit [facility] [id number] Javon Fuentes 2024-04-25 15:15:00 2024-04-25 15:15:00 Outpatient R [facility] [id number] [facility] 2024 00:00:00 2024 15:17:34 Letter (Out) Kaylynn Nguyen [facility] 1.2.840.114 350.1.13.10 4.2.7.2.686 [id number] [facility] 2024-04-09 16:05:59 2024-04-09 16:05:59 Outpatient SFA [facility] [id number] Javon Fuentes 2024-04-09 00:00:00 2024-04-09 00:00:00 Outpatient Visit [facility] [id number] Javon Fuentes 2024-04-05 07:06:00 2024-04-06 18:20:00 Inpatient X CHIQUITA GOMES AKM [facility] SHAR[facility] [id number] [facility] 2024-04-05 07:06:00 2024-04-06 18:20:00 Hospital Encounter Cherry Trent Muhammad U Muktadir, Akm [facility] 1.2.840.114 350.1.13.10 4.2.7.2.686 [id number] [facility] 2023-12-26 17:12:14 2023-12-26 17:12:14 Outpatient SFA [facility] [id number] Javon Fuentes 2023-12-26 00:00:00 2023-12-26 00:00:00 Outpatient Visit [facility] [id number] Javon Fuentes 2023-09-30 16:21:22 2023-09-30 16:21:22 Outpatient SFA [facility] [id number] Javon Fuentes 2023-09-27 17:19:30 2023-09-27 17:19:30 Outpatient SFA [facility] [id number] Javon Fuentes 2023-09-27 00:00:00 2023-09-27 00:00:00 Outpatient Visit [facility] [id number] Javon Day Alfredo 2023-07-20 15:00:00 2023-07-20 15:00:00 Outpatient R CORRY YU CRAIG [facility] [id number] [facility] 2023-07-19 00:00:00 2023-07-19 00:00:00 Letter (Out) Jun Elliott [facility] 1..840.114 350.1.13.10 4.2.7.2.686 [id number] [facility] 2023-07-18 16:55:16 2023-07-18 16:55:16 Outpatient [facility] [id number] Javon Day Franklin 2023-06-24 00:00:00 2023-06-24 00:00:00 Orders Only Doctor Unassigned, [place] [facility] 1..840.114 350.1.13.10 4.2.7.2.686 [id number] [facility] 2023-06-22 16:54:26 2023-06-22 16:54:26 Outpatient SFA [facility] [id number] Javon Day Alfredo 2023-06-08 16:11:18 2023-06-08 23:59:00 Outpatient R RADIOLOGY [facility] [id number] [facility] 2023-06-08 16:11:18 2023-06-08 23:59:00 Hospital Encounter Radiology [facility] 1.840.114 350.1.13.10 4.2.7.2.686 [id number] [facility] 2023-06-08 00:00:00 2023-06-08 00:00:00 Orders Only Doctor Unassigned, [place] [facility] 1.840.114 350.1.13.10 4.2.7.2.686 [id number] [facility] 2023-06-07 16:35:11 2023-06-07 16:35:11 Outpatient SFA [facility] [id number] Javon Fuentes 2023-06-01 16:20:58 2023-06-01 16:20:58 Outpatient SFA [facility] [id number] Javon Day Alfredo 2023-05-30 17:17:39 2023-05-30 17:17:39 Outpatient SFA [facility] [id number] Javon Day Alfredo 2023-04-12 16:21:07 2023-04-12 16:21:07 Outpatient SFA [facility] [id number] Javon Day Alfredo 2023-03-15 17:33:42 2023-03-15 17:33:42 Outpatient SFA [facility] [id number] Javon Day Alfredo 2023-02-07 16:17:23 2023-02-07 16:17:23 Outpatient SFA [facility] [id number] Javon Day Alfredo 2022-12-30 17:13:38 2022-12-30 17:13:38 Outpatient SFA [facility] [id number] Javon Day Franklin 2022-12-21 00:00:00 2022-12-21 00:00:00 Case Management Mónica Pineda 1..840.114 350.1.13.10 4.2.7.2.686 [id number] [facility] 2022-11-30 17:17:31 2022-11-30 17:17:31 Outpatient SFA [facility] [id number] Javon Fuentes 2022-10-19 16:15:21 2022-10-19 16:15:21 Outpatient SFA [facility] [id number] Javon Fuentes 2022-09-09 16:31:28 2022-09-09 16:31:28 Outpatient SFA [facility] [id number] Javon Fuentes 2022-09-04 11:41:20 2022-09-04 11:41:20 Outpatient SFA [facility] [id number] Javon Fuentes 2022-06-26 11:28:23 2022-06-26 11:28:23 Outpatient SFA [facility] [id number] Javon Fuentes 2022-06-23 00:00:00 2022-06-23 00:00:00 Telephone Nataly Reddy 1.2.840.114 350.1.13.10 4.2.7.2.686 [id number] [facility] 2022-06-23 00:00:00 2022-06-23 00:00:00 Telephone Nataly Reddy 1.2.840.114 350.1.13.10 4.2.7.2.686 [id number] [facility] 2022-06-18 09:00:00 2022-06-18 09:00:00 Outpatient JUSTIN SOMMER [facility] [id number] [facility] 2022-06-07 00:00:00 2022-06-07 00:00:00 Refill Justni Grider [facility] [employer]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 [facility] 1.2.840.114 350.1.13.10 4.2.7.2.686 [id number] [facility] 2022-04-06 11:28:51 2022-04-06 11:28:51 Outpatient SFA [facility] [id number] Javon Fuentes 2022-03-26 08:47:30 2022-03-26 23:59:00 Outpatient JUSTIN SOMMER [facility] [id number] [facility] 2022-03-26 08:47:30 2022-03-26 23:59:00 Hospital Encounter NedJose tabaresilola López [facility] 1.2.840.114 350.1.13.10 4.2.7.2.686 [id number] [facility] 2022-03-26 13:18:40 2022-03-26 13:18:40 Outpatient SFA MARY [id number] Javon Fuentes 2022-03-18 09:15:00 2022-03-18 10:31:43 Office Visit Cheo Justin Dawn [facility] [employer]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2.686 [id number] [facility] 2021-08-31 09:00:00 2021-08-31 09:00:00 Outpatient THAIS GILES [facility] [id number] [facility] 2021-08-31 09:00:00 2021-08-31 09:00:00 Outpatient THAIS GILES [facility] [id number] [facility] 2021-08-17 00:00:00 2021-08-17 00:00:00 Case Management Mónica Pineda 1.2.840.114 350.1.13.10 4.2.7.2.686 [id number] [facility] 2021-07-29 10:00:00 2021-07-29 10:00:00 Outpatient R THAIS ALSTON [facility] [id number] [facility] 2021-07-28 10:00:00 2021-07-28 10:00:00 Outpatient R THAIS ALSTON [facility] [id number] [facility] 2021-07-28 09:15:00 2021-07-28 09:15:00 Outpatient R [facility] [id number] [facility] 2021-07-28 09:15:00 2021-07-28 09:15:00 Outpatient R [facility] [id number] [facility] 2021-07-07 00:00:00 2021-07-07 00:00:00 Telephone Thais AlstonHMeño [facility] 1.2.840.114 350.1.13.10 4.2.7.2.686 [id number] [facility] 2021-07-06 14:00:00 2021-07-06 14:26:01 Outpatient R THAIS ALSTON [facility] [id number] [facility] 2021-07-06 14:00:00 2021-07-06 14:26:01 Office Visit Thais AlstonHMeño [facility] 1.2.840.114 350.1.13.10 4.2.7.2.686 [id number] [facility] 2021-05-08 11:00:00 2021-05-08 11:00:00 Outpatient R THAIS ALSTON [facility] [id number] [facility] 2021-04-22 00:00:00 2021-04-22 00:00:00 Case Management Katerine Jessicasteve [facility] 1.2.840.114 350.1.13.10 4.2.7.2.686 [id number] [facility] 2021-03-13 13:47:33 2021-03-13 14:29:24 Office Visit Sandra Reeves [facility] 1.2.840.114 350.1.13.10 4.2.7.2.686 [id number] [facility] 2021-03-13 13:40:00 2021-03-13 13:40:00 [facility] [id number] [facility] 2021-02-04 09:12:57 2021-02-04 09:27:57 Guest Experience Manager Visit 2, [facility] Thais Alston [facility] 1.2.840.114 350.1.13.10 4.2.7.2.686 [id number] [facility] 2021-02-04 09:12:57 2021-02-04 09:27:57 Guest Experience Manager Visit 2, [facility] Thais Alston [facility] 1.2.840.114 350.1.13.10 4.2.7.2.686 [id number] [facility] 2021-02-04 08:33:29 2021-02-04 09:06:01 Office Visit Thais Alston [facility] 1.2.840.114 350.1.13.10 4.2.7.2.686 [id number] [facility] 2021-02-04 09:00:00 2021-02-04 09:00:00 Outpatient R THAIS ALSTON [facility] [id number] [facility] 2021-02-02 00:00:00 2021-02-02 00:00:00 Telephone Thais Alston [facility] 1.2.840.114 350.1.13.10 4.2.7.2.686 [id number] [facility] 2021-02-02 00:00:00 2021-02-02 00:00:00 Telephone Thais Alston [facility] 1.2.840.114 350.1.13.10 4.2.7.2.686 [id number] [facility] 2021-01-28 10:33:19 2021-01-28 23:59:00 Hospital Encounter AlstonThaisMeño [facility] 1.2.840.114 350.1.13.10 4.2.7.2.686 [id number] [facility] 2021-01-28 11:00:00 2021-01-28 11:00:00 Outpatient R CARLOS ALSTONKENZIE [facility] [id number] [facility] 2021-01-08 08:00:00 2021-01-08 08:00:00 Outpatient R ALSTONCARLOSKENZIE [facility] [id number] [facility] 2021-01-08 00:00:00 2021-01-08 00:00:00 Orders Only Doctor Unassigned, [place] [facility] 1.2.840.114 350.1.13.10 4.2.7.2.686 [id number] 009 [id number] [facility] 2021-01-08 00:00:00 2021-01-08 00:00:00 Orders Only Doctor Unassigned, [place] [facility] 1.2.840.114 350.1.13.10 4.2.7.2.686 [id number] [facility] 2020-12-23 09:37:45 2020-12-23 10:22:19 Office Visit Zia Thais LevinArpanMeño [facility] 1.2.840.114 350.1.13.10 4.2.7.2.686 [id number] [facility] 2020-12-23 09:30:00 2020-12-23 09:30:00 Outpatient R THAIS ALSTON [facility] [id number] [facility] 2020-12-02 13:37:13 2020-12-02 16:45:02 Office Visit Marvin Gtz [facility] 1.2.840.114 350.1.13.10 4.2.7.2.686 [id number] [facility] 2020-12-02 13:40:00 2020-12-02 13:40:00 Outpatient MARVIN HERNADEZ HOWARD [facility] [id number] [facility] 2020-12-02 00:00:00 2020-12-02 00:00:00 Orders Only Doctor Unassigned, [place] [facility] 1.2840.114 350.1.13.10 4.2.7.2.686 [id number] [id number] [facility] 2020-11-18 00:00:00 2020-11-18 00:00:00 Orders Only Doctor Unassigned, [place] [facility] 1.2840.114 350.1.13.10 4.2.7.2.686 [id number] [id number] [facility] 2020-10-31 13:17:00 2020-11-08 16:50:00 Inpatient E LORENZO CARTER [facility] [address] [facility] 2020-10-31 12:39:00 2020-10-31 23:59:00 Outpatient JOE MCKEON [facility] MARIA [address] [facility] 2019-01-04 10:35:24 2019-01-04 12:30:00 Emergency [facility] 1.2.840.114 350.1.13.10 4.2.7.2.686 [id number] 084 [id number] [facility] 2019-01-04 10:35:24 2019-01-04 12:30:00 Emergency [facility] 1.2.840.114 350.1.13.10 4.2.7.2.686 [id number] Results Test Description Test Time Test Comments Results Result Co mments Source COMPREHENSIVE METABOLIC [id number] 22:42:28* Test Item Value Reference Range Interpretation Comme nts GLUCOSE (test code = 7) 84 MG/DL 70-99 BUN (test code = 2207) 11 MG/DL 6-20 CREATININE (test code = 2214) 0.76 MG/DL 0.60-1.30 eGFR (2020 CKD-EPI) (test code = 33991) 95 ML/MIN/1.73 >60 CALC BUN/CREAT (test code = 2235) 14 RATIO 6-28 SODIUM (test code = 2231) 140 MEQ/L 133-146 POTASSIUM (test code = 2228) 4.0 MEQ/L 3.5-5.4 CHLORIDE (test code = 2215) 105 MEQ/L 95-107 CARBON DIOXIDE (test code = 2206) 21 MEQ/L 19-31 CALCIUM (test code = 2209) 9.4 MG/DL 8.5-10.5 PROTEIN, TOTAL (test code = 222) 6.9 G/DL 6.1-8.3 ALBUMIN (test code = 2201) 3.9 G/DL 3.5-5.2 CALC GLOBULIN (test code = 2240) 3.0 G/DL 1.9-3.7 CALC A/G RATIO (test code = 2234) 1.3 RATIO 1.0-2.6 BILIRUBIN, TOTAL (test code = 2206) 0.5 MG/DL <=1.2 ALKALINE PHOSPHATASE (test code = 2204) 99 U/L 40-128 AST (test code = 2218) 17 U/L 9-40 ALT (test code = 2219) 18 U/L 5-40 UNLESS OTHERWISE INDICATED, ALL TESTING PERFORMED AT [facility] [address] [place] [id number] EMPLOYEE BENEFITS SPECIALIST: HARRIETT CHARLES M.D. [place] NUMBER [id number] [place]. [id number] HEMOGLOBIN [id number] 03:09:10* Test Item Value Reference Range Interpretation Comme nts HEMOGLOBIN A1c (test code = 39345) 6.0 % 4.2-5.6 H [employer]IATION GUIDELINES FOR HGB A1C: [...] ETC.). CONSIDER ALTERNATE TESTING OR LABORATORY CONSULTATION. LIPID [id number] 00:00:00* Test Item Value Reference Range Interpretation Comme nts CHOLESTEROL (test code = 2210) 120 MG/DL TRIGLYCERIDES (test code = 2232) 64 MG/DL HDL CHOLESTEROL (test code = 2220) 52 MG/DL CALC LDL CHOL (test code = 2237) 54 MG/DL RISK RATIO LDL/HDL (test cod e = 2238) 1.04 RATIO Javon Day FranklinHEMOGLOBIN [id number] 00:00:00* Test Item Value Reference Range Interpretation Comme nts HEMOGLOBIN A1c (test code = 77717) 6.0 % Javon Day FranklinCOMPREHENSIVE METABOLIC [id number] 00:00:00* Test Item Value Reference Range Interpretation Comme nts GLUCOSE (test code = 2217) 84 MG/DL BUN (test code = 2208) 11 MG/DL CREATININE (test code = 2214) 0.76 MG/DL eGFR (2020 CKD-EPI) (test co de = 32462) 95 ML/MIN/1.73 CALC BUN/CREAT (test code = 2235) 14 RATIO SODIUM (test code = 2231) 140 MEQ/L POTASSIUM (test code = 2228) 4.0 MEQ/L CHLORIDE (test code = 2215) 105 MEQ/L CARBON DIOXIDE (test code = 2206) 21 MEQ/L CALCIUM (test code = 2209) 9.4 MG/DL PROTEIN, TOTAL (test code = 2229) 6.9 G/DL ALBUMIN (test code = 2201) 3.9 G/DL CALC GLOBULIN (test code = 2240) 3.0 G/DL CALC A/G RATIO (test code = 2234) 1.3 RATIO BILIRUBIN, TOTAL (test code = 2207) 0.5 MG/DL ALKALINE PHOSPHATASE (test code = 2204) 99 U/L AST (test code = 2218) 17 U/L ALT (test code = 2219) 18 U/L Javon FuentesLIPID [id number] 00:00:00* Test Item Value Reference Range Interpretation Comme nts CHOLESTEROL (test code = 2210) 120 MG/DL TRIGLYCERIDES (test code = 2232) 64 MG/DL HDL CHOLESTEROL (test code = 2220) 52 MG/DL CALC LDL CHOL (test code = 2237) 54 MG/DL RISK RATIO LDL/HDL (test cod e = 2238) 1.04 RATIO Javon FuentesHEMOGLOBIN [id number] 00:00:00* Test Item Value Reference Range Interpretation Comme nts HEMOGLOBIN A1c (test code = 46733) 6.0 % Javon FuentesCOMPREHENSIVE METABOLIC [id number] 00:00:00* Test Item Value Reference Range Interpretation Comme nts GLUCOSE (test code = 2217) 84 MG/DL BUN (test code = 2208) 11 MG/DL CREATININE (test code = 2214) 0.76 MG/DL eGFR (2020 CKD-EPI) (test co de = 47795) 95 ML/MIN/1.73 CALC BUN/CREAT (test code = 2235) 14 RATIO SODIUM (test code = 2231) 140 MEQ/L POTASSIUM (test code = 2228) 4.0 MEQ/L CHLORIDE (test code = 2215) 105 MEQ/L CARBON DIOXIDE (test code = 2206) 21 MEQ/L CALCIUM (test code = 2209) 9.4 MG/DL PROTEIN, TOTAL (test code = 2229) 6.9 G/DL ALBUMIN (test code = 2201) 3.9 G/DL CALC GLOBULIN (test code = 2240) 3.0 G/DL CALC A/G RATIO (test code = 2234) 1.3 RATIO BILIRUBIN, TOTAL (test code = 2207) 0.5 MG/DL ALKALINE PHOSPHATASE (test code = 2204) 99 U/L AST (test code = 2218) 17 U/L ALT (test code = 2219) 18 U/L [facility]an[facility] (TTE)2024-04-06 23:30:20* Test Item Value Reference Range Interpretation Comme nts Height (test code = 2514467611) 62 in Weight (test code = 2037649666) 230 lbs Systolic BP (test code = 9605022639) 115 mmHg Diastolic BP (test code = 6739332938) 60 mmHg Heart Rate (test code = 7568732252) 81 bpm BSA (test code = 3007757076) 2.03 m2 LVIDD (test code = 8136027989) 4.30 cm Left Ventricular End Diastolic Volume by Teichholz Method (test code = 3938380) 84.4 mL IVS (test code = 0081383592) 1.25 cm Interventricular Septum Diastolic Thickness by 2D (test code = 8915120) 1.25 cm LVPWD (test code = 0151663305) 1.14 cm PW (test code = 6089526484) 1.14 cm 0.6-1.1 EF(Teich) (test code = 9477826353) 44.80 % LVIDS (test code = 7220244692) 3.40 cm Left Ventricular End Systolic Volume by Teichholz Method (test code = 2409079) 46.6 mL FS (test code = 7135698393) 22 % EF - 2D (test code = 17222361) 44.80 % LVOT diameter (test code = 1296765585) 1.64 cm LVOT area (test code = 0488430163) 2.12 cm2 Ao root diam (test code = 1708861570) 2.50 cm Aortic root (test code = 0066747013) 2.50 cm Ao root annulus (test code = 8199363709) 2.50 cm LA size (test code = 3932038820) 4.5 cm LAV(MOD-sp4) (test code = 7831465329) 40.00 mL MV Prop V (test code = 2089342153) 33.20 cm/s MV Peak E Tirso (test code = 5159127411) 78.1 cm/s E wave decelartion time (test code = 7241168543) 0.26 s MV Peak A Tirso (test code = 8760990226) 87.0 cm/s E/A ratio (test code = 4005012245) 0.90 ratio MV E/e' septal (test code = 5403774510) 9.6 cm/s TASV (test code = 1659266654) 9.9 cm/s Tapse (test code = 2746211376) 1.88 cm LVOT stroke volume (test code = 9528218281) 54.20 cm3 LVOT peak tirso (test code = 8421349641) 118.4 cm/s LVOT mn grad (test code = 3508944652) 2.8 mmHg AV LVOT peak gradient (test code = 2261975243) 5.6 mmHg LVOT peak VTI (test code = 6396221429) 25.5 cm LV V1 mean (test code = 8061060837) 78.00 cm/s Aortic valve mean velocity (test code = 2219615855) 117.7 cm/s Ao peak tirso (test code = 5682544804) 187.7 cm/s Ao VTI (test code = 9633619999) 38.5 cm AV area by cont VTI (test code = 6966164913) 1.4 cm2 AV area peak tirso (test code = 3470025497) 1.3 cm2 Ao max PG (test code = 7640749480) 14.10 mm[Hg] AV peak gradient (test code = 4080350958) 14.1 mmHg AV valve area (test code = 4994806472) 1.41 cm2 AV mean gradient (test code = 4658109446) 6.4 mmHg LA Volume Index (BP) (test code = 4095676527) 19.3 mL/m2 LA volume (BP) (test code = 5690754696) 39.2 mL LAV(MOD-sp2) (test code = 5955410519) 37.80 mL Radiology Study observation (narrative) (test code = 25644-1) PANCHO (test code = PANCHO) ?Left?Ventricle: Left ventricle size is normal. Increased wall thickness. Ventricular mass is normal. There is concentric remodeling. Septal motion is normal. . No regional wall motion abnormalities. Normal systolic function with a visually estimated EF of 60 - 65%. Normal diastolic function. ?Left?Atrium: Left atrium size is normal. Saline contrast showed a PFO present with a right to left shunt with Valsalva. ?Right?Ventricle: Right ventricle size is normal. Normal systolic function. ?IVC/SVC: IVC diameter is less than or equal to 21 mm and decreases greater than 50% during inspiration; therefore the estimated right atrial pressure is normal (~0-5 mmHg). Left VentricleLeft ventricle size is normal. Increased wall thickness. Ventricular mass is normal. There is concentric remodeling. Septal motion is normal. . No regional wall motion abnormalities. Normal systolic function with a visually estimated EF of 60 - 65%. Normal diastolic function.Right VentricleRight ventricle size is normal. Normal systolic function.Left AtriumLeft atrium size is normal. Saline contrast showed a PFO present with a right to left shunt with Valsalva.Right AtriumRight atrium size is normal.IVC/SVCIVC diameter is less than or equal to 21 mm and decreases greater than 50% during inspiration; therefore the estimated right atrial pressure is normal (~0-5 mmHg).Mitral ValveMitral valve structure is normal. No transvalvular regurgitation. No stenosis.Tricuspid ValveTricuspid valve structure is normal. Trace transvalvular regurgitation. Insufficient tricuspid regurgitation jet to estimate RVSP . No stenosis.Aortic ValveAortic valve structure is normal. No transvalvular regurgitation. No hemodynamically significant .Pulmonic ValveNot well visualized. Trace transvalvular regurgitation. No stenosis.Ascending AortaNormal sized annulus.PericardiumNo pericardial effusion.Study DetailsA complete echocardiogram was performed using 2D, color flow Doppler and spectral Doppler. 2 mL of Definity ultrasound enhancing agent used and saline contrast was performed. [facility] GLUCOSE (AUTOMATED)2024-04-06 22:35:33* Test Item Value Reference Range Interpretation Comme [facility] POCT GLU (test code = 8522407614) 119 mg/dL 70-110 H Lab Interpretation (test cod e = 26650-7) Abnormal [facility] GLUCOSE (AUTOMATED)2024-04-06 18:00:59* Test Item Value Reference Range Interpretation Comme nts POCT GLU (test code = 7669893645) 82 mg/dL 70-110 Lab Interpretation (test cod e = 54488-7) Normal [facility] GLUCOSE (AUTOMATED)2024-04-06 13:31:26* Test Item Value Reference Range Interpretation Comme nts POCT GLU (test code = 5468813858) 79 mg/dL 70-110 Lab Interpretation (test cod e = 82951-0) [facility] [id number] 04:21:16Ordering physician: LAVERNE STATON Indication: Shortness of breath, ICU Comparison: None Technical quality: Adequate Findings: Single AP view of the chest. The cardiopericardial silhouette ismildly enlarged. The lungs are clear bilaterally. The visualized bonythorax is intact.[facility] GLUCOSE (AUTOMATED)2024-04-06 02:39:58* Test Item Value Reference Range Interpretation Comme nts POCT GLU (test code = 0592118860) 109 mg/dL 70-110 Lab Interpretation (test cod e = 64449-6) [facility]RA[facility] WO [id number] 01:25:09 MR STROKE BRAIN WO CONTRAST COMPARISON: CT head 04/05/2024. HISTORY: Neuro deficit, acute, stroke suspected S/SX, Dx: Stroke TECHNIQUE: Multisequence multiplanar MR images of the brain obtainedwithout IV contrast. FINDINGS: The ventricles and cerebral sulci are normal in caliber and configuration.No midline shift, hydrocephalus or pathological extra-axial fluidcollection is present. The basal cisterns are unremarkable. No restricted diffusion is present to suggest acute infarct. No significantparenchymal signal abnormality is present. No abnormal gradient blooming.Partially empty sella configuration is noted. The T2 flow voids for the major intracranial vessels are unremarkable. Noabnormal f luid signal is present in the mastoid air cells or paranasal airsinuses. [facility]cosylated Hemoglobin (A1C)2024-04-05 23:38:01* Test Item Value Reference Range Interpretation Comme nts HGB A1C (test code = 4548-4) 5.8 % 4.0-5.7 H PANCHO (test code = PANCHO) Reference RangesNormal: <5.7%Prediabetes: 5.7 - 6.4%Diabetes: > 6.5% Lab Interpretation (test code = 91941-6) Abnormal [facility] GLUCOSE (AUTOMATED)2024-04-05 22:37:57* Test Item Value Reference Range Interpretation Comme nts POCT GLU (test code = 9741818387) 80 mg/dL 70-110 Lab Interpretation (test cod e = 11861-3) Normal [facility]Allen[facility]id [facility] (91137)(Total Cholesterol, Triglycerides, HDL)2024-04-05 22:04:18* Test Item Value Reference Range Interpretation Comme nts CHOL (test code = 8483655423) 171 mg/dL 120-200 HDL (test code = 5642730433) 48 mg/dL >=50 L HDLC RATIO (test code = 6916153338) 3.6 <=4.5 TRIG (test code = 9566497335) 70 mg/dL 30-170 LDL CHOL (test code = 07000-6) 109 mg/dL <=160 VLDL (test code = 4548413883) 14 mg/dL 5-60 Lab Interpretation (test cod e = 97296-7) Abnormal [facility] HEAD WO [id number] 18:16:34FULL RESULT: Examination: CT HEAD WO CONTRAST on 04/05/2024 11:49 AM Clinical Indication: Right armweakness Comparison: Same day 7:34 Technique: Noncontrast imaging was obtained from base to vertex.Findings: Relative to the study earlier in the day there is no discernibleinterval change, no hemorrhage, no loss of godfrey-white or focal hypodensity.[facility] GLUCOSE (AUTOMATED)2024-04-05 18:04:57* Test Item Value Reference Range Interpretation Comme nts POCT GLU (test code = 2869841824) 86 mg/dL 70-110 Lab Interpretation (test cod e = 69542-0) Normal [facility] GLUCOSE (AUTOMATED)2024-04-05 17:47:00* Test Item Value Reference Range Interpretation Comme nts POCT GLU (test code = 1561754542) 63 mg/dL 70-110 L Lab Interpretation (test cod e = 99949-5) Abnormal [facility] GLUCOSE (AUTOMATED)2024-04-05 17:34:56* Test Item Value Reference Range Interpretation Comme nts POCT GLU (test code = 4608571052) 62 mg/dL 70-110 L Lab Interpretation (test cod e = 88017-4) [facility]normal [facility] 1 [id number] 16:20:48EXAM: XR STROKE CHEST 1 VW COMPARISON: None HISTORY: Neuro deficit, acute, stroke suspected FINDINGS: Lungs: The lungs are adequately expanded. No focal opacities. Biapicalpleural thickening. Heart/Mediastinum: The cardiac silhouette appears normal accounting fortechnique and degree of inspiration.Bones and soft tissues: No acute osseous abnormality is visualized. 1 cmhyperdensity projecting over the right upper quadrant.[facility] ACUTE STROKE ANGIOGRAM [id number] 14:21:59CT STROKE ANGIOGRAM HEAD, CT STROKE ANGIOGRAM NECK HISTORY: Neuro deficit, acute, stroke suspected TECHNIQUE: CTA of the head and neck with coronal, sagittal reformats, andMIPS reconstruction was performed. COMPARISON: ?Same day CT head FINDINGS: CTA HEAD: The PICA origins are visualized bilaterally The basilar artery is normal incaliber. The superior cerebellar arteries are unremarkable. The post eriorcerebral arteries are unremarkable. Posterior communicating arteries arenot visualized The distal cervical, petrous, cavernous and supraclinoid internal carotidarteries are normal. The anterior cerebral arteries are unremarkable. Ananterior communicating artery is visualized. The middle cerebral arteriesare unremarkable. The dural venous sinuses appear patent. CTA NECK: A common origin of the brachiocephalic and the left common carotidarteries.. The ostia of the great neck vessels are freeof significantstenosis. The innominate and subclavian arteries are patent without stenosis. The common carotid arteries, carotid bulbs and cervical internal carotidarteries are patent with no more than mild calcifications in the carotidbulbs. The vertebral arteries originate normally from the subclavian arteries andare patent along their course. Cervical soft tissues: Unremarkable. Lung apices: Patchy groundglass opacities of the visualized lungs. Cervical spine: No acute bony abnormality. The paranasal sinuses are clear.[facility] [id number] 14:21:59CT STROKE ANGIOGRAM HEAD, CT STROKE ANGIOGRAM NECK HISTORY: Neuro deficit, acute, stroke suspected TECHNIQUE: CTA of the head and neck with coronal, sagittal reformats, andMIPS reconstruction was performed. COMPARISON: ?Same day CT head FINDINGS: CTA HEAD: The PICA origins are visualized bilaterally The basilar artery is normal incaliber. The superior cerebellar arteries are unremarkable. The posteriorcerebral arteries are unremarkable. Posterior communicating arteries arenot visualized The distal cervical, petrous, cavernous and supraclinoid internal carotidarteries are normal. The anterior cerebral arteries are unremarkable. Ananterior communicating artery is visualized. The middle cerebral arteriesare unremarkable. The dural venous sinuses appear patent. CTA NECK: A common origin of the brachiocephalic and the left common carotidarteries.. The ostia of the great neck vessels are freeof significantstenosis. The innominate and subclavian arteries are patent without stenosis. The common carotid arteries, carotid bulbs and cervical internal carotidarteries are patent with no more than mild calcifications in the carotidbulbs. The vertebral arteries originate normally from the subclavian arteries andare patent along their course. Cervical soft tissues: Unremarkable. Lung apices: Patchy groundglass opacities of the visualized lungs. Cervical spine: No acute bony abnormality. The paranasal sinuses are clear.[facility] HEAD WO [id number] 14:17:23EXAM: CT STROKE HEAD WO CONTRAST HISTORY: 48 years- old Female; Provided indication: Neuro deficit, acute,stroke suspected . TECHNIQUE: Axial CT of the head was performed and reconstructed at 5 mminter vals. Coronal and sagittal reformatted images were generated. COMPARISON: None FINDINGS: The ventricles and cerebral sulci are normal in caliber and configuration.No midline shift or pathological extra-axial fluid collection is present.The basal cisterns are unremarkable. No acute intracranial hemorrhage or significant mass effect is visualized.No parenchymal attenuation abnormality is seen. The godfrey-white matterdifferentiation is preserved. The mastoid air cells and visualized paranasal air sinuses are clear. Thecalvarium and central skull base are unremarkable.[facility]Allen[facility]roponin I - Code Stroke 2024-04-05 13:41:39* Test Item Value Reference Range Interpretation Comme nts TROPONIN I (test code = 1640242844) 0.008 ng/mL <=0.034 PANCHO (test code = PANCHO) Reference (Normal) Range (defined by the 99th percentile reference limit): <= 0.034 ng/mL Note: Cardiac troponin begins to rise 3-4 hours after the onset of ischemia. Repeat in 4-6 hours if the sample was drawn within 3-4 hours of the onset of the symptom and found normal. Diagnosis of myocardial injury is made with acute changes in cTn concentrations with at least one serial sample above the 99th percentile upper reference limit (URL), taken together with the patient's clinical presentation. Biotin has been reported to cause a negative bias, interpret results relative to patient's use of biotin. Lab Interpretation (test code = 28285-1) Normal [facility]Allen[facility]thrombin Time / INR - Code [id number] 13:36:59* Test Item Value Reference Range Interpretation Comme [facility] PROTIME PATIENT (test code = 5964-2) 11.6 10.1-12.6 INR (test code = 6301-6) 1.0 Normal INR <1.1; Warfarin Therapeutic range 2.0 to 3.0 or 2.5 to 3.5, depending upon the indications. Lab Interpretation (test code = 48458-4) Normal [facility]AllenaPTT - Code [id number] 13:36:59* Test Item Value Reference Range Interpretation Comme [facility] APTT Patient (test code = 3173-2) 35 26-36 PANCHO (test code = PANCHO) The [facility] patient population mean normal value for aPTT is 30 seconds. Lab Interpretation (test code = 48870-5) Normal [facility] Metabolic Panel (NA, K, CL, CO2, Glucose, BUN, Creatinine, CA) - Code [id number] 13:30:03* Test Item Value Reference Range Interpretation Comme [facility] NA (test code = 6503410241) 138 mmol/L 135-145 K (test code = 9002349267) 4.3 mmol/L 3.5-5.0 CL (test code = 5631095708) 108 mmol/L 98-108 CO2 TOTAL (test code = 9533722981) 25 mmol/L 23-31 AGAP (test code = 7968699985) 5 2-16 BUN (test code = 2788997002) 9 mg/dL 7-23 GLUCOSE (test code = 1608495204) 104 mg/dL 70-110 CREATININE (test code = 2160-0) 0.77 mg/dL 0.50-1.04 CALCIUM (test code = 4781216505) 9.4 mg/dL 8.6-10.6 eGFR (test code = 67697-4) 94.7 mL/min/1.73m2 CKD-EPI eGFR (20 21). Assuming creatinine has been stable day-to-day for at least three months, the eGFR indicates Category G1 (>= 90 mL/min/1.73 m2) [facility]2024-04-05 13:28:52* Test Item Value Reference Range Interpretation Comme [facility] POCT GLU (test code = 9162079704) 93 mg/dL 70-110 Lab Interpretation (test cod e = 33512-9) Normal [facility] without Diff - Code [id number] 13:20:00* Test Item Value Reference Range Interpretation Comme [facility] WBC (test code = 6690-2) 4.13 4.30-11.10 L RBC (test code = 789-8) 4.82 3.93-5.25 HGB (test code = 718-7) 11.9 g/dL 11.6-15.0 HCT (test code = 4544-3) 38.4 % 35.7-45.2 MCH (test code = 785-6) 24.7 pg 25.9-32.8 L MCV (test code = 787-2) 79.7 fL 80.6-95.5 L MCHC (test code = 786-4) 31.0 g/dL 31.6-35.1 L PLT (test code = 777-3) 343 166-358 MPV (test code = 90901-4) 9.5 fL 9.5-12.9 RDW-CV (test code = 788-0) 18.6 % 12.0-15.5 H RDW-SD (test code = 87670-5) 53.9 fL 39.0-49.9 H NRBC x10^3 (test code = 1051467192) See_Comment [Automated messa ge] The system which generated this result transmitted reference range: 10*3/?L. The reference range was not used to interpret this result as normal/abnormal. NRBC/100 WBC (test code = 0990462436) 0.0 0.0-10.0 IPF % (test code = 3766105504) Lab Interpretation (test code = 93613-4) [facility]normal [facility]ro[facility] (EEG) - Duration of test: 20-60 mins; Release to patient: [id number] 00:00:00VIDEO EEG 04/05/24 Start time: 14:06Stop time: 14:26 HISTORY: Right arm numbness and weakness?MEDICATIONS THAT COULD AFFECT THE EEG: None?TECHNICAL SUMMARY: The EEG was recorded digitally. Electrodeswere applied using the International 10/20 system of electrode placement. Eye movements were monitored on separate channels of the ongoing EEG recording. ?DESCRIPTION OF RECORD: BACKGROUND: During the maximally alert state, a 10 Hz reactive posterior dominant rhythm was seen that was symmetric, reactive to eye opening and closure and well regulated.? In the more anterior head regions, low voltagebeta activity predominated.? During drowsiness, the posterior dominant rhythm attenuated. Stage 2 sleep was not seen. FOCAL ABNORMALITIES: None PERIODIC/RHYTHMIC ABNORMALITIES/EPILEPTIFORM ABNORMALITIES:No electrographic seizures or epileptiform abnormalities are seen.?HV: Not performed?PHOTIC STIMULATION: Not performed??ELECTROCARDIOGRAM EVENTS: Normal Sinus Rhythm??IMPRESSION: Normal awake and drowsy EEG CLINICAL CORRELATION: ?No electrographic seizures or epileptiform abnormalities are seen. The absence of epileptiform abnormalities in one EEG does not necessarily rule out a diagnosis of epilepsy or the potential for epileptic seizures, however. The diagnostic sensitivity can be increased by a repeat study, which would be appropriate if clinically indicated. Juventino Boland, TYLER-5, GLOBAL COMPENSATION ANALYST Fellow I personally interpreted the study on 04/05/[address] Boland's fellow note as written. ? [facility] [place] [facility] [id number] 03:19:09* Test Item Value Reference Range Interpretation Comme nts HEMOGLOBIN A1c (test code = 05393) 5.6 % 4.2-5.6 UNLESS OTHERWISE INDICATED, ALL TESTING PERFORMED AT [facility] [address] [place] [address] EMPLOYEE BENEFITS SPECIALIST: HARRIETT CHARLES M.D. CLIA NUMBER [id number] [facility] [place]. [id number] HEMOGLOBIN [id number] 00:00:00* Test Item Value Reference Range Interpretation Comme tasha HEMOGLOBIN A1c (test code = 69826) 5.6 % Javon FuentesHEMOGLOBIN [id number] 00:00:00* Test Item Value Reference Range Interpretation Comme tasha HEMOGLOBIN A1c (test code = 49219) 5.6 % Javon Day AustinHEMOGLOBIN [id number] 00:00:00* Test Item Value Reference Range Interpretation Comme tasha HEMOGLOBIN A1c (test code = 01346) 5.6 % Javon Day AustinHEMOGLOBIN [id number] 00:00:00* Test Item Value Reference Range Interpretation Comme tasha HEMOGLOBIN A1c (test code = 80572) 5.6 % Javon Day AustinHEMOGLOBIN [id number] 00:00:00* Test Item Value Reference Range Interpretation Comme tasha HEMOGLOBIN A1c (test code = 70182) 5.6 % Javon Day AustinHEMOGLOBIN [id number] 00:00:00* Test Item Value Reference Range Interpretation Comme tasha HEMOGLOBIN A1c (test code = 21826) 5.6 % Javon FuentesHgchbsP-[id number] 10:30:41* Test Item Value Reference Range Interpretation Comme tasha D-DIMER (test code = 1405) <0.27 UG/ML FEU <=0.49 NOTE: Provided reference range is established for evaluation of Deep Venous Thrombosis/Pulmonary Embolus (DVT/PE). Results below cutoff value of <=0.49 UG/ML FEU have a high negative predictive value forDVT/PE. No reference range is established for disseminatedintra-vasc ular coagulation (DIC). VITAMIN [id number] 05:36:54* Test Item Value Reference Range Interpretation Comme [facility] VITAMIN B-12 (test code = 2840) 285 PG/ML 200-950 FOLIC [id number] 05:36:54* Test Item Value Reference Range Interpretation Comme [facility] FOLIC ACID (test code = 2695) 9.6 [...] TESTING PERFORMED AT [facility] [address] [place] [address] EMPLOYEE BENEFITS SPECIALIST: HARRIETT CHARLES M.D. [place] NUMBER [id number] [facility]. [id number] HEPATITIS PANEL, [id number] 04:08:05* Test Item Value Reference Range Interpretation Comme nts HEPATITIS A IgM (test code = 55725) NON-REACTIVE NON-REACTIVE HEPATITIS B CORE IgM (test code = 4644) NON-REACTIVE NON-REACTIVE HEPATITIS B SURF AG (test code = 2739) NON-REACTIVE NON-REACTIVE HEPATITIS C ANTIBODY (test code = 4675) NON-REACTIVE NON-REACTIVE INTERPRETATION HEPATITIS A: (test code = 2552) (NOTE) Hepatitis A serology shows no evidence of acute hepatitis A. INTERPRETATION HEPATITIS B: (test code = 83119) (NOTE) Hepatitis B serology shows no evidence of acute hepatitis B andno indication of exposure to hepatitis B virus in the previous cecilia eight months. INTERPRETATION HEPATITIS C: (test code = 30908) (NOTE) Hepatitis C serology shows no evidence of exposure to hepatitisC virus at this time. It can take up to 12 months after exposure tothe hepatitis C virus for antibodies to become detectable in the blood in certain patients. [id number] 03:58:20* Test Item Value Reference Range Interpretation Comme nts RPR RESULT (test code = 3501) NON-REACTIVE NON-REACTIVE RPR TITER (test code = 3500) NOT INDIC. TITER NOT INDIC. CBC W/AUTO DIFF WITH [id number] 02:08:42* Test Item Value Reference Range Interpretation [...] 0.00-0.10 ABS NUCLEATED RBCS (test code = 16546) 0.00 K/UL 0.00-0.11 CBC W/AUTO [id number] 00:00:00* Test Item Value Reference Range Interpretation Comme nts WBC (test code = 1001) 5.9 K/UL RBC (test code = 1002) 4.57 M/UL HEMOGLOBIN (test code = 1003) 11.2 G/DL HEMATOCRIT (test code = 1004) 36.1 % MCV (test code = 1005) 79.0 fL MCH (test code = 1006) 24.5 PG MCHC (test code = 1007) 31.0 G/DL RDW (test code = 1038) 17.4 % NEUTROPHILS (test code = 1008) 62.2 % LYMPHOCYTES (test code = 1010) 25.5 % MONOCYTES (test code = 1011) 8.7 % EOSINOPHILS (test code = 1012) 2.6 % BASOPHILS (test code = 1013) 0.7 % IMMATURE GRANULOCYTES (test code = 1036) 0.3 % NUCLEATED RBCS (test code = 1065) 0.0 /100WBC'S PLATELET COUNT (test code = 1015) 360 K/UL ABSOLUTE NEUTROPHILS (test c ode = 1066) 3.64 K/UL ABSOLUTE LYMPHOCYTES (test c ode = 1067) 1.49 K/UL ABSOLUTE MONOCYTES (test cod e = 1068) 0.51 K/UL ABSOLUTE EOSINOPHILS (test c ode = 1040) 0.15 K/UL ABSOLUTE BASOPHILS (test cod e = 1069) 0.04 K/UL ABS IMMATURE GRANULOCYTES (t est code = 1020) 0.02 K/UL ABS NUCLEATED RBCS (test cod e = 23780) 0.00 K/UL Javon [id number] 00:00:00* Test Item Value Reference Range Interpretation Comme nts RPR RESULT (test code = 3501) NON-REACTIVE RPR TITER (test code = 3500) NOT INDIC. TITER Javon FuentesVITAMIN [id number] 00:00:00* Test Item Value Reference Range Interpretation Comme nts VITAMIN B-12 (test code = 2840) 285 PG/ML Javon FuentesACUTE HEPATITIS [id number] 00:00:00* Test Item Value Reference Range Interpretation Comme nts HEPATITIS A IgM (test code = 73494) NON-REACTIVE HEPATITIS B CORE IgM (test c ode = 4644) NON-REACTIVE HEPATITIS B SURF AG (test co de = 2739) NON-REACTIVE HEPATITIS C ANTIBODY (test c ode = 4675) NON-REACTIVE INTERPRETATION HEPATITIS A: (test code = 2552) (NOTE) INTERPRETATION HEPATITIS B: (test code = 11593) (NOTE) INTERPRETATION HEPATITIS C: (test code = 47137) (NOTE) Javon FuentesWkmjzrP-[id number] 00:00:00* Test Item Value Reference Range Interpretation Comme nts D-DIMER (test code = 1405) <0.27 UG/MLFEU Javon FuentesFOLIC [id number] 00:00:00* Test Item Value Reference Range Interpretation Comme nts FOLIC ACID (test code = 2695) 9.6 UG/L Javon FuentesCBC W/AUTO [id number] 00:00:00* Test Item Value Reference Range Interpretation Comme nts WBC (test code = 1001) 5.9 K/UL RBC (test code = 1002) 4.57 M/UL HEMOGLOBIN (test code = 1003) 11.2 G/DL HEMATOCRIT (test code = 1004) 36.1 % MCV (test code = 1005) 79.0 fL MCH (test code = 1006) 24.5 PG MCHC (test code = 1007) 31.0 G/DL RDW (test code = 1038) 17.4 % NEUTROPHILS (test code = 1008) 62.2 % LYMPHOCYTES (test code = 1010) 25.5 % MONOCYTES (test code = 1011) 8.7 % EOSINOPHILS (test code = 1012) 2.6 % BASOPHILS (test code = 1013) 0.7 % IMMATURE GRANULOCYTES (test code = 1036) 0.3 % NUCLEATED RBCS (test code = 1065) 0.0 /100WBC'S PLATELET COUNT (test code = 1015) 360 K/UL ABSOLUTE NEUTROPHILS (test c ode = 1066) 3.64 K/UL ABSOLUTE LYMPHOCYTES (test c ode = 1067) 1.49 K/UL ABSOLUTE MONOCYTES (test cod e = 1068) 0.51 K/UL ABSOLUTE EOSINOPHILS (test c ode = 1040) 0.15 K/UL ABSOLUTE BASOPHILS (test cod e = 1069) 0.04 K/UL ABS IMMATURE GRANULOCYTES (t est code = 1020) 0.02 K/UL ABS NUCLEATED RBCS (test cod e = 05132) 0.00 K/UL Javon [id number] 00:00:00* Test Item Value Reference Range Interpretation Comme nts RPR RESULT (test code = 3501) NON-REACTIVE RPR TITER (test code = 3500) NOT INDIC. TITER Javon FuentesVITAMIN [id number] 00:00:00* Test Item Value Reference Range Interpretation Comme nts VITAMIN B-12 (test code = 2840) 285 PG/ML Javon FuentesACUTE HEPATITIS [id number] 00:00:00* Test Item Value Reference Range Interpretation Comme nts HEPATITIS A IgM (test code = 78692) NON-REACTIVE HEPATITIS B CORE IgM (test c ode = 4600) NON-REACTIVE HEPATITIS B SURF AG (test co de = 8099) NON-REACTIVE HEPATITIS C ANTIBODY (test c ode = 0984) NON-REACTIVE INTERPRETATION HEPATITIS A: (test code = 2552) (NOTE) INTERPRETATION HEPATITIS B: (test code = 00272) (NOTE) INTERPRETATION HEPATITIS C: (test code = 51439) (NOTE) Javon FuentesHylpfnK-[id number] 00:00:00* Test Item Value Reference Range Interpretation Comme nts D-DIMER (test code = 1405) <0.27 UG/MLFEU Javon FuentesFOLIC [id number] 00:00:00* Test Item Value Reference Range Interpretation Comme nts FOLIC ACID (test code = 2695) 9.6 UG/L Javon FuentesCBC W/AUTO [id number] 00:00:00* Test Item Value Reference Range Interpretation Comme nts WBC (test code = 1001) 5.9 K/UL RBC (test code = 1002) 4.57 M/UL HEMOGLOBIN (test code = 1003) 11.2 G/DL HEMATOCRIT (test code = 1004) 36.1 % MCV (test code = 1005) 79.0 fL MCH (test code = 1006) 24.5 PG MCHC (test code = 1007) 31.0 G/DL RDW (test code = 1038) 17.4 % NEUTROPHILS (test code = 1008) 62.2 % LYMPHOCYTES (test code = 1010) 25.5 % MONOCYTES (test code = 1011) 8.7 % EOSINOPHILS (test code = 1012) 2.6 % BASOPHILS (test code = 1013) 0.7 % IMMATURE GRANULOCYTES (test code = 1036) 0.3 % NUCLEATED RBCS (test code = 1065) 0.0 /100WBC'S PLATELET COUNT (test code = 1015) 360 K/UL ABSOLUTE NEUTROPHILS (test c ode = 1066) 3.64 K/UL ABSOLUTE LYMPHOCYTES (test c ode = 1067) 1.49 K/UL ABSOLUTE MONOCYTES (test cod e = 1068) 0.51 K/UL ABSOLUTE EOSINOPHILS (test c ode = 1040) 0.15 K/UL ABSOLUTE BASOPHILS (test cod e = 1069) 0.04 K/UL ABS IMMATURE GRANULOCYTES (t est code = 1020) 0.02 K/UL ABS NUCLEATED RBCS (test cod e = 65325) 0.00 K/UL Javon [id number] 00:00:00* Test Item Value Reference Range Interpretation Comme nts RPR RESULT (test code = 3501) NON-REACTIVE RPR TITER (test code = 3500) NOT INDIC. TITER Javon FuentesVITAMIN [id number] 00:00:00* Test Item Value Reference Range Interpretation Comme nts VITAMIN B-12 (test code = 2840) 285 PG/ML Javon FuentesACUTE HEPATITIS [id number] 00:00:00* Test Item Value Reference Range Interpretation Comme nts HEPATITIS A IgM (test code = 36409) NON-REACTIVE HEPATITIS B CORE IgM (test c ode = 4644) NON-REACTIVE HEPATITIS B SURF AG (test co de = 2739) NON-REACTIVE HEPATITIS C ANTIBODY (test c ode = 4675) NON-REACTIVE INTERPRETATION HEPATITIS A: (test code = 2552) (NOTE) INTERPRETATION HEPATITIS B: (test code = 07076) (NOTE) INTERPRETATION HEPATITIS C: (test code = 74027) (NOTE) Javon FuentesUnpkqiK-[id number] 00:00:00* Test Item Value Reference Range Interpretation Comme nts D-DIMER (test code = 1405) <0.27 UG/MLFEU Javon FuentesFOLIC [id number] 00:00:00* Test Item Value Reference Range Interpretation Comme nts FOLIC ACID (test code = 2695) 9.6 UG/L Javon FuentesCBC W/AUTO [id number] 00:00:00* Test Item Value Reference Range Interpretation Comme nts WBC (test code = 1001) 5.9 K/UL RBC (test code = 1002) 4.57 M/UL HEMOGLOBIN (test code = 1003) 11.2 G/DL HEMATOCRIT (test code = 1004) 36.1 % MCV (test code = 1005) 79.0 fL MCH (test code = 1006) 24.5 PG MCHC (test code = 1007) 31.0 G/DL RDW (test code = 1038) 17.4 % NEUTROPHILS (test code = 1008) 62.2 % LYMPHOCYTES (test code = 1010) 25.5 % MONOCYTES (test code = 1011) 8.7 % EOSINOPHILS (test code = 1012) 2.6 % BASOPHILS (test code = 1013) 0.7 % IMMATURE GRANULOCYTES (test code = 1036) 0.3 % NUCLEATED RBCS (test code = 1065) 0.0 /100WBC'S PLATELET COUNT (test code = 1015) 360 K/UL ABSOLUTE NEUTROPHILS (test c ode = 1066) 3.64 K/UL ABSOLUTE LYMPHOCYTES (test c ode = 1067) 1.49 K/UL ABSOLUTE MONOCYTES (test cod e = 1068) 0.51 K/UL ABSOLUTE EOSINOPHILS (test c ode = 1040) 0.15 K/UL ABSOLUTE BASOPHILS (test cod e = 1069) 0.04 K/UL ABS IMMATURE GRANULOCYTES (t est code = 1020) 0.02 K/UL ABS NUCLEATED RBCS (test cod e = 95860) 0.00 K/UL Javon [id number] 00:00:00* Test Item Value Reference Range Interpretation Comme nts RPR RESULT (test code = 3501) NON-REACTIVE RPR TITER (test code = 3500) NOT INDIC. TITER Javon FuentesVITAMIN [id number] 00:00:00* Test Item Value Reference Range Interpretation Comme nts VITAMIN B-12 (test code = 2840) 285 PG/ML Javon FuentesACUTE HEPATITIS [id number] 00:00:00* Test Item Value Reference Range Interpretation Comme nts HEPATITIS A IgM (test code = 08474) NON-REACTIVE HEPATITIS B CORE IgM (test c ode = 4644) NON-REACTIVE HEPATITIS B SURF AG (test co de = 2739) NON-REACTIVE HEPATITIS C ANTIBODY (test c ode = 4675) NON-REACTIVE INTERPRETATION HEPATITIS A: (test code = 2552) (NOTE) INTERPRETATION HEPATITIS B: (test code = 82985) (NOTE) INTERPRETATION HEPATITIS C: (test code = 13526) (NOTE) Javon FuentesQyuiccZ-[id number] 00:00:00* Test Item Value Reference Range Interpretation Comme nts D-DIMER (test code = 1405) <0.27 UG/MLFEU Javon FuentesFOLIC [id number] 00:00:00* Test Item Value Reference Range Interpretation Comme nts FOLIC ACID (test code = 2695) 9.6 UG/L Javon FuentesCBC W/AUTO [id number] 00:00:00* Test Item Value Reference Range Interpretation Comme nts WBC (test code = 1001) 5.9 K/UL RBC (test code = 1002) 4.57 M/UL HEMOGLOBIN (test code = 1003) 11.2 G/DL HEMATOCRIT (test code = 1004) 36.1 % MCV (test code = 1005) 79.0 fL MCH (test code = 1006) 24.5 PG MCHC (test code = 1007) 31.0 G/DL RDW (test code = 1038) 17.4 % NEUTROPHILS (test code = 1008) 62.2 % LYMPHOCYTES (test code = 1010) 25.5 % MONOCYTES (test code = 1011) 8.7 % EOSINOPHILS (test code = 1012) 2.6 % BASOPHILS (test code = 1013) 0.7 % IMMATURE GRANULOCYTES (test code = 1036) 0.3 % NUCLEATED RBCS (test code = 1065) 0.0 /100WBC'S PLATELET COUNT (test code = 1015) 360 K/UL ABSOLUTE NEUTROPHILS (test c ode = 1066) 3.64 K/UL ABSOLUTE LYMPHOCYTES (test c ode = 1067) 1.49 K/UL ABSOLUTE MONOCYTES (test cod e = 1068) 0.51 K/UL ABSOLUTE EOSINOPHILS (test c ode = 1040) 0.15 K/UL ABSOLUTE BASOPHILS (test cod e = 1069) 0.04 K/UL ABS IMMATURE GRANULOCYTES (t est code = 1020) 0.02 K/UL ABS NUCLEATED RBCS (test cod e = 27375) 0.00 K/UL Javon [id number] 00:00:00* Test Item Value Reference Range Interpretation Comme nts RPR RESULT (test code = 3501) NON-REACTIVE RPR TITER (test code = 3500) NOT INDIC. TITER Javon FuentesVITAMIN [id number] 00:00:00* Test Item Value Reference Range Interpretation Comme nts VITAMIN B-12 (test code = 2840) 285 PG/ML Javon FuentesACUTE HEPATITIS [id number] 00:00:00* Test Item Value Reference Range Interpretation Comme nts HEPATITIS A IgM (test code = 45339) NON-REACTIVE HEPATITIS B CORE IgM (test c ode = 4644) NON-REACTIVE HEPATITIS B SURF AG (test co de = 2739) NON-REACTIVE HEPATITIS C ANTIBODY (test c ode = 4613) NON-REACTIVE INTERPRETATION HEPATITIS A: (test code = 2552) (NOTE) INTERPRETATION HEPATITIS B: (test code = 54883) (NOTE) INTERPRETATION HEPATITIS C: (test code = 25843) (NOTE) Javon FuentesNcuezoL-[id number] 00:00:00* Test Item Value Reference Range Interpretation Comme nts D-DIMER (test code = 1405) <0.27 UG/MLFEU Javon FuentesFOLIC [id number] 00:00:00* Test Item Value Reference Range Interpretation Comme nts FOLIC ACID (test code = 2695) 9.6 UG/L Javon FuentesCBC W/AUTO [id number] 00:00:00* Test Item Value Reference Range Interpretation Comme nts WBC (test code = 1001) 5.9 K/UL RBC (test code = 1002) 4.57 M/UL HEMOGLOBIN (test code = 1003) 11.2 G/DL HEMATOCRIT (test code = 1004) 36.1 % MCV (test code = 1005) 79.0 fL MCH (test code = 1006) 24.5 PG MCHC (test code = 1007) 31.0 G/DL RDW (test code = 1038) 17.4 % NEUTROPHILS (test code = 1008) 62.2 % LYMPHOCYTES (test code = 1010) 25.5 % MONOCYTES (test code = 1011) 8.7 % EOSINOPHILS (test code = 1012) 2.6 % BASOPHILS (test code = 1013) 0.7 % IMMATURE GRANULOCYTES (test code = 1036) 0.3 % NUCLEATED RBCS (test code = 1065) 0.0 /100WBC'S PLATELET COUNT (test code = 1015) 360 K/UL ABSOLUTE NEUTROPHILS (test c ode = 1066) 3.64 K/UL ABSOLUTE LYMPHOCYTES (test c ode = 1067) 1.49 K/UL ABSOLUTE MONOCYTES (test cod e = 1068) 0.51 K/UL ABSOLUTE EOSINOPHILS (test c ode = 1040) 0.15 K/UL ABSOLUTE BASOPHILS (test cod e = 1069) 0.04 K/UL ABS IMMATURE GRANULOCYTES (t est code = 1020) 0.02 K/UL ABS NUCLEATED RBCS (test cod e = 58112) 0.00 K/UL Javon [id number] 00:00:00* Test Item Value Reference Range Interpretation Comme nts RPR RESULT (test code = 3501) NON-REACTIVE RPR TITER (test code = 3500) NOT INDIC. TITER Javon FuentesVITAMIN [id number] 00:00:00* Test Item Value Reference Range Interpretation Comme nts VITAMIN B-12 (test code = 2840) 285 PG/ML Javon FuentesACUTE HEPATITIS [id number] 00:00:00* Test Item Value Reference Range Interpretation Comme nts HEPATITIS A IgM (test code = 05091) NON-REACTIVE HEPATITIS B CORE IgM (test c ode = 4644) NON-REACTIVE HEPATITIS B SURF AG (test co de = 2739) NON-REACTIVE HEPATITIS C ANTIBODY (test c ode = 4675) NON-REACTIVE INTERPRETATION HEPATITIS A: (test code = 2552) (NOTE) INTERPRETATION HEPATITIS B: (test code = 13375) (NOTE) INTERPRETATION HEPATITIS C: (test code = 82753) (NOTE) Javon FuentesOnbiczR-[id number] 00:00:00* Test Item Value Reference Range Interpretation Comme nts D-DIMER (test code = 1405) <0.27 UG/MLFEU Javon FuentesFOLIC [id number] 00:00:00* Test Item Value Reference Range Interpretation Comme nts FOLIC ACID (test code = 2695) 9.6 UG/L Javon FuentesCBC W/AUTO [id number] 00:00:00* Test Item Value Reference Range Interpretation Comme nts WBC (test code = 1001) 5.9 K/UL RBC (test code = 1002) 4.57 M/UL HEMOGLOBIN (test code = 1003) 11.2 G/DL HEMATOCRIT (test code = 1004) 36.1 % MCV (test code = 1005) 79.0 fL MCH (test code = 1006) 24.5 PG MCHC (test code = 1007) 31.0 G/DL RDW (test code = 1038) 17.4 % NEUTROPHILS (test code = 1008) 62.2 % LYMPHOCYTES (test code = 1010) 25.5 % MONOCYTES (test code = 1011) 8.7 % EOSINOPHILS (test code = 1012) 2.6 % BASOPHILS (test code = 1013) 0.7 % IMMATURE GRANULOCYTES (test code = 1036) 0.3 % NUCLEATED RBCS (test code = 1065) 0.0 /100WBC'S PLATELET COUNT (test code = 1015) 360 K/UL ABSOLUTE NEUTROPHILS (test c ode = 1066) 3.64 K/UL ABSOLUTE LYMPHOCYTES (test c ode = 1067) 1.49 K/UL ABSOLUTE MONOCYTES (test cod e = 1068) 0.51 K/UL ABSOLUTE EOSINOPHILS (test c ode = 1040) 0.15 K/UL ABSOLUTE BASOPHILS (test cod e = 1069) 0.04 K/UL ABS IMMATURE GRANULOCYTES (t est code = 1020) 0.02 K/UL ABS NUCLEATED RBCS (test cod e = 33170) 0.00 K/UL Javon [id number] 00:00:00* Test Item Value Reference Range Interpretation Comme nts RPR RESULT (test code = 3501) NON-REACTIVE RPR TITER (test code = 3500) NOT INDIC. TITER Javon FuentesVITAMIN [id number] 00:00:00* Test Item Value Reference Range Interpretation Comme nts VITAMIN B-12 (test code = 2840) 285 PG/ML Javon FuentesACUTE HEPATITIS [id number] 00:00:00* Test Item Value Reference Range Interpretation Comme nts HEPATITIS A IgM (test code = 07264) NON-REACTIVE HEPATITIS B CORE IgM (test c ode = 4644) NON-REACTIVE HEPATITIS B SURF AG (test co de = 2739) NON-REACTIVE HEPATITIS C ANTIBODY (test c ode = 4688) NON-REACTIVE INTERPRETATION HEPATITIS A: (test code = 2552) (NOTE) INTERPRETATION HEPATITIS B: (test code = 15361) (NOTE) INTERPRETATION HEPATITIS C: (test code = 55926) (NOTE) Javon FuentesLqofwiQ-[id number] 00:00:00* Test Item Value Reference Range Interpretation Comme nts D-DIMER (test code = 1405) <0.27 UG/MLFEU Javon FuentesFOLIC [id number] 00:00:00* Test Item Value Reference Range Interpretation Comme nts FOLIC ACID (test code = 2695) 9.6 UG/L Javon FuentesALBUMIN/CREATININE RATIO, URINE, [id number] 12:41:35* Test Item Value Reference Range Interpretation Comme nts CREATININE, URINE, CONC. (test code = 2072) TEST NOT PERFORMED MG/DL NOT ESTAB Unable to perform testing, specimen not received.Charges adjusted as applicable. ALBUMIN, URINE, RANDOM (test code = 14940) TEST NOT PERFORMED MG/DL NOT ESTAB CALC ALBUMIN/CREAT, RND (test code = 07602) TEST NOT PERFORMED MG/G <30 Note: Albumin/Creatinine [...] INDICATED, ALL TESTING PERFORMED AT [facility] [address] [place] [address] EMPLOYEE BENEFITS SPECIALIST: HARRIETT CHARLES M.D. CLIA NUMBER [id number] [facility] [place]. [id number] HEMOGLOBIN [id number] 02:19:54* Test Item Value Reference Range Interpretation Comme nts HEMOGLOBIN A1c (test code = 17172) 6.1 % 4.2-5.6 [employer] GUIDELINES FOR HGB A1C: [...] ETC.). CONSIDER ALTERNATE TESTING OR LABORATORY CONSULTATION. ALBUMIN/CREATININE RATIO, RANDOM [id number] 00:00:00* Test Item Value Reference Range Interpretation Comme nts CREATININE, URINE, CONC. (test code = 2072) TEST NOT PERFORMED MG/DL ALBUMIN, URINE, RANDOM (test code = 10378) TEST NOT PERFORMED MG/DL CALC ALBUMIN/CREAT, RND (test code = 06421) TEST NOT PERFORMED MG/G Javon Cantu [ADDED]2023-04-13 00:00:00* Test Item Value Reference Range Interpretation Comme nts NO URINE PROVIDED: (test code = 986) (NOTE) Javon FuentesHEMOGLOBIN [id number] 00:00:00* Test Item Value Reference Range Interpretation Comme nts HEMOGLOBIN A1c (test code = 31745) 6.1 % Javon Day AustinALBUMIN/CREATININE RATIO, RANDOM [id number] 00:00:00* Test Item Value Reference Range Interpretation Comme nts CREATININE, URINE, CONC. (test code = 2072) TEST NOT PERFORMED MG/DL ALBUMIN, URINE, RANDOM (test code = 13653) TEST NOT PERFORMED MG/DL CALC ALBUMIN/CREAT, RND (test code = 08095) TEST NOT PERFORMED MG/G Javon Cantu [ADDED]2023-04-13 00:00:00* Test Item Value Reference Range Interpretation Comme nts NO URINE PROVIDED: (test code = 986) (NOTE) Javon FuentesHEMOGLOBIN [id number] 00:00:00* Test Item Value Reference Range Interpretation Comme nts HEMOGLOBIN A1c (test code = 96593) 6.1 % Javon Day AustinALBUMIN/CREATININE RATIO, RANDOM [id number] 00:00:00* Test Item Value Reference Range Interpretation Comme nts CREATININE, URINE, CONC. (test code = 2072) TEST NOT PERFORMED MG/DL ALBUMIN, URINE, RANDOM (test code = 30986) TEST NOT PERFORMED MG/DL CALC ALBUMIN/CREAT, RND (test code = 58647) TEST NOT PERFORMED MG/G Javon Cantu [ADDED]2023-04-13 00:00:00* Test Item Value Reference Range Interpretation Comme nts NO URINE PROVIDED: (test code = 986) (NOTE) Javon FuentesHEMOGLOBIN [id number] 00:00:00* Test Item Value Reference Range Interpretation Comme nts HEMOGLOBIN A1c (test code = 76564) 6.1 % Javon Day AustinALBUMIN/CREATININE RATIO, RANDOM [id number] 00:00:00* Test Item Value Reference Range Interpretation Comme nts CREATININE, URINE, CONC. (test code = 207) TEST NOT PERFORMED MG/DL ALBUMIN, URINE, RANDOM (test code = 69178) TEST NOT PERFORMED MG/DL CALC ALBUMIN/CREAT, RND (test code = 15780) TEST NOT PERFORMED MG/G Javon Cantu [ADDED]2023-04-13 00:00:00* Test Item Value Reference Range Interpretation Comme nts NO URINE PROVIDED: (test code = 986) (NOTE) Javon FuentesHEMOGLOBIN [id number] 00:00:00* Test Item Value Reference Range Interpretation Comme nts HEMOGLOBIN A1c (test code = 22584) 6.1 % Javon Day AustinALBUMIN/CREATININE RATIO, RANDOM [id number] 00:00:00* Test Item Value Reference Range Interpretation Comme nts CREATININE, URINE, CONC. (test code = 207) TEST NOT PERFORMED MG/DL ALBUMIN, URINE, RANDOM (test code = 39777) TEST NOT PERFORMED MG/DL CALC ALBUMIN/CREAT, RND (test code = 90162) TEST NOT PERFORMED MG/G Javon Fuentes8 [ADDED]2023-04-13 00:00:00* Test Item Value Reference Range Interpretation Comme nts NO URINE PROVIDED: (test code = 986) (NOTE) Javon Day AustinHEMOGLOBIN [id number] 00:00:00* Test Item Value Reference Range Interpretation Comme nts HEMOGLOBIN A1c (test code = 58368) 6.1 % Javon Day AustinALBUMIN/CREATININE RATIO, RANDOM [id number] 00:00:00* Test Item Value Reference Range Interpretation Comme nts CREATININE, URINE, CONC. (test code = 207) TEST NOT PERFORMED MG/DL ALBUMIN, URINE, RANDOM (test code = 95371) TEST NOT PERFORMED MG/DL CALC ALBUMIN/CREAT, RND (test code = 09683) TEST NOT PERFORMED MG/G Javon Fuentes8 [ADDED]2023-04-13 00:00:00* Test Item Value Reference Range Interpretation Comme nts NO URINE PROVIDED: (test code = 986) (NOTE) Javon Day AustinHEMOGLOBIN [id number] 00:00:00* Test Item Value Reference Range Interpretation Comme nts HEMOGLOBIN A1c (test code = 93721) 6.1 % Javon Day AustinALBUMIN/CREATININE RATIO, RANDOM [id number] 00:00:00* Test Item Value Reference Range Interpretation Comme nts CREATININE, URINE, CONC. (test code = 2072) TEST NOT PERFORMED MG/DL ALBUMIN, URINE, RANDOM (test code = 95124) TEST NOT PERFORMED MG/DL CALC ALBUMIN/CREAT, RND (test code = 46317) TEST NOT PERFORMED MG/G Javon Cantu [ADDED]2023-04-13 00:00:00* Test Item Value Reference Range Interpretation Comme nts NO URINE PROVIDED: (test code = 986) (NOTE) Javon FuentesHEMOGLOBIN [id number] 00:00:00* Test Item Value Reference Range Interpretation Comme nts HEMOGLOBIN A1c (test code = 66409) 6.1 % Javon FuentesCOMPREHENSIVE METABOLIC [id number] 06:14:26* Test Item Value Reference Range Interpretation Comme nts GLUCOSE (test code = 2217) 105 MG/DL 70-99 H BUN (test code = 2207) 8 MG/DL 6-20 CREATININE (test code = 221) 0.68 MG/DL 0.60-1.30 eGFR (2020 CKD-EPI) (test code = 86042) 107 ML/MIN/1.73 >60 CALC BUN/CREAT (test code [...] as normal/abnormal. ALKALINE PHOSPHATASE (test code = 2204) 88 U/L 40-123 AST (test code = 2218) 12 U/L 9-40 ALT (test code = 2219) 12 U/L 5-40 LIPID [id number] 06:14:26* Test Item Value Reference Range Interpretation [...] SPECIMENS. FOR MOREINFORMATION, SEE CLIENT ANNOUNCEMENT AT [email or web address] RISK RATIO LDL/HDL (test code = 2238) 2.45 RATIO <3.22 COMPREHENSIVE METABOLIC [id number] 00:00:00* Test Item Value Reference Range Interpretation Comme nts GLUCOSE (test code = 2217) 105 MG/DL BUN (test code = 8) 8 MG/DL CREATININE (test code = 2214) 0.68 MG/DL eGFR (2020 CKD-EPI) (test code = 20366) 107 ML/MIN/1.73 CALC BUN/CREAT (test code = 2235) 12 RATIO SODIUM (test code = 223) 139 MEQ/L POTASSIUM (test code = 2228) 4.3 MEQ/L CHLORIDE (test code = 2215) 105 MEQ/L CARBON DIOXIDE (test code = 2206) 22 MEQ/L CALCIUM (test code = 2209) 9.1 MG/DL PROTEIN, TOTAL (test code = 2229) 6.8 G/DL ALBUMIN (test code = 2201) 3.8 G/DL CALC GLOBULIN (test code = 2240) 3.0 G/DL CALC A/G RATIO (test code = 2234) 1.3 RATIO BILIRUBIN, TOTAL (test code = 2207) 0.4 MG/DL ALKALINE PHOSPHATASE (test code = 2204) 88 U/L AST (test code = 2218) 12 U/L ALT (test code = 2219) 12 U/L Javon FuentesLIPID [id number] 00:00:00* Test Item Value Reference Range Interpretation Comme nts CHOLESTEROL (test code = 2210) 196 MG/DL TRIGLYCERIDES (test code = 2232) 97 MG/DL HDL CHOLESTEROL (test code = 2220) 51 MG/DL CALC LDL CHOL (test code = 2237) 125 MG/DL RISK RATIO LDL/HDL (test cod e = 2238) 2.45 RATIO Javon FuentesCOMPREHENSIVE METABOLIC [id number] 00:00:00* Test Item Value Reference Range Interpretation Comme nts GLUCOSE (test code = 2217) 105 MG/DL BUN (test code = 2208) 8 MG/DL CREATININE (test code = 2214) 0.68 MG/DL eGFR (2020 CKD-EPI) (test code = 84803) 107 ML/MIN/1.73 CALC BUN/CREAT (test code = 2235) 12 RATIO SODIUM (test code = 2231) 139 MEQ/L POTASSIUM (test code = 2228) 4.3 MEQ/L CHLORIDE (test code = 2215) 105 MEQ/L CARBON DIOXIDE (test code = 2206) 22 MEQ/L CALCIUM (test code = 2209) 9.1 MG/DL PROTEIN, TOTAL (test code = 2229) 6.8 G/DL ALBUMIN (test code = 2201) 3.8 G/DL CALC GLOBULIN (test code = 2240) 3.0 G/DL CALC A/G RATIO (test code = 2234) 1.3 RATIO BILIRUBIN, TOTAL (test code = 2207) 0.4 MG/DL ALKALINE PHOSPHATASE (test code = 2204) 88 U/L AST (test code = 2218) 12 U/L ALT (test code = 2219) 12 U/L Javon FuentesLIPID [id number] 00:00:00* Test Item Value Reference Range Interpretation Comme nts CHOLESTEROL (test code = 2210) 196 MG/DL TRIGLYCERIDES (test code = 2232) 97 MG/DL HDL CHOLESTEROL (test code = 2220) 51 MG/DL CALC LDL CHOL (test code = 2237) 125 MG/DL RISK RATIO LDL/HDL (test cod e = 2238) 2.45 RATIO Javon Day AustinCOMPREHENSIVE METABOLIC [id number] 00:00:00* Test Item Value Reference Range Interpretation Comme nts GLUCOSE (test code = 2217) 105 MG/DL BUN (test code = 2208) 8 MG/DL CREATININE (test code = 2214) 0.68 MG/DL eGFR (2020 CKD-EPI) (test code = 07523) 107 ML/MIN/1.73 CALC BUN/CREAT (test code = 2235) 12 RATIO SODIUM (test code = 2231) 139 MEQ/L POTASSIUM (test code = 2228) 4.3 MEQ/L CHLORIDE (test code = 2215) 105 MEQ/L CARBON DIOXIDE (test code = 2206) 22 MEQ/L CALCIUM (test code = 2209) 9.1 MG/DL PROTEIN, TOTAL (test code = 2229) 6.8 G/DL ALBUMIN (test code = 2201) 3.8 G/DL CALC GLOBULIN (test code = 2240) 3.0 G/DL CALC A/G RATIO (test code = 2234) 1.3 RATIO BILIRUBIN, TOTAL (test code = 2207) 0.4 MG/DL ALKALINE PHOSPHATASE (test code = 2204) 88 U/L AST (test code = 2218) 12 U/L ALT (test code = 2219) 12 U/L Javon Day AustinLIPID [id number] 00:00:00* Test Item Value Reference Range Interpretation Comme nts CHOLESTEROL (test code = 2210) 196 MG/DL TRIGLYCERIDES (test code = 2232) 97 MG/DL HDL CHOLESTEROL (test code = 2220) 51 MG/DL CALC LDL CHOL (test code = 2237) 125 MG/DL RISK RATIO LDL/HDL (test cod e = 2238) 2.45 RATIO Javon FuentesCOMPREHENSIVE METABOLIC [id number] 00:00:00* Test Item Value Reference Range Interpretation Comme nts GLUCOSE (test code = 2217) 105 MG/DL BUN (test code = 2208) 8 MG/DL CREATININE (test code = 2214) 0.68 MG/DL eGFR (2020 CKD-EPI) (test code = 85808) 107 ML/MIN/1.73 CALC BUN/CREAT (test code = 2235) 12 RATIO SODIUM (test code = 2231) 139 MEQ/L POTASSIUM (test code = 2228) 4.3 MEQ/L CHLORIDE (test code = 2215) 105 MEQ/L CARBON DIOXIDE (test code = 2206) 22 MEQ/L CALCIUM (test code = 2209) 9.1 MG/DL PROTEIN, TOTAL (test code = 2229) 6.8 G/DL ALBUMIN (test code = 2201) 3.8 G/DL CALC GLOBULIN (test code = 2240) 3.0 G/DL CALC A/G RATIO (test code = 2234) 1.3 RATIO BILIRUBIN, TOTAL (test code = 2207) 0.4 MG/DL ALKALINE PHOSPHATASE (test code = 2204) 88 U/L AST (test code = 2218) 12 U/L ALT (test code = 2219) 12 U/L Javon FuentesLIPID [id number] 00:00:00* Test Item Value Reference Range Interpretation Comme nts CHOLESTEROL (test code = 2210) 196 MG/DL TRIGLYCERIDES (test code = 2232) 97 MG/DL HDL CHOLESTEROL (test code = 2220) 51 MG/DL CALC LDL CHOL (test code = 2237) 125 MG/DL RISK RATIO LDL/HDL (test cod e = 2238) 2.45 RATIO Javon Day AlfredoCOMPREHENSIVE METABOLIC [id number] 00:00:00* Test Item Value Reference Range Interpretation Comme nts GLUCOSE (test code = 2217) 105 MG/DL BUN (test code = 2208) 8 MG/DL CREATININE (test code = 2214) 0.68 MG/DL eGFR (2020 CKD-EPI) (test code = 54676) 107 ML/MIN/1.73 CALC BUN/CREAT (test code = 2235) 12 RATIO SODIUM (test code = 2231) 139 MEQ/L POTASSIUM (test code = 2228) 4.3 MEQ/L CHLORIDE (test code = 2215) 105 MEQ/L CARBON DIOXIDE (test code = 2206) 22 MEQ/L CALCIUM (test code = 2209) 9.1 MG/DL PROTEIN, TOTAL (test code = 2229) 6.8 G/DL ALBUMIN (test code = 2201) 3.8 G/DL CALC GLOBULIN (test code = 2240) 3.0 G/DL CALC A/G RATIO (test code = 2234) 1.3 RATIO BILIRUBIN, TOTAL (test code = 2207) 0.4 MG/DL ALKALINE PHOSPHATASE (test code = 2204) 88 U/L AST (test code = 2218) 12 U/L ALT (test code = 2219) 12 U/L Javon FuentesLIPID [id number] 00:00:00* Test Item Value Reference Range Interpretation Comme nts CHOLESTEROL (test code = 2210) 196 MG/DL TRIGLYCERIDES (test code = 2232) 97 MG/DL HDL CHOLESTEROL (test code = 2220) 51 MG/DL CALC LDL CHOL (test code = 2237) 125 MG/DL RISK RATIO LDL/HDL (test cod e = 2238) 2.45 RATIO Javon FuentesCOMPREHENSIVE METABOLIC [id number] 00:00:00* Test Item Value Reference Range Interpretation Comme nts GLUCOSE (test code = 2217) 105 MG/DL BUN (test code = 2208) 8 MG/DL CREATININE (test code = 2214) 0.68 MG/DL eGFR (2020 CKD-EPI) (test code = 99437) 107 ML/MIN/1.73 CALC BUN/CREAT (test code = 2235) 12 RATIO SODIUM (test code = 2231) 139 MEQ/L POTASSIUM (test code = 2228) 4.3 MEQ/L CHLORIDE (test code = 2215) 105 MEQ/L CARBON DIOXIDE (test code = 2206) 22 MEQ/L CALCIUM (test code = 2209) 9.1 MG/DL PROTEIN, TOTAL (test code = 2229) 6.8 G/DL ALBUMIN (test code = 2201) 3.8 G/DL CALC GLOBULIN (test code = 2240) 3.0 G/DL CALC A/G RATIO (test code = 2234) 1.3 RATIO BILIRUBIN, TOTAL (test code = 2207) 0.4 MG/DL ALKALINE PHOSPHATASE (test code = 2204) 88 U/L AST (test code = 2218) 12 U/L ALT (test code = 2219) 12 U/L Javon FuentesLIPID [id number] 00:00:00* Test Item Value Reference Range Interpretation Comme nts CHOLESTEROL (test code = 2210) 196 MG/DL TRIGLYCERIDES (test code = 2232) 97 MG/DL HDL CHOLESTEROL (test code = 2220) 51 MG/DL CALC LDL CHOL (test code = 2237) 125 MG/DL RISK RATIO LDL/HDL (test cod e = 2238) 2.45 RATIO Javon FuentesCOMPREHENSIVE METABOLIC [id number] 00:00:00* Test Item Value Reference Range Interpretation Comme nts GLUCOSE (test code = 2217) 105 MG/DL BUN (test code = 2208) 8 MG/DL CREATININE (test code = 2214) 0.68 MG/DL eGFR (2020 CKD-EPI) (test code = 70971) 107 ML/MIN/1.73 CALC BUN/CREAT (test code = 2235) 12 RATIO SODIUM (test code = 2231) 139 MEQ/L POTASSIUM (test code = 2228) 4.3 MEQ/L CHLORIDE (test code = 2215) 105 MEQ/L CARBON DIOXIDE (test code = 2206) 22 MEQ/L CALCIUM (test code = 2209) 9.1 MG/DL PROTEIN, TOTAL (test code = 2229) 6.8 G/DL ALBUMIN (test code = 2201) 3.8 G/DL CALC GLOBULIN (test code = 2240) 3.0 G/DL CALC A/G RATIO (test code = 2234) 1.3 RATIO BILIRUBIN, TOTAL (test code = 2207) 0.4 MG/DL ALKALINE PHOSPHATASE (test code = 2204) 88 U/L AST (test code = 2218) 12 U/L ALT (test code = 2219) 12 U/L Javon FuentesLIPID [id number] 00:00:00* Test Item Value Reference Range Interpretation Comme nts CHOLESTEROL (test code = 2210) 196 MG/DL TRIGLYCERIDES (test code = 2232) 97 MG/DL HDL CHOLESTEROL (test code = 2220) 51 MG/DL CALC LDL CHOL (test code = 2237) 125 MG/DL RISK RATIO LDL/HDL (test cod e = 2238) 2.45 RATIO Javon FuentesHEMOGLOBIN [id number] 03:39:23* Test Item Value Reference Range Interpretation Comme nts HEMOGLOBIN A1c (test code = 63729) 6.5 % 4.2-5.6 H [employer] S [employer]IATION GUIDELINES FOR HGB A1C: [...] ETC.). CONSIDER ALTERNATE TESTING OR LABORATORY CONSULTATION. [facility] has important pathology staff changes effective 07/21/2022. New pathology staff will provide uninterrupted, excellent patient care and clinical consultation. See URL: [email or web address]. UNLESS OTHERWISE INDICATED, ALL TESTING PERFORMED AT [facility] [address] [place] [address] CLIA: [id number], CAP: [id number] HEMOGLOBIN [id number] 00:00:00* Test Item Value Reference Range Interpretation Comme [facility] HEMOGLOBIN A1c (test code = 12110) 6.5 % Javon Day AustinHEMOGLOBIN [id number] 00:00:00* Test Item Value Reference Range Interpretation Comme nts HEMOGLOBIN A1c (test code = 10983) 6.5 % Javon Day AustinHEMOGLOBIN [id number] 00:00:00* Test Item Value Reference Range Interpretation Comme nts HEMOGLOBIN A1c (test code = 55448) 6.5 % Javon Day AustinHEMOGLOBIN [id number] 00:00:00* Test Item Value Reference Range Interpretation Comme nts HEMOGLOBIN A1c (test code = 19988) 6.5 % Javon Day AustinHEMOGLOBIN [id number] 00:00:00* Test Item Value Reference Range Interpretation Comme nts HEMOGLOBIN A1c (test code = 46693) 6.5 % Javon AustinHEMOGLOBIN [id number] 00:00:00* Test Item Value Reference Range Interpretation Comme nts HEMOGLOBIN A1c (test code = 84754) 6.5 % Javon AustinHEMOGLOBIN [id number] 00:00:00* Test Item Value Reference Range Interpretation Comme nts HEMOGLOBIN A1c (test code = 29107) 6.5 % Javon FuentesGALV ONLY - SYPHILIS [id number] 16:01:15* Test Item Value Reference Range Interpretation Comme nts Syphilis IgG/IgM (test code = 44077-1) Non-reactive Non-reactive PANCHO (test code = PANCHO) Non-reactive - No serologic evidence of T. pallidum infection. Cannot exclude incubating or early syphilis. Submit a second specimen in 2-4 weeks if syphilis is clinically suspected. Equivocal - Further testing to follow. Reactive - Further testing to follow. Lab Interpretation (test code = 53818-0) [facility] [id number] 16:01:15* Test Item Value Reference Range Interpretation Comme [facility] Syphilis IgG/IgM (test code = 32279-8) Non-reactive Non-reactive PANCHO (test code = PANCHO) Non-reactive - No serologic evidence of T. pallidum infection. Cannot exclude incubating or early syphilis. Submit a second specimen in 2-4 weeks if syphilis is clinically suspected. Equivocal - Further testing to follow. Reactive - Further testing to follow. Lab Interpretation (test code = 24124-8) Normal [facility] 1/2 AG-AB WITH [id number] 07:03:37* Test Item Value Reference Range Interpretation Comme [facility] HIV Semi-quantitative (test code = 23370-2) Negative Negative PANCHO (test code = PANCHO) Non-reactive for HIV-1 antigen and HIV-1/HIV-2 antibodies. ?No laboratory evidence of HIV infection. ?Repeat in 2-4 weeks if acute HIV infection is suspected. [facility] 1/2 AG-AB WITH [id number] 07:03:37* Test Item Value Reference Range Interpretation Comme [facility] HIV Semi-quantitative (test code = 13890-0) Negative Negative PANCHO (test code = PANCHO) Non-reactive for HIV-1 antigen and HIV-1/HIV-2 antibodies. ?No laboratory evidence of HIV infection. ?Repeat in 2-4 weeks if acute HIV infection is suspected. [facility] [id number] 04:36:38* Test Item Value Reference Range Interpretation Comme [facility] HEMOGLOBIN A1c (test code = 96645) 6.7 % 4.2-5.6 H [employer] S ASSOCIATION GUIDELINES FOR HGB A1C: [...] CONSULTATION. UNLESS OTHERWISE INDICATED, ALL TESTING PERFORMED [facility] [employer] [employer] [address] [place] [address] EMPLOYEE BENEFITS SPECIALIST: ZOILA ARRIETA M.D. CLIA NUMBER [id number] [facility] [place]. [id number] HEMOGLOBIN [id number] 00:00:00* Test Item Value Reference Range Interpretation Comme [facility] HEMOGLOBIN A1c (test code = 16745) 6.7 % Javon Day AustinHEMOGLOBIN [id number] 00:00:00* Test Item Value Reference Range Interpretation Comme [facility] HEMOGLOBIN A1c (test code = 48847) 6.7 % Javon Day AustinHEMOGLOBIN [id number] 00:00:00* Test Item Value Reference Range Interpretation Comme [facility] HEMOGLOBIN A1c (test code = 27321) 6.7 % Javon Day AustinHEMOGLOBIN [id number] 00:00:00* Test Item Value Reference Range Interpretation Comme [facility] HEMOGLOBIN A1c (test code = 01962) 6.7 % Javon Day AustinHEMOGLOBIN [id number] 00:00:00* Test Item Value Reference Range Interpretation Comme [facility] HEMOGLOBIN A1c (test code = 55941) 6.7 % Javon Day AustinHEMOGLOBIN [id number] 00:00:00* Test Item Value Reference Range Interpretation Comme [facility] HEMOGLOBIN A1c (test code = 75953) 6.7 % Javon Day AustinHEMOGLOBIN [id number] 00:00:00* Test Item Value Reference Range Interpretation Comme [facility] HEMOGLOBIN A1c (test code = 00500) 6.7 % Javon AustinVITAMIN [id number] 06:03:13* Test Item Value Reference Range Interpretation Comme [facility] VITAMIN B-12 (test code = 2840) 275 PG/ML 200-950 ALBUMIN/CREATININE RATIO, URINE, [id number] 04:35:05* Test Item Value Reference Range Interpretation Comme nts CREATININE, URINE, RANDOM (test code = 2072) 102.5 MG/DL NOT ESTAB ALBUMIN, URINE, RANDOM (test code = 38723) 3.1 MG/DL NOT ESTAB CALC ALBUMIN/CREAT, RND (test code = 87078) 30 MG/G <30 H Note: Albumin/Cr eatinine ratio reference interval reflects ADA and NKF guidelines. UNLESS OTHERWISE INDICATED, ALL TESTING PERFORMED [facility] [employer] [address] [place] [address] EMPLOYEE BENEFITS SPECIALIST: ZOILA ARRIETA M.D. [place] NUMBER [id number] [place]. [id number] HEMOGLOBIN [id number] 04:00:09* Test Item Value Reference Range Interpretation Comme nts HEMOGLOBIN A1c (test code = 38837) 6.7 % 4.2-5.6 H [employer] S ASSOCIATION GUIDELINES FOR HGB A1C: [...] OR LABORATORY CONSULTATION. CBC W/AUTO DIFF WITH [id number] 02:32:28* Test Item Value Reference Range Interpretation [...] 0.00-0.10 ABS NUCLEATED RBCS (test code = 00250) 0.00 K/UL 0.00-0.11 CBC W/AUTO [id number] 00:00:00* Test Item Value Reference Range Interpretation Comme nts WBC (test code = 1001) 6.4 K/UL RBC (test code = 1002) 4.93 M/UL HEMOGLOBIN (test code = 1003) 11.7 G/DL HEMATOCRIT (test code = 1004) 36.9 % MCV (test code = 1005) 74.8 fL MCH (test code = 1006) 23.7 PG MCHC (test code = 1007) 31.7 G/DL RDW (test code = 1038) 17.1 % NEUTROPHILS (test code = 1008) 61.7 % LYMPHOCYTES (test code = 1010) 28.3 % MONOCYTES (test code = 1011) 7.0 % EOSINOPHILS (test code = 1012) 2.0 % BASOPHILS (test code = 1013) 0.8 % IMMATURE GRANULOCYTES (test code = 1036) 0.2 % NUCLEATED RBCS (test code = 1065) 0.0 /100WBC'S PLATELET COUNT (test code = 1015) 362 K/UL ABSOLUTE NEUTROPHILS (test c ode = 1066) 3.98 K/UL ABSOLUTE LYMPHOCYTES (test c ode = 1067) 1.82 K/UL ABSOLUTE MONOCYTES (test cod e = 1068) 0.45 K/UL ABSOLUTE EOSINOPHILS (test c ode = 1040) 0.13 K/UL ABSOLUTE BASOPHILS (test cod e = 1069) 0.05 K/UL ABS IMMATURE GRANULOCYTES (t est code = 1020) 0.01 K/UL ABS NUCLEATED RBCS (test cod e = 79554) 0.00 K/UL Javon FuentesHEMOGLOBIN [id number] 00:00:00* Test Item Value Reference Range Interpretation Comme [facility] HEMOGLOBIN A1c (test code = 88525) 6.7 % Javon FuentesVITAMIN [id number] 00:00:00* Test Item Value Reference Range Interpretation Comme nts VITAMIN B-12 (test code = 2840) 275 PG/ML Javon FuentesMICROALBUMIN/CREATININE, RANDOM AND [id number] 00:00:00* Test Item Value Reference Range Interpretation Comme nts CREATININE, URINE, RANDOM (t est code = 2072) 102.5 MG/DL ALBUMIN, URINE, RANDOM (test code = 80465) 3.1 MG/DL CALC ALBUMIN/CREAT, RND (katerine t code = 48889) 30 MG/G Javon FuentesCBC W/AUTO [id number] 00:00:00* Test Item Value Reference Range Interpretation Comme nts WBC (test code = 1001) 6.4 K/UL RBC (test code = 1002) 4.93 M/UL HEMOGLOBIN (test code = 1003) 11.7 G/DL HEMATOCRIT (test code = 1004) 36.9 % MCV (test code = 1005) 74.8 fL MCH (test code = 1006) 23.7 PG MCHC (test code = 1007) 31.7 G/DL RDW (test code = 1038) 17.1 % NEUTROPHILS (test code = 1008) 61.7 % LYMPHOCYTES (test code = 1010) 28.3 % MONOCYTES (test code = 1011) 7.0 % EOSINOPHILS (test code = 1012) 2.0 % BASOPHILS (test code = 1013) 0.8 % IMMATURE GRANULOCYTES (test code = 1036) 0.2 % NUCLEATED RBCS (test code = 1065) 0.0 /100WBC'S PLATELET COUNT (test code = 1015) 362 K/UL ABSOLUTE NEUTROPHILS (test c ode = 1066) 3.98 K/UL ABSOLUTE LYMPHOCYTES (test c ode = 1067) 1.82 K/UL ABSOLUTE MONOCYTES (test cod e = 1068) 0.45 K/UL ABSOLUTE EOSINOPHILS (test c ode = 1040) 0.13 K/UL ABSOLUTE BASOPHILS (test cod e = 1069) 0.05 K/UL ABS IMMATURE GRANULOCYTES (t est code = 1020) 0.01 K/UL ABS NUCLEATED RBCS (test cod e = 69602) 0.00 K/UL Javon FuentesHEMOGLOBIN [id number] 00:00:00* Test Item Value Reference Range Interpretation Comme nts HEMOGLOBIN A1c (test code = 31419) 6.7 % Javon FuentesVITAMIN [id number] 00:00:00* Test Item Value Reference Range Interpretation Comme nts VITAMIN B-12 (test code = 2840) 275 PG/ML Javon FuentesMICROALBUMIN/CREATININE, RANDOM AND [id number] 00:00:00* Test Item Value Reference Range Interpretation Comme nts CREATININE, URINE, RANDOM (t est code = 2072) 102.5 MG/DL ALBUMIN, URINE, RANDOM (test code = 91414) 3.1 MG/DL CALC ALBUMIN/CREAT, RND (katerine t code = 20022) 30 MG/G Javon FuentesCBC W/AUTO [id number] 00:00:00* Test Item Value Reference Range Interpretation Comme nts WBC (test code = 1001) 6.4 K/UL RBC (test code = 1002) 4.93 M/UL HEMOGLOBIN (test code = 1003) 11.7 G/DL HEMATOCRIT (test code = 1004) 36.9 % MCV (test code = 1005) 74.8 fL MCH (test code = 1006) 23.7 PG MCHC (test code = 1007) 31.7 G/DL RDW (test code = 1038) 17.1 % NEUTROPHILS (test code = 1008) 61.7 % LYMPHOCYTES (test code = 1010) 28.3 % MONOCYTES (test code = 1011) 7.0 % EOSINOPHILS (test code = 1012) 2.0 % BASOPHILS (test code = 1013) 0.8 % IMMATURE GRANULOCYTES (test code = 1036) 0.2 % NUCLEATED RBCS (test code = 1065) 0.0 /100WBC'S PLATELET COUNT (test code = 1015) 362 K/UL ABSOLUTE NEUTROPHILS (test c ode = 1066) 3.98 K/UL ABSOLUTE LYMPHOCYTES (test c ode = 1067) 1.82 K/UL ABSOLUTE MONOCYTES (test cod e = 1068) 0.45 K/UL ABSOLUTE EOSINOPHILS (test c ode = 1040) 0.13 K/UL ABSOLUTE BASOPHILS (test cod e = 1069) 0.05 K/UL ABS IMMATURE GRANULOCYTES (t est code = 1020) 0.01 K/UL ABS NUCLEATED RBCS (test cod e = 89023) 0.00 K/UL Javon FuentesHEMOGLOBIN [id number] 00:00:00* Test Item Value Reference Range Interpretation Comme nts HEMOGLOBIN A1c (test code = 93376) 6.7 % Javon FuentesVITAMIN [id number] 00:00:00* Test Item Value Reference Range Interpretation Comme nts VITAMIN B-12 (test code = 2840) 275 PG/ML Javon FuentesMICROALBUMIN/CREATININE, RANDOM AND [id number] 00:00:00* Test Item Value Reference Range Interpretation Comme nts CREATININE, URINE, RANDOM (t est code = 2072) 102.5 MG/DL ALBUMIN, URINE, RANDOM (test code = 40025) 3.1 MG/DL CALC ALBUMIN/CREAT, RND (katerine t code = 21441) 30 MG/G Javon FuentesCBC W/AUTO [id number] 00:00:00* Test Item Value Reference Range Interpretation Comme nts WBC (test code = 1001) 6.4 K/UL RBC (test code = 1002) 4.93 M/UL HEMOGLOBIN (test code = 1003) 11.7 G/DL HEMATOCRIT (test code = 1004) 36.9 % MCV (test code = 1005) 74.8 fL MCH (test code = 1006) 23.7 PG MCHC (test code = 1007) 31.7 G/DL RDW (test code = 1038) 17.1 % NEUTROPHILS (test code = 1008) 61.7 % LYMPHOCYTES (test code = 1010) 28.3 % MONOCYTES (test code = 1011) 7.0 % EOSINOPHILS (test code = 1012) 2.0 % BASOPHILS (test code = 1013) 0.8 % IMMATURE GRANULOCYTES (test code = 1036) 0.2 % NUCLEATED RBCS (test code = 1065) 0.0 /100WBC'S PLATELET COUNT (test code = 1015) 362 K/UL ABSOLUTE NEUTROPHILS (test c ode = 1066) 3.98 K/UL ABSOLUTE LYMPHOCYTES (test c ode = 1067) 1.82 K/UL ABSOLUTE MONOCYTES (test cod e = 1068) 0.45 K/UL ABSOLUTE EOSINOPHILS (test c ode = 1040) 0.13 K/UL ABSOLUTE BASOPHILS (test cod e = 1069) 0.05 K/UL ABS IMMATURE GRANULOCYTES (t est code = 1020) 0.01 K/UL ABS NUCLEATED RBCS (test cod e = 97358) 0.00 K/UL Javon FuentesHEMOGLOBIN [id number] 00:00:00* Test Item Value Reference Range Interpretation Comme [facility] HEMOGLOBIN A1c (test code = 54213) 6.7 % Javon FuentesVITAMIN [id number] 00:00:00* Test Item Value Reference Range Interpretation Comme nts VITAMIN B-12 (test code = 2840) 275 PG/ML Javon FuentesMICROALBUMIN/CREATININE, RANDOM AND [id number] 00:00:00* Test Item Value Reference Range Interpretation Comme nts CREATININE, URINE, RANDOM (t est code = 2072) 102.5 MG/DL ALBUMIN, URINE, RANDOM (test code = 03259) 3.1 MG/DL CALC ALBUMIN/CREAT, RND (katerine t code = 38174) 30 MG/G Javon FuentesCBC W/AUTO [id number] 00:00:00* Test Item Value Reference Range Interpretation Comme nts WBC (test code = 1001) 6.4 K/UL RBC (test code = 1002) 4.93 M/UL HEMOGLOBIN (test code = 1003) 11.7 G/DL HEMATOCRIT (test code = 1004) 36.9 % MCV (test code = 1005) 74.8 fL MCH (test code = 1006) 23.7 PG MCHC (test code = 1007) 31.7 G/DL RDW (test code = 1038) 17.1 % NEUTROPHILS (test code = 1008) 61.7 % LYMPHOCYTES (test code = 1010) 28.3 % MONOCYTES (test code = 1011) 7.0 % EOSINOPHILS (test code = 1012) 2.0 % BASOPHILS (test code = 1013) 0.8 % IMMATURE GRANULOCYTES (test code = 1036) 0.2 % NUCLEATED RBCS (test code = 1065) 0.0 /100WBC'S PLATELET COUNT (test code = 1015) 362 K/UL ABSOLUTE NEUTROPHILS (test c ode = 1066) 3.98 K/UL ABSOLUTE LYMPHOCYTES (test c ode = 1067) 1.82 K/UL ABSOLUTE MONOCYTES (test cod e = 1068) 0.45 K/UL ABSOLUTE EOSINOPHILS (test c ode = 1040) 0.13 K/UL ABSOLUTE BASOPHILS (test cod e = 1069) 0.05 K/UL ABS IMMATURE GRANULOCYTES (t est code = 1020) 0.01 K/UL ABS NUCLEATED RBCS (test cod e = 87850) 0.00 K/UL Javon FuentesHEMOGLOBIN [id number] 00:00:00* Test Item Value Reference Range Interpretation Comme nts HEMOGLOBIN A1c (test code = 24186) 6.7 % Javon FuentesVITAMIN [id number] 00:00:00* Test Item Value Reference Range Interpretation Comme nts VITAMIN B-12 (test code = 2840) 275 PG/ML Javon FuentesMICROALBUMIN/CREATININE, RANDOM AND [id number] 00:00:00* Test Item Value Reference Range Interpretation Comme nts CREATININE, URINE, RANDOM (t est code = 2072) 102.5 MG/DL ALBUMIN, URINE, RANDOM (test code = 74159) 3.1 MG/DL CALC ALBUMIN/CREAT, RND (katerine t code = 12996) 30 MG/G Javon FuentesCBC W/AUTO [id number] 00:00:00* Test Item Value Reference Range Interpretation Comme nts WBC (test code = 1001) 6.4 K/UL RBC (test code = 1002) 4.93 M/UL HEMOGLOBIN (test code = 1003) 11.7 G/DL HEMATOCRIT (test code = 1004) 36.9 % MCV (test code = 1005) 74.8 fL MCH (test code = 1006) 23.7 PG MCHC (test code = 1007) 31.7 G/DL RDW (test code = 1038) 17.1 % NEUTROPHILS (test code = 1008) 61.7 % LYMPHOCYTES (test code = 1010) 28.3 % MONOCYTES (test code = 1011) 7.0 % EOSINOPHILS (test code = 1012) 2.0 % BASOPHILS (test code = 1013) 0.8 % IMMATURE GRANULOCYTES (test code = 1036) 0.2 % NUCLEATED RBCS (test code = 1065) 0.0 /100WBC'S PLATELET COUNT (test code = 1015) 362 K/UL ABSOLUTE NEUTROPHILS (test c ode = 1066) 3.98 K/UL ABSOLUTE LYMPHOCYTES (test c ode = 1067) 1.82 K/UL ABSOLUTE MONOCYTES (test cod e = 1068) 0.45 K/UL ABSOLUTE EOSINOPHILS (test c ode = 1040) 0.13 K/UL ABSOLUTE BASOPHILS (test cod e = 1069) 0.05 K/UL ABS IMMATURE GRANULOCYTES (t est code = 1020) 0.01 K/UL ABS NUCLEATED RBCS (test cod e = 44281) 0.00 K/UL Javon FuentesHEMOGLOBIN [id number] 00:00:00* Test Item Value Reference Range Interpretation Comme nts HEMOGLOBIN A1c (test code = 11040) 6.7 % Javon FuentesVITAMIN [id number] 00:00:00* Test Item Value Reference Range Interpretation Comme nts VITAMIN B-12 (test code = 2840) 275 PG/ML Javon FuentesMICROALBUMIN/CREATININE, RANDOM AND [id number] 00:00:00* Test Item Value Reference Range Interpretation Comme nts CREATININE, URINE, RANDOM (t est code = 2072) 102.5 MG/DL ALBUMIN, URINE, RANDOM (test code = 43764) 3.1 MG/DL CALC ALBUMIN/CREAT, RND (katerine t code = 94893) 30 MG/G Javon FuentesCBC W/AUTO [id number] 00:00:00* Test Item Value Reference Range Interpretation Comme nts WBC (test code = 1001) 6.4 K/UL RBC (test code = 1002) 4.93 M/UL HEMOGLOBIN (test code = 1003) 11.7 G/DL HEMATOCRIT (test code = 1004) 36.9 % MCV (test code = 1005) 74.8 fL MCH (test code = 1006) 23.7 PG MCHC (test code = 1007) 31.7 G/DL RDW (test code = 1038) 17.1 % NEUTROPHILS (test code = 1008) 61.7 % LYMPHOCYTES (test code = 1010) 28.3 % MONOCYTES (test code = 1011) 7.0 % EOSINOPHILS (test code = 1012) 2.0 % BASOPHILS (test code = 1013) 0.8 % IMMATURE GRANULOCYTES (test code = 1036) 0.2 % NUCLEATED RBCS (test code = 1065) 0.0 /100WBC'S PLATELET COUNT (test code = 1015) 362 K/UL ABSOLUTE NEUTROPHILS (test c ode = 1066) 3.98 K/UL ABSOLUTE LYMPHOCYTES (test c ode = 1067) 1.82 K/UL ABSOLUTE MONOCYTES (test cod e = 1068) 0.45 K/UL ABSOLUTE EOSINOPHILS (test c ode = 1040) 0.13 K/UL ABSOLUTE BASOPHILS (test cod e = 1069) 0.05 K/UL ABS IMMATURE GRANULOCYTES (t est code = 1020) 0.01 K/UL ABS NUCLEATED RBCS (test cod e = 49898) 0.00 K/UL Javon FuentesHEMOGLOBIN [id number] 00:00:00* Test Item Value Reference Range Interpretation Comme nts HEMOGLOBIN A1c (test code = 64740) 6.7 % Javon FuentesVITAMIN [id number] 00:00:00* Test Item Value Reference Range Interpretation Comme nts VITAMIN B-12 (test code = 2840) 275 PG/ML Javon FuentesMICROALBUMIN/CREATININE, RANDOM AND [id number] 00:00:00* Test Item Value Reference Range Interpretation Comme nts CREATININE, URINE, RANDOM (t est code = 2072) 102.5 MG/DL ALBUMIN, URINE, RANDOM (test code = 70748) 3.1 MG/DL CALC ALBUMIN/CREAT, RND (katerine t code = 94073) 30 MG/G Javon FuentesPROTHROMBIN TIME (PT)2021-03-13 00:00:00* Test Item Value Reference Range Interpretation Comme nts PROTHROMBIN TIME (PT) (test code = 1402) 17.1 SECONDS INR (test code = 21123) 1.7 Javon F AustinPROTHROMBIN TIME (PT)2021-03-13 00:00:00* Test Item Value Reference Range Interpretation Comme nts PROTHROMBIN TIME (PT) (test code = 1402) 17.1 SECONDS INR (test code = 37557) 1.7 Javon Day AustinPROTHROMBIN TIME (PT)2021-03-13 00:00:00* Test Item Value Reference Range Interpretation Comme nts PROTHROMBIN TIME (PT) (test code = 1402) 17.1 SECONDS INR (test code = 02563) 1.7 Javon Day AustinPROTHROMBIN TIME (PT)2021-03-13 00:00:00* Test Item Value Reference Range Interpretation Comme nts PROTHROMBIN TIME (PT) (test code = 1402) 17.1 SECONDS INR (test code = 78475) 1.7 Javon Day AustinPROTHROMBIN TIME (PT)2021-03-13 00:00:00* Test Item Value Reference Range Interpretation Comme nts PROTHROMBIN TIME (PT) (test code = 1402) 17.1 SECONDS INR (test code = 93712) 1.7 Javon Day AustinPROTHROMBIN TIME (PT)2021-03-13 00:00:00* Test Item Value Reference Range Interpretation Comme nts PROTHROMBIN TIME (PT) (test code = 1402) 17.1 SECONDS INR (test code = 69066) 1.7 Javon Day AustinPROTHROMBIN TIME (PT)2021-03-13 00:00:00* Test Item Value Reference Range Interpretation Comme nts PROTHROMBIN TIME (PT) (test code = 1402) 17.1 SECONDS INR (test code = 14550) 1.7 Javon Day AustinPROTHROMBIN TIME (PT)2021-02-24 00:00:00* Test Item Value Reference Range Interpretation Comme nts PROTHROMBIN TIME (PT) (test code = 1402) 28.3 SECONDS INR (test code = 65396) 2.8 Javon Day AustinPROTHROMBIN TIME (PT)2021-02-24 00:00:00* Test Item Value Reference Range Interpretation Comme nts PROTHROMBIN TIME (PT) (test code = 1402) 28.3 SECONDS INR (test code = 80855) 2.8 Javon Day AustinPROTHROMBIN TIME (PT)2021-02-24 00:00:00* Test Item Value Reference Range Interpretation Comme nts PROTHROMBIN TIME (PT) (test code = 1402) 28.3 SECONDS INR (test code = 40183) 2.8 Javon Day AustinPROTHROMBIN TIME (PT)2021-02-24 00:00:00* Test Item Value Reference Range Interpretation Comme nts PROTHROMBIN TIME (PT) (test code = 1402) 28.3 SECONDS INR (test code = 57268) 2.8 Javon Day AustinPROTHROMBIN TIME (PT)2021-02-24 00:00:00* Test Item Value Reference Range Interpretation Comme nts PROTHROMBIN TIME (PT) (test code = 1402) 28.3 SECONDS INR (test code = 77999) 2.8 Javon Day AustinPROTHROMBIN TIME (PT)2021-02-24 00:00:00* Test Item Value Reference Range Interpretation Comme nts PROTHROMBIN TIME (PT) (test code = 1402) 28.3 SECONDS INR (test code = 34061) 2.8 Javon Day AustinPROTHROMBIN TIME (PT)2021-02-24 00:00:00* Test Item Value Reference Range Interpretation Comme nts PROTHROMBIN TIME (PT) (test code = 1402) 28.3 SECONDS INR (test code = 87281) 2.8 Javon Day AustinPROTHROMBIN TIME (PT)2021-02-17 00:00:00* Test Item Value Reference Range Interpretation Comme nts PROTHROMBIN TIME (PT) (test code = 1402) 15.0 SECONDS INR (test code = 26212) 1.5 Javon Day AustinPROTHROMBIN TIME (PT)2021-02-17 00:00:00* Test Item Value Reference Range Interpretation Comme nts PROTHROMBIN TIME (PT) (test code = 1402) 15.0 SECONDS INR (test code = 19757) 1.5 Javon Day AustinPROTHROMBIN TIME (PT)2021-02-17 00:00:00* Test Item Value Reference Range Interpretation Comme nts PROTHROMBIN TIME (PT) (test code = 1402) 15.0 SECONDS INR (test code = 59586) 1.5 Javon Day AustinPROTHROMBIN TIME (PT)2021-02-17 00:00:00* Test Item Value Reference Range Interpretation Comme nts PROTHROMBIN TIME (PT) (test code = 1402) 15.0 SECONDS INR (test code = 46370) 1.5 Javon Day AustinPROTHROMBIN TIME (PT)2021-02-17 00:00:00* Test Item Value Reference Range Interpretation Comme nts PROTHROMBIN TIME (PT) (test code = 1402) 15.0 SECONDS INR (test code = 79305) 1.5 Javon Day AustinPROTHROMBIN TIME (PT)2021-02-17 00:00:00* Test Item Value Reference Range Interpretation Comme nts PROTHROMBIN TIME (PT) (test code = 1402) 15.0 SECONDS INR (test code = 74452) 1.5 Javon Day AustinPROTHROMBIN TIME (PT)2021-02-17 00:00:00* Test Item Value Reference Range Interpretation Comme nts PROTHROMBIN TIME (PT) (test code = 1402) 15.0 SECONDS INR (test code = 82774) 1.5 Javon Day AustinPROTHROMBIN TIME (PT)2021-02-10 00:00:00* Test Item Value Reference Range Interpretation Comme nts PROTHROMBIN TIME (PT) (test code = 1402) 22.8 SECONDS INR (test code = 63745) 2.2 Javon Day AustinPROTHROMBIN TIME (PT)2021-02-10 00:00:00* Test Item Value Reference Range Interpretation Comme nts PROTHROMBIN TIME (PT) (test code = 1402) 22.8 SECONDS INR (test code = 13652) 2.2 Javon Day AustinPROTHROMBIN TIME (PT)2021-02-10 00:00:00* Test Item Value Reference Range Interpretation Comme nts PROTHROMBIN TIME (PT) (test code = 1402) 22.8 SECONDS INR (test code = 67787) 2.2 Javon Day AustinPROTHROMBIN TIME (PT)2021-02-10 00:00:00* Test Item Value Reference Range Interpretation Comme nts PROTHROMBIN TIME (PT) (test code = 1402) 22.8 SECONDS INR (test code = 39152) 2.2 Javon Day AustinPROTHROMBIN TIME (PT)2021-02-10 00:00:00* Test Item Value Reference Range Interpretation Comme nts PROTHROMBIN TIME (PT) (test code = 1402) 22.8 SECONDS INR (test code = 40198) 2.2 Javon F AustinPROTHROMBIN TIME (PT)2021-02-10 00:00:00* Test Item Value Reference Range Interpretation Comme nts PROTHROMBIN TIME (PT) (test code = 1402) 22.8 SECONDS INR (test code = 39970) 2.2 Javon Day AustinPROTHROMBIN TIME (PT)2021-02-10 00:00:00* Test Item Value Reference Range Interpretation Comme nts PROTHROMBIN TIME (PT) (test code = 1402) 22.8 SECONDS INR (test code = 25056) 2.2 Javon Day AustinPROTHROMBIN TIME (PT)2021-02-04 00:00:00* Test Item Value Reference Range Interpretation Comme nts PROTHROMBIN TIME (PT) (test code = 1402) 25.8 SECONDS INR (test code = 52945) 2.5 Javon Day AustinPROTHROMBIN TIME (PT)2021-02-04 00:00:00* Test Item Value Reference Range Interpretation Comme nts PROTHROMBIN TIME (PT) (test code = 1402) 25.8 SECONDS INR (test code = 23007) 2.5 Javon Day AustinPROTHROMBIN TIME (PT)2021-02-04 00:00:00* Test Item Value Reference Range Interpretation Comme nts PROTHROMBIN TIME (PT) (test code = 1402) 25.8 SECONDS INR (test code = 09640) 2.5 Javon Day AustinPROTHROMBIN TIME (PT)2021-02-04 00:00:00* Test Item Value Reference Range Interpretation Comme nts PROTHROMBIN TIME (PT) (test code = 1402) 25.8 SECONDS INR (test code = 20090) 2.5 Javon Day AustinPROTHROMBIN TIME (PT)2021-02-04 00:00:00* Test Item Value Reference Range Interpretation Comme nts PROTHROMBIN TIME (PT) (test code = 1402) 25.8 SECONDS INR (test code = 94422) 2.5 Javon Day AustinPROTHROMBIN TIME (PT)2021-02-04 00:00:00* Test Item Value Reference Range Interpretation Comme nts PROTHROMBIN TIME (PT) (test code = 1402) 25.8 SECONDS INR (test code = 07586) 2.5 Javon Day AustinPROTHROMBIN TIME (PT)2021-02-04 00:00:00* Test Item Value Reference Range Interpretation Comme nts PROTHROMBIN TIME (PT) (test code = 1402) 25.8 SECONDS INR (test code = 37093) 2.5 Javon Day AustinPROTHROMBIN TIME (PT)2021-01-27 00:00:00* Test Item Value Reference Range Interpretation Comme nts PROTHROMBIN TIME (PT) (test code = 1402) 15.8 SECONDS INR (test code = 95327) 1.5 Javon Day AustinPROTHROMBIN TIME (PT)2021-01-27 00:00:00* Test Item Value Reference Range Interpretation Comme nts PROTHROMBIN TIME (PT) (test code = 1402) 15.8 SECONDS INR (test code = 17914) 1.5 Javon Day AustinPROTHROMBIN TIME (PT)2021-01-27 00:00:00* Test Item Value Reference Range Interpretation Comme nts PROTHROMBIN TIME (PT) (test code = 1402) 15.8 SECONDS INR (test code = 92029) 1.5 Javon Day AustinPROTHROMBIN TIME (PT)2021-01-27 00:00:00* Test Item Value Reference Range Interpretation Comme nts PROTHROMBIN TIME (PT) (test code = 1402) 15.8 SECONDS INR (test code = 37719) 1.5 Javon Day AustinPROTHROMBIN TIME (PT)2021-01-27 00:00:00* Test Item Value Reference Range Interpretation Comme nts PROTHROMBIN TIME (PT) (test code = 1402) 15.8 SECONDS INR (test code = 39159) 1.5 Javon Day AustinPROTHROMBIN TIME (PT)2021-01-27 00:00:00* Test Item Value Reference Range Interpretation Comme nts PROTHROMBIN TIME (PT) (test code = 1402) 15.8 SECONDS INR (test code = 24823) 1.5 Javon Day AustinPROTHROMBIN TIME (PT)2021-01-27 00:00:00* Test Item Value Reference Range Interpretation Comme nts PROTHROMBIN TIME (PT) (test code = 1402) 15.8 SECONDS INR (test code = 37828) 1.5 Javon Day AustinPROTHROMBIN TIME (PT)2021-01-23 00:00:00* Test Item Value Reference Range Interpretation Comme nts PROTHROMBIN TIME (PT) (test code = 1402) 11.7 SECONDS INR (test code = 09581) 1.1 Javon Day AustinPROTHROMBIN TIME (PT)2021-01-23 00:00:00* Test Item Value Reference Range Interpretation Comme nts PROTHROMBIN TIME (PT) (test code = 1402) 11.7 SECONDS INR (test code = 69394) 1.1 Javon Day AustinPROTHROMBIN TIME (PT)2021-01-23 00:00:00* Test Item Value Reference Range Interpretation Comme nts PROTHROMBIN TIME (PT) (test code = 1402) 11.7 SECONDS INR (test code = 41134) 1.1 Javon Day AustinPROTHROMBIN TIME (PT)2021-01-23 00:00:00* Test Item Value Reference Range Interpretation Comme nts PROTHROMBIN TIME (PT) (test code = 1402) 11.7 SECONDS INR (test code = 90975) 1.1 Javon Day AustinPROTHROMBIN TIME (PT)2021-01-23 00:00:00* Test Item Value Reference Range Interpretation Comme nts PROTHROMBIN TIME (PT) (test code = 1402) 11.7 SECONDS INR (test code = 84279) 1.1 Javon Day AustinPROTHROMBIN TIME (PT)2021-01-23 00:00:00* Test Item Value Reference Range Interpretation Comme nts PROTHROMBIN TIME (PT) (test code = 1402) 11.7 SECONDS INR (test code = 75289) 1.1 Javon Day AustinPROTHROMBIN TIME (PT)2021-01-23 00:00:00* Test Item Value Reference Range Interpretation Comme nts PROTHROMBIN TIME (PT) (test code = 1402) 11.7 SECONDS INR (test code = 71268) 1.1 Javon Day AustinPROTHROMBIN TIME (PT)2021-01-16 00:00:00* Test Item Value Reference Range Interpretation Comme nts PROTHROMBIN TIME (PT) (test code = 1402) 29.2 SECONDS INR (test code = 06956) 2.9 Javon Day AustinPROTHROMBIN TIME (PT)2021-01-16 00:00:00* Test Item Value Reference Range Interpretation Comme nts PROTHROMBIN TIME (PT) (test code = 1402) 29.2 SECONDS INR (test code = 76016) 2.9 Javon F AustinPROTHROMBIN TIME (PT)2021-01-16 00:00:00* Test Item Value Reference Range Interpretation Comme nts PROTHROMBIN TIME (PT) (test code = 1402) 29.2 SECONDS INR (test code = 38101) 2.9 Javon Day AustinPROTHROMBIN TIME (PT)2021-01-16 00:00:00* Test Item Value Reference Range Interpretation Comme nts PROTHROMBIN TIME (PT) (test code = 1402) 29.2 SECONDS INR (test code = 17242) 2.9 Javon Day AustinPROTHROMBIN TIME (PT)2021-01-16 00:00:00* Test Item Value Reference Range Interpretation Comme nts PROTHROMBIN TIME (PT) (test code = 1402) 29.2 SECONDS INR (test code = 72360) 2.9 Javon Day AustinPROTHROMBIN TIME (PT)2021-01-16 00:00:00* Test Item Value Reference Range Interpretation Comme nts PROTHROMBIN TIME (PT) (test code = 1402) 29.2 SECONDS INR (test code = 70790) 2.9 Javon Day AustinPROTHROMBIN TIME (PT)2021-01-16 00:00:00* Test Item Value Reference Range Interpretation Comme nts PROTHROMBIN TIME (PT) (test code = 1402) 29.2 SECONDS INR (test code = 94605) 2.9 Javon Day AustinPROTHROMBIN TIME (PT)2021-01-09 00:00:00* Test Item Value Reference Range Interpretation Comme nts PROTHROMBIN TIME (PT) (test code = 1402) 27.4 SECONDS INR (test code = 01987) 2.7 Javon Day AustinPROTHROMBIN TIME (PT)2021-01-09 00:00:00* Test Item Value Reference Range Interpretation Comme nts PROTHROMBIN TIME (PT) (test code = 1402) 27.4 SECONDS INR (test code = 99682) 2.7 Javon Day AustinPROTHROMBIN TIME (PT)2021-01-09 00:00:00* Test Item Value Reference Range Interpretation Comme nts PROTHROMBIN TIME (PT) (test code = 1402) 27.4 SECONDS INR (test code = 83749) 2.7 Javon Day AustinPROTHROMBIN TIME (PT)2021-01-09 00:00:00* Test Item Value Reference Range Interpretation Comme nts PROTHROMBIN TIME (PT) (test code = 1402) 27.4 SECONDS INR (test code = 51281) 2.7 Javon Day AustinPROTHROMBIN TIME (PT)2021-01-09 00:00:00* Test Item Value Reference Range Interpretation Comme nts PROTHROMBIN TIME (PT) (test code = 1402) 27.4 SECONDS INR (test code = 38728) 2.7 Javon Day AustinPROTHROMBIN TIME (PT)2021-01-09 00:00:00* Test Item Value Reference Range Interpretation Comme nts PROTHROMBIN TIME (PT) (test code = 1402) 27.4 SECONDS INR (test code = 19718) 2.7 Javon Day AustinPROTHROMBIN TIME (PT)2021-01-09 00:00:00* Test Item Value Reference Range Interpretation Comme nts PROTHROMBIN TIME (PT) (test code = 1402) 27.4 SECONDS INR (test code = 47664) 2.7 Javon Day AlfredoCOMPREHENSIVE METABOLIC [id number] 00:00:00* Test Item Value Reference Range Interpretation Comme nts GLUCOSE (test code = 2217) 125 MG/DL BUN (test code = 2208) 9 MG/DL CREATININE (test code = 2214) 0.62 MG/DL eGFR AMER. (test cod e = 80451) 125 ML/MIN/1.73 eGFR NON- AMER. (test code = 15094) 108 ML/MIN/1.73 CALC BUN/CREAT (test code = 2235) 15 RATIO SODIUM (test code = 2231) 138 MEQ/L POTASSIUM (test code = 2228) 4.6 MEQ/L CHLORIDE (test code = 2215) 106 MEQ/L CARBON DIOXIDE (test code = 2206) 25 MEQ/L CALCIUM (test code = 2209) 9.5 MG/DL PROTEIN, TOTAL (test code = 2229) 7.3 G/DL ALBUMIN (test code = 2201) 3.8 G/DL CALC GLOBULIN (test code = 2240) 3.5 G/DL CALC A/G RATIO (test code = 2234) 1.1 RATIO BILIRUBIN, TOTAL (test code = 2207) 0.4 MG/DL ALKALINE PHOSPHATASE (test code = 2204) 91 U/L AST (test code = 2218) 28 U/L ALT (test code = 2219) 26 U/L Javon [id number] 00:00:00* Test Item Value Reference Range Interpretation Comme nts TSH, THIRD GENERATION (test code = 2821) 1.370 UIU/ML Javon FuentesLIPID [id number] 00:00:00* Test Item Value Reference Range Interpretation Comme nts CHOLESTEROL (test code = 2210) 214 MG/DL TRIGLYCERIDES (test code = 2232) 103 MG/DL HDL CHOLESTEROL (test code = 2220) 46 MG/DL CALC LDL CHOL (test code = 2237) 146 MG/DL RISK RATIO LDL/HDL (test cod e = 2237) 3.17 RATIO Javon FuentesHEMOGLOBIN [id number] 00:00:00* Test Item Value Reference Range Interpretation Comme nts HEMOGLOBIN A1c (test code = 45095) 7.4 % Javon FuentesCOMPREHENSIVE METABOLIC [id number] 00:00:00* Test Item Value Reference Range Interpretation Comme nts GLUCOSE (test code = 7) 125 MG/DL BUN (test code = 8) 9 MG/DL CREATININE (test code = 2214) 0.62 MG/DL eGFR AMER. (test cod e = 40149) 125 ML/MIN/1.73 eGFR NON- AMER. (test code = 62628) 108 ML/MIN/1.73 CALC BUN/CREAT (test code = 2235) 15 RATIO SODIUM (test code = 2231) 138 MEQ/L POTASSIUM (test code = 2228) 4.6 MEQ/L CHLORIDE (test code = 2215) 106 MEQ/L CARBON DIOXIDE (test code = 2206) 25 MEQ/L CALCIUM (test code = 2209) 9.5 MG/DL PROTEIN, TOTAL (test code = 2229) 7.3 G/DL ALBUMIN (test code = 2201) 3.8 G/DL CALC GLOBULIN (test code = 2240) 3.5 G/DL CALC A/G RATIO (test code = 2234) 1.1 RATIO BILIRUBIN, TOTAL (test code = 2207) 0.4 MG/DL ALKALINE PHOSPHATASE (test code = 2204) 91 U/L AST (test code = 2218) 28 U/L ALT (test code = 2219) 26 U/L Javon [id number] 00:00:00* Test Item Value Reference Range Interpretation Comme tasha TSH, THIRD GENERATION (test code = 2821) 1.370 UIU/ML Javon FuentesLIPID [id number] 00:00:00* Test Item Value Reference Range Interpretation Comme nts CHOLESTEROL (test code = 2210) 214 MG/DL TRIGLYCERIDES (test code = 2232) 103 MG/DL HDL CHOLESTEROL (test code = 2220) 46 MG/DL CALC LDL CHOL (test code = 2237) 146 MG/DL RISK RATIO LDL/HDL (test cod e = 223) 3.17 RATIO Javon FuentesHEMOGLOBIN [id number] 00:00:00* Test Item Value Reference Range Interpretation Comme tasha HEMOGLOBIN A1c (test code = 27980) 7.4 % Javon FuentesCOMPREHENSIVE METABOLIC [id number] 00:00:00* Test Item Value Reference Range Interpretation Comme nts GLUCOSE (test code = 7) 125 MG/DL BUN (test code = 2208) 9 MG/DL CREATININE (test code = 2214) 0.62 MG/DL eGFR AMER. (test cod e = 69455) 125 ML/MIN/1.73 eGFR NON- AMER. (test code = 35039) 108 ML/MIN/1.73 CALC BUN/CREAT (test code = 2235) 15 RATIO SODIUM (test code = 2231) 138 MEQ/L POTASSIUM (test code = 2228) 4.6 MEQ/L CHLORIDE (test code = 2215) 106 MEQ/L CARBON DIOXIDE (test code = 2206) 25 MEQ/L CALCIUM (test code = 2209) 9.5 MG/DL PROTEIN, TOTAL (test code = 2229) 7.3 G/DL ALBUMIN (test code = 2201) 3.8 G/DL CALC GLOBULIN (test code = 2240) 3.5 G/DL CALC A/G RATIO (test code = 2234) 1.1 RATIO BILIRUBIN, TOTAL (test code = 2207) 0.4 MG/DL ALKALINE PHOSPHATASE (test code = 2204) 91 U/L AST (test code = 2218) 28 U/L ALT (test code = 2219) 26 U/L Javon [id number] 00:00:00* Test Item Value Reference Range Interpretation Comme nts TSH, THIRD GENERATION (test code = 2821) 1.370 UIU/ML Javon FuentesLIPID [id number] 00:00:00* Test Item Value Reference Range Interpretation Comme nts CHOLESTEROL (test code = 2210) 214 MG/DL TRIGLYCERIDES (test code = 2232) 103 MG/DL HDL CHOLESTEROL (test code = 2220) 46 MG/DL CALC LDL CHOL (test code = 2237) 146 MG/DL RISK RATIO LDL/HDL (test cod e = 2238) 3.17 RATIO Javon FuentesHEMOGLOBIN [id number] 00:00:00* Test Item Value Reference Range Interpretation Comme nts HEMOGLOBIN A1c (test code = 71556) 7.4 % Javon FuentesCOMPREHENSIVE METABOLIC [id number] 00:00:00* Test Item Value Reference Range Interpretation Comme nts GLUCOSE (test code = 7) 125 MG/DL BUN (test code = 2208) 9 MG/DL CREATININE (test code = 2214) 0.62 MG/DL eGFR AMER. (test cod e = 75795) 125 ML/MIN/1.73 eGFR NON- AMER. (test code = 85223) 108 ML/MIN/1.73 CALC BUN/CREAT (test code = 2235) 15 RATIO SODIUM (test code = 2231) 138 MEQ/L POTASSIUM (test code = 2228) 4.6 MEQ/L CHLORIDE (test code = 2215) 106 MEQ/L CARBON DIOXIDE (test code = 2206) 25 MEQ/L CALCIUM (test code = 2209) 9.5 MG/DL PROTEIN, TOTAL (test code = 2229) 7.3 G/DL ALBUMIN (test code = 2201) 3.8 G/DL CALC GLOBULIN (test code = 2240) 3.5 G/DL CALC A/G RATIO (test code = 2234) 1.1 RATIO BILIRUBIN, TOTAL (test code = 2207) 0.4 MG/DL ALKALINE PHOSPHATASE (test code = 2204) 91 U/L AST (test code = 2218) 28 U/L ALT (test code = 2219) 26 U/L Javon [id number] 00:00:00* Test Item Value Reference Range Interpretation Comme tasha TSH, THIRD GENERATION (test code = 2821) 1.370 UIU/ML Javon FuentesLIPID [id number] 00:00:00* Test Item Value Reference Range Interpretation Comme nts CHOLESTEROL (test code = 2210) 214 MG/DL TRIGLYCERIDES (test code = 2232) 103 MG/DL HDL CHOLESTEROL (test code = 2220) 46 MG/DL CALC LDL CHOL (test code = 2237) 146 MG/DL RISK RATIO LDL/HDL (test cod e = 2238) 3.17 RATIO Javon FuentesHEMOGLOBIN [id number] 00:00:00* Test Item Value Reference Range Interpretation Comme tasha HEMOGLOBIN A1c (test code = 19892) 7.4 % Javon FuentesCOMPREHENSIVE METABOLIC [id number] 00:00:00* Test Item Value Reference Range Interpretation Comme nts GLUCOSE (test code = 2217) 125 MG/DL BUN (test code = 2208) 9 MG/DL CREATININE (test code = 2214) 0.62 MG/DL eGFR AMER. (test cod e = 19893) 125 ML/MIN/1.73 eGFR NON- AMER. (test code = 51716) 108 ML/MIN/1.73 CALC BUN/CREAT (test code = 2235) 15 RATIO SODIUM (test code = 2231) 138 MEQ/L POTASSIUM (test code = 2228) 4.6 MEQ/L CHLORIDE (test code = 2215) 106 MEQ/L CARBON DIOXIDE (test code = 2206) 25 MEQ/L CALCIUM (test code = 2209) 9.5 MG/DL PROTEIN, TOTAL (test code = 2229) 7.3 G/DL ALBUMIN (test code = 2201) 3.8 G/DL CALC GLOBULIN (test code = 2240) 3.5 G/DL CALC A/G RATIO (test code = 2234) 1.1 RATIO BILIRUBIN, TOTAL (test code = 2207) 0.4 MG/DL ALKALINE PHOSPHATASE (test code = 2204) 91 U/L AST (test code = 2218) 28 U/L ALT (test code = 2219) 26 U/L Javon [id number] 00:00:00* Test Item Value Reference Range Interpretation Comme nts TSH, THIRD GENERATION (test code = 2821) 1.370 UIU/ML Javon FuentesLIPID [id number] 00:00:00* Test Item Value Reference Range Interpretation Comme nts CHOLESTEROL (test code = 2210) 214 MG/DL TRIGLYCERIDES (test code = 2232) 103 MG/DL HDL CHOLESTEROL (test code = 2220) 46 MG/DL CALC LDL CHOL (test code = 2237) 146 MG/DL RISK RATIO LDL/HDL (test cod e = 2238) 3.17 RATIO Javon FuentesHEMOGLOBIN [id number] 00:00:00* Test Item Value Reference Range Interpretation Comme nts HEMOGLOBIN A1c (test code = 41436) 7.4 % Javon FuentesCOMPREHENSIVE METABOLIC [id number] 00:00:00* Test Item Value Reference Range Interpretation Comme nts GLUCOSE (test code = 2217) 125 MG/DL BUN (test code = 2208) 9 MG/DL CREATININE (test code = 2214) 0.62 MG/DL eGFR AMER. (test cod e = 50512) 125 ML/MIN/1.73 eGFR NON- AMER. (test code = 49907) 108 ML/MIN/1.73 CALC BUN/CREAT (test code = 2235) 15 RATIO SODIUM (test code = 2231) 138 MEQ/L POTASSIUM (test code = 2228) 4.6 MEQ/L CHLORIDE (test code = 2215) 106 MEQ/L CARBON DIOXIDE (test code = 2206) 25 MEQ/L CALCIUM (test code = 2209) 9.5 MG/DL PROTEIN, TOTAL (test code = 2229) 7.3 G/DL ALBUMIN (test code = 2201) 3.8 G/DL CALC GLOBULIN (test code = 2240) 3.5 G/DL CALC A/G RATIO (test code = 2234) 1.1 RATIO BILIRUBIN, TOTAL (test code = 2207) 0.4 MG/DL ALKALINE PHOSPHATASE (test code = 2204) 91 U/L AST (test code = 2218) 28 U/L ALT (test code = 2219) 26 U/L Javon [id number] 00:00:00* Test Item Value Reference Range Interpretation Comme nts TSH, THIRD GENERATION (test code = 2821) 1.370 UIU/ML Javon FuentesLIPID [id number] 00:00:00* Test Item Value Reference Range Interpretation Comme nts CHOLESTEROL (test code = 2210) 214 MG/DL TRIGLYCERIDES (test code = 2232) 103 MG/DL HDL CHOLESTEROL (test code = 2220) 46 MG/DL CALC LDL CHOL (test code = 2237) 146 MG/DL RISK RATIO LDL/HDL (test cod e = 2238) 3.17 RATIO Javon FuentesHEMOGLOBIN [id number] 00:00:00* Test Item Value Reference Range Interpretation Comme tasha HEMOGLOBIN A1c (test code = 80496) 7.4 % Javon FuentesCOMPREHENSIVE METABOLIC [id number] 00:00:00* Test Item Value Reference Range Interpretation Comme nts GLUCOSE (test code = 2217) 125 MG/DL BUN (test code = 2208) 9 MG/DL CREATININE (test code = 2214) 0.62 MG/DL eGFR AMER. (test cod e = 66606) 125 ML/MIN/1.73 eGFR NON- AMER. (test code = 03176) 108 ML/MIN/1.73 CALC BUN/CREAT (test code = 2235) 15 RATIO SODIUM (test code = 2231) 138 MEQ/L POTASSIUM (test code = 2228) 4.6 MEQ/L CHLORIDE (test code = 2215) 106 MEQ/L CARBON DIOXIDE (test code = 2206) 25 MEQ/L CALCIUM (test code = 2209) 9.5 MG/DL PROTEIN, TOTAL (test code = 2229) 7.3 G/DL ALBUMIN (test code = 2201) 3.8 G/DL CALC GLOBULIN (test code = 2240) 3.5 G/DL CALC A/G RATIO (test code = 2234) 1.1 RATIO BILIRUBIN, TOTAL (test code = 2207) 0.4 MG/DL ALKALINE PHOSPHATASE (test code = 2204) 91 U/L AST (test code = 2218) 28 U/L ALT (test code = 2219) 26 U/L Javon [id number] 00:00:00* Test Item Value Reference Range Interpretation Comme tasha TSH, THIRD GENERATION (test code = 2821) 1.370 UIU/ML Javon FuentesLIPID [id number] 00:00:00* Test Item Value Reference Range Interpretation Comme nts CHOLESTEROL (test code = 2210) 214 MG/DL TRIGLYCERIDES (test code = 2232) 103 MG/DL HDL CHOLESTEROL (test code = 2220) 46 MG/DL CALC LDL CHOL (test code = 2237) 146 MG/DL RISK RATIO LDL/HDL (test cod e = 2238) 3.17 RATIO Javon FuentesHEMOGLOBIN [id number] 00:00:00* Test Item Value Reference Range Interpretation Comme nts HEMOGLOBIN A1c (test code = 51837) 7.4 % Javon Day AustinPROTHROMBIN TIME (PT)2021-01-02 00:00:00* Test Item Value Reference Range Interpretation Comme nts PROTHROMBIN TIME (PT) (test code = 1402) 17.3 SECONDS INR (test code = 07406) 1.7 Javon FuentesCBC W/AUTO [id number] 00:00:00* Test Item Value Reference Range Interpretation Comme nts WBC (test code = 1001) 6.0 K/UL RBC (test code = 1002) 4.55 M/UL HEMOGLOBIN (test code = 1003) 11.2 G/DL HEMATOCRIT (test code = 1004) 37.3 % MCV (test code = 1005) 82.0 fL MCH (test code = 1006) 24.6 PG MCHC (test code = 1007) 30.0 G/DL RDW (test code = 1038) 16.0 % NEUTROPHILS (test code = 1008) 60 % LYMPHOCYTES (test code = 1010) 28 % MONOCYTES (test code = 1011) 9 % EOSINOPHILS (test code = 1012) 4 % PLATELET COUNT (test code = 1015) 364 K/UL ABSOLUTE NEUTROPHILS (test c ode = 1066) 3.58 K/UL ABSOLUTE LYMPHOCYTES (test c ode = 1067) 1.65 K/UL ABSOLUTE MONOCYTES (test cod e = 1068) 0.51 K/UL ABSOLUTE EOSINOPHILS (test c ode = 1040) 0.22 K/UL ABSOLUTE BASOPHILS (test cod e = 1069) 0.02 K/UL Javon Day AustinPROTHROMBIN TIME (PT)2021-01-02 00:00:00* Test Item Value Reference Range Interpretation Comme nts PROTHROMBIN TIME (PT) (test code = 1402) 17.3 SECONDS INR (test code = 80765) 1.7 Javon FuentesCBC W/AUTO [id number] 00:00:00* Test Item Value Reference Range Interpretation Comme nts WBC (test code = 1001) 6.0 K/UL RBC (test code = 1002) 4.55 M/UL HEMOGLOBIN (test code = 1003) 11.2 G/DL HEMATOCRIT (test code = 1004) 37.3 % MCV (test code = 1005) 82.0 fL MCH (test code = 1006) 24.6 PG MCHC (test code = 1007) 30.0 G/DL RDW (test code = 1038) 16.0 % NEUTROPHILS (test code = 1008) 60 % LYMPHOCYTES (test code = 1010) 28 % MONOCYTES (test code = 1011) 9 % EOSINOPHILS (test code = 1012) 4 % PLATELET COUNT (test code = 1015) 364 K/UL ABSOLUTE NEUTROPHILS (test c ode = 1066) 3.58 K/UL ABSOLUTE LYMPHOCYTES (test c ode = 1067) 1.65 K/UL ABSOLUTE MONOCYTES (test cod e = 1068) 0.51 K/UL ABSOLUTE EOSINOPHILS (test c ode = 1040) 0.22 K/UL ABSOLUTE BASOPHILS (test cod e = 1069) 0.02 K/UL Javon FuentesPROTHROMBIN TIME (PT)2021-01-02 00:00:00* Test Item Value Reference Range Interpretation Comme nts PROTHROMBIN TIME (PT) (test code = 1402) 17.3 SECONDS INR (test code = 90739) 1.7 Javon FuentesCBC W/AUTO [id number] 00:00:00* Test Item Value Reference Range Interpretation Comme nts WBC (test code = 1001) 6.0 K/UL RBC (test code = 1002) 4.55 M/UL HEMOGLOBIN (test code = 1003) 11.2 G/DL HEMATOCRIT (test code = 1004) 37.3 % MCV (test code = 1005) 82.0 fL MCH (test code = 1006) 24.6 PG MCHC (test code = 1007) 30.0 G/DL RDW (test code = 1038) 16.0 % NEUTROPHILS (test code = 1008) 60 % LYMPHOCYTES (test code = 1010) 28 % MONOCYTES (test code = 1011) 9 % EOSINOPHILS (test code = 1012) 4 % PLATELET COUNT (test code = 1015) 364 K/UL ABSOLUTE NEUTROPHILS (test c ode = 1066) 3.58 K/UL ABSOLUTE LYMPHOCYTES (test c ode = 1067) 1.65 K/UL ABSOLUTE MONOCYTES (test cod e = 1068) 0.51 K/UL ABSOLUTE EOSINOPHILS (test c ode = 1040) 0.22 K/UL ABSOLUTE BASOPHILS (test cod e = 1069) 0.02 K/UL Javon Day AustinPROTHROMBIN TIME (PT)2021-01-02 00:00:00* Test Item Value Reference Range Interpretation Comme nts PROTHROMBIN TIME (PT) (test code = 1402) 17.3 SECONDS INR (test code = 37078) 1.7 Javon Day FranklinCBC W/AUTO [id number] 00:00:00* Test Item Value Reference Range Interpretation Comme nts WBC (test code = 1001) 6.0 K/UL RBC (test code = 1002) 4.55 M/UL HEMOGLOBIN (test code = 1003) 11.2 G/DL HEMATOCRIT (test code = 1004) 37.3 % MCV (test code = 1005) 82.0 fL MCH (test code = 1006) 24.6 PG MCHC (test code = 1007) 30.0 G/DL RDW (test code = 1038) 16.0 % NEUTROPHILS (test code = 1008) 60 % LYMPHOCYTES (test code = 1010) 28 % MONOCYTES (test code = 1011) 9 % EOSINOPHILS (test code = 1012) 4 % PLATELET COUNT (test code = 1015) 364 K/UL ABSOLUTE NEUTROPHILS (test c ode = 1066) 3.58 K/UL ABSOLUTE LYMPHOCYTES (test c ode = 1067) 1.65 K/UL ABSOLUTE MONOCYTES (test cod e = 1068) 0.51 K/UL ABSOLUTE EOSINOPHILS (test c ode = 1040) 0.22 K/UL ABSOLUTE BASOPHILS (test cod e = 1069) 0.02 K/UL Javon Day AustinPROTHROMBIN TIME (PT)2021-01-02 00:00:00* Test Item Value Reference Range Interpretation Comme nts PROTHROMBIN TIME (PT) (test code = 1402) 17.3 SECONDS INR (test code = 66323) 1.7 Javon Day AustinCBC W/AUTO [id number] 00:00:00* Test Item Value Reference Range Interpretation Comme nts WBC (test code = 1001) 6.0 K/UL RBC (test code = 1002) 4.55 M/UL HEMOGLOBIN (test code = 1003) 11.2 G/DL HEMATOCRIT (test code = 1004) 37.3 % MCV (test code = 1005) 82.0 fL MCH (test code = 1006) 24.6 PG MCHC (test code = 1007) 30.0 G/DL RDW (test code = 1038) 16.0 % NEUTROPHILS (test code = 1008) 60 % LYMPHOCYTES (test code = 1010) 28 % MONOCYTES (test code = 1011) 9 % EOSINOPHILS (test code = 1012) 4 % PLATELET COUNT (test code = 1015) 364 K/UL ABSOLUTE NEUTROPHILS (test c ode = 1066) 3.58 K/UL ABSOLUTE LYMPHOCYTES (test c ode = 1067) 1.65 K/UL ABSOLUTE MONOCYTES (test cod e = 1068) 0.51 K/UL ABSOLUTE EOSINOPHILS (test c ode = 1040) 0.22 K/UL ABSOLUTE BASOPHILS (test cod e = 1069) 0.02 K/UL Javon FuentesPROTHROMBIN TIME (PT)2021-01-02 00:00:00* Test Item Value Reference Range Interpretation Comme nts PROTHROMBIN TIME (PT) (test code = 1402) 17.3 SECONDS INR (test code = 50974) 1.7 Javon Day AustinCBC W/AUTO [id number] 00:00:00* Test Item Value Reference Range Interpretation Comme nts WBC (test code = 1001) 6.0 K/UL RBC (test code = 1002) 4.55 M/UL HEMOGLOBIN (test code = 1003) 11.2 G/DL HEMATOCRIT (test code = 1004) 37.3 % MCV (test code = 1005) 82.0 fL MCH (test code = 1006) 24.6 PG MCHC (test code = 1007) 30.0 G/DL RDW (test code = 1038) 16.0 % NEUTROPHILS (test code = 1008) 60 % LYMPHOCYTES (test code = 1010) 28 % MONOCYTES (test code = 1011) 9 % EOSINOPHILS (test code = 1012) 4 % PLATELET COUNT (test code = 1015) 364 K/UL ABSOLUTE NEUTROPHILS (test c ode = 1066) 3.58 K/UL ABSOLUTE LYMPHOCYTES (test c ode = 1067) 1.65 K/UL ABSOLUTE MONOCYTES (test cod e = 1068) 0.51 K/UL ABSOLUTE EOSINOPHILS (test c ode = 1040) 0.22 K/UL ABSOLUTE BASOPHILS (test cod e = 1069) 0.02 K/UL Javon Day AustinPROTHROMBIN TIME (PT)2021-01-02 00:00:00* Test Item Value Reference Range Interpretation Comme nts PROTHROMBIN TIME (PT) (test code = 1402) 17.3 SECONDS INR (test code = 94632) 1.7 [facility] [id number] [facility]:00:00* Test Item Value Reference Range Interpretation Comme nts WBC (test code = 1001) 6.0 K/UL RBC (test code = 1002) 4.55 M/UL HEMOGLOBIN (test code = 1003) 11.2 G/DL HEMATOCRIT (test code = 1004) 37.3 % MCV (test code = 1005) 82.0 fL MCH (test code = 1006) 24.6 PG MCHC (test code = 1007) 30.0 G/DL RDW (test code = 1038) 16.0 % NEUTROPHILS (test code = 1008) 60 % LYMPHOCYTES (test code = 1010) 28 % MONOCYTES (test code = 1011) 9 % EOSINOPHILS (test code = 1012) 4 % PLATELET COUNT (test code = 1015) 364 K/UL ABSOLUTE NEUTROPHILS (test c ode = 1066) 3.58 K/UL ABSOLUTE LYMPHOCYTES (test c ode = 1067) 1.65 K/UL ABSOLUTE MONOCYTES (test cod e = 1068) 0.51 K/UL ABSOLUTE EOSINOPHILS (test c ode = 1040) 0.22 K/UL ABSOLUTE BASOPHILS (test cod e = 1069) 0.02 K/UL Javon Day AustinPROTHROMBIN TIME (PT)2020-12-30 00:00:00* Test Item Value Reference Range Interpretation Comme nts PROTHROMBIN TIME (PT) (test code = 1402) 19.9 SECONDS INR (test code = 30843) 1.9 Javon Day AustinPROTHROMBIN TIME (PT)2020-12-30 00:00:00* Test Item Value Reference Range Interpretation Comme nts PROTHROMBIN TIME (PT) (test code = 1402) 19.9 SECONDS INR (test code = 42033) 1.9 Javon Day AustinPROTHROMBIN TIME (PT)2020-12-30 00:00:00* Test Item Value Reference Range Interpretation Comme nts PROTHROMBIN TIME (PT) (test code = 1402) 19.9 SECONDS INR (test code = 19567) 1.9 Javon Day AustinPROTHROMBIN TIME (PT)2020-12-30 00:00:00* Test Item Value Reference Range Interpretation Comme nts PROTHROMBIN TIME (PT) (test code = 1402) 19.9 SECONDS INR (test code = 67294) 1.9 Javon Day AustinPROTHROMBIN TIME (PT)2020-12-30 00:00:00* Test Item Value Reference Range Interpretation Comme nts PROTHROMBIN TIME (PT) (test code = 1402) 19.9 SECONDS INR (test code = 84485) 1.9 Javon Day AustinPROTHROMBIN TIME (PT)2020-12-30 00:00:00* Test Item Value Reference Range Interpretation Comme nts PROTHROMBIN TIME (PT) (test code = 1402) 19.9 SECONDS INR (test code = 71676) 1.9 Javon Day AustinPROTHROMBIN TIME (PT)2020-12-30 00:00:00* Test Item Value Reference Range Interpretation Comme nts PROTHROMBIN TIME (PT) (test code = 1402) 19.9 SECONDS INR (test code = 04373) 1.9 Javon Day AustinPROTHROMBIN TIME (PT)2020-12-26 00:00:00* Test Item Value Reference Range Interpretation Comme nts PROTHROMBIN TIME (PT) (test code = 1402) 17.3 SECONDS INR (test code = 53309) 1.7 Javon Day AustinPROTHROMBIN TIME (PT)2020-12-26 00:00:00* Test Item Value Reference Range Interpretation Comme nts PROTHROMBIN TIME (PT) (test code = 1402) 17.3 SECONDS INR (test code = 12458) 1.7 Javon Day AustinPROTHROMBIN TIME (PT)2020-12-26 00:00:00* Test Item Value Reference Range Interpretation Comme nts PROTHROMBIN TIME (PT) (test code = 1402) 17.3 SECONDS INR (test code = 54866) 1.7 Javon Day AustinPROTHROMBIN TIME (PT)2020-12-26 00:00:00* Test Item Value Reference Range Interpretation Comme nts PROTHROMBIN TIME (PT) (test code = 1402) 17.3 SECONDS INR (test code = 98403) 1.7 Javon Day AustinPROTHROMBIN TIME (PT)2020-12-26 00:00:00* Test Item Value Reference Range Interpretation Comme nts PROTHROMBIN TIME (PT) (test code = 1402) 17.3 SECONDS INR (test code = 08057) 1.7 Javon Day AustinPROTHROMBIN TIME (PT)2020-12-26 00:00:00* Test Item Value Reference Range Interpretation Comme nts PROTHROMBIN TIME (PT) (test code = 1402) 17.3 SECONDS INR (test code = 70542) 1.7 Javon Day AustinPROTHROMBIN TIME (PT)2020-12-26 00:00:00* Test Item Value Reference Range Interpretation Comme nts PROTHROMBIN TIME (PT) (test code = 1402) 17.3 SECONDS INR (test code = 44988) 1.7 Javon Day AustinPROTHROMBIN TIME (PT)2020-12-22 00:00:00* Test Item Value Reference Range Interpretation Comme nts PROTHROMBIN TIME (PT) (test code = 1402) 16.1 SECONDS INR (test code = 47902) 1.6 Javon Day AustinPROTHROMBIN TIME (PT)2020-12-22 00:00:00* Test Item Value Reference Range Interpretation Comme nts PROTHROMBIN TIME (PT) (test code = 1402) 16.1 SECONDS INR (test code = 29191) 1.6 Javon Day AustinPROTHROMBIN TIME (PT)2020-12-22 00:00:00* Test Item Value Reference Range Interpretation Comme nts PROTHROMBIN TIME (PT) (test code = 1402) 16.1 SECONDS INR (test code = 61751) 1.6 Javon Day AustinPROTHROMBIN TIME (PT)2020-12-22 00:00:00* Test Item Value Reference Range Interpretation Comme nts PROTHROMBIN TIME (PT) (test code = 1402) 16.1 SECONDS INR (test code = 17985) 1.6 Javon Day AustinPROTHROMBIN TIME (PT)2020-12-22 00:00:00* Test Item Value Reference Range Interpretation Comme nts PROTHROMBIN TIME (PT) (test code = 1402) 16.1 SECONDS INR (test code = 32655) 1.6 Javon Day AustinPROTHROMBIN TIME (PT)2020-12-22 00:00:00* Test Item Value Reference Range Interpretation Comme nts PROTHROMBIN TIME (PT) (test code = 1402) 16.1 SECONDS INR (test code = 21077) 1.6 Javon Day AustinPROTHROMBIN TIME (PT)2020-12-22 00:00:00* Test Item Value Reference Range Interpretation Comme nts PROTHROMBIN TIME (PT) (test code = 1402) 16.1 SECONDS INR (test code = 16317) 1.6 Javon Day AustinPROTHROMBIN TIME (PT)2020-12-16 00:00:00* Test Item Value Reference Range Interpretation Comme nts PROTHROMBIN TIME (PT) (test code = 1402) 25.0 SECONDS INR (test code = 11763) 2.4 Javon Day AustinPROTHROMBIN TIME (PT)2020-12-16 00:00:00* Test Item Value Reference Range Interpretation Comme nts PROTHROMBIN TIME (PT) (test code = 1402) 25.0 SECONDS INR (test code = 76191) 2.4 Javon Day AustinPROTHROMBIN TIME (PT)2020-12-16 00:00:00* Test Item Value Reference Range Interpretation Comme nts PROTHROMBIN TIME (PT) (test code = 1402) 25.0 SECONDS INR (test code = 57802) 2.4 Javon Day AustinPROTHROMBIN TIME (PT)2020-12-16 00:00:00* Test Item Value Reference Range Interpretation Comme nts PROTHROMBIN TIME (PT) (test code = 1402) 25.0 SECONDS INR (test code = 38828) 2.4 Javon Day AustinPROTHROMBIN TIME (PT)2020-12-16 00:00:00* Test Item Value Reference Range Interpretation Comme nts PROTHROMBIN TIME (PT) (test code = 1402) 25.0 SECONDS INR (test code = 14263) 2.4 Javon Day AustinPROTHROMBIN TIME (PT)2020-12-16 00:00:00* Test Item Value Reference Range Interpretation Comme nts PROTHROMBIN TIME (PT) (test code = 1402) 25.0 SECONDS INR (test code = 62750) 2.4 Javon Day AustinPROTHROMBIN TIME (PT)2020-12-16 00:00:00* Test Item Value Reference Range Interpretation Comme nts PROTHROMBIN TIME (PT) (test code = 1402) 25.0 SECONDS INR (test code = 30781) 2.4 Javon Day AustinREFERRED PROTIME [ADDED]2020-12-12 00:00:00* Test Item Value Reference Range Interpretation Comme nts REFERRED PROTIME (test code = 47356) 33.0 SECONDS REFERRED INR (test code = 63527) 3.3 Javon Day AustinREFERRED PROTIME [ADDED]2020-12-12 00:00:00* Test Item Value Reference Range Interpretation Comme nts REFERRED PROTIME (test code = 72006) 33.0 SECONDS REFERRED INR (test code = 12827) 3.3 Javon Day AustinREFERRED PROTIME [ADDED]2020-12-12 00:00:00* Test Item Value Reference Range Interpretation Comme nts REFERRED PROTIME (test code = 69016) 33.0 SECONDS REFERRED INR (test code = 44143) 3.3 Javon Day AustinREFERRED PROTIME [ADDED]2020-12-12 00:00:00* Test Item Value Reference Range Interpretation Comme nts REFERRED PROTIME (test code = 72597) 33.0 SECONDS REFERRED INR (test code = 66311) 3.3 Javon Day AustinREFERRED PROTIME [ADDED]2020-12-12 00:00:00* Test Item Value Reference Range Interpretation Comme nts REFERRED PROTIME (test code = 19374) 33.0 SECONDS REFERRED INR (test code = 06412) 3.3 Javon Day AustinREFERRED PROTIME [ADDED]2020-12-12 00:00:00* Test Item Value Reference Range Interpretation Comme nts REFERRED PROTIME (test code = 07909) 33.0 SECONDS REFERRED INR (test code = 48774) 3.3 Javon Day AustinREFERRED PROTIME [ADDED]2020-12-12 00:00:00* Test Item Value Reference Range Interpretation Comme nts REFERRED PROTIME (test code = 74335) 33.0 SECONDS REFERRED INR (test code = 70640) 3.3 Javon Day AustinREFERRED PROTIME [ADDED]2020-12-10 00:00:00* Test Item Value Reference Range Interpretation Comme nts REFERRED PROTIME (test code = 98085) 17.2 SECONDS REFERRED INR (test code = 00937) 1.4 Javon Day AustinREFERRED PROTIME [ADDED]2020-12-10 00:00:00* Test Item Value Reference Range Interpretation Comme nts REFERRED PROTIME (test code = 08308) 17.2 SECONDS REFERRED INR (test code = 62774) 1.4 Javon Day AustinREFERRED PROTIME [ADDED]2020-12-10 00:00:00* Test Item Value Reference Range Interpretation Comme nts REFERRED PROTIME (test code = 56518) 17.2 SECONDS REFERRED INR (test code = 74631) 1.4 Javon Day AustinREFERRED PROTIME [ADDED]2020-12-10 00:00:00* Test Item Value Reference Range Interpretation Comme nts REFERRED PROTIME (test code = 88604) 17.2 SECONDS REFERRED INR (test code = 52616) 1.4 Javon Day AustinREFERRED PROTIME [ADDED]2020-12-10 00:00:00* Test Item Value Reference Range Interpretation Comme nts REFERRED PROTIME (test code = 94369) 17.2 SECONDS REFERRED INR (test code = 94951) 1.4 Javon Day AustinREFERRED PROTIME [ADDED]2020-12-10 00:00:00* Test Item Value Reference Range Interpretation Comme nts REFERRED PROTIME (test code = 80475) 17.2 SECONDS REFERRED INR (test code = 86113) 1.4 Javon Day AustinREFERRED PROTIME [ADDED]2020-12-10 00:00:00* Test Item Value Reference Range Interpretation Comme nts REFERRED PROTIME (test code = 36373) 17.2 SECONDS REFERRED INR (test code = 68714) 1.4 Javon Day AustinPROTHROMBIN TIME (PT)2020-12-09 00:00:00* Test Item Value Reference Range Interpretation Comme nts PROTHROMBIN TIME (PT) (test code = 1402) TEST NOT PERFORMED SECONDS INR (test code = 92327) TEST NOT PERFORMED Javon F AustinPROTHROMBIN TIME (PT)2020-12-09 00:00:00* Test Item Value Reference Range Interpretation Comme nts PROTHROMBIN TIME (PT) (test code = 1402) TEST NOT PERFORMED SECONDS INR (test code = 87873) TEST NOT PERFORMED Javon F AustinPROTHROMBIN TIME (PT)2020-12-09 00:00:00* Test Item Value Reference Range Interpretation Comme nts PROTHROMBIN TIME (PT) (test code = 1402) TEST NOT PERFORMED SECONDS INR (test code = 15266) TEST NOT PERFORMED Javon F AustinPROTHROMBIN TIME (PT)2020-12-09 00:00:00* Test Item Value Reference Range Interpretation Comme nts PROTHROMBIN TIME (PT) (test code = 1402) TEST NOT PERFORMED SECONDS INR (test code = 50383) TEST NOT PERFORMED Javon F AustinPROTHROMBIN TIME (PT)2020-12-09 00:00:00* Test Item Value Reference Range Interpretation Comme nts PROTHROMBIN TIME (PT) (test code = 1402) TEST NOT PERFORMED SECONDS INR (test code = 92122) TEST NOT PERFORMED Javon F AustinPROTHROMBIN TIME (PT)2020-12-09 00:00:00* Test Item Value Reference Range Interpretation Comme nts PROTHROMBIN TIME (PT) (test code = 1402) TEST NOT PERFORMED SECONDS INR (test code = 75586) TEST NOT PERFORMED Javon F AustinPROTHROMBIN TIME (PT)2020-12-09 00:00:00* Test Item Value Reference Range Interpretation Comme nts PROTHROMBIN TIME (PT) (test code = 1402) TEST NOT PERFORMED SECONDS INR (test code = 65334) TEST NOT PERFORMED Javon F AustinPROTHROMBIN TIME (PT)2020-12-06 00:00:00* Test Item Value Reference Range Interpretation Comme nts PROTHROMBIN TIME (PT) (test code = 1402) 24.9 SECONDS INR (test code = 08926) 2.2 Javon F AustinPROTHROMBIN TIME (PT)2020-12-06 00:00:00* Test Item Value Reference Range Interpretation Comme nts PROTHROMBIN TIME (PT) (test code = 1402) 24.9 SECONDS INR (test code = 48581) 2.2 Javon F AustinPROTHROMBIN TIME (PT)2020-12-06 00:00:00* Test Item Value Reference Range Interpretation Comme nts PROTHROMBIN TIME (PT) (test code = 1402) 24.9 SECONDS INR (test code = 96677) 2.2 Javon Day AustinPROTHROMBIN TIME (PT)2020-12-06 00:00:00* Test Item Value Reference Range Interpretation Comme nts PROTHROMBIN TIME (PT) (test code = 1402) 24.9 SECONDS INR (test code = 82524) 2.2 Javon Day AustinPROTHROMBIN TIME (PT)2020-12-06 00:00:00* Test Item Value Reference Range Interpretation Comme nts PROTHROMBIN TIME (PT) (test code = 1402) 24.9 SECONDS INR (test code = 50371) 2.2 Javon Day AustinPROTHROMBIN TIME (PT)2020-12-06 00:00:00* Test Item Value Reference Range Interpretation Comme nts PROTHROMBIN TIME (PT) (test code = 1402) 24.9 SECONDS INR (test code = 38141) 2.2 Javon Day AustinPROTHROMBIN TIME (PT)2020-12-06 00:00:00* Test Item Value Reference Range Interpretation Comme nts PROTHROMBIN TIME (PT) (test code = 1402) 24.9 SECONDS INR (test code = 45927) 2.2 Javon Day AustinREFERRED PROTIME [ADDED]2020-12-02 00:00:00* Test Item Value Reference Range Interpretation Comme nts REFERRED PROTIME (test code = 50751) 25.7 SECONDS REFERRED INR (test code = 62496) 2.4 Javon Day AustinREFERRED PROTIME [ADDED]2020-12-02 00:00:00* Test Item Value Reference Range Interpretation Comme nts REFERRED PROTIME (test code = 72947) 25.7 SECONDS REFERRED INR (test code = 08468) 2.4 Javon Day AustinREFERRED PROTIME [ADDED]2020-12-02 00:00:00* Test Item Value Reference Range Interpretation Comme nts REFERRED PROTIME (test code = 46901) 25.7 SECONDS REFERRED INR (test code = 20032) 2.4 Javon Day AustinREFERRED PROTIME [ADDED]2020-12-02 00:00:00* Test Item Value Reference Range Interpretation Comme nts REFERRED PROTIME (test code = 80214) 25.7 SECONDS REFERRED INR (test code = 62992) 2.4 Javon Day AustinREFERRED PROTIME [ADDED]2020-12-02 00:00:00* Test Item Value Reference Range Interpretation Comme nts REFERRED PROTIME (test code = 53447) 25.7 SECONDS REFERRED INR (test code = 84021) 2.4 Javon Day AustinREFERRED PROTIME [ADDED]2020-12-02 00:00:00* Test Item Value Reference Range Interpretation Comme nts REFERRED PROTIME (test code = 96356) 25.7 SECONDS REFERRED INR (test code = 37233) 2.4 Javon Day AustinREFERRED PROTIME [ADDED]2020-12-02 00:00:00* Test Item Value Reference Range Interpretation Comme nts REFERRED PROTIME (test code = 98413) 25.7 SECONDS REFERRED INR (test code = 31113) 2.4 Javon Day AustinPROTHROMBIN TIME (PT)2020-11-19 00:00:00* Test Item Value Reference Range Interpretation Comme nts PROTHROMBIN TIME (PT) (test code = 1402) 20.6 SECONDS INR (test code = 30770) 2.0 Javon Day AustinPROTHROMBIN TIME (PT)2020-11-19 00:00:00* Test Item Value Reference Range Interpretation Comme nts PROTHROMBIN TIME (PT) (test code = 1402) 20.6 SECONDS INR (test code = 64850) 2.0 Javon Day AustinPROTHROMBIN TIME (PT)2020-11-19 00:00:00* Test Item Value Reference Range Interpretation Comme nts PROTHROMBIN TIME (PT) (test code = 1402) 20.6 SECONDS INR (test code = 47264) 2.0 Javon Day AustinPROTHROMBIN TIME (PT)2020-11-19 00:00:00* Test Item Value Reference Range Interpretation Comme nts PROTHROMBIN TIME (PT) (test code = 1402) 20.6 SECONDS INR (test code = 34424) 2.0 Javon Day AustinPROTHROMBIN TIME (PT)2020-11-19 00:00:00* Test Item Value Reference Range Interpretation Comme nts PROTHROMBIN TIME (PT) (test code = 1402) 20.6 SECONDS INR (test code = 34967) 2.0 Javon Day AustinPROTHROMBIN TIME (PT)2020-11-19 00:00:00* Test Item Value Reference Range Interpretation Comme nts PROTHROMBIN TIME (PT) (test code = 1402) 20.6 SECONDS INR (test code = 44655) 2.0 Javon Day AustinPROTHROMBIN TIME (PT)2020-11-19 00:00:00* Test Item Value Reference Range Interpretation Comme nts PROTHROMBIN TIME (PT) (test code = 1402) 20.6 SECONDS INR (test code = 25512) 2.0 Javon Day AustinPROTHROMBIN TIME (PT)2020-11-18 00:00:00* Test Item Value Reference Range Interpretation Comme nts PROTHROMBIN TIME (PT) (test code = 1402) 20.7 SECONDS INR (test code = 79377) 2.0 Javon Day AustinPROTHROMBIN TIME (PT)2020-11-18 00:00:00* Test Item Value Reference Range Interpretation Comme nts PROTHROMBIN TIME (PT) (test code = 1402) 20.7 SECONDS INR (test code = 74348) 2.0 Javon Day AustinPROTHROMBIN TIME (PT)2020-11-18 00:00:00* Test Item Value Reference Range Interpretation Comme nts PROTHROMBIN TIME (PT) (test code = 1402) 20.7 SECONDS INR (test code = 12329) 2.0 Javon Day AustinPROTHROMBIN TIME (PT)2020-11-18 00:00:00* Test Item Value Reference Range Interpretation Comme nts PROTHROMBIN TIME (PT) (test code = 1402) 20.7 SECONDS INR (test code = 73706) 2.0 Javon Day AustinPROTHROMBIN TIME (PT)2020-11-18 00:00:00* Test Item Value Reference Range Interpretation Comme nts PROTHROMBIN TIME (PT) (test code = 1402) 20.7 SECONDS INR (test code = 51205) 2.0 Javon Day AustinPROTHROMBIN TIME (PT)2020-11-18 00:00:00* Test Item Value Reference Range Interpretation Comme nts PROTHROMBIN TIME (PT) (test code = 1402) 20.7 SECONDS INR (test code = 39957) 2.0 Javon Day AustinPROTHROMBIN TIME (PT)2020-11-18 00:00:00* Test Item Value Reference Range Interpretation Comme nts PROTHROMBIN TIME (PT) (test code = 1402) 20.7 SECONDS INR (test code = 77433) 2.0 Javon Day AustinPROTHROMBIN TIME (PT)2020-11-17 00:00:00* Test Item Value Reference Range Interpretation Comme nts PROTHROMBIN TIME (PT) (test code = 1402) 15.6 SECONDS INR (test code = 52132) 1.5 Javon Day AustinPROTHROMBIN TIME (PT)2020-11-17 00:00:00* Test Item Value Reference Range Interpretation Comme nts PROTHROMBIN TIME (PT) (test code = 1402) 15.6 SECONDS INR (test code = 54520) 1.5 Javon Day AustinPROTHROMBIN TIME (PT)2020-11-17 00:00:00* Test Item Value Reference Range Interpretation Comme nts PROTHROMBIN TIME (PT) (test code = 1402) 15.6 SECONDS INR (test code = 96482) 1.5 Javon Day AustinPROTHROMBIN TIME (PT)2020-11-17 00:00:00* Test Item Value Reference Range Interpretation Comme nts PROTHROMBIN TIME (PT) (test code = 1402) 15.6 SECONDS INR (test code = 92646) 1.5 Javon Day AustinPROTHROMBIN TIME (PT)2020-11-17 00:00:00* Test Item Value Reference Range Interpretation Comme nts PROTHROMBIN TIME (PT) (test code = 1402) 15.6 SECONDS INR (test code = 41142) 1.5 Javon Day AustinPROTHROMBIN TIME (PT)2020-11-17 00:00:00* Test Item Value Reference Range Interpretation Comme nts PROTHROMBIN TIME (PT) (test code = 1402) 15.6 SECONDS INR (test code = 62120) 1.5 Javon Day AustinPROTHROMBIN TIME (PT)2020-11-17 00:00:00* Test Item Value Reference Range Interpretation Comme nts PROTHROMBIN TIME (PT) (test code = 1402) 15.6 SECONDS INR (test code = 21584) 1.5 Javon Day AustinPROTHROMBIN TIME (PT)2020-11-16 00:00:00* Test Item Value Reference Range Interpretation Comme nts PROTHROMBIN TIME (PT) (test code = 1402) 18.7 SECONDS INR (test code = 33415) 1.5 Javon Day AustinPROTHROMBIN TIME (PT)2020-11-16 00:00:00* Test Item Value Reference Range Interpretation Comme nts PROTHROMBIN TIME (PT) (test code = 1402) 18.7 SECONDS INR (test code = 90208) 1.5 Javon Day AustinPROTHROMBIN TIME (PT)2020-11-16 00:00:00* Test Item Value Reference Range Interpretation Comme nts PROTHROMBIN TIME (PT) (test code = 1402) 18.7 SECONDS INR (test code = 29354) 1.5 Javon Day AustinPROTHROMBIN TIME (PT)2020-11-16 00:00:00* Test Item Value Reference Range Interpretation Comme nts PROTHROMBIN TIME (PT) (test code = 1402) 18.7 SECONDS INR (test code = 31500) 1.5 Javon Day AustinPROTHROMBIN TIME (PT)2020-11-16 00:00:00* Test Item Value Reference Range Interpretation Comme nts PROTHROMBIN TIME (PT) (test code = 1402) 18.7 SECONDS INR (test code = 17466) 1.5 Javon Day AustinPROTHROMBIN TIME (PT)2020-11-16 00:00:00* Test Item Value Reference Range Interpretation Comme nts PROTHROMBIN TIME (PT) (test code = 1402) 18.7 SECONDS INR (test code = 36920) 1.5 Javon Day AustinPROTHROMBIN TIME (PT)2020-11-16 00:00:00* Test Item Value Reference Range Interpretation Comme nts PROTHROMBIN TIME (PT) (test code = 1402) 18.7 SECONDS INR (test code = 04144) 1.5 Javon Day AustinPROTHROMBIN TIME (PT)2020-11-14 00:00:00* Test Item Value Reference Range Interpretation Comme nts PROTHROMBIN TIME (PT) (test code = 1402) TEST NOT PERFORMED SECONDS INR (test code = 04911) TEST NOT PERFORMED Javon Barb AustinPROTHROMBIN TIME (PT)2020-11-14 00:00:00* Test Item Value Reference Range Interpretation Comme nts PROTHROMBIN TIME (PT) (test code = 1402) TEST NOT PERFORMED SECONDS INR (test code = 95727) TEST NOT PERFORMED Javon F AustinPROTHROMBIN TIME (PT)2020-11-14 00:00:00* Test Item Value Reference Range Interpretation Comme nts PROTHROMBIN TIME (PT) (test code = 1402) TEST NOT PERFORMED SECONDS INR (test code = 86965) TEST NOT PERFORMED Javon F AustinPROTHROMBIN TIME (PT)2020-11-14 00:00:00* Test Item Value Reference Range Interpretation Comme nts PROTHROMBIN TIME (PT) (test code = 1402) TEST NOT PERFORMED SECONDS INR (test code = 89119) TEST NOT PERFORMED Javon F AustinPROTHROMBIN TIME (PT)2020-11-14 00:00:00* Test Item Value Reference Range Interpretation Comme nts PROTHROMBIN TIME (PT) (test code = 1402) TEST NOT PERFORMED SECONDS INR (test code = 39891) TEST NOT PERFORMED Javon F AustinPROTHROMBIN TIME (PT)2020-11-14 00:00:00* Test Item Value Reference Range Interpretation Comme nts PROTHROMBIN TIME (PT) (test code = 1402) TEST NOT PERFORMED SECONDS INR (test code = 42595) TEST NOT PERFORMED Javon F AustinPROTHROMBIN TIME (PT)2020-11-14 00:00:00* Test Item Value Reference Range Interpretation Comme nts PROTHROMBIN TIME (PT) (test code = 1402) TEST NOT PERFORMED SECONDS INR (test code = 31111) TEST NOT PERFORMED Javon F AustinPROTHROMBIN TIME (PT)2020-11-13 00:00:00* Test Item Value Reference Range Interpretation Comme nts PROTHROMBIN TIME (PT) (test code = 1402) 16.1 SECONDS INR (test code = 85325) 1.6 Javon F AustinPROTHROMBIN TIME (PT)2020-11-13 00:00:00* Test Item Value Reference Range Interpretation Comme nts PROTHROMBIN TIME (PT) (test code = 1402) 16.1 SECONDS INR (test code = 74814) 1.6 Javon F AustinPROTHROMBIN TIME (PT)2020-11-13 00:00:00* Test Item Value Reference Range Interpretation Comme nts PROTHROMBIN TIME (PT) (test code = 1402) 16.1 SECONDS INR (test code = 76094) 1.6 Javon F AustinPROTHROMBIN TIME (PT)2020-11-13 00:00:00* Test Item Value Reference Range Interpretation Comme nts PROTHROMBIN TIME (PT) (test code = 1402) 16.1 SECONDS INR (test code = 21643) 1.6 Javon Day AustinPROTHROMBIN TIME (PT)2020-11-13 00:00:00* Test Item Value Reference Range Interpretation Comme nts PROTHROMBIN TIME (PT) (test code = 1402) 16.1 SECONDS INR (test code = 52158) 1.6 Javon Day AustinPROTHROMBIN TIME (PT)2020-11-13 00:00:00* Test Item Value Reference Range Interpretation Comme nts PROTHROMBIN TIME (PT) (test code = 1402) 16.1 SECONDS INR (test code = 27537) 1.6 Javon Day AustinPROTHROMBIN TIME (PT)2020-11-13 00:00:00* Test Item Value Reference Range Interpretation Comme nts PROTHROMBIN TIME (PT) (test code = 1402) 16.1 SECONDS INR (test code = 43789) 1.6 Javon Day AlfredoCOMPREHENSIVE METABOLIC [id number] 00:00:00* Test Item Value Reference Range Interpretation Comme nts GLUCOSE (test code = 2217) 156 MG/DL BUN (test code = 2208) 11 MG/DL CREATININE (test code = 2214) 0.67 MG/DL eGFR AMER. (test cod e = 96337) 124 ML/MIN/1.73 eGFR NON- AMER. (test code = 72866) 107 ML/MIN/1.73 CALC BUN/CREAT (test code = 2235) 16 RATIO SODIUM (test code = 2231) 137 MEQ/L POTASSIUM (test code = 2228) 4.3 MEQ/L CHLORIDE (test code = 2215) 100 MEQ/L CARBON DIOXIDE (test code = 2206) 26 MEQ/L CALCIUM (test code = 2209) 9.1 MG/DL PROTEIN, TOTAL (test code = 2229) 7.5 G/DL ALBUMIN (test code = 2201) 4.0 G/DL CALC GLOBULIN (test code = 2240) 3.5 G/DL CALC A/G RATIO (test code = 2234) 1.1 RATIO BILIRUBIN, TOTAL (test code = 2207) 0.4 MG/DL ALKALINE PHOSPHATASE (test code = 2204) 84 U/L AST (test code = 2218) 19 U/L ALT (test code = 2219) 27 U/L Javon FuentesLIPID [id number] 00:00:00* Test Item Value Reference Range Interpretation Comme nts CHOLESTEROL (test code = 2210) 176 MG/DL TRIGLYCERIDES (test code = 2232) 66 MG/DL HDL CHOLESTEROL (test code = 2220) 50 MG/DL CALC LDL CHOL (test code = 2237) 113 MG/DL RISK RATIO LDL/HDL (test cod e = 2238) 2.26 RATIO Javon FuentesCBC W/AUTO [id number] 00:00:00* Test Item Value Reference Range Interpretation Comme nts WBC (test code = 1001) 6.2 K/UL RBC (test code = 1002) 4.66 M/UL HEMOGLOBIN (test code = 1003) 11.3 G/DL HEMATOCRIT (test code = 1004) 35.1 % MCV (test code = 1005) 75.3 fL MCH (test code = 1006) 24.2 PG MCHC (test code = 1007) 32.2 G/DL RDW (test code = 1038) 15.4 % NEUTROPHILS (test code = 1008) 64.3 % LYMPHOCYTES (test code = 1010) 24.6 % MONOCYTES (test code = 1011) 7.6 % EOSINOPHILS (test code = 1012) 2.8 % BASOPHILS (test code = 1013) 0.7 % PLATELET COUNT (test code = 1015) 369 K/UL Javon FuentesHEMOGLOBIN [id number] 00:00:00* Test Item Value Reference Range Interpretation Comme tasha HEMOGLOBIN A1c (test code = 47140) 7.5 % Javon [id number] 00:00:00* Test Item Value Reference Range Interpretation Comme tasha TSH, THIRD GENERATION (test code = 2821) 0.925 UIU/ML Javon FuentesMICROALBUMIN/CREATININE, RANDOM AND [id number] 00:00:00* Test Item Value Reference Range Interpretation Comme nts CREATININE, URINE, CONC. (te st code = 2072) 231.4 MG/DL ALBUMIN, URINE, RANDOM (test code = 44658) 0.9 MG/DL CALC ALBUMIN/CREAT, RND (katerine t code = 01288) 4 MG/G Javon FuentesCOMPREHENSIVE METABOLIC [id number] 00:00:00* Test Item Value Reference Range Interpretation Comme nts GLUCOSE (test code = 2217) 156 MG/DL BUN (test code = 2208) 11 MG/DL CREATININE (test code = 2214) 0.67 MG/DL eGFR AMER. (test cod e = 18144) 124 ML/MIN/1.73 eGFR NON- AMER. (test code = 87416) 107 ML/MIN/1.73 CALC BUN/CREAT (test code = 2235) 16 RATIO SODIUM (test code = 2231) 137 MEQ/L POTASSIUM (test code = 2228) 4.3 MEQ/L CHLORIDE (test code = 2215) 100 MEQ/L CARBON DIOXIDE (test code = 2206) 26 MEQ/L CALCIUM (test code = 2209) 9.1 MG/DL PROTEIN, TOTAL (test code = 2229) 7.5 G/DL ALBUMIN (test code = 2201) 4.0 G/DL CALC GLOBULIN (test code = 2240) 3.5 G/DL CALC A/G RATIO (test code = 2234) 1.1 RATIO BILIRUBIN, TOTAL (test code = 2207) 0.4 MG/DL ALKALINE PHOSPHATASE (test code = 2204) 84 U/L AST (test code = 2218) 19 U/L ALT (test code = 2219) 27 U/L Javon FuentesLIPID [id number] 00:00:00* Test Item Value Reference Range Interpretation Comme nts CHOLESTEROL (test code = 2210) 176 MG/DL TRIGLYCERIDES (test code = 2232) 66 MG/DL HDL CHOLESTEROL (test code = 2220) 50 MG/DL CALC LDL CHOL (test code = 2237) 113 MG/DL RISK RATIO LDL/HDL (test cod e = 2238) 2.26 RATIO Javon FuentesCBC W/AUTO [id number] 00:00:00* Test Item Value Reference Range Interpretation Comme nts WBC (test code = 1001) 6.2 K/UL RBC (test code = 1002) 4.66 M/UL HEMOGLOBIN (test code = 1003) 11.3 G/DL HEMATOCRIT (test code = 1004) 35.1 % MCV (test code = 1005) 75.3 fL MCH (test code = 1006) 24.2 PG MCHC (test code = 1007) 32.2 G/DL RDW (test code = 1038) 15.4 % NEUTROPHILS (test code = 1008) 64.3 % LYMPHOCYTES (test code = 1010) 24.6 % MONOCYTES (test code = 1011) 7.6 % EOSINOPHILS (test code = 1012) 2.8 % BASOPHILS (test code = 1013) 0.7 % PLATELET COUNT (test code = 1015) 369 K/UL Javon FuentesHEMOGLOBIN [id number] 00:00:00* Test Item Value Reference Range Interpretation Comme tasha HEMOGLOBIN A1c (test code = 92203) 7.5 % Javon [id number] 00:00:00* Test Item Value Reference Range Interpretation Comme tasha TSH, THIRD GENERATION (test code = 2821) 0.925 UIU/ML Javon FuentesMICROALBUMIN/CREATININE, RANDOM AND [id number] 00:00:00* Test Item Value Reference Range Interpretation Comme [facility] CREATININE, URINE, CONC. (te st code = 2072) 231.4 MG/DL ALBUMIN, URINE, RANDOM (test code = 87588) 0.9 MG/DL CALC ALBUMIN/CREAT, RND (katerine t code = 15581) 4 MG/G Javon FuentesCOMPREHENSIVE METABOLIC [id number] 00:00:00* Test Item Value Reference Range Interpretation Comme nts GLUCOSE (test code = 2217) 156 MG/DL BUN (test code = 2208) 11 MG/DL CREATININE (test code = 2214) 0.67 MG/DL eGFR AMER. (test cod e = 87967) 124 ML/MIN/1.73 eGFR NON- AMER. (test code = 84532) 107 ML/MIN/1.73 CALC BUN/CREAT (test code = 2235) 16 RATIO SODIUM (test code = 2231) 137 MEQ/L POTASSIUM (test code = 2228) 4.3 MEQ/L CHLORIDE (test code = 2215) 100 MEQ/L CARBON DIOXIDE (test code = 2206) 26 MEQ/L CALCIUM (test code = 2209) 9.1 MG/DL PROTEIN, TOTAL (test code = 2229) 7.5 G/DL ALBUMIN (test code = 2201) 4.0 G/DL CALC GLOBULIN (test code = 2240) 3.5 G/DL CALC A/G RATIO (test code = 2234) 1.1 RATIO BILIRUBIN, TOTAL (test code = 2207) 0.4 MG/DL ALKALINE PHOSPHATASE (test code = 2204) 84 U/L AST (test code = 2218) 19 U/L ALT (test code = 2219) 27 U/L Javon FuentesLIPID [id number] 00:00:00* Test Item Value Reference Range Interpretation Comme nts CHOLESTEROL (test code = 2210) 176 MG/DL TRIGLYCERIDES (test code = 2232) 66 MG/DL HDL CHOLESTEROL (test code = 2220) 50 MG/DL CALC LDL CHOL (test code = 2237) 113 MG/DL RISK RATIO LDL/HDL (test cod e = 2238) 2.26 RATIO Javon FuentesCBC W/AUTO [id number] 00:00:00* Test Item Value Reference Range Interpretation Comme nts WBC (test code = 1001) 6.2 K/UL RBC (test code = 1002) 4.66 M/UL HEMOGLOBIN (test code = 1003) 11.3 G/DL HEMATOCRIT (test code = 1004) 35.1 % MCV (test code = 1005) 75.3 fL MCH (test code = 1006) 24.2 PG MCHC (test code = 1007) 32.2 G/DL RDW (test code = 1038) 15.4 % NEUTROPHILS (test code = 1008) 64.3 % LYMPHOCYTES (test code = 1010) 24.6 % MONOCYTES (test code = 1011) 7.6 % EOSINOPHILS (test code = 1012) 2.8 % BASOPHILS (test code = 1013) 0.7 % PLATELET COUNT (test code = 1015) 369 K/UL Javon FuentesHEMOGLOBIN [id number] 00:00:00* Test Item Value Reference Range Interpretation Comme [facility] HEMOGLOBIN A1c (test code = 39487) 7.5 % Javon [id number] 00:00:00* Test Item Value Reference Range Interpretation Comme [facility] TSH, THIRD GENERATION (test code = 2821) 0.925 UIU/ML Javon FuentesMICROALBUMIN/CREATININE, RANDOM AND [id number] 00:00:00* Test Item Value Reference Range Interpretation Comme nts CREATININE, URINE, CONC. (te st code = 2072) 231.4 MG/DL ALBUMIN, URINE, RANDOM (test code = 89680) 0.9 MG/DL CALC ALBUMIN/CREAT, RND (katerine t code = 22635) 4 MG/G Javon FuentesCOMPREHENSIVE METABOLIC [id number] 00:00:00* Test Item Value Reference Range Interpretation Comme nts GLUCOSE (test code = 2217) 156 MG/DL BUN (test code = 2208) 11 MG/DL CREATININE (test code = 2214) 0.67 MG/DL eGFR AMER. (test cod e = 56019) 124 ML/MIN/1.73 eGFR NON- AMER. (test code = 94973) 107 ML/MIN/1.73 CALC BUN/CREAT (test code = 2235) 16 RATIO SODIUM (test code = 2231) 137 MEQ/L POTASSIUM (test code = 2228) 4.3 MEQ/L CHLORIDE (test code = 2215) 100 MEQ/L CARBON DIOXIDE (test code = 2206) 26 MEQ/L CALCIUM (test code = 2209) 9.1 MG/DL PROTEIN, TOTAL (test code = 2229) 7.5 G/DL ALBUMIN (test code = 2201) 4.0 G/DL CALC GLOBULIN (test code = 2240) 3.5 G/DL CALC A/G RATIO (test code = 2234) 1.1 RATIO BILIRUBIN, TOTAL (test code = 2207) 0.4 MG/DL ALKALINE PHOSPHATASE (test code = 2204) 84 U/L AST (test code = 2218) 19 U/L ALT (test code = 2219) 27 U/L Javon FuentesLIPID [id number] 00:00:00* Test Item Value Reference Range Interpretation Comme nts CHOLESTEROL (test code = 2210) 176 MG/DL TRIGLYCERIDES (test code = 2232) 66 MG/DL HDL CHOLESTEROL (test code = 2220) 50 MG/DL CALC LDL CHOL (test code = 2237) 113 MG/DL RISK RATIO LDL/HDL (test cod e = 2238) 2.26 RATIO Javon FuentesCBC W/AUTO [id number] 00:00:00* Test Item Value Reference Range Interpretation Comme nts WBC (test code = 1001) 6.2 K/UL RBC (test code = 1002) 4.66 M/UL HEMOGLOBIN (test code = 1003) 11.3 G/DL HEMATOCRIT (test code = 1004) 35.1 % MCV (test code = 1005) 75.3 fL MCH (test code = 1006) 24.2 PG MCHC (test code = 1007) 32.2 G/DL RDW (test code = 1038) 15.4 % NEUTROPHILS (test code = 1008) 64.3 % LYMPHOCYTES (test code = 1010) 24.6 % MONOCYTES (test code = 1011) 7.6 % EOSINOPHILS (test code = 1012) 2.8 % BASOPHILS (test code = 1013) 0.7 % PLATELET COUNT (test code = 1015) 369 K/UL Javon FuentesHEMOGLOBIN [id number] 00:00:00* Test Item Value Reference Range Interpretation Comme tasha HEMOGLOBIN A1c (test code = 43371) 7.5 % Javon [id number] 00:00:00* Test Item Value Reference Range Interpretation Comme [facility] TSH, THIRD GENERATION (test code = 2821) 0.925 UIU/ML Javon FuentesMICROALBUMIN/CREATININE, RANDOM AND [id number] 00:00:00* Test Item Value Reference Range Interpretation Comme [facility] CREATININE, URINE, CONC. (te st code = 2072) 231.4 MG/DL ALBUMIN, URINE, RANDOM (test code = 72081) 0.9 MG/DL CALC ALBUMIN/CREAT, RND (katerine t code = 40737) 4 MG/G Javon FuentesCOMPREHENSIVE METABOLIC [id number] 00:00:00* Test Item Value Reference Range Interpretation Comme nts GLUCOSE (test code = 2217) 156 MG/DL BUN (test code = 2208) 11 MG/DL CREATININE (test code = 2214) 0.67 MG/DL eGFR AMER. (test cod e = 62823) 124 ML/MIN/1.73 eGFR NON- AMER. (test code = 06152) 107 ML/MIN/1.73 CALC BUN/CREAT (test code = 2235) 16 RATIO SODIUM (test code = 2231) 137 MEQ/L POTASSIUM (test code = 2228) 4.3 MEQ/L CHLORIDE (test code = 2215) 100 MEQ/L CARBON DIOXIDE (test code = 2206) 26 MEQ/L CALCIUM (test code = 2209) 9.1 MG/DL PROTEIN, TOTAL (test code = 2229) 7.5 G/DL ALBUMIN (test code = 2201) 4.0 G/DL CALC GLOBULIN (test code = 2240) 3.5 G/DL CALC A/G RATIO (test code = 2234) 1.1 RATIO BILIRUBIN, TOTAL (test code = 2207) 0.4 MG/DL ALKALINE PHOSPHATASE (test code = 2204) 84 U/L AST (test code = 2218) 19 U/L ALT (test code = 2219) 27 U/L Javon FuentesLIPID [id number] 00:00:00* Test Item Value Reference Range Interpretation Comme nts CHOLESTEROL (test code = 2210) 176 MG/DL TRIGLYCERIDES (test code = 2232) 66 MG/DL HDL CHOLESTEROL (test code = 2220) 50 MG/DL CALC LDL CHOL (test code = 2237) 113 MG/DL RISK RATIO LDL/HDL (test cod e = 2238) 2.26 RATIO Javon FuentesCBC W/AUTO [id number] 00:00:00* Test Item Value Reference Range Interpretation Comme nts WBC (test code = 1001) 6.2 K/UL RBC (test code = 1002) 4.66 M/UL HEMOGLOBIN (test code = 1003) 11.3 G/DL HEMATOCRIT (test code = 1004) 35.1 % MCV (test code = 1005) 75.3 fL MCH (test code = 1006) 24.2 PG MCHC (test code = 1007) 32.2 G/DL RDW (test code = 1038) 15.4 % NEUTROPHILS (test code = 1008) 64.3 % LYMPHOCYTES (test code = 1010) 24.6 % MONOCYTES (test code = 1011) 7.6 % EOSINOPHILS (test code = 1012) 2.8 % BASOPHILS (test code = 1013) 0.7 % PLATELET COUNT (test code = 1015) 369 K/UL Javon FuentesHEMOGLOBIN [id number] 00:00:00* Test Item Value Reference Range Interpretation Comme tasha HEMOGLOBIN A1c (test code = 36160) 7.5 % Javon [id number] 00:00:00* Test Item Value Reference Range Interpretation Comme tasha TSH, THIRD GENERATION (test code = 2821) 0.925 UIU/ML Javon FuentesMICROALBUMIN/CREATININE, RANDOM AND [id number] 00:00:00* Test Item Value Reference Range Interpretation Comme nts CREATININE, URINE, CONC. (te st code = 2072) 231.4 MG/DL ALBUMIN, URINE, RANDOM (test code = 62828) 0.9 MG/DL CALC ALBUMIN/CREAT, RND (katerine t code = 58127) 4 MG/G Javon FuentesCOMPREHENSIVE METABOLIC [id number] 00:00:00* Test Item Value Reference Range Interpretation Comme nts GLUCOSE (test code = 2217) 156 MG/DL BUN (test code = 2208) 11 MG/DL CREATININE (test code = 2214) 0.67 MG/DL eGFR AMER. (test cod e = 17838) 124 ML/MIN/1.73 eGFR NON- AMER. (test code = 63198) 107 ML/MIN/1.73 CALC BUN/CREAT (test code = 2235) 16 RATIO SODIUM (test code = 2231) 137 MEQ/L POTASSIUM (test code = 2228) 4.3 MEQ/L CHLORIDE (test code = 2215) 100 MEQ/L CARBON DIOXIDE (test code = 2206) 26 MEQ/L CALCIUM (test code = 2209) 9.1 MG/DL PROTEIN, TOTAL (test code = 2229) 7.5 G/DL ALBUMIN (test code = 2201) 4.0 G/DL CALC GLOBULIN (test code = 2240) 3.5 G/DL CALC A/G RATIO (test code = 2234) 1.1 RATIO BILIRUBIN, TOTAL (test code = 2207) 0.4 MG/DL ALKALINE PHOSPHATASE (test code = 2204) 84 U/L AST (test code = 2218) 19 U/L ALT (test code = 2219) 27 U/L Javon FuentesLIPID [id number] 00:00:00* Test Item Value Reference Range Interpretation Comme nts CHOLESTEROL (test code = 2210) 176 MG/DL TRIGLYCERIDES (test code = 2232) 66 MG/DL HDL CHOLESTEROL (test code = 2220) 50 MG/DL CALC LDL CHOL (test code = 2237) 113 MG/DL RISK RATIO LDL/HDL (test cod e = 2238) 2.26 RATIO Javon FuentesCBC W/AUTO [id number] 00:00:00* Test Item Value Reference Range Interpretation Comme nts WBC (test code = 1001) 6.2 K/UL RBC (test code = 1002) 4.66 M/UL HEMOGLOBIN (test code = 1003) 11.3 G/DL HEMATOCRIT (test code = 1004) 35.1 % MCV (test code = 1005) 75.3 fL MCH (test code = 1006) 24.2 PG MCHC (test code = 1007) 32.2 G/DL RDW (test code = 1038) 15.4 % NEUTROPHILS (test code = 1008) 64.3 % LYMPHOCYTES (test code = 1010) 24.6 % MONOCYTES (test code = 1011) 7.6 % EOSINOPHILS (test code = 1012) 2.8 % BASOPHILS (test code = 1013) 0.7 % PLATELET COUNT (test code = 1015) 369 K/UL Javon FuentesHEMOGLOBIN [id number] 00:00:00* Test Item Value Reference Range Interpretation Comme tasha HEMOGLOBIN A1c (test code = 24692) 7.5 % Javon [id number] 00:00:00* Test Item Value Reference Range Interpretation Comme tasha TSH, THIRD GENERATION (test code = 2821) 0.925 UIU/ML Javon FuentesMICROALBUMIN/CREATININE, RANDOM AND [id number] 00:00:00* Test Item Value Reference Range Interpretation Comme nts CREATININE, URINE, CONC. (te st code = 2072) 231.4 MG/DL ALBUMIN, URINE, RANDOM (test code = 94279) 0.9 MG/DL CALC ALBUMIN/CREAT, RND (katerine t code = 52080) 4 MG/G Javon FuentesCOMPREHENSIVE METABOLIC [id number] 00:00:00* Test Item Value Reference Range Interpretation Comme nts GLUCOSE (test code = 2217) 156 MG/DL BUN (test code = 2208) 11 MG/DL CREATININE (test code = 2214) 0.67 MG/DL eGFR AMER. (test cod e = 72671) 124 ML/MIN/1.73 eGFR NON- AMER. (test code = 58056) 107 ML/MIN/1.73 CALC BUN/CREAT (test code = 2235) 16 RATIO SODIUM (test code = 2231) 137 MEQ/L POTASSIUM (test code = 2228) 4.3 MEQ/L CHLORIDE (test code = 2215) 100 MEQ/L CARBON DIOXIDE (test code = 2206) 26 MEQ/L CALCIUM (test code = 2209) 9.1 MG/DL PROTEIN, TOTAL (test code = 2229) 7.5 G/DL ALBUMIN (test code = 2201) 4.0 G/DL CALC GLOBULIN (test code = 2240) 3.5 G/DL CALC A/G RATIO (test code = 2234) 1.1 RATIO BILIRUBIN, TOTAL (test code = 2207) 0.4 MG/DL ALKALINE PHOSPHATASE (test code = 2204) 84 U/L AST (test code = 2218) 19 U/L ALT (test code = 2219) 27 U/L Javon FuentesLIPID [id number] 00:00:00* Test Item Value Reference Range Interpretation Comme nts CHOLESTEROL (test code = 2210) 176 MG/DL TRIGLYCERIDES (test code = 2232) 66 MG/DL HDL CHOLESTEROL (test code = 2220) 50 MG/DL CALC LDL CHOL (test code = 2237) 113 MG/DL RISK RATIO LDL/HDL (test cod e = 2238) 2.26 RATIO Javon FuentesCBC W/AUTO [id number] 00:00:00* Test Item Value Reference Range Interpretation Comme nts WBC (test code = 1001) 6.2 K/UL RBC (test code = 1002) 4.66 M/UL HEMOGLOBIN (test code = 1003) 11.3 G/DL HEMATOCRIT (test code = 1004) 35.1 % MCV (test code = 1005) 75.3 fL MCH (test code = 1006) 24.2 PG MCHC (test code = 1007) 32.2 G/DL RDW (test code = 1038) 15.4 % NEUTROPHILS (test code = 1008) 64.3 % LYMPHOCYTES (test code = 1010) 24.6 % MONOCYTES (test code = 1011) 7.6 % EOSINOPHILS (test code = 1012) 2.8 % BASOPHILS (test code = 1013) 0.7 % PLATELET COUNT (test code = 1015) 369 K/UL Javon FuentesHEMOGLOBIN [id number] 00:00:00* Test Item Value Reference Range Interpretation Comme tasha HEMOGLOBIN A1c (test code = 48252) 7.5 % Javon Day [id number] 00:00:00* Test Item Value Reference Range Interpretation Comme tasha TSH, THIRD GENERATION (test code = 2821) 0.925 UIU/ML Javon FuentesMICROALBUMIN/CREATININE, RANDOM AND [id number] 00:00:00* Test Item Value Reference Range Interpretation Comme [facility] CREATININE, URINE, CONC. (te st code = 2072) 231.4 MG/DL ALBUMIN, URINE, RANDOM (test code = 17295) 0.9 MG/DL CALC ALBUMIN/CREAT, RND (katerine t code = 96906) 4 MG/G Javon FuentesCOMPREHENSIVE METABOLIC [id number] 00:00:00* Test Item Value Reference Range Interpretation Comme nts GLUCOSE (test code = 2217) 103 MG/DL BUN (test code = 2208) 9 MG/DL CREATININE (test code = 2214) 0.84 MG/DL eGFR AMER. (test cod e = 02875) 99 ML/MIN/1.73 eGFR NON- AMER. (test code = 09243) 85 ML/MIN/1.73 CALC BUN/CREAT (test code = 2235) 11 RATIO SODIUM (test code = 2231) 139 MEQ/L POTASSIUM (test code = 2228) 4.9 MEQ/L CHLORIDE (test code = 2215) 101 MEQ/L CARBON DIOXIDE (test code = 2206) 25 MEQ/L CALCIUM (test code = 2209) 9.5 MG/DL PROTEIN, TOTAL (test code = 2229) 7.5 G/DL ALBUMIN (test code = 2201) 4.1 G/DL CALC GLOBULIN (test code = 2240) 3.4 G/DL CALC A/G RATIO (test code = 2234) 1.2 RATIO BILIRUBIN, TOTAL (test code = 2207) 0.5 MG/DL ALKALINE PHOSPHATASE (test code = 2204) 72 U/L AST (test code = 2218) 19 U/L ALT (test code = 2219) 19 U/L Javon FuentesLIPID [id number] 00:00:00* Test Item Value Reference Range Interpretation Comme nts CHOLESTEROL (test code = 2210) 189 MG/DL TRIGLYCERIDES (test code = 2232) 73 MG/DL HDL CHOLESTEROL (test code = 2220) 53 MG/DL CALC LDL CHOL (test code = 2237) 121 MG/DL RISK RATIO LDL/HDL (test cod e = 2238) 2.29 RATIO Javon FuentesCOMPREHENSIVE METABOLIC [id number] 00:00:00* Test Item Value Reference Range Interpretation Comme nts GLUCOSE (test code = 2217) 103 MG/DL BUN (test code = 2208) 9 MG/DL CREATININE (test code = 2214) 0.84 MG/DL eGFR AMER. (test cod e = 04931) 99 ML/MIN/1.73 eGFR NON- AMER. (test code = 49291) 85 ML/MIN/1.73 CALC BUN/CREAT (test code = 2235) 11 RATIO SODIUM (test code = 2231) 139 MEQ/L POTASSIUM (test code = 2228) 4.9 MEQ/L CHLORIDE (test code = 2215) 101 MEQ/L CARBON DIOXIDE (test code = 2206) 25 MEQ/L CALCIUM (test code = 2209) 9.5 MG/DL PROTEIN, TOTAL (test code = 2229) 7.5 G/DL ALBUMIN (test code = 2201) 4.1 G/DL CALC GLOBULIN (test code = 2240) 3.4 G/DL CALC A/G RATIO (test code = 2234) 1.2 RATIO BILIRUBIN, TOTAL (test code = 2207) 0.5 MG/DL ALKALINE PHOSPHATASE (test code = 2204) 72 U/L AST (test code = 2218) 19 U/L ALT (test code = 2219) 19 U/L Javon Day AustinLIPID [id number] 00:00:00* Test Item Value Reference Range Interpretation Comme nts CHOLESTEROL (test code = 2210) 189 MG/DL TRIGLYCERIDES (test code = 2232) 73 MG/DL HDL CHOLESTEROL (test code = 2220) 53 MG/DL CALC LDL CHOL (test code = 2237) 121 MG/DL RISK RATIO LDL/HDL (test cod e = 2238) 2.29 RATIO Javon FuentesCOMPREHENSIVE METABOLIC [id number] 00:00:00* Test Item Value Reference Range Interpretation Comme nts GLUCOSE (test code = 2217) 103 MG/DL BUN (test code = 2208) 9 MG/DL CREATININE (test code = 2214) 0.84 MG/DL eGFR AMER. (test cod e = 44382) 99 ML/MIN/1.73 eGFR NON- AMER. (test code = 30061) 85 ML/MIN/1.73 CALC BUN/CREAT (test code = 2235) 11 RATIO SODIUM (test code = 2231) 139 MEQ/L POTASSIUM (test code = 2228) 4.9 MEQ/L CHLORIDE (test code = 2215) 101 MEQ/L CARBON DIOXIDE (test code = 2206) 25 MEQ/L CALCIUM (test code = 2209) 9.5 MG/DL PROTEIN, TOTAL (test code = 2229) 7.5 G/DL ALBUMIN (test code = 2201) 4.1 G/DL CALC GLOBULIN (test code = 2240) 3.4 G/DL CALC A/G RATIO (test code = 2234) 1.2 RATIO BILIRUBIN, TOTAL (test code = 2207) 0.5 MG/DL ALKALINE PHOSPHATASE (test code = 2204) 72 U/L AST (test code = 2218) 19 U/L ALT (test code = 2219) 19 U/L Javon Day AustinLIPID [id number] 00:00:00* Test Item Value Reference Range Interpretation Comme nts CHOLESTEROL (test code = 2210) 189 MG/DL TRIGLYCERIDES (test code = 2232) 73 MG/DL HDL CHOLESTEROL (test code = 2220) 53 MG/DL CALC LDL CHOL (test code = 2237) 121 MG/DL RISK RATIO LDL/HDL (test cod e = 2238) 2.29 RATIO Javon Day AustinCOMPREHENSIVE METABOLIC [id number] 00:00:00* Test Item Value Reference Range Interpretation Comme nts GLUCOSE (test code = 2217) 103 MG/DL BUN (test code = 2208) 9 MG/DL CREATININE (test code = 2214) 0.84 MG/DL eGFR AMER. (test cod e = 67952) 99 ML/MIN/1.73 eGFR NON- AMER. (test code = 60998) 85 ML/MIN/1.73 CALC BUN/CREAT (test code = 2235) 11 RATIO SODIUM (test code = 2231) 139 MEQ/L POTASSIUM (test code = 2228) 4.9 MEQ/L CHLORIDE (test code = 2215) 101 MEQ/L CARBON DIOXIDE (test code = 2206) 25 MEQ/L CALCIUM (test code = 2209) 9.5 MG/DL PROTEIN, TOTAL (test code = 2229) 7.5 G/DL ALBUMIN (test code = 2201) 4.1 G/DL CALC GLOBULIN (test code = 2240) 3.4 G/DL CALC A/G RATIO (test code = 2234) 1.2 RATIO BILIRUBIN, TOTAL (test code = 2207) 0.5 MG/DL ALKALINE PHOSPHATASE (test code = 2204) 72 U/L AST (test code = 2218) 19 U/L ALT (test code = 2219) 19 U/L Javon Day AustinLIPID [id number] 00:00:00* Test Item Value Reference Range Interpretation Comme nts CHOLESTEROL (test code = 2210) 189 MG/DL TRIGLYCERIDES (test code = 2232) 73 MG/DL HDL CHOLESTEROL (test code = 2220) 53 MG/DL CALC LDL CHOL (test code = 2237) 121 MG/DL RISK RATIO LDL/HDL (test cod e = 2238) 2.29 RATIO Javon Day AlfredoCOMPREHENSIVE METABOLIC [id number] 00:00:00* Test Item Value Reference Range Interpretation Comme nts GLUCOSE (test code = 2217) 103 MG/DL BUN (test code = 2208) 9 MG/DL CREATININE (test code = 2214) 0.84 MG/DL eGFR AMER. (test cod e = 05569) 99 ML/MIN/1.73 eGFR NON- AMER. (test code = 36135) 85 ML/MIN/1.73 CALC BUN/CREAT (test code = 2235) 11 RATIO SODIUM (test code = 2231) 139 MEQ/L POTASSIUM (test code = 2228) 4.9 MEQ/L CHLORIDE (test code = 2215) 101 MEQ/L CARBON DIOXIDE (test code = 2206) 25 MEQ/L CALCIUM (test code = 2209) 9.5 MG/DL PROTEIN, TOTAL (test code = 2229) 7.5 G/DL ALBUMIN (test code = 2201) 4.1 G/DL CALC GLOBULIN (test code = 2240) 3.4 G/DL CALC A/G RATIO (test code = 2234) 1.2 RATIO BILIRUBIN, TOTAL (test code = 2207) 0.5 MG/DL ALKALINE PHOSPHATASE (test code = 2204) 72 U/L AST (test code = 2218) 19 U/L ALT (test code = 2219) 19 U/L Javon Day FranklinLIPID [id number] 00:00:00* Test Item Value Reference Range Interpretation Comme nts CHOLESTEROL (test code = 2210) 189 MG/DL TRIGLYCERIDES (test code = 2232) 73 MG/DL HDL CHOLESTEROL (test code = 2220) 53 MG/DL CALC LDL CHOL (test code = 2237) 121 MG/DL RISK RATIO LDL/HDL (test cod e = 2238) 2.29 RATIO Javon FuentesCOMPREHENSIVE METABOLIC [id number] 00:00:00* Test Item Value Reference Range Interpretation Comme nts GLUCOSE (test code = 2217) 103 MG/DL BUN (test code = 2208) 9 MG/DL CREATININE (test code = 2214) 0.84 MG/DL eGFR AMER. (test cod e = 01612) 99 ML/MIN/1.73 eGFR NON- AMER. (test code = 81084) 85 ML/MIN/1.73 CALC BUN/CREAT (test code = 2235) 11 RATIO SODIUM (test code = 2231) 139 MEQ/L POTASSIUM (test code = 2228) 4.9 MEQ/L CHLORIDE (test code = 2215) 101 MEQ/L CARBON DIOXIDE (test code = 2206) 25 MEQ/L CALCIUM (test code = 2209) 9.5 MG/DL PROTEIN, TOTAL (test code = 2229) 7.5 G/DL ALBUMIN (test code = 2201) 4.1 G/DL CALC GLOBULIN (test code = 2240) 3.4 G/DL CALC A/G RATIO (test code = 2234) 1.2 RATIO BILIRUBIN, TOTAL (test code = 2207) 0.5 MG/DL ALKALINE PHOSPHATASE (test code = 2204) 72 U/L AST (test code = 2218) 19 U/L ALT (test code = 2219) 19 U/L Javon FuentesLIPID [id number] 00:00:00* Test Item Value Reference Range Interpretation Comme nts CHOLESTEROL (test code = 2210) 189 MG/DL TRIGLYCERIDES (test code = 2232) 73 MG/DL HDL CHOLESTEROL (test code = 2220) 53 MG/DL CALC LDL CHOL (test code = 2237) 121 MG/DL RISK RATIO LDL/HDL (test cod e = 2238) 2.29 RATIO Javon FuentesCOMPREHENSIVE METABOLIC [id number] 00:00:00* Test Item Value Reference Range Interpretation Comme nts GLUCOSE (test code = 2217) 103 MG/DL BUN (test code = 2208) 9 MG/DL CREATININE (test code = 2214) 0.84 MG/DL eGFR AMER. (test cod e = 88070) 99 ML/MIN/1.73 eGFR NON- AMER. (test code = 51947) 85 ML/MIN/1.73 CALC BUN/CREAT (test code = 2235) 11 RATIO SODIUM (test code = 2231) 139 MEQ/L POTASSIUM (test code = 2228) 4.9 MEQ/L CHLORIDE (test code = 2215) 101 MEQ/L CARBON DIOXIDE (test code = 2206) 25 MEQ/L CALCIUM (test code = 2209) 9.5 MG/DL PROTEIN, TOTAL (test code = 2229) 7.5 G/DL ALBUMIN (test code = 2201) 4.1 G/DL CALC GLOBULIN (test code = 2240) 3.4 G/DL CALC A/G RATIO (test code = 2234) 1.2 RATIO BILIRUBIN, TOTAL (test code = 2207) 0.5 MG/DL ALKALINE PHOSPHATASE (test code = 2204) 72 U/L AST (test code = 2218) 19 U/L ALT (test code = 2219) 19 U/L Javon Day AustinLIPID [id number] 00:00:00* Test Item Value Reference Range Interpretation Comme nts CHOLESTEROL (test code = 2210) 189 MG/DL TRIGLYCERIDES (test code = 2232) 73 MG/DL HDL CHOLESTEROL (test code = 2220) 53 MG/DL CALC LDL CHOL (test code = 2237) 121 MG/DL RISK RATIO LDL/HDL (test cod e = 2238) 2.29 RATIO Javon FuentesC W/AUTO [id number] 00:00:00* Test Item Value Reference Range Interpretation Comme nts WBC (test code = 1001) 5.9 K/UL RBC (test code = 1002) 4.48 M/UL HEMOGLOBIN (test code = 1003) 11.6 G/DL HEMATOCRIT (test code = 1004) 36.8 % MCV (test code = 1005) 82.1 fL MCH (test code = 1006) 25.9 PG MCHC (test code = 1007) 31.5 G/DL RDW (test code = 1038) 14.4 % NEUTROPHILS (test code = 1008) 62.9 % LYMPHOCYTES (test code = 1010) 26.2 % MONOCYTES (test code = 1011) 7.7 % EOSINOPHILS (test code = 1012) 2.7 % BASOPHILS (test code = 1013) 0.5 % PLATELET COUNT (test code = 1015) 310 K/UL Javon FuentesHEMOGLOBIN [id number] 00:00:00* Test Item Value Reference Range Interpretation Comme [facility] HEMOGLOBIN A1c (test code = 89555) 6.3 % Javon Day [facility] W/AUTO [id number] 00:00:00* Test Item Value Reference Range Interpretation Comme nts WBC (test code = 1001) 5.9 K/UL RBC (test code = 1002) 4.48 M/UL HEMOGLOBIN (test code = 1003) 11.6 G/DL HEMATOCRIT (test code = 1004) 36.8 % MCV (test code = 1005) 82.1 fL MCH (test code = 1006) 25.9 PG MCHC (test code = 1007) 31.5 G/DL RDW (test code = 1038) 14.4 % NEUTROPHILS (test code = 1008) 62.9 % LYMPHOCYTES (test code = 1010) 26.2 % MONOCYTES (test code = 1011) 7.7 % EOSINOPHILS (test code = 1012) 2.7 % BASOPHILS (test code = 1013) 0.5 % PLATELET COUNT (test code = 1015) 310 K/UL Javon Day AustinHEMOGLOBIN [id number] 00:00:00* Test Item Value Reference Range Interpretation Comme nts HEMOGLOBIN A1c (test code = 17699) 6.3 % Javon FuentesCBC W/AUTO [id number] 00:00:00* Test Item Value Reference Range Interpretation Comme nts WBC (test code = 1001) 5.9 K/UL RBC (test code = 1002) 4.48 M/UL HEMOGLOBIN (test code = 1003) 11.6 G/DL HEMATOCRIT (test code = 1004) 36.8 % MCV (test code = 1005) 82.1 fL MCH (test code = 1006) 25.9 PG MCHC (test code = 1007) 31.5 G/DL RDW (test code = 1038) 14.4 % NEUTROPHILS (test code = 1008) 62.9 % LYMPHOCYTES (test code = 1010) 26.2 % MONOCYTES (test code = 1011) 7.7 % EOSINOPHILS (test code = 1012) 2.7 % BASOPHILS (test code = 1013) 0.5 % PLATELET COUNT (test code = 1015) 310 K/UL Javon FuentesHEMOGLOBIN [id number] 00:00:00* Test Item Value Reference Range Interpretation Comme nts HEMOGLOBIN A1c (test code = 05197) 6.3 % Javon FuentesCBC W/AUTO [id number] 00:00:00* Test Item Value Reference Range Interpretation Comme nts WBC (test code = 1001) 5.9 K/UL RBC (test code = 1002) 4.48 M/UL HEMOGLOBIN (test code = 1003) 11.6 G/DL HEMATOCRIT (test code = 1004) 36.8 % MCV (test code = 1005) 82.1 fL MCH (test code = 1006) 25.9 PG MCHC (test code = 1007) 31.5 G/DL RDW (test code = 1038) 14.4 % NEUTROPHILS (test code = 1008) 62.9 % LYMPHOCYTES (test code = 1010) 26.2 % MONOCYTES (test code = 1011) 7.7 % EOSINOPHILS (test code = 1012) 2.7 % BASOPHILS (test code = 1013) 0.5 % PLATELET COUNT (test code = 1015) 310 K/UL Javon Day AustinHEMOGLOBIN [id number] 00:00:00* Test Item Value Reference Range Interpretation Comme nts HEMOGLOBIN A1c (test code = 02960) 6.3 % Javon Day AustinCBC W/AUTO [id number] 00:00:00* Test Item Value Reference Range Interpretation Comme nts WBC (test code = 1001) 5.9 K/UL RBC (test code = 1002) 4.48 M/UL HEMOGLOBIN (test code = 1003) 11.6 G/DL HEMATOCRIT (test code = 1004) 36.8 % MCV (test code = 1005) 82.1 fL MCH (test code = 1006) 25.9 PG MCHC (test code = 1007) 31.5 G/DL RDW (test code = 1038) 14.4 % NEUTROPHILS (test code = 1008) 62.9 % LYMPHOCYTES (test code = 1010) 26.2 % MONOCYTES (test code = 1011) 7.7 % EOSINOPHILS (test code = 1012) 2.7 % BASOPHILS (test code = 1013) 0.5 % PLATELET COUNT (test code = 1015) 310 K/UL Javon Dya AustinHEMOGLOBIN [id number] 00:00:00* Test Item Value Reference Range Interpretation Comme nts HEMOGLOBIN A1c (test code = 80230) 6.3 % Javon FuentesCBC W/AUTO [id number] 00:00:00* Test Item Value Reference Range Interpretation Comme nts WBC (test code = 1001) 5.9 K/UL RBC (test code = 1002) 4.48 M/UL HEMOGLOBIN (test code = 1003) 11.6 G/DL HEMATOCRIT (test code = 1004) 36.8 % MCV (test code = 1005) 82.1 fL MCH (test code = 1006) 25.9 PG MCHC (test code = 1007) 31.5 G/DL RDW (test code = 1038) 14.4 % NEUTROPHILS (test code = 1008) 62.9 % LYMPHOCYTES (test code = 1010) 26.2 % MONOCYTES (test code = 1011) 7.7 % EOSINOPHILS (test code = 1012) 2.7 % BASOPHILS (test code = 1013) 0.5 % PLATELET COUNT (test code = 1015) 310 K/UL Javon Day AustinHEMOGLOBIN [id number] 00:00:00* Test Item Value Reference Range Interpretation Comme nts HEMOGLOBIN A1c (test code = 16800) 6.3 % Javon FuentesCBC W/AUTO [id number] 00:00:00* Test Item Value Reference Range Interpretation Comme nts WBC (test code = 1001) 5.9 K/UL RBC (test code = 1002) 4.48 M/UL HEMOGLOBIN (test code = 1003) 11.6 G/DL HEMATOCRIT (test code = 1004) 36.8 % MCV (test code = 1005) 82.1 fL MCH (test code = 1006) 25.9 PG MCHC (test code = 1007) 31.5 G/DL RDW (test code = 1038) 14.4 % NEUTROPHILS (test code = 1008) 62.9 % LYMPHOCYTES (test code = 1010) 26.2 % MONOCYTES (test code = 1011) 7.7 % EOSINOPHILS (test code = 1012) 2.7 % BASOPHILS (test code = 1013) 0.5 % PLATELET COUNT (test code = 1015) 310 K/UL Javon FuentesHEMOGLOBIN [id number] 00:00:00* Test Item Value Reference Range Interpretation Comme nts HEMOGLOBIN A1c (test code = 11334) 6.3 % Javon FuentesPAP TEST, THINPREP, [id number] 00:00:00* Test Item Value Reference Range Interpretation Comme nts SOURCE: (test code = 8001) Cervical/Endocervical SLIDES: (test code = 8011) 1 LMP: (test code = 8021) 2016-05-31 SPECIMEN ADEQUACY: (test code = 78433) (NOTE) INTERPRETATION: (test code = 46819) NO EPITHELIAL ABNORMALITY SEE BELOW OTHER COMMENTS: (test code = 8081) (NOTE) TRAILHEAD CONSTRUCTION WORKER: (test code = 8101) Naty eHrnandez, CT(ASCP)IAC QC TECHNOLOGIST: (test code = 8111) Jeffery Taylor,SCT(ASCP),IAC LOCATION: (test code = 72656) (NOTE) CPT: (test code = 8140) (NOTE) Javon Day AustinHCV RNA, PCR [id number] 00:00:00* Test Item Value Reference Range Interpretation Comme nts HCV RNA, PCR QUANT (test code = 4571) NOT DETEC. IU/mL HCV VIRAL LOG (test code = 14414) NOT DETEC. logIU/mL Javon FuentesPAP TEST, THINPREP, [id number] 00:00:00* Test Item Value Reference Range Interpretation Comme nts SOURCE: (test code = 8001) Cervical/Endocervical SLIDES: (test code = 8011) 1 LMP: (test code = 8021) 2016-05-31 SPECIMEN ADEQUACY: (test code = 14100) (NOTE) INTERPRETATION: (test code = 59094) NO EPITHELIAL ABNORMALITY SEE BELOW OTHER COMMENTS: (test code = 8081) (NOTE) TRAILHEAD CONSTRUCTION WORKER: (test code = 8101) ENRIQUE Cano(ASCP)IAC QC TECHNOLOGIST: (test code = 8111) MOLLY Gonsales(ASCP),IAC LOCATION: (test code = 83451) (NOTE) CPT: (test code = 8140) (NOTE) Javon FuentesHCV RNA, PCR [id number] 00:00:00* Test Item Value Reference Range Interpretation Comme nts HCV RNA, PCR QUANT (test code = 4571) NOT DETEC. IU/mL HCV VIRAL LOG (test code = 80464) NOT DETEC. logIU/mL Javon FuentesPAP TEST, THINPREP, [id number] 00:00:00* Test Item Value Reference Range Interpretation Comme nts SOURCE: (test code = 8001) Cervical/Endocervical SLIDES: (test code = 8011) 1 LMP: (test code = 8021) 2016-05-31 SPECIMEN ADEQUACY: (test code = 11393) (NOTE) INTERPRETATION: (test code = 65943) NO EPITHELIAL ABNORMALITY SEE BELOW OTHER COMMENTS: (test code = 8081) (NOTE) TRAILHEAD CONSTRUCTION WORKER: (test code = 8101) ENRIQUE Cano(ASCP)IAC QC TECHNOLOGIST: (test code = 8111) MOLLY Gonsales(ASCP),IAC LOCATION: (test code = 92689) (NOTE) CPT: (test code = 8140) (NOTE) Javon aDy AustinHCV RNA, PCR [id number] 00:00:00* Test Item Value Reference Range Interpretation Comme nts HCV RNA, PCR QUANT (test code = 4571) NOT DETEC. IU/mL HCV VIRAL LOG (test code = 35808) NOT DETEC. logIU/mL Javon FuentesPAP TEST, THINPREP, [id number] 00:00:00* Test Item Value Reference Range Interpretation Comme nts SOURCE: (test code = 8001) Cervical/Endocervical SLIDES: (test code = 8011) 1 LMP: (test code = 8021) 2016-05-31 SPECIMEN ADEQUACY: (test code = 48467) (NOTE) INTERPRETATION: (test code = 87725) NO EPITHELIAL ABNORMALITY SEE BELOW OTHER COMMENTS: (test code = 8081) (NOTE) TRAILHEAD CONSTRUCTION WORKER: (test code = 8101) ENRIQUE Cano(ASCP)IAC QC TECHNOLOGIST: (test code = 8111) MOLLY Gonsales(ASCP),IAC LOCATION: (test code = 31463) (NOTE) CPT: (test code = 8140) (NOTE) Javon Day AustinHCV RNA, PCR [id number] 00:00:00* Test Item Value Reference Range Interpretation Comme nts HCV RNA, PCR QUANT (test code = 4571) NOT DETEC. IU/mL HCV VIRAL LOG (test code = 26794) NOT DETEC. logIU/mL Javon FuentesPAP TEST, THINPREP, [id number] 00:00:00* Test Item Value Reference Range Interpretation Comme nts SOURCE: (test code = 8001) Cervical/Endocervical SLIDES: (test code = 8011) 1 LMP: (test code = 8021) 2016-05-31 SPECIMEN ADEQUACY: (test code = 60545) (NOTE) INTERPRETATION: (test code = 06801) NO EPITHELIAL ABNORMALITY SEE BELOW OTHER COMMENTS: (test code = 8081) (NOTE) TRAILHEAD CONSTRUCTION WORKER: (test code = 8101) ENRIQUE Cano(ASCP)IAC QC TECHNOLOGIST: (test code = 8111) MOLLY Gonsales(ASCP),IAC LOCATION: (test code = 17936) (NOTE) CPT: (test code = 8140) (NOTE) Javon Day AustinHCV RNA, PCR [id number] 00:00:00* Test Item Value Reference Range Interpretation Comme nts HCV RNA, PCR QUANT (test code = 4571) NOT DETEC. IU/mL HCV VIRAL LOG (test code = 56410) NOT DETEC. logIU/mL Javon Day AustinPAP TEST, THINPREP, [id number] 00:00:00* Test Item Value Reference Range Interpretation Comme nts SOURCE: (test code = 8001) Cervical/Endocervical SLIDES: (test code = 8011) 1 LMP: (test code = 8021) 2016-05-31 SPECIMEN ADEQUACY: (test code = 48810) (NOTE) INTERPRETATION: (test code = 26597) NO EPITHELIAL ABNORMALITY SEE BELOW OTHER COMMENTS: (test code = 8081) (NOTE) TRAILHEAD CONSTRUCTION WORKER: (test code = 8101) ENRIQUE Cano(ASCP)IAC QC TECHNOLOGIST: (test code = 8111) MOLLY Gonsales(ASCP),IAC LOCATION: (test code = 65303) (NOTE) CPT: (test code = 8140) (NOTE) Javon Day AustinHCV RNA, PCR [id number] 00:00:00* Test Item Value Reference Range Interpretation Comme nts HCV RNA, PCR QUANT (test code = 4571) NOT DETEC. IU/mL HCV VIRAL LOG (test code = 90496) NOT DETEC. logIU/mL Javon FuentesPAP TEST, THINPREP, [id number] 00:00:00* Test Item Value Reference Range Interpretation Comme nts SOURCE: (test code = 8001) Cervical/Endocervical SLIDES: (test code = 8011) 1 LMP: (test code = 8021) 2016-05-31 SPECIMEN ADEQUACY: (test code = 05075) (NOTE) INTERPRETATION: (test code = 91775) NO EPITHELIAL ABNORMALITY SEE BELOW OTHER COMMENTS: (test code = 8081) (NOTE) TRAILHEAD CONSTRUCTION WORKER: (test code = 8101) ENRIQUE Cano(ASCP)IAC QC TECHNOLOGIST: (test code = 8111) MOLLY Gonsales(ASCP),IAC LOCATION: (test code = 38353) (NOTE) CPT: (test code = 8140) (NOTE) Javon FuentesHCV RNA, PCR [id number] 00:00:00* Test Item Value Reference Range Interpretation Comme nts HCV RNA, PCR QUANT (test code = 4571) NOT DETEC. IU/mL HCV VIRAL LOG (test code = 59041) NOT DETEC. logIU/mL Javon Day AustinMICROALBUMIN/CREATININE, RANDOM AND [id number] 00:00:00* Test Item Value Reference Range Interpretation Comme nts CREATININE, URINE, CONC. (te st code = 2071) 118.7 MG/DL MICROALBUMIN, RANDOM (test c ode = 60296) 0.3 MG/DL CALC MICROALB/CREAT RND (katerine t code = 22550) 3 MG/G Javon Day AustinHPV HIGH RISK WITH GENOTYPE, [id number] 00:00:00* Test Item Value Reference Range Interpretation Comme nts HPV HIGH RISK INTERP (test c ode = 46009) INDETERMINATE HPV 16 (test code = 60101) INDETERMINATE HPV 18 (test code = 99865) INDETERMINATE HPV, HR, OTHER GENOTYPES (te st code = 40902) INDETERMINATE Javon Day AustinMICROALBUMIN/CREATININE, RANDOM AND [id number] 00:00:00* Test Item Value Reference Range Interpretation Comme nts CREATININE, URINE, CONC. (te st code = 2071) 118.7 MG/DL MICROALBUMIN, RANDOM (test c ode = 85166) 0.3 MG/DL CALC MICROALB/CREAT RND (katerine t code = 19082) 3 MG/G Javon Day AustinHPV HIGH RISK WITH GENOTYPE, [id number] 00:00:00* Test Item Value Reference Range Interpretation Comme nts HPV HIGH RISK INTERP (test c ode = 01289) INDETERMINATE HPV 16 (test code = 81923) INDETERMINATE HPV 18 (test code = 94733) INDETERMINATE HPV, HR, OTHER GENOTYPES (te st code = 89412) INDETERMINATE Javon F AustinMICROALBUMIN/CREATININE, RANDOM AND [id number] 00:00:00* Test Item Value Reference Range Interpretation Comme nts CREATININE, URINE, CONC. (te st code = 2071) 118.7 MG/DL MICROALBUMIN, RANDOM (test c ode = 25148) 0.3 MG/DL CALC MICROALB/CREAT RND (katerine t code = 23460) 3 MG/G Javon F AustinHPV HIGH RISK WITH GENOTYPE, [id number] 00:00:00* Test Item Value Reference Range Interpretation Comme nts HPV HIGH RISK INTERP (test c ode = 02203) INDETERMINATE HPV 16 (test code = 41153) INDETERMINATE HPV 18 (test code = 59311) INDETERMINATE HPV, HR, OTHER GENOTYPES (te st code = 34825) INDETERMINATE Javon F AustinMICROALBUMIN/CREATININE, RANDOM AND [id number] 00:00:00* Test Item Value Reference Range Interpretation Comme nts CREATININE, URINE, CONC. (te st code = 2071) 118.7 MG/DL MICROALBUMIN, RANDOM (test c ode = 84816) 0.3 MG/DL CALC MICROALB/CREAT RND (katerine t code = 31564) 3 MG/G Javon F AustinHPV HIGH RISK WITH GENOTYPE, [id number] 00:00:00* Test Item Value Reference Range Interpretation Comme nts HPV HIGH RISK INTERP (test c ode = 88309) INDETERMINATE HPV 16 (test code = 72528) INDETERMINATE HPV 18 (test code = 34275) INDETERMINATE HPV, HR, OTHER GENOTYPES (te st code = 30668) INDETERMINATE Javon F AustinMICROALBUMIN/CREATININE, RANDOM AND [id number] 00:00:00* Test Item Value Reference Range Interpretation Comme nts CREATININE, URINE, CONC. (te st code = 207) 118.7 MG/DL MICROALBUMIN, RANDOM (test c ode = 26501) 0.3 MG/DL CALC MICROALB/CREAT RND (katerine t code = 23918) 3 MG/G Javon F AustinHPV HIGH RISK WITH GENOTYPE, [id number] 00:00:00* Test Item Value Reference Range Interpretation Comme nts HPV HIGH RISK INTERP (test c ode = 95991) INDETERMINATE HPV 16 (test code = 96351) INDETERMINATE HPV 18 (test code = 99433) INDETERMINATE HPV, HR, OTHER GENOTYPES (te st code = 02530) INDETERMINATE Javon F AustinMICROALBUMIN/CREATININE, RANDOM AND [id number] 00:00:00* Test Item Value Reference Range Interpretation Comme nts CREATININE, URINE, CONC. (te st code = 2071) 118.7 MG/DL MICROALBUMIN, RANDOM (test c ode = 38994) 0.3 MG/DL CALC MICROALB/CREAT RND (katerine t code = 31507) 3 MG/G Javon Day AustinHPV HIGH RISK WITH GENOTYPE, [id number] 00:00:00* Test Item Value Reference Range Interpretation Comme nts HPV HIGH RISK INTERP (test c ode = 25773) INDETERMINATE HPV 16 (test code = 68243) INDETERMINATE HPV 18 (test code = 96496) INDETERMINATE HPV, HR, OTHER GENOTYPES (te st code = 69353) INDETERMINATE Javon Day AustinMICROALBUMIN/CREATININE, RANDOM AND [id number] 00:00:00* Test Item Value Reference Range Interpretation Comme nts CREATININE, URINE, CONC. (te st code = 2071) 118.7 MG/DL MICROALBUMIN, RANDOM (test c ode = 04354) 0.3 MG/DL CALC MICROALB/CREAT RND (katerine t code = 84235) 3 MG/G Javon Day AustinHPV HIGH RISK WITH GENOTYPE, [id number] 00:00:00* Test Item Value Reference Range Interpretation Comme nts HPV HIGH RISK INTERP (test c ode = 94713) INDETERMINATE HPV 16 (test code = 42205) INDETERMINATE HPV 18 (test code = 09988) INDETERMINATE HPV, HR, OTHER GENOTYPES (te st code = 78534) INDETERMINATE Javon Day AustinCHLAMYDIA, AMPLIFIED, [id number] 00:00:00* Test Item Value Reference Range Interpretation Comme nts CHLAMYDIA, TMA (test code = 55578) NEGATIVE Javon F AustinGC, AMPLIFIED, [id number] 00:00:00* Test Item Value Reference Range Interpretation Comme nts GONORRHEA, TMA (test code = 37474) NEGATIVE Javon F AustinCHLAMYDIA, AMPLIFIED, [id number] 00:00:00* Test Item Value Reference Range Interpretation Comme nts CHLAMYDIA, TMA (test code = 90331) NEGATIVE Javon F AustinGC, AMPLIFIED, [id number] 00:00:00* Test Item Value Reference Range Interpretation Comme nts GONORRHEA, TMA (test code = 05848) NEGATIVE Javon F AustinCHLAMYDIA, AMPLIFIED, [id number] 00:00:00* Test Item Value Reference Range Interpretation Comme nts CHLAMYDIA, TMA (test code = 03845) NEGATIVE Javon F AustinGC, AMPLIFIED, [id number] 00:00:00* Test Item Value Reference Range Interpretation Comme nts GONORRHEA, TMA (test code = 30194) NEGATIVE Javon F AustinCHLAMYDIA, AMPLIFIED, [id number] 00:00:00* Test Item Value Reference Range Interpretation Comme nts CHLAMYDIA, TMA (test code = 77835) NEGATIVE Javon F AustinGC, AMPLIFIED, [id number] 00:00:00* Test Item Value Reference Range Interpretation Comme nts GONORRHEA, TMA (test code = 19631) NEGATIVE Javon F AustinCHLAMYDIA, AMPLIFIED, [id number] 00:00:00* Test Item Value Reference Range Interpretation Comme nts CHLAMYDIA, TMA (test code = 88578) NEGATIVE Javon F AustinGC, AMPLIFIED, [id number] 00:00:00* Test Item Value Reference Range Interpretation Comme nts GONORRHEA, TMA (test code = 11914) NEGATIVE Javon F AustinCHLAMYDIA, AMPLIFIED, [id number] 00:00:00* Test Item Value Reference Range Interpretation Comme nts CHLAMYDIA, TMA (test code = 13938) NEGATIVE Javon F AustinGC, AMPLIFIED, [id number] 00:00:00* Test Item Value Reference Range Interpretation Comme nts GONORRHEA, TMA (test code = 37297) NEGATIVE Javon F AustinCHLAMYDIA, AMPLIFIED, [id number] 00:00:00* Test Item Value Reference Range Interpretation Comme nts CHLAMYDIA, TMA (test code = 01426) NEGATIVE Javon F AustinGC, AMPLIFIED, [id number] 00:00:00* Test Item Value Reference Range Interpretation Comme nts GONORRHEA, TMA (test code = 03629) NEGATIVE Javon F AustinACUTE HEPATITIS [id number] 00:00:00* Test Item Value Reference Range Interpretation Comme nts HEPATITIS A IgM (test code = 72667) NON-REACTIVE HEPATITIS B CORE IgM (test c ode = 4644) NON-REACTIVE HEPATITIS B SURF AG (test co de = 2739) NON-REACTIVE HEPATITIS C ANTIBODY (test c ode = 4675) REACTIVE INTERPRETATION HEPATITIS A: (test code = 2552) (NOTE) INTERPRETATION HEPATITIS B: (test code = 75948) (NOTE) INTERPRETATION HEPATITIS C: (test code = 23792) (NOTE) Javon FuentesHIV AB/AG COMBO RFLX [id number] 00:00:00* Test Item Value Reference Range Interpretation Comme nts HIV 1/2 4TH GEN, RFLX CONF ( test code = 3514) NON-REACTIVE Javon Day [id number] 00:00:00* Test Item Value Reference Range Interpretation Comme nts RPR RESULT (test code = 3501) NON-REACTIVE RPR TITER (test code = 3500) NOT INDIC. TITER Javon FuentesACUTE HEPATITIS [id number] 00:00:00* Test Item Value Reference Range Interpretation Comme nts HEPATITIS A IgM (test code = 01409) NON-REACTIVE HEPATITIS B CORE IgM (test c ode = 4644) NON-REACTIVE HEPATITIS B SURF AG (test co de = 2739) NON-REACTIVE HEPATITIS C ANTIBODY (test c ode = 4675) REACTIVE INTERPRETATION HEPATITIS A: (test code = 2552) (NOTE) INTERPRETATION HEPATITIS B: (test code = 25556) (NOTE) INTERPRETATION HEPATITIS C: (test code = 65810) (NOTE) Jaovn FuentesHIV AB/AG COMBO RFLX [id number] 00:00:00* Test Item Value Reference Range Interpretation Comme nts HIV 1/2 4TH GEN, RFLX CONF ( test code = 3514) NON-REACTIVE Javon Day [id number] 00:00:00* Test Item Value Reference Range Interpretation Comme nts RPR RESULT (test code = 3501) NON-REACTIVE RPR TITER (test code = 3500) NOT INDIC. TITER Javon FuentesACUTE HEPATITIS [id number] 00:00:00* Test Item Value Reference Range Interpretation Comme nts HEPATITIS A IgM (test code = 66603) NON-REACTIVE HEPATITIS B CORE IgM (test c ode = 4644) NON-REACTIVE HEPATITIS B SURF AG (test co de = 2739) NON-REACTIVE HEPATITIS C ANTIBODY (test c ode = 4675) REACTIVE INTERPRETATION HEPATITIS A: (test code = 2552) (NOTE) INTERPRETATION HEPATITIS B: (test code = 76623) (NOTE) INTERPRETATION HEPATITIS C: (test code = 23937) (NOTE) Javon FuentesHIV AB/AG COMBO RFLX [id number] 00:00:00* Test Item Value Reference Range Interpretation Comme nts HIV 1/2 4TH GEN, RFLX CONF ( test code = 3514) NON-REACTIVE Javon Day [id number] 00:00:00* Test Item Value Reference Range Interpretation Comme nts RPR RESULT (test code = 3501) NON-REACTIVE RPR TITER (test code = 3500) NOT INDIC. TITER Javon FuentesACUTE HEPATITIS [id number] 00:00:00* Test Item Value Reference Range Interpretation Comme nts HEPATITIS A IgM (test code = 88081) NON-REACTIVE HEPATITIS B CORE IgM (test c ode = 4644) NON-REACTIVE HEPATITIS B SURF AG (test co de = 2739) NON-REACTIVE HEPATITIS C ANTIBODY (test c ode = 4675) REACTIVE INTERPRETATION HEPATITIS A: (test code = 2552) (NOTE) INTERPRETATION HEPATITIS B: (test code = 92553) (NOTE) INTERPRETATION HEPATITIS C: (test code = 81665) (NOTE) Javon FuentesHIV AB/AG COMBO RFLX [id number] 00:00:00* Test Item Value Reference Range Interpretation Comme nts HIV 1/2 4TH GEN, RFLX CONF ( test code = 3514) NON-REACTIVE Javon Day [id number] 00:00:00* Test Item Value Reference Range Interpretation Comme nts RPR RESULT (test code = 3501) NON-REACTIVE RPR TITER (test code = 3500) NOT INDIC. TITER Javon FuentesACUTE HEPATITIS [id number] 00:00:00* Test Item Value Reference Range Interpretation Comme nts HEPATITIS A IgM (test code = 67436) NON-REACTIVE HEPATITIS B CORE IgM (test c ode = 4644) NON-REACTIVE HEPATITIS B SURF AG (test co de = 2739) NON-REACTIVE HEPATITIS C ANTIBODY (test c ode = 4675) REACTIVE INTERPRETATION HEPATITIS A: (test code = 2552) (NOTE) INTERPRETATION HEPATITIS B: (test code = 51236) (NOTE) INTERPRETATION HEPATITIS C: (test code = 85817) (NOTE) Javon Day AustinHIV AB/AG COMBO RFLX [id number] 00:00:00* Test Item Value Reference Range Interpretation Comme nts HIV 1/2 4TH GEN, RFLX CONF ( test code = 3514) NON-REACTIVE Javon Day [id number] 00:00:00* Test Item Value Reference Range Interpretation Comme nts RPR RESULT (test code = 3501) NON-REACTIVE RPR TITER (test code = 3500) NOT INDIC. TITER Javon FuentesACUTE HEPATITIS [id number] 00:00:00* Test Item Value Reference Range Interpretation Comme nts HEPATITIS A IgM (test code = 08662) NON-REACTIVE HEPATITIS B CORE IgM (test c ode = 4644) NON-REACTIVE HEPATITIS B SURF AG (test co de = 2739) NON-REACTIVE HEPATITIS C ANTIBODY (test c ode = 4675) REACTIVE INTERPRETATION HEPATITIS A: (test code = 2552) (NOTE) INTERPRETATION HEPATITIS B: (test code = 26615) (NOTE) INTERPRETATION HEPATITIS C: (test code = 89288) (NOTE) Javon Day AustinHIV AB/AG COMBO RFLX [id number] 00:00:00* Test Item Value Reference Range Interpretation Comme nts HIV 1/2 4TH GEN, RFLX CONF ( test code = 3514) NON-REACTIVE Javon [id number] 00:00:00* Test Item Value Reference Range Interpretation Comme nts RPR RESULT (test code = 3501) NON-REACTIVE RPR TITER (test code = 3500) NOT INDIC. TITER Javon FuentesACUTE HEPATITIS [id number] 00:00:00* Test Item Value Reference Range Interpretation Comme nts HEPATITIS A IgM (test code = 78019) NON-REACTIVE HEPATITIS B CORE IgM (test c ode = 4644) NON-REACTIVE HEPATITIS B SURF AG (test co de = 2739) NON-REACTIVE HEPATITIS C ANTIBODY (test c ode = 4675) REACTIVE INTERPRETATION HEPATITIS A: (test code = 2552) (NOTE) INTERPRETATION HEPATITIS B: (test code = 39517) (NOTE) INTERPRETATION HEPATITIS C: (test code = 20296) (NOTE) Javon FuentesHIV AB/AG COMBO RFLX [id number] 00:00:00* Test Item Value Reference Range Interpretation Comme nts HIV 1/2 4TH GEN, RFLX CONF ( test code = 3514) NON-REACTIVE Javon [id number] 00:00:00* Test Item Value Reference Range Interpretation Comme nts RPR RESULT (test code = 3501) NON-REACTIVE RPR TITER (test code = 3500) NOT INDIC. TITER Javon FuentesLIPID [id number] 00:00:00* Test Item Value Reference Range Interpretation Comme nts CHOLESTEROL (test code = 2210) 175 MG/DL TRIGLYCERIDES (test code = 2232) 79 MG/DL HDL CHOLESTEROL (test code = 2220) 47 MG/DL CALC LDL CHOL (test code = 2237) 112 MG/DL RISK RATIO LDL/HDL (test cod e = 2238) 2.39 RATIO Javon FuentesCBC W/AUTO [id number] 00:00:00* Test Item Value Reference Range Interpretation Comme nts WBC (test code = 1001) 7.6 K/UL RBC (test code = 1002) 4.49 M/UL HEMOGLOBIN (test code = 1003) 12.2 G/DL HEMATOCRIT (test code = 1004) 37.3 % MCV (test code = 1005) 83.1 fL MCH (test code = 1006) 27.2 PG MCHC (test code = 1007) 32.7 G/DL RDW (test code = 1038) 14.7 % NEUTROPHILS (test code = 1008) 70.4 % LYMPHOCYTES (test code = 1010) 21.6 % MONOCYTES (test code = 1011) 5.3 % EOSINOPHILS (test code = 1012) 2.4 % BASOPHILS (test code = 1013) 0.3 % PLATELET COUNT (test code = 1015) 352 K/UL Javon FuentesHEMOGLOBIN [id number] 00:00:00* Test Item Value Reference Range Interpretation Comme tasha HEMOGLOBIN A1c (test code = 65008) 6.5 % Javon [id number] 00:00:00* Test Item Value Reference Range Interpretation Comme nts TSH (test code = 2821) 0.7 UIU/ML Javon FuentesCOMPREHENSIVE METABOLIC [id number] 00:00:00* Test Item Value Reference Range Interpretation Comme nts GLUCOSE (test code = 2217) 138 MG/DL BUN (test code = 2208) 8 MG/DL CREATININE (test code = 2214) 0.84 MG/DL eGFR AMER. (test cod e = 71828) 100 ML/MIN/1.73 eGFR NON- AMER. (test code = 26234) 86 ML/MIN/1.73 CALC BUN/CREAT (test code = 2235) 10 RATIO SODIUM (test code = 2231) 140 MEQ/L POTASSIUM (test code = 2228) 4.5 MEQ/L CHLORIDE (test code = 2215) 100 MEQ/L CARBON DIOXIDE (test code = 2206) 23 MEQ/L CALCIUM (test code = 2209) 9.4 MG/DL PROTEIN, TOTAL (test code = 2229) 7.3 G/DL ALBUMIN (test code = 2201) 4.1 G/DL CALC GLOBULIN (test code = 2240) 3.2 G/DL CALC A/G RATIO (test code = 2234) 1.3 RATIO BILIRUBIN, TOTAL (test code = 2207) 0.5 MG/DL ALKALINE PHOSPHATASE (test code = 2204) 76 U/L AST (test code = 2218) 23 U/L ALT (test code = 2219) 24 U/L Javon FuentesLIPID [id number] 00:00:00* Test Item Value Reference Range Interpretation Comme nts CHOLESTEROL (test code = 2210) 175 MG/DL TRIGLYCERIDES (test code = 2232) 79 MG/DL HDL CHOLESTEROL (test code = 2220) 47 MG/DL CALC LDL CHOL (test code = 2237) 112 MG/DL RISK RATIO LDL/HDL (test cod e = 2238) 2.39 RATIO Javon FuentesCBC W/AUTO [id number] 00:00:00* Test Item Value Reference Range Interpretation Comme nts WBC (test code = 1001) 7.6 K/UL RBC (test code = 1002) 4.49 M/UL HEMOGLOBIN (test code = 1003) 12.2 G/DL HEMATOCRIT (test code = 1004) 37.3 % MCV (test code = 1005) 83.1 fL MCH (test code = 1006) 27.2 PG MCHC (test code = 1007) 32.7 G/DL RDW (test code = 1038) 14.7 % NEUTROPHILS (test code = 1008) 70.4 % LYMPHOCYTES (test code = 1010) 21.6 % MONOCYTES (test code = 1011) 5.3 % EOSINOPHILS (test code = 1012) 2.4 % BASOPHILS (test code = 1013) 0.3 % PLATELET COUNT (test code = 1015) 352 K/UL Javon FuentesHEMOGLOBIN [id number] 00:00:00* Test Item Value Reference Range Interpretation Comme nts HEMOGLOBIN A1c (test code = 69087) 6.5 % Javon Day [id number] 00:00:00* Test Item Value Reference Range Interpretation Comme nts TSH (test code = 2821) 0.7 UIU/ML Javon FuentesCOMPREHENSIVE METABOLIC [id number] 00:00:00* Test Item Value Reference Range Interpretation Comme nts GLUCOSE (test code = 2217) 138 MG/DL BUN (test code = 2208) 8 MG/DL CREATININE (test code = 2214) 0.84 MG/DL eGFR AMER. (test cod e = 97807) 100 ML/MIN/1.73 eGFR NON- AMER. (test code = 55256) 86 ML/MIN/1.73 CALC BUN/CREAT (test code = 2235) 10 RATIO SODIUM (test code = 2231) 140 MEQ/L POTASSIUM (test code = 2228) 4.5 MEQ/L CHLORIDE (test code = 2215) 100 MEQ/L CARBON DIOXIDE (test code = 2206) 23 MEQ/L CALCIUM (test code = 2209) 9.4 MG/DL PROTEIN, TOTAL (test code = 2229) 7.3 G/DL ALBUMIN (test code = 2201) 4.1 G/DL CALC GLOBULIN (test code = 2240) 3.2 G/DL CALC A/G RATIO (test code = 2234) 1.3 RATIO BILIRUBIN, TOTAL (test code = 2207) 0.5 MG/DL ALKALINE PHOSPHATASE (test code = 2204) 76 U/L AST (test code = 2218) 23 U/L ALT (test code = 2219) 24 U/L Javon FuentesLIPID [id number] 00:00:00* Test Item Value Reference Range Interpretation Comme nts CHOLESTEROL (test code = 2210) 175 MG/DL TRIGLYCERIDES (test code = 2232) 79 MG/DL HDL CHOLESTEROL (test code = 2220) 47 MG/DL CALC LDL CHOL (test code = 2237) 112 MG/DL RISK RATIO LDL/HDL (test cod e = 2238) 2.39 RATIO Javon FuentesCBC W/AUTO [id number] 00:00:00* Test Item Value Reference Range Interpretation Comme nts WBC (test code = 1001) 7.6 K/UL RBC (test code = 1002) 4.49 M/UL HEMOGLOBIN (test code = 1003) 12.2 G/DL HEMATOCRIT (test code = 1004) 37.3 % MCV (test code = 1005) 83.1 fL MCH (test code = 1006) 27.2 PG MCHC (test code = 1007) 32.7 G/DL RDW (test code = 1038) 14.7 % NEUTROPHILS (test code = 1008) 70.4 % LYMPHOCYTES (test code = 1010) 21.6 % MONOCYTES (test code = 1011) 5.3 % EOSINOPHILS (test code = 1012) 2.4 % BASOPHILS (test code = 1013) 0.3 % PLATELET COUNT (test code = 1015) 352 K/UL Javon FuentesHEMOGLOBIN [id number] 00:00:00* Test Item Value Reference Range Interpretation Comme tasha HEMOGLOBIN A1c (test code = 79079) 6.5 % Javon [id number] 00:00:00* Test Item Value Reference Range Interpretation Comme tasha TSH (test code = 2821) 0.7 UIU/ML Javon FuentesCOMPREHENSIVE METABOLIC [id number] 00:00:00* Test Item Value Reference Range Interpretation Comme nts GLUCOSE (test code = 2217) 138 MG/DL BUN (test code = 2208) 8 MG/DL CREATININE (test code = 2214) 0.84 MG/DL eGFR AMER. (test cod e = 10294) 100 ML/MIN/1.73 eGFR NON- AMER. (test code = 82430) 86 ML/MIN/1.73 CALC BUN/CREAT (test code = 2235) 10 RATIO SODIUM (test code = 2231) 140 MEQ/L POTASSIUM (test code = 2228) 4.5 MEQ/L CHLORIDE (test code = 2215) 100 MEQ/L CARBON DIOXIDE (test code = 2206) 23 MEQ/L CALCIUM (test code = 2209) 9.4 MG/DL PROTEIN, TOTAL (test code = 2229) 7.3 G/DL ALBUMIN (test code = 2201) 4.1 G/DL CALC GLOBULIN (test code = 2240) 3.2 G/DL CALC A/G RATIO (test code = 2234) 1.3 RATIO BILIRUBIN, TOTAL (test code = 2207) 0.5 MG/DL ALKALINE PHOSPHATASE (test code = 2204) 76 U/L AST (test code = 2218) 23 U/L ALT (test code = 2219) 24 U/L Javon FuentesLIPID [id number] 00:00:00* Test Item Value Reference Range Interpretation Comme nts CHOLESTEROL (test code = 2210) 175 MG/DL TRIGLYCERIDES (test code = 2232) 79 MG/DL HDL CHOLESTEROL (test code = 2220) 47 MG/DL CALC LDL CHOL (test code = 2237) 112 MG/DL RISK RATIO LDL/HDL (test cod e = 2238) 2.39 RATIO Javon FuentesCBC W/AUTO [id number] 00:00:00* Test Item Value Reference Range Interpretation Comme nts WBC (test code = 1001) 7.6 K/UL RBC (test code = 1002) 4.49 M/UL HEMOGLOBIN (test code = 1003) 12.2 G/DL HEMATOCRIT (test code = 1004) 37.3 % MCV (test code = 1005) 83.1 fL MCH (test code = 1006) 27.2 PG MCHC (test code = 1007) 32.7 G/DL RDW (test code = 1038) 14.7 % NEUTROPHILS (test code = 1008) 70.4 % LYMPHOCYTES (test code = 1010) 21.6 % MONOCYTES (test code = 1011) 5.3 % EOSINOPHILS (test code = 1012) 2.4 % BASOPHILS (test code = 1013) 0.3 % PLATELET COUNT (test code = 1015) 352 K/UL Javon FuentesHEMOGLOBIN [id number] 00:00:00* Test Item Value Reference Range Interpretation Comme tasha HEMOGLOBIN A1c (test code = 79840) 6.5 % Javon [id number] 00:00:00* Test Item Value Reference Range Interpretation Comme tasha TSH (test code = 2821) 0.7 UIU/ML Javon FuentesCOMPREHENSIVE METABOLIC [id number] 00:00:00* Test Item Value Reference Range Interpretation Comme nts GLUCOSE (test code = 2217) 138 MG/DL BUN (test code = 2208) 8 MG/DL CREATININE (test code = 2214) 0.84 MG/DL eGFR AMER. (test cod e = 12748) 100 ML/MIN/1.73 eGFR NON- AMER. (test code = 41024) 86 ML/MIN/1.73 CALC BUN/CREAT (test code = 2235) 10 RATIO SODIUM (test code = 2231) 140 MEQ/L POTASSIUM (test code = 2228) 4.5 MEQ/L CHLORIDE (test code = 2215) 100 MEQ/L CARBON DIOXIDE (test code = 2206) 23 MEQ/L CALCIUM (test code = 2209) 9.4 MG/DL PROTEIN, TOTAL (test code = 2229) 7.3 G/DL ALBUMIN (test code = 2201) 4.1 G/DL CALC GLOBULIN (test code = 2240) 3.2 G/DL CALC A/G RATIO (test code = 2234) 1.3 RATIO BILIRUBIN, TOTAL (test code = 2207) 0.5 MG/DL ALKALINE PHOSPHATASE (test code = 2204) 76 U/L AST (test code = 2218) 23 U/L ALT (test code = 2219) 24 U/L Javon FuentesLIPID [id number] 00:00:00* Test Item Value Reference Range Interpretation Comme nts CHOLESTEROL (test code = 2210) 175 MG/DL TRIGLYCERIDES (test code = 2232) 79 MG/DL HDL CHOLESTEROL (test code = 2220) 47 MG/DL CALC LDL CHOL (test code = 2237) 112 MG/DL RISK RATIO LDL/HDL (test cod e = 2238) 2.39 RATIO Javon FuentesCBC W/AUTO [id number] 00:00:00* Test Item Value Reference Range Interpretation Comme nts WBC (test code = 1001) 7.6 K/UL RBC (test code = 1002) 4.49 M/UL HEMOGLOBIN (test code = 1003) 12.2 G/DL HEMATOCRIT (test code = 1004) 37.3 % MCV (test code = 1005) 83.1 fL MCH (test code = 1006) 27.2 PG MCHC (test code = 1007) 32.7 G/DL RDW (test code = 1038) 14.7 % NEUTROPHILS (test code = 1008) 70.4 % LYMPHOCYTES (test code = 1010) 21.6 % MONOCYTES (test code = 1011) 5.3 % EOSINOPHILS (test code = 1012) 2.4 % BASOPHILS (test code = 1013) 0.3 % PLATELET COUNT (test code = 1015) 352 K/UL Javon FuentesHEMOGLOBIN [id number] 00:00:00* Test Item Value Reference Range Interpretation Comme nts HEMOGLOBIN A1c (test code = 63121) 6.5 % Javon Day [id number] 00:00:00* Test Item Value Reference Range Interpretation Comme nts TSH (test code = 2821) 0.7 UIU/ML Javon FuentesCOMPREHENSIVE METABOLIC [id number] 00:00:00* Test Item Value Reference Range Interpretation Comme nts GLUCOSE (test code = 2217) 138 MG/DL BUN (test code = 2208) 8 MG/DL CREATININE (test code = 2214) 0.84 MG/DL eGFR AMER. (test cod e = 52631) 100 ML/MIN/1.73 eGFR NON- AMER. (test code = 80887) 86 ML/MIN/1.73 CALC BUN/CREAT (test code = 2235) 10 RATIO SODIUM (test code = 2231) 140 MEQ/L POTASSIUM (test code = 2228) 4.5 MEQ/L CHLORIDE (test code = 2215) 100 MEQ/L CARBON DIOXIDE (test code = 2206) 23 MEQ/L CALCIUM (test code = 2209) 9.4 MG/DL PROTEIN, TOTAL (test code = 2229) 7.3 G/DL ALBUMIN (test code = 2201) 4.1 G/DL CALC GLOBULIN (test code = 2240) 3.2 G/DL CALC A/G RATIO (test code = 2234) 1.3 RATIO BILIRUBIN, TOTAL (test code = 2207) 0.5 MG/DL ALKALINE PHOSPHATASE (test code = 2204) 76 U/L AST (test code = 2218) 23 U/L ALT (test code = 2219) 24 U/L Javon FuentesLIPID [id number] 00:00:00* Test Item Value Reference Range Interpretation Comme nts CHOLESTEROL (test code = 2210) 175 MG/DL TRIGLYCERIDES (test code = 2232) 79 MG/DL HDL CHOLESTEROL (test code = 2220) 47 MG/DL CALC LDL CHOL (test code = 2237) 112 MG/DL RISK RATIO LDL/HDL (test cod e = 2238) 2.39 RATIO Javon FuentesCBC W/AUTO [id number] 00:00:00* Test Item Value Reference Range Interpretation Comme nts WBC (test code = 1001) 7.6 K/UL RBC (test code = 1002) 4.49 M/UL HEMOGLOBIN (test code = 1003) 12.2 G/DL HEMATOCRIT (test code = 1004) 37.3 % MCV (test code = 1005) 83.1 fL MCH (test code = 1006) 27.2 PG MCHC (test code = 1007) 32.7 G/DL RDW (test code = 1038) 14.7 % NEUTROPHILS (test code = 1008) 70.4 % LYMPHOCYTES (test code = 1010) 21.6 % MONOCYTES (test code = 1011) 5.3 % EOSINOPHILS (test code = 1012) 2.4 % BASOPHILS (test code = 1013) 0.3 % PLATELET COUNT (test code = 1015) 352 K/UL Javon FuentesHEMOGLOBIN [id number] 00:00:00* Test Item Value Reference Range Interpretation Comme tasha HEMOGLOBIN A1c (test code = 08616) 6.5 % Javon [id number] 00:00:00* Test Item Value Reference Range Interpretation Comme nts TSH (test code = 2821) 0.7 UIU/ML Javon FuentesCOMPREHENSIVE METABOLIC [id number] 00:00:00* Test Item Value Reference Range Interpretation Comme nts GLUCOSE (test code = 2217) 138 MG/DL BUN (test code = 2208) 8 MG/DL CREATININE (test code = 2214) 0.84 MG/DL eGFR AMER. (test cod e = 76627) 100 ML/MIN/1.73 eGFR NON- AMER. (test code = 55146) 86 ML/MIN/1.73 CALC BUN/CREAT (test code = 2235) 10 RATIO SODIUM (test code = 2231) 140 MEQ/L POTASSIUM (test code = 2228) 4.5 MEQ/L CHLORIDE (test code = 2215) 100 MEQ/L CARBON DIOXIDE (test code = 2206) 23 MEQ/L CALCIUM (test code = 2209) 9.4 MG/DL PROTEIN, TOTAL (test code = 2229) 7.3 G/DL ALBUMIN (test code = 2201) 4.1 G/DL CALC GLOBULIN (test code = 2240) 3.2 G/DL CALC A/G RATIO (test code = 2234) 1.3 RATIO BILIRUBIN, TOTAL (test code = 2207) 0.5 MG/DL ALKALINE PHOSPHATASE (test code = 2204) 76 U/L AST (test code = 2218) 23 U/L ALT (test code = 2219) 24 U/L Javon FuentesLIPID [id number] 00:00:00* Test Item Value Reference Range Interpretation Comme nts CHOLESTEROL (test code = 2210) 175 MG/DL TRIGLYCERIDES (test code = 2232) 79 MG/DL HDL CHOLESTEROL (test code = 2220) 47 MG/DL CALC LDL CHOL (test code = 2237) 112 MG/DL RISK RATIO LDL/HDL (test cod e = 2238) 2.39 RATIO Javon FuentesCBC W/AUTO [id number] 00:00:00* Test Item Value Reference Range Interpretation Comme nts WBC (test code = 1001) 7.6 K/UL RBC (test code = 1002) 4.49 M/UL HEMOGLOBIN (test code = 1003) 12.2 G/DL HEMATOCRIT (test code = 1004) 37.3 % MCV (test code = 1005) 83.1 fL MCH (test code = 1006) 27.2 PG MCHC (test code = 1007) 32.7 G/DL RDW (test code = 1038) 14.7 % NEUTROPHILS (test code = 1008) 70.4 % LYMPHOCYTES (test code = 1010) 21.6 % MONOCYTES (test code = 1011) 5.3 % EOSINOPHILS (test code = 1012) 2.4 % BASOPHILS (test code = 1013) 0.3 % PLATELET COUNT (test code = 1015) 352 K/UL Javon FuentesHEMOGLOBIN [id number] 00:00:00* Test Item Value Reference Range Interpretation Comme nts HEMOGLOBIN A1c (test code = 46896) 6.5 % Javon [id number] 00:00:00* Test Item Value Reference Range Interpretation Comme nts TSH (test code = 2821) 0.7 UIU/ML Javon FuentesCOMPREHENSIVE METABOLIC [id number] 00:00:00* Test Item Value Reference Range Interpretation Comme nts GLUCOSE (test code = 2217) 138 MG/DL BUN (test code = 2208) 8 MG/DL CREATININE (test code = 2214) 0.84 MG/DL eGFR AMER. (test cod e = 10307) 100 ML/MIN/1.73 eGFR NON- AMER. (test code = 33506) 86 ML/MIN/1.73 CALC BUN/CREAT (test code = 2235) 10 RATIO SODIUM (test code = 2231) 140 MEQ/L POTASSIUM (test code = 2228) 4.5 MEQ/L CHLORIDE (test code = 2215) 100 MEQ/L CARBON DIOXIDE (test code = 2206) 23 MEQ/L CALCIUM (test code = 2209) 9.4 MG/DL PROTEIN, TOTAL (test code = 2229) 7.3 G/DL ALBUMIN (test code = 2201) 4.1 G/DL CALC GLOBULIN (test code = 2240) 3.2 G/DL CALC A/G RATIO (test code = 2234) 1.3 RATIO BILIRUBIN, TOTAL (test code = 2207) 0.5 MG/DL ALKALINE PHOSPHATASE (test code = 2204) 76 U/L AST (test code = 2218) 23 U/L ALT (test code = 2219) 24 U/L Javon Fuentes Consult Notes Date/Time Note Provider Source 2024-04-06 13:51:43 Associated Order(s): CONSULT SPEECH Speech Pathology 04/06/2024 1336 Stroke consult received, chart reviewed. Patient passed primary dysphagia screen and has been ordered a regular textured diet. No s/sx of dysphagia reported by patient or nursing. No dysarthria, aphasia, or cognitive-communication deficits reported by patient or observed by EMAIL CAMPAIGN MANAGER. No further speech pathology needs indicated at this time; service is signing off. Please re-consult if further needs are indicated. No charge for this screening service d/t no apparent needs/evaluation deferred. Melly Archer M.A. [facility] EMAIL CAMPAIGN MANAGER Speech Pathologist [phone] Pager: [phone] [facility] 2024-04-05 15:37:43 Associated Order(s): CONSULT DEFENCE INTELLIGENCE ANALYST-ADULT Images from the original note were not included. CARE MANAGEMENT Care Coordinators/Social Workers/CM Specialists/Utilization Review/Patient Placement & Transfer Center 04/05/2024 3:38 PM Reason for consult: Primary decision maker and post acute placement options. Primary decision maker is :MAYLIN CASTILLO [phone] Sibling Post acute placement options: The patient has Payor: [facility] / Plan: [facility] / Product Type: PPO / depending on insurance and facility authorization and eligible days will determine patient's options. Johnny Phan RN, BSN [place], [place] Computer Repairer Email: [email or web address] [facility] Office: [phone] Teams: KELIN, JANAK GALE [facility] 2024-04-05 15:13:00 Associated Order(s): CONSULT ADULT PHYSICAL THERAPY Patient agreeable to working with physical therapy. Patient met supine. Recommend nursing staff utilize RW to safely assist patient with mobility out of the bed or chair. PHYSICAL THERAPY EVALUATION Consult received, chart reviewed and evaluation complete this date. Patient is referred to PT for evaluation and treatment. 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 Billing for PT portion only Discharge Recommendations: Therapy Needs and Potential: Patient would benefit from continued physical therapy services to address: decline in gait and/or balance decreased strength decreased endurance Patient demonstrates good potential to improve and meet therapy goals with further physical therapy services. Patient appears motivated to improve their functional mobility and return to their previous level of function. Patient will benefit from post acute Physical therapy services in an outpatient setting for safe return to PLOF Challenges to Home Transition: increased risk of falls decreased caregiver availability Equipment recommendations: rolling walker and will update as patient progress with therapy Current Functional Status and/or Treatment: AM-PAC 6 Clicks (Raw Score 0=Dependent, 24=Independent; Low function Raw Score 0= Dependent, 32=Independent): Raw Score - Basic Mobility : 19 T-Scale Score - Basic Mobility : 42.48 Bed Mobility: Rolling: Independent Supine-sit: Independent Sitting balance Good Scooting to edge of bed: Supervision compensatory strategies to complete rolling without using side rails patient given verbal cues for proper body mechanics during transition supine to sit provided education assistance to swing both LE in/out of bed provided education assistance for elevation of the upper body to complete transition to upright position Dizziness No Transfers: Sit to stand: Supervision using RW Stand to sit: Supervision using RW Static/dynamic standing balance: Fair+ Verbal cueing provided for correct hand placement and correct use of AD Provided education assistance for proper hand and feet placement, proper trunk, and pelvic movement for safety and stability during sit to stand. Dizziness No Ambulation: Assisted patient with ambulation as follows: 50 feet using RW and Supervision. Patient presenting with Step-through gait pattern. Patient has short step length on the right LE, educated patient on proper body mechanics, sequencing, and safety. Dizziness No Therapeutic exercise: patient educated in Deep breathing, Energy conservation, Fall prevention, General strengthening, Positioning, Relaxation/breathing techniques, and Safety awareness., instructed patient in the following: ankle pumps, heel slides, long arc quads, seated marching, patient/caregiver instructed to perform HEP 1-2 times per day, 10 repetitions., and patient/caregiver verbalizes understanding of instructions. Patient educated on functional mobility and the importance/benefits of active and safe performance to help prevent BLE DVT's, PNA, overall decrease in mobility, strength, and endurance. Functional Outcome Measures: (Values within the past 12 hours) Tinetti Gait Score- # / 12 Initiation of gait: No hesitancy Step length: On both sides, swing foot passes stance foot Foot clearance: Both feet completely clear floor Step Symmetry: Step lengths not equal Step continuity: Stopping/dis-continuous steps Path: Mild/moderate deviation or uses AD Trunk: Marked sway or uses AD Walking: Heels apart Tinetti Gait Score: 6 Tinetti Gait Score Interpretation: < 7 - Increased risk for falls After session, patient up in chair. Call button provided. Nurse notified and sister at bedside. PLAN OF CARE: While in the hospital, PT will follow patient at least 2 times per week,once or twice a day, per patient's tolerance and needs. See below for complete details. 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, Transient e/o confusion PT Diagnosis: Weakness and Abnormality of gait and balance Weight Bearing Precaution: NA General Precautions: PPE used:Gloves, General, Fall, ICU lines Bracing/Cast present or required:N/A PMH: Past Medical History: Diagnosis Date COVID-19 with pulmonary comorbidity 08/2020 Hospitilized for 9 days Diabetes mellitus Pulmonary embolism 09/2020 Hospitalized for 2 weeks Stroke due to embolism of middle cerebral artery 10/2020 PSH: Past Surgical History: Procedure Laterality Date CYSTECTOMY 2020 TUBAL LIGATION 2003 PRIOR LIVING SITUATION: in a apartment and with their son, Stairs with right side rail DME: No device Prior level of Mobility: community ambulation, house hold ambulation Suspected ischemic or hemorraghic stroke:Yes, Pre-Stroke Modified [place] Score: 0 - No symptoms Subjective: "I feel a little better" Patient/Family Goals: To go home Patient/Family verbalizes understanding of condition: Yes PAIN: denies pain before and after session COMMUNICATION Primary Language: Kyrgyz Able to Verbalize needs: Yes Vision:good; no issues reported Hearing:good; no issues reported ORIENTATION/COGNITION: Oriented to: person, place, date/time, and situation Awake: Yes Alert: Yes Dizzy: No Follows Commands: Yes 1-Step Yes Multi-Step Yes Inconsistent: No NEUROLOGICAL Light Touch: within functional limits bilateral LE Heel to cunningham: WFL Tone: intact BALANCE: Sitting: Static: Good Dynamic: Good Standing: Static: Fair+ Dynamic: Fair RANGE OF MOTION: within functional limits bilateral LE STRENGTH: 5/5 (Normal), left LE , right LE 4/5 ENDURANCE: Fair, Room air SKIN INTEGRITY: intact PROBLEM LIST: Decreased strength, Decreased endurance, and Decreased balance ASSESSMENT: Patient is a 48 year old female seen secondary to the above listed diagnosis. Patient would benefit from continued PT to address the above listed deficits to maximize independence and safety with functional mobility. Rehabilitation Potential: good Goals: The following goals are to maximize independence and safety with functional mobility to eventually return to prior living situation and prior functional status. Upon discharge, patient and/or family will demonstrate the followin. Rolling: Independent Supine-sit: Independent Sit to supine: Independent 2. sit-stand: Independent 3. Independent with ambulation, Feet: 300 using least assistive device. 4. Independent up/down 1 flight of stairs using right side rail. Treatment Plan: Gait training, Gait training on stairs, Therapeutic exercise, Transfer training, Balance training, Bed mobility training, Equipment needs assessment, Safety education, patient/caregiver education, and Neuromuscular Re-Education PATIENT EDUCATION: Patient provided with preferred teaching of verbal information on role of PT, plan of care, HEP. Shows readiness to learn. Verbal instruction teaching provided. Individual verbalizes understanding of teaching provided. Total Time Tx Codes in Minutes: 23 min Total Treatment Time in Minutes: 27 min Radha Clinton PT, DPT, CSRS [facility] A physical therapy evaluation of moderate complexity was completed based on meeting the criteria below: A history of present problem with at least 1-2 personal factors (includes environmental factors) and/or comorbidities that impact the plan of care An examination of body systems using standardized tests and measures in addressing at least 3 or more elements from any of the following: body structures and functions, activity limitations and/or participation restrictions An evolving clinical presentation with changing characteristics [employer] SAL[employer] [facility] 2024-04-05 15:13:00 Associated Order(s): CONSULT ADULT OCCUPATIONAL THERAPY OT GENERAL EVALUATION Consult received via [employer], EMR reviewed and evaluation completed 04/05/24. Patient referred to occupational therapy for evaluation and treatment per stroke protocol. Seen in conjunction with Daphnie Clinton PT secondary to anticipated limited activity tolerance. Billing for OT portion only. Patient agreeable to participate in occupational therapy. Discharge Recommendations: Therapy Needs and Potential: - Patient would benefit from continued skilled occupational therapy services to address: Decline in basic activities of daily living, Decline in instrumental activities of daily living, Decreased strength, and Decreased endurance - Patient demonstrates good potential to improve and meet therapy goals with further skilled occupational therapy services. - Patient appears motivated to improve their BADLS and IADLs and return to their previous level of function. - Patient demonstrates ability to tolerate at least 30-60 minutes of active participation in occupational therapy. - Patient able to follow commands: 1-step Yes, Multi-step Yes, Inconsistencies No Challenges to Home Transition: - Requires physical assistance for IADLS - Requires supervision or verbal cues for BADLS - Limited caregiver availability - Increased risk of falls - Environmental barriers Equipment Recommendations: Shower chair vs Tub transfer bench PLAN OF CARE: At least 3x/week Precautions: Weight bearing status: NA General: Fall and aspiration and seizure Bracing: N/A Subjective: "I feel a little bit of weakness on the right side." Current Occupational Performance and/or Treatment: AM-PAC 6 Clicks (Raw Score 0=Dependent, 24=Independent; Low function Raw Score 0= Dependent, 32=Independent): Raw Score - Daily Activity: 19 T-Scale Score - Daily Activity: 40.22 Grooming: Supervision, to wash hands standing at sink UB Dressing: Minimal Assistance, to don gown posteriorly. Patient educated on timothy-dressing technique Tub/Shower Transfer: NT, patient educated on use of shower chair (vs. TTB) for fall prevention and energy conversation with transfers and use of supervision with showering for safety. Toilet Transfer: Supervision, with RW and use of grab bar Toileting Hygiene: Independent, for clothing management and deya care Functional Mobility: Recline to sit: Supervision, Sit to stand: Supervision, with RW. Cueing for positioning. In room ambulation to/from bathroom, then patient walks to bedside chair Stand to sit: Supervision, onto bedside chair. Cueing for body positioning Patient/caregiver educated on: Adaptive equipment , ADL training, Compensatory techniques/adaptive strategies, Energy conservation, Fall prevention, Positioning, Role of OT, Safety awareness, and importance of participation in ADLs relative to individual functionality (e.g., grooming, dressing, bathing, toileting, feeding, and functional mobility, etc.) and participation in simple UE ROM/strengthening regimen for increased/continued functional participation in ADLs and deconditioning prevention Patient left reclining in bedside chair with call graff in reach. Visitor present and Vital signs stable . Please, see full evaluation below for more detail. OT EVALUATION: 48 year old female Admit date: 04/05/2024 Date of onset: 04/05/2024 Admit Diagnosis: Right arm weakness [R29.898] OT Diagnosis: Impaired BADL independence, Impaired IADL independence, Weakness, Decreased endurance, Impaired self-care mobility, and Decreased UE Function Dominant PMH: Past Medical History: Diagnosis Date COVID-19 with pulmonary comorbidity 08/2020 Hospitilized for 9 days Diabetes mellitus Pulmonary embolism 09/2020 Hospitalized for 2 weeks Stroke due to embolism of middle cerebral artery 10/2020 PSH: Past Surgical History: Procedure Laterality Date CYSTECTOMY 2020 TUBAL LIGATION 2003 PAIN: Denies pain before and after session. OCCUPATIONAL ROLES/HOME ENVIRONMENT: Home environment: Lives with son and Upstairs apartment . 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 Function prior to admission: Household ambulation, Community ambulation, Independent with BADLs, and Independent with IADLs Suspected ischemic or hemorraghic stroke patient: Yes, refer to PT note Equipment prior to admission: None PERFORMANCE SKILLS/FACTORS: UE Muscle Tone: bilateral WNL UE ROM: bilateral AROM WFL except R shoulder lacking 1/3 flexion; able to PROM UE Strength: LUE 5/5; RUE 3-/5 Hand dominance: right Dexterity/Coordination: bilateral Intact Endurance - Sitting: Good Standing: Fair+ Sitting Balance - Static: Good Dynamic: Good Standing: Balance - Static Fair+ Dynamic: Fair+ Dizziness: No Skin Integrity: No breakdown noted Sensation: Patient denies numbness and tingling. Oral Motor: WFL Communication: Able to verbalize needs Yes Other: N/A Vision: WFL Yes Other: reading glasses Hearing: good; no issues reported COGNITION: Orientation: person, place, date/time, and situation Follows Commands: 1-step Yes Multi-step Yes Inconsistencies No Safety Awareness/Judgment: Good PROBLEM LIST: Decreased independence with ADL, Decreased functional ROM, and Decreased strength/endurance for functional activity REHAB POTENTIAL/PROGNOSIS: good PATIENT/FAMILY GOALS: To get better. TREATMENT/INTERVENTION PLAN: Patient/Caregiver Education, Equipment recommendations, Daily living activities, and Therapeutic exercises GOAL(S): By discharge, patient will increase independence in daily living skills as follows: 1 Patient will perform toilet transfer with independence. 2 Patient will perform UB dressing with independence. 3 Patient will perform LB dressing with independence. 4 Patient will complete grooming tasks with independence while standing at the sink. 5 Patient will complete toileting hygiene, including clothing management, with independence. 6 Patient will increase endurance for functional activity as evidenced by ability to sustain 20 minutes of active participation. 7 Patient/caregiver will verbalize/demonstrate understanding/proficiency in the following home programs: Adaptive equipment , 8 Energy conservation, 9 Fall prevention, and 10 General strengthening PATIENT-FAMILY TEACHING Patient provided with preferred teaching of verbal information on Adaptive equipment , ADL training, Compensatory techniques/adaptive strategies, Energy conservation, Fall prevention, Positioning, Role of OT, Safety awareness, and importance of participation in ADLs relative to individual functionality (e.g., grooming, dressing, bathing, toileting, feeding, and functional mobility, etc.) and participation in simple UE ROM/strengthening regimen for increased/continued functional participation in ADLs and deconditioning prevention. Shows readiness to learn. Verbal instruction teaching provided. Individual is able to read and verbalizes understanding of teaching provided and accurately returns demonstration of skill. Zee Feng, OTR, OTD Pager: [phone] Total Timed Treatment Codes: 10 Min Total Treatment Time: 27 Min Patient Complexity Level Moderate - An occupational therapy evaluation of moderate complexity was completed using the above tests and measures. The following information was obtained: An occupational profile and medical and therapy history, including an expanded review of medical and/or therapy records and additional review of physical, cognitive, or psychosocial history related to current functional performance, Various standardized and non-standardized assessments were used to identify at least 3-5 performance deficits related to physical, cognitive, or psychosocial skills that result in activity limitations and/or participation restrictions, and Clinical decision making of moderate analytic complexity, which includes an analysis of the occupational profile, analysis of data from detailed assessment(s), and consideration of several treatment options. Patient may present with comorbidities that affect occupational performance. Minimal to moderate modification of tasks or assistance (e.g., physical or verbal) with assessment(s) is necessary to enable patient to complete evaluation component. 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 She woke up this morning 5:30 AM and felt okay while she was getting ready for work she felt her right arm had pain 4/10 in intensity and she shrugged it off thinking she might have slept on that hand. A few minutes later she did feel some numbness in her palms and later had heaviness on the right side of her face with some mild droop when she was driving to work, which prompted her to get evaluated at the ED. In [place], vitals afebrile, BP 148/97; pulse 70; 99% room air; NIHSS 2 for some effort against gravity left arm ; patient was given TNK at 745 and transferred to [facility] in CCU for further monitoring On examination in , patient feels like the numbness is gone, does feel little better, denies any headaches vision problems, difficulty with language or fluency, swallowing, or ambulating. She was able to narrate the events that happened to this morning, and says that after her COVID-19 diagnosis in 2020 she had multiple complications including diagnosis of diabetes history of PE for which she took regular blood thinners. Denies any strokes in the family or bleeding disorders running in her family. Patient denied any seizure in the past however she stated she gets lightheaded and dizzy when she misses meals. On admission to NCCU floor - AOX4 ; BP-157 /73 ; BG-93 ; heart rate 77 starting 99% RA ; nihss 2 patient denied being in any kind of pain. A few minutes after admission patient had a transient episode of unresponsiveness. She was teary-eyed and unable to talk and move upper and lower extremities. BP -160/87; HR 82; ige355% ; BG - 62 ; patient was given some orange juice and reexamined, was able to later talk and 4 extremities and she felt back to baseline; mild amnesia about; stat CT head was done which unremarkable; repeat exam later p.m. patient was stable and able to recall events. Antiplatelets: No Anticoagulations: No Tobacco abuse: No Alcohol abuse: No (social use only) Drug abuse: No Previous stroke: Yes L MCA Body mass index is 42.07 kg/m?. STROKE DOCUMENTATION Stroke Activation - Date: (not recorded) Stroke Activation - Time: (not recorded) Physician arrival at bedside - Date: (not recorded) Physician arrival at bedside - Time: (not recorded) CT-Head without contrast read by Neurology: (not recorded) Last seen normal: Last known well - Date: (not recorded) Last known well - Time: (not recorded) Wake up stroke: No NIH STROKE SCALE NIHSS TOTAL: 6 NIHSS Interval: Admission LOC: 0 Alert: Keenly Responsive LOC QUESTIONS: 0 Answers Both Questions Correctly LOC COMMANDS: 0 Performs Both Tasks Correctly BEST GAZE: 0 Normal VISUAL: 0 No Visual Loss FACIAL PALSY: 1 Minor Paralysis MOTOR ARM-LEFT: 2 Some Effort Against [place] MOTOR ARM-RIGHT: 0 No Drift MOTOR LEG-LEFT: 2 Some Effort Against [place] MOTOR LEG-RIGHT: 0 No Drift LIMB ATAXIA: 0 Absent SENSORY: 1 Ciu-mx-Hdvyvewn Sensory Loss BEST LANGUAGE: 0 No Aphasia DYSARTHRIA: 0 Normal EXTINCTION AND INATTENTION (FORMERLY NEGLECT): 0 No Abnormalty Dysphagia Screen: Dysphagia Screen Step 1 (Exclusion Criteria): Pass (none of the above) Dysphagia Screen Step 2 (Management of secretions): Pass (none of the above) Dysphagia Screen Step 3 (3-ounce water swallow challenge): Pass (none of the above) IV Alteplase: Was IV thrombolytic therapy given?: Yes If IV Thrombolytic therapy was indicated and given as a standard of care was the patient/family informed of benefits of treatment and risk such as hemorrhage and/or angioedema?: (not recorded) Was there a delay in door to IV thrombolytic over 30 minutes?: (not recorded) Reason (s): (not recorded) ICH/SAH ICH/SAH: No Endovascular Intervention: Was Endovascular Intervention Performed?: No Reason patient is not a candidate for endovascular intervention: NIH less than or equal to 6 PRE- ADMISSION MODIFIED KRZYSZTOF SCORE 2 - Slight disability; unable to carry out all previous activities; but able to look after own affairs without assistance PAST MEDICAL HISTORY Past Medical History: Diagnosis Date COVID-19 with pulmonary comorbidity 08/2020 Hospitilized for 9 days Diabetes mellitus Pulmonary embolism 09/2020 Hospitalized for 2 weeks Stroke due to embolism of middle cerebral artery 10/2020 PAST SURGICAL HISTORY Past Surgical History: Procedure Laterality Date CYSTECTOMY 2020 TUBAL LIGATION 2003 FAMILY HISTORY Family History Problem Relation Age of Onset High cholesterol Mother Diabetes Mother SOCIAL HISTORY Social History Socioeconomic History Marital status: Tobacco Use Smoking status: Never Smokeless tobacco: Never Substance and Sexual Activity Alcohol use: Not Currently Drug use: Not Currently Sexual activity: Yes Partners: Male control/protection: Surgical Comment: last intercourse: 03/13/22 Social History Narrative Pt feels safe at home. Reviewed patient's family, surgical and social hx. HOME MEDICATIONS Medications Prior to Admission Medication Sig Dispense Refill Last Dose TRI-SPRINTEC 0.18/0.215/0.25 mg-35 mcg (28) per tablet TAKE 1 TABLET BY MOUTH IN THE MORNING 28 tablet 0 Past Week atorvastatin 20 mg tablet Take 1 tablet by mouth daily. 30 tablet 2 04/04/2024 metFORMIN 500 mg tablet Take 1 tablet by mouth in the morning and 1 tablet in the evening. 04/04/2024 HOSPITAL MEDICATIONS Current Facility-Administered Medications Medication Dose Route Frequency Last Rate Last Admin [START ON 04/06/2024] aspirin chewable tablet 81 mg 81 mg Oral DAILY atorvastatin (LIPITOR) tablet 40 mg 40 mg Oral QHS dextrose 50 % in water (D50W) injection 25 mL 25 mL Slow IV Push PRN glucagon HCL injection 1 mg 1 mg Intramuscular PRN hydralAZINE (APRESOLINE) injection 10 mg 10 mg Slow IV Push Q4HPRN labetaloL (NORMODYNE) 5 mg/mL injection 10 mg 10 mg Slow IV Push [id number] NaCl 0.9% (NS) 1000 mL + KCL 20 mEq IV Infusion CONTINUOUS 75 mL/hr at 04/05/24 1120 New Bag at 04/05/24 1120 NaCl 0.9% (NS) injection 5 mL 5 mL Slow IV Push PRN - SEE INSTRUCTIONS Sliding Scale Insulin-Regular Subcutaneous AC+HS ALLERGY No Known Allergies REVIEW OF SYSTEMS General: (-) fever, (-) chills, (-) weight change, (-) dizziness, (-) fatigue, (-) change in appetite Skin: (-) rash, (-) lesion HEENT: (-) headache, (-) change in hearing, (-) change in vision, (-) nasal discharge, (-) sore throat Neck: (-) pain, (-) difficulty swallowing, (-) mass Heme: (-) bleeding disorder Resp: (-) cough, (-) shortness of breath, (-) dyspnea on exertion Cardio: (-) chest pain, (-) palpitations, (-) syncope GI: (-) abdominal pain, (-) nausea, (-) vomiting, (-) diarrhea, (-) constipation, (-) melena, (-) hematochezia, (-) hematemesis : (-) dysuria, (-) hematuria, (-) increased frequency, (-) difficulty urinating, (-) difficulty initiating Endo: (-) heat intolerance, (-) diabetes, (-) cold intolerance, (-) polyuria, (-) polydipsia, (-) renal insufficiency, (-) thyroid disease Neuro: See HPI Back: (-) pain, (-)spasms REGGIE: (-) muscle pain, (-) joint pain, (-) claudication Psych: (+) anxiety, (-) depression, (-) psychiatric disorder PHYSICAL EXAM BP: (119-157)/(56-97) Temp: [35.7 ?C (96.3 ?F)-36.9 ?C (98.4 ?F)] Temp source: Tympanic (04/05 1200) Pulse: [57-97] Resp: [04-12] SpO2: [96 %-100 %] Height: [157.5 cm (5' 2")] Weight: [104.3 kg (230 lb)-104.8 kg (231 lb)] BMI (calculated): [42.07-42.25] Vitals: 04/05/24 1300 04/05/24 1307 04/05/24 1330 04/05/24 1400 BP: 126/79 124/65 131/85 Pulse: 67 77 70 Resp: Temp: TempSrc: SpO2: 100% 100% 97% Weight: 104.3 kg (230 lb) Height: 1.575 m (5' 2") No intake or output data in the 24 hours ending 04/05/24 0807 Awake Patients General: Alert and oriented x 4 (time, person, place and situation); no apparent distress. Mental Status: Consciousness, attention, concentration: normal, Stays focused and on task while being questioned. Speech/ Language: intact to comprehension, fluency, repetition and naming. Fund of knowledge: is congruent with level of education. Remote and recent memory: normal, can recall recent and distant memories Cranial Nerves: I. Not tested. II. PERRL. FOV full to confrontation. Discs visualized, no papilledema. III. IV., . Extraocular movements intact without nystagmus. V. Normal sensation in V1-3 distributions. VII. No facial droop noted. VIII. Hearing intact. IX., X. Palatal elevation and gag response present symmetrically. XI. Normal Strength of sternocleidomastoid and trapezius muscles bilaterally. XII. Tongue in midline. Motor: Tone: normal Bulk: normal STRENGTH Right Left Deltoid 4- 5 Biceps 4- 5 Triceps 4- 5 Wrist extensors 4- 5 Interossei 4- 5 Hip flexors 4- 5 Knee flexors (hamstring) 4- 5 Knee extensors (quadriceps) 4- 5 Ankle dorsiflexors 4- 5 Ankle plantar flexors 4- 5 DTR's: Right Left Bicep 2+ 2+ Triceps 2+ 2+ Brachioradialis 2+ 2+ Patella 2+ 2+ Achilles 1+ 1+ Pathologic reflexes and signs: Guerra: absent Babinski: absent Cerebellar: Nystagmus: neg, FTN: nl, HTS:nl, Tremors: neg Sensory: LT: intact, temperature: intact, PP: intact, proprioception: intact Gait: normal HEENT: pupils equal, round, reactive to light; extraocular movements intact; oropharynx clear; moist mucous membranes Lungs: clear to auscultation bilaterally Cardio: S1, S2 normal Extremities:no cyanosis,clubbing or edema Neck:supple,no carotid bruit,no JVD Abdomen: soft; non-tender; non-distended; normoactive bowel sounds heard LABS Recent Results (from the past 24 hour(s)) Prothrombin Time / INR - Code Stroke Collection Time: 04/05/24 7:16 AM Result Value Ref Range PROTIME PATIENT 11.6 10.1 - 12.6 Seconds INR 1.0 aPTT - Code Stroke Collection Time: 04/05/24 7:16 AM Result Value Ref Range APTT Patient 35 26 - 36 Seconds CBC without Diff - Code Stroke Collection Time: 04/05/24 7:16 AM Result Value Ref Range WBC 4.13 (L) 4.30 - 11.10 10*3/?L RBC 4.82 3.93 - 5.25 10*6/?L HGB 11.9 11.6 - 15.0 g/dL HCT 38.4 35.7 - 45.2 % MCH 24.7 (L) 25.9 - 32.8 pg MCV 79.7 (L) 80.6 - 95.5 fL MCHC 31.0 (L) 31.6 - 35.1 g/dL PLT 343 166 - 358 10*3/?L MPV 9.5 9.5 - 12.9 fL RDW-CV 18.6 (H) 12.0 - 15.5 % RDW-SD 53.9 (H) 39.0 - 49.9 fL NRBC x10 3 <0.01 10*3/?L NRBC/100 WBC 0.0 0.0 - 10.0 /100 WBCs IPF % Troponin I - Code Stroke Collection Time: 04/05/24 7:16 AM Result Value Ref Range TROPONIN I 0.008 <=0.034 ng/mL Basic Metabolic Panel (NA, K, CL, CO2, Glucose, BUN, Creatinine, CA) - Code Stroke Collection Time: 04/05/24 7:16 AM Result Value Ref Range NA 138 135 - 145 mmol/L K 4.3 3.5 - 5.0 mmol/L CL 108 98 - 108 mmol/L CO2 TOTAL 25 23 - 31 mmol/L AGAP 5 2 - 16 BUN 9 7 - 23 mg/dL GLUCOSE 104 70 - 110 mg/dL CREATININE 0.77 0.50 - 1.04 mg/dL CALCIUM 9.4 8.6 - 10.6 mg/dL eGFR 94.7 mL/min/1.73m2 POCT GLUCOSE (AUTOMATED) Collection Time: 04/05/24 7:28 AM Result Value Ref Range POCT GLU 93 70 - 110 mg/dL Urinalysis Collection Time: 04/05/24 7:57 AM Result Value Ref Range APPEARANCE Clear Clear COLOR Yellow Yellow PH 7.0 4.8 - 8.0 SP GRAVITY 1.010 1.003 - 1.030 GLU U QUAL Normal Normal BLOOD Negative Negative KETONES Negative Negative PROTEIN Negative Negative UROBILIN Normal Normal BILIRUBIN Negative Negative NITRITE Negative Negative LEUK SEVERO Negative Negative RBC/HPF 1 0 - 3 HPF WBC/HPF <1 0 - 5 HPF BACTERIA Few (A) Negative MUCOUS Slight (A) Negative LPF SQ EPITH 1 HPF POCT GLUCOSE (AUTOMATED) Collection Time: 04/05/24 11:34 AM Result Value Ref Range POCT GLU 62 (L) 70 - 110 mg/dL POCT GLUCOSE (AUTOMATED) Collection Time: 04/05/24 11:46 AM Result Value Ref Range POCT GLU 63 (L) 70 - 110 mg/dL POCT GLUCOSE (AUTOMATED) Collection Time: 04/05/24 12:03 PM Result Value Ref Range POCT GLU 86 70 - 110 mg/dL STROKE LABS HGB A1C (%) Date Value 02/04/2021 7.0 (H) LDL CHOL (mg/dL) Date Value 02/04/2021 67 CHOL (mg/dL) Date Value 02/04/2021 129 TSH (mIU/L) Date Value 02/04/2021 0.75 Recent Labs 04/05/[address] HEAD WO CONTRAST Result Date: 04/05/2024 No lesion, no change. XR STROKE CHEST 1 VW Result Date: 04/05/2024 No radiographic evidence of acute cardiopulmonary process. 1 cm right upper quadrant hyperdensity, possibly a kidney stone. Preliminary Report Dictated by Resident: Juan Springer MD., have reviewed this study and agree with the above report. CT ACUTE STROKE ANGIOGRAM HEAD Result Date: 04/05/2024 No aneurysm or high-grade, flow-limiting stenosis of the intracranial or extracranial vessels. Preliminary Report Dictated by Resident: Juani Springer MD., have reviewed this study and agree with the above report. CT ACUTE STROKE ANGIOGRAM NECK Result Date: 04/05/2024 No aneurysm or high-grade, flow-limiting stenosis of the intracranial or extracranial vessels. Preliminary Report Dictated by Resident: Juani Springer MD., have reviewed this study and agree with the above report. CT ACUTE STROKE HEAD WO CONTRAST Result Date: 04/05/2024 No acute intracranial abnormality. Preliminary Report Dictated by Resident: Juani Springer MD., have reviewed this study and agree with the above report. ASSESSMENT AND PLAN Renae Coyle is a 48 year old female with PMHx of the following stroke risk factors: type 2 diabetes ( on Metformin) , h/o COVID-pneumonia 2020 c/b PE (was on Coumadin until last year) and left MCA M3 division stroke (2020) with no residual weakness, obesity; who presented [place] ED with CC of right arm weakness heaviness, and right facial droop LSN: 6 am , NIHSS [address] head unremarkable , CTA head and neck no LVO or stenosisintracranial or extracranial vessels.; was given TNK at 7:45 AM and transferred to for further management. Transient episode of hypoglycemia after arrival BG - 62; repeat CTH stable. Will continue to monitor and get sEEG 1. 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 Once intravenous tPA is given, blood pressure must be maintained < 180/105 then resume home anti-hypertensive medications for goal normo-tension Check CBC, BMP, Pt, PTT, cardiac enzymes x 1, EKG SEEG Avoid hyperthermia, pain and constipation Aspirin 81 daily from tomorrow Statin 20mg daily if LDL>70, will adjust according to fasting lipid panel Fall precautions Consult PT/OT/ Speech pathology/Primary swallowing screen Stroke in young w/u 2. Cardiac Suspected PFO Hyperlipidemia History of dyspnea NYHA class II Last TTE in 02/10 Suspected PFO EKG: NSR Troponin:pending Plan: SBP goal: < 185/110 Monitor BP C/w atorvastatin 40 mg 3. Pulmonary COVID pneumonia c/p PE ( On AC until 2020) Likely CARMINA No active issues O2 per protocol Sleep study outpatient 4. GI No active issues Nutrition: Oral rate: Last BM: Yesterday Plan: Continue regular diet 5. Renal Asymptomatic bacteriuria . Plan: Replete electrolytes as needed 6. ID No active issues Plan: Monitor for symptoms of infection 7. Endo DM type 2 Monitor BG Check HbA1C Insulin Sliding Scale IV access: PIV or central line Maza: Self voiding Infusions: None Nutrition: Type: oral , Bowel regimen: PEG prm - GI Prophylaxis: Famotidine - DVT Prophylaxis: Contraindicated Discussed with Dr. Staton, neurology faculty. ISIDRA Greene Department of Neurology, PGY-2 IDE SALES MANAGER Associated attestation - Laverne Staton MD - 04/05/2024 3:47 PM OUTSIDE SALES MANAGER I have personally seen and examined the patient and discussed the plan of care with Dr. Cat. # Concern for acute ischemic stroke # s/p thrombolysis I spent 40 minutes of CC time addressing the patient's critical condition, evaluation and interpretation of records, laboratory values and imaging, developing a plan for management of care. Laverne Staton MD Neurocritical Care Attending [facility] Department of Neurology [facility] Notes Date/Time Note Provider Source [facility]2025-01-15 00:00:00 [facility]2024-12-17 00:00:00 [facility]2024-12-13 00:00:00 [facility]2024-11-18 00:00:00 Javon Layne [facility]2024-11-15 08:31:11 Problem: Falls, Risk of Goal: Absence of falls Outcome: Progressing as expected Problem: Discharge Planning Goal: Able to perform ADL Outcome: Progressing as expected Goal: Knowledge of medication management Outcome: Progressing as expected Goal: Knowledge of need for follow-up care Outcome: Progressing as expected Goal: Knowledge of personal stroke risk factors Outcome: Progressing as expected Goal: Knowledge of stroke warning signs Outcome: Progressing as expected Problem: Bleeding, Risk of Goal: Absence of impaired coagulation signs and symptoms Outcome: Progressing as expected Goal: Absence of active bleeding Outcome: Progressing as expected Problem: Discharge Planning Goal: Adequate for discharge Outcome: Progressing as expected Goal: Effective communication Outcome: Progressing as expected IDE SALES MANAGER [id number] 02:10:52 Problem: Falls, Risk of Goal: Absence of falls 04/06/2024210 by Kimi Schneider RN Outcome: Progressing as expected 04/06/2024209 by Kimi Schneider RN Outcome: Progressing as expected Problem: Discharge Planning Goal: Able to perform ADL 04/06/2024210 by Kimi Schneider RN Outcome: Progressing as expected 04/06/2024209 by Kimi Schneider RN Outcome: Progressing as expected Goal: Knowledge of medication management 04/06/2024210 by Kimi Schneider RN Outcome: Progressing as expected 04/06/2024209 by Kimi Schneider RN Outcome: Progressing as expected Goal: Knowledge of need for follow-up care 04/06/2024210 by Kimi Schneider RN Outcome: Progressing as expected 04/06/2024209 by Kimi Schneider RN Outcome: Progressing as expected Goal: Knowledge of personal stroke risk factors 04/06/2024210 by Kimi Schneider RN Outcome: Progressing as expected 04/06/2024209 by Kimi Schneider RN Outcome: Progressing as expected Goal: Knowledge of stroke warning signs 04/06/2024210 by Kimi Schneider RN Outcome: Progressing as expected 04/06/2024209 by Kimi Schneider RN Outcome: Progressing as expected Problem: Bleeding, Risk of Goal: Absence of impaired coagulation signs and symptoms 04/06/2024210 by Kimi Schneider RN Outcome: Progressing as expected 04/06/2024209 by Kimi Schneider RN Outcome: Progressing as expected Goal: Absence of active bleeding 04/06/2024210 by Kimi Schneider RN Outcome: Progressing as expected 04/06/2024209 by Kimi Schneider RN Outcome: Progressing as expected Problem: Discharge Planning Goal: Effective communication 04/06/2024210 by Kimi Schneider RN Outcome: Progressing as expected 04/06/2024209 by Kimi Schneider RN Outcome: Progressing as expected Problem: Discharge Planning Goal: Adequate for discharge 04/06/2024210 by Kimi Schneider RN Outcome: Not progressing as expected 04/06/2024209 by Kimi Schneider RN Outcome: Progressing as expected IDE SALES MANAGER [facility]i [id number] 13:28:38 Problem: Falls, Risk of Goal: Absence of falls Outcome: Progressing as expected Problem: Discharge Planning Goal: Able to perform ADL Outcome: Progressing as expected Goal: Knowledge of medication management Outcome: Progressing as expected Goal: Knowledge of need for follow-up care Outcome: Progressing as expected Goal: Knowledge of personal stroke risk factors Outcome: Progressing as expected Goal: Knowledge of stroke warning signs Outcome: Progressing as expected Problem: Bleeding, Risk of Goal: Absence of impaired coagulation signs and symptoms Outcome: Progressing as expected Goal: Absence of active bleeding Outcome: Progressing as expected Problem: Discharge Planning Goal: Adequate for discharge Outcome: Progressing as expected Goal: Effective communication Outcome: Progressing as expected [facility]2024-11-14 08:06:00 Report given to PUJA Boykin IDE SALES MANAGER Minoo Tang [id number] 07:46:19 [facility] ETA 25 minutes. ELLE Gonzales [facility] [id number] 07:24:00 Returned from [place] [id number] 07:03:04 Patient to ED for right arm pain. Patient woke up this morning getting ready for work and reports her arm started hurting with numbness. Numbness has resolved. Reports history of a stroke in 2020. Patient had right side deficit previously but regained normal mobility and stroke. Symptoms started at 0600. ELLE Chang [id number] 07:00:00 Stroke Symptoms Note Pt placed immediately into room for stroke symptoms, last seen normal: 0600. Stroke activation complete, Dr. Lundberg at bedside. Patient taken to CT at 0711 with RN at bedside. Patient placed on continuous cardiac, blood pressure and oxygen saturation monitoring. PIV placed, labs drawn. Please see neuro assessment for details. Will continue to monitor. Minoo Tang RN [place] [id number] 06:45:00 Associated Order(s): EKG-12 Lead ROUTINE ONCE Pre-Procedure Diagnose(s): Right arm weakness Post-Procedure Diagnose(s): Right arm weakness [facility] Emergency Department Note Patient Name: Renae Coyle Date of : 1975 48 year old female Treatment Room: TX5/MO5 Primary Care Physician: Justin Grider Patient Escorted by: Self [9] Mode of Arrival: Personal means [1] EMS Treatment Prior to ED Arrival: [facility] treatment: None Travel and Exposure Screening: Symptoms Does patient have any of these symptoms?: (not recorded) Exposure Screening Has patient had contact with someone with a communicable disease in the last month?: (not recorded) Diseases exposed to:: (not recorded) Is Patient ?: (not recorded) Exposure Date: (not recorded) Chief Complaint: Chief Complaint Patient presents with Arm Pain History of Present Illness: The patient presents from home for evaluation for right arm numbness and weakness that she noted around 6:00 in the morning. She reports she woke up to get ready for work at 5:30 AM today and felt just fine. She went to the restroom and washed her face and had no issues with her right arm. At 6 AM when she tried to put on her shoes she noted her right arm was weak and felt funny. Her symptoms have persisted since then. No change in her voice. No difficulty with her speech. No weakness to her legs. She does have a history of a previous stroke as well as a pulmonary embolism back in 2020 that was associated due to COVID. She has a history of diabetes and takes metformin. No other blood thinners taken on a daily basis and she does not take aspirin. She does not smoke. Here for evaluation. Past Medical History/Immunizations: Past Medical History: Diagnosis Date COVID-19 with pulmonary comorbidity 08/2020 Hospitilized for 9 days Diabetes mellitus Pulmonary embolism 09/2020 Hospitalized for 2 weeks Stroke due to embolism of middle cerebral artery 10/2020 Allergies: No Known Allergies Past Social History: Tobacco Use Never smoked or used smokeless tobacco. Alcohol Use Not Currently. Drug Use Not Currently. Sexual Activity Sexually active; Partners: Male; Control/Protection: Surgical. Comments: last intercourse: 03/13/22 Past Surgical History: Past Surgical History: Procedure Laterality Date CYSTECTOMY 2020 TUBAL LIGATION 2003 Review of Systems: Review of Systems Constitutional: Negative for chills and fever. Respiratory: Negative for cough and shortness of breath. Cardiovascular: Negative for chest pain. Gastrointestinal: Negative for abdominal pain and vomiting. Genitourinary: Negative for dysuria. Musculoskeletal: Negative for arthralgias, neck pain and neck stiffness. Skin: Negative for wound. Neurological: Positive for weakness and numbness. Negative for dizziness. Psychiatric/Behavioral: Negative for agitation. Endocrine: Negative for goiter. Physical Exam: ED Triage Vitals [04/05/24 0704] Weight 104.8 kg (231 lb) Actual or estimated Height 1.575 m (5' 2") BP (!) 148/97 Pulse 70 Resp 18 Temp 36.9 ?C (98.4 ?F) Temp src SpO2 99 % Measured on Room air Physical Exam Vitals and nursing note reviewed. Constitutional: Appearance: Normal appearance. She is obese. HENT: Head: Normocephalic and atraumatic. Mouth/Throat: Mouth: Mucous membranes are dry. Cardiovascular: Rate and Rhythm: Normal rate and regular rhythm. Pulses: Normal pulses. Pulmonary: Effort: Pulmonary effort is normal. No respiratory distress. Breath sounds: No stridor. No wheezing or rhonchi. Abdominal: General: There is no distension. Palpations: Abdomen is soft. There is no mass. Tenderness: There is no abdominal tenderness. There is no guarding. Hernia: No hernia is present. Musculoskeletal: General: Normal range of motion. Cervical back: Normal range of motion and neck supple. Skin: General: Skin is warm and dry. Neurological: Mental Status: She is alert and oriented to person, place, and time. NIHSS: Last known normal: 0600 1. a) LOC - 0, (0=Alert, 1=arousable w/ minor stim/appears sleepy, 2=req repeated stim/pain, 3=unresponsive, only reflex effects) b) LOC Questions - 0, (month & age - must be on 1st try & 100% correct) (0=answers correctly, verbally or in writing, 1=1 question correct/intubated/mouth trauma/language barrier/very slurred speech, 2=none correct/aphasic) c) LOC Commands - 0, (0=can open & close eyes on request & manager track/release good hand, 1=1 task correct, 2=neither correct) (strength doesn't matter, testing 2 step command) 2. Best gaze - 0, (0=normal, 1=partial palsy/moves senior care, 2=forced deviation but slight mvmt) (if eyes deviated & don't move at all pt is having Sz) 3. Visual - 0, (0=no vision loss, 1=partial hemianopia, 2=complete hemianopia, 3=bilateral hemianopia, "3Blind" if blind, incl cortical blindness) (tested at arm's length) 4. Facial palsy - 0, (0=normal, 1=minor paralysis-flat nasolabial fold, asym smile, 2=partial paralysis ie only lower face, 3=complete paralysis of 1 or both sides) 5. Motor Arm Left - 0, Right - 2, (0=no drift, 1=drift <10 sec, 2=some effort against gravity, 3=no effort against gravity, 4=no mvmt, UN=amputation/joint fusion) 6. Motor Leg Left - 0, Right - 0 7. Limb Ataxia - 0, ([id number], arch-sl-nole: 0=no ataxia, 1=in 1 limb, 2=in 2 limbs, UN=amputation/joint fusion) 8. Sensory - 0, (0=normal/obtunded & withdraws to pain, 1=mild-mod loss, 2=can't tell being touched/coma) 9. Best Language - 0, (0=no aphasia, 1=mild-mod ie loss of fluency, 2=severe ie limited range of info that can be exchanged, 3=mute or global aphasia ie no usable speech or auditory comprehension) (still count if it is old weakness but write "old") 10. Dysarthria - 0, (0=normal/intubated, 1=mild-mod ie slurs but can understand some, 2=severe ie unintelligible/mute/slurring out of proportion to dysphasia) 11. Extinction - 0, (0=none, 1=visual/tactile/auditory/spatial/personal inattention, 2=profound timothy-inattention or extinction to >1 modality) TOTAL=2 Was tPA used? yes If not, why? N/a Did Patient/family consent to tPA? yes Was patient a candidate for endovascular procedure? no Radiology: CT ACUTE STROKE HEAD WO CONTRAST Preliminary Result EXAM: CT STROKE HEAD WO CONTRAST HISTORY: 48 years-old Female; Provided indication: Neuro deficit, acute, stroke suspected . TECHNIQUE: Axial CT of the head was performed and reconstructed at 5 mm intervals. Coronal and sagittal reformatted images were generated. COMPARISON: None FINDINGS: The ventricles and cerebral sulci are normal in caliber and configuration. No midline shift or pathological extra-axial fluid collection is present. The basal cisterns are unremarkable. No acute intracranial hemorrhage or significant mass effect is visualized. No parenchymal attenuation abnormality is seen. The godfrey-white matter differentiation is preserved. The mastoid air cells and visualized paranasal air sinuses are clear. The calvarium and central skull base are unremarkable. IMPRESSION No acute intracranial abnormality. Preliminary Report Dictated by Resident: Leo Ferrari CT ACUTE STROKE ANGIOGRAM HEAD Preliminary Result CT STROKE ANGIOGRAM HEAD, CT STROKE ANGIOGRAM NECK HISTORY: Neuro deficit, acute, stroke suspected TECHNIQUE: CTA of the head and neck with coronal, sagittal reformats, and MIPS reconstruction was performed. COMPARISON: Same day CT head FINDINGS: CTA HEAD: The PICA origins are visualized bilaterally The basilar artery is normal in caliber. The superior cerebellar arteries are unremarkable. The posterior cerebral arteries are unremarkable. Posterior communicating arteries are not visualized The distal cervical, petrous, cavernous and supraclinoid internal carotid arteries are normal. The anterior cerebral arteries are unremarkable. An anterior communicating artery is visualized. The middle cerebral arteries are unremarkable. The dural venous sinuses appear patent. CTA NECK: A common origin of the brachiocephalic and the left common carotid arteries.. The ostia of the great neck vessels are free of significant stenosis. The innominate and subclavian arteries are patent without stenosis. The common carotid arteries, carotid bulbs and cervical internal carotid arteries are patent with no more than mild calcifications in the carotid bulbs. The vertebral arteries originate normally from the subclavian arteries and are patent along their course. Cervical soft tissues: Unremarkable. Lung apices: Unremarkable. Cervical spine: No acute bony abnormality. The paranasal sinuses are clear. IMPRESSION No aneurysm or high-grade, flow-limiting stenosis of the intracranial or extracranial vessels. Preliminary Report Dictated by Resident: Leo Ferrari CT ACUTE STROKE ANGIOGRAM NECK Preliminary Result CT STROKE ANGIOGRAM HEAD, CT STROKE ANGIOGRAM NECK HISTORY: Neuro deficit, acute, stroke suspected TECHNIQUE: CTA of the head and neck with coronal, sagittal reformats, and MIPS reconstruction was performed. COMPARISON: Same day CT head FINDINGS: CTA HEAD: The PICA origins are visualized bilaterally The basilar artery is normal in caliber. The superior cerebellar arteries are unremarkable. The posterior cerebral arteries are unremarkable. Posterior communicating arteries are not visualized The distal cervical, petrous, cavernous and supraclinoid internal carotid arteries are normal. The anterior cerebral arteries are unremarkable. An anterior communicating artery is visualized. The middle cerebral arteries are unremarkable. The dural venous sinuses appear patent. CTA NECK: A common origin of the brachiocephalic and the left common carotid arteries.. The ostia of the great neck vessels are free of significant stenosis. The innominate and subclavian arteries are patent without stenosis. The common carotid arteries, carotid bulbs and cervical internal carotid arteries are patent with no more than mild calcifications in the carotid bulbs. The vertebral arteries originate normally from the subclavian arteries and are patent along their course. Cervical soft tissues: Unremarkable. Lung apices: Unremarkable. Cervical spine: No acute bony abnormality. The paranasal sinuses are clear. IMPRESSION No aneurysm or high-grade, flow-limiting stenosis of the intracranial or extracranial vessels. Preliminary Report Dictated by Resident: Leo Ferrari Lab Results: Lab Results CBC WITHOUT DIFF - Abnormal Result Value Ref Range WBC 4.13 (*) 4.30 - 11.10 10*3/?L RBC 4.82 3.93 - 5.25 10*6/?L HGB 11.9 11.6 - 15.0 g/dL HCT 38.4 35.7 - 45.2 % MCH 24.7 (*) 25.9 - 32.8 pg MCV 79.7 (*) 80.6 - 95.5 fL MCHC 31.0 (*) 31.6 - 35.1 g/dL PLT 343 166 - 358 10*3/?L MPV 9.5 9.5 - 12.9 fL RDW-CV 18.6 (*) 12.0 - 15.5 % RDW-SD 53.9 (*) 39.0 - 49.9 fL NRBC x103<0.01 10*3/?L NRBC/100 WBC 0.0 0.0 - 10.0 /100 WBCs IPF % PROTHROMBIN TIME / INR - Normal PROTIME PATIENT 11.6 10.1 - 12.6 Seconds INR 1.0 ACTIVATED PARTIAL THRMPLAS CAROL - Normal APTT Patient 35 26 - 36 Seconds TROPONIN I - Normal TROPONIN I 0.008 <=0.034 ng/mL POCT GLUCOSE (AUTOMATED) - Normal POCT GLU 93 70 - 110 mg/dL BASIC METABOLIC PANEL (NA, K, CL, CO2, GLUCOSE, BUN, CREATININE, CA) NA 138 135 - 145 mmol/L K 4.3 3.5 - 5.0 mmol/L CL 108 98 - 108 mmol/L CO2 TOTAL 25 23 - 31 mmol/L AGAP 5 2 - 16 BUN 9 7 - 23 mg/dL GLUCOSE 104 70 - 110 mg/dL CREATININE 0.77 0.50 - 1.04 mg/dL CALCIUM 9.4 8.6 - 10.6 mg/dL eGFR 94.7 mL/min/1.73m2 POCT GLUCOSE(AGE >30DAYS) URINALYSIS EKG: If EKG completed, see Procedure Note. Orders and Treatments: Orders Placed This Encounter Procedures CT ACUTE STROKE HEAD WO CONTRAST CT ACUTE STROKE ANGIOGRAM HEAD CT ACUTE STROKE ANGIOGRAM NECK XR STROKE CHEST 1 VW POCT Glucose (Age >30 Days) - Code Stroke Prothrombin Time / INR - Code Stroke aPTT - Code Stroke CBC without Diff - Code Stroke Troponin I - Code Stroke Basic Metabolic Panel (NA, K, CL, CO2, Glucose, BUN, Creatinine, CA) - Code Stroke Urinalysis POCT GLUCOSE (AUTOMATED) O2 Nasal Cannula Orders Placed This Encounter Medications NaCl 0.9% (NS) injection 5 mL iopamidol (ISOVUE 370-500 mL) injection 85 mL Tenecteplase (TNKASE) for Acute Ischemic Stroke Injection 25 mg labetaloL (NORMODYNE) 5 mg/mL injection 10 mg First Provider Eval: ED Events Date/Time Event User Comments 04/05/24658 Medical Screening Begins CHERRY TRENT DO -- 04/05/24658 First Provider Evaluation CHERRY TRENT DO -- AdmissionCare Guideline: Stroke (Ischemic) - INPT, Inpatient Based on the indications selected for the patient, the bed status of Inpatient was determined to be MET The following indications were selected as present at the time of evaluation of the patient: - Clinical Indications for Admission to Inpatient Care - Admission is indicated for 1 or more of the following: - Acute ischemic stroke with neurologic findings that warrant inpatient care, as indicated by 1 or more of the following: - National Institutes of Health Stroke Scale (NIHSS) score greater than 2 AdmissionCare documentation entered by: Cherry Trent [facility], 28th edition, Copyright ? [address] [facility] [employer] [facility] All Rights Reserved. [id number] ED COURSE Diagnosis/Impression as of 04/05/24 0756 Right arm weakness Cerebrovascular accident (CVA), unspecified mechanism Procedures: EKG-12 Lead ROUTINE ONCE Date/Time: 04/05/2024 7:54 AM Performed by: Cherry Trent DO Authorized by: Cherry Trent DO ECG interpreted by ED Physician in the absence of a vehicle service agent: yes Interpretation: Interpretation: normal Rate: ECG rate: 66 ECG rate assessment: normal Rhythm: Rhythm: sinus rhythm Ectopy: Ectopy: none QRS: QRS axis: Normal QRS intervals: Normal QRS conduction: normal ST segments: ST segments: Normal T waves: T waves: normal Q waves: Abnormal Q-waves: not present MDM: Medical Decision Making The patient presents from home for evaluation for right arm numbness and weakness that she noted around 6:00 in the morning. She reports she woke up to get ready for work at 5:30 AM today and felt just fine. She went to the restroom and washed her face and had no issues with her right arm. At 6 AM when she tried to put on her shoes she noted her right arm was weak and felt funny. Her symptoms have persisted since then. No change in her voice. No difficulty with her speech. No weakness to her legs. She does have a history of a previous stroke as well as a pulmonary embolism back in 2020 that was associated due to COVID. She has a history of diabetes and takes metformin. No other blood thinners taken on a daily basis and she does not take aspirin. She does not smoke. Vital signs are stable in the ER. Her heart is regular rhythm. Her lungs are clear bilaterally. Her abdomen is soft and nontender. Her speech is clear. No facial asymmetry. Handgrip left is greater than the right. Muscle strength is 5/5 to her lower legs bilaterally and her left arm. Her muscle strength is 4/5 to her right arm. She does have a pronator drift on the right arm. Steady gait. Stroke activation was initiated upon arrival to the ER. CT of her head shows no acute intracranial normalities. The CT angios of her head and neck showed no large vessel occlusions. She is in the window for TNK and has no contraindications. Spoke with Dr. Gomes with the neurostroke team in [place] and the patient was accepted for admission for continued management. She is pending transportation. Problems Addressed: Cerebrovascular accident (CVA), unspecified mechanism: acute illness or injury that poses a threat to life or bodily functions Right arm weakness: acute illness or injury Amount and/or Complexity of Data Reviewed Labs: ordered. Decision-making details documented in ED Course. Radiology: ordered and independent interpretation performed. Decision-making details documented in ED Course. ECG/medicine tests: ordered and independent interpretation performed. Decision-making details documented in ED Course. Risk Prescription drug management. Decision regarding hospitalization. Flowsheet Documentation: Scoring Tools: No data recorded Disposition/Condition: ED Disposition ED Disposition Transfer - [facility] to IP/Obs Condition -- Comment -- Discharge Medications: Patient's Medications START taking these medications No medications on file CONTINUE taking these medications which have NOT CHANGED ATORVASTATIN 20 MG TABLET Take 1 tablet by mouth daily. METFORMIN 500 MG TABLET Take 500 mg by mouth 2 (two) times daily. TRI-SPRINTEC 0.18/0.215/0.25 MG-35 MCG (28) PER TABLET TAKE 1 TABLET BY MOUTH IN THE MORNING START taking Modified Medications as Prescribed No medications on file STOP taking these medications No medications on file Follow-up: Electronically signed by: Cherry Trent DO 04/05/24 0756 [facility]2024-11-14 06:45:00 AdmissionCare Guideline: Stroke (Ischemic) - INPT, Inpatient Based on the indications selected for the patient, the bed status of Inpatient was determined to be MET The following indications were selected as present at the time of evaluation of the patient: - Clinical Indications for Admission to Inpatient Care - Admission is indicated for 1 or more of the following: - Acute ischemic stroke with neurologic findings that warrant inpatient care, as indicated by 1 or more of the following: - National Institutes of Health Stroke Scale (NIHSS) score greater than 2 AdmissionCare documentation entered by: Cherry Trent [facility], 28th edition, Copyright ? 2023 [facility] All Rights Reserved. [id number]:00 [facility]2024-08-05 00:00:00 [facility]2024-05-07 00:00:00 [facility]
[2024-09-15 14:21] LABS: Absolute Eosinophils 0.1 K/uL (0-0.5); Absolute Lymphocytes (CBC) 1.4 K/uL (0.7-4.9); Absolute Monocytes 0.5 K/uL (0.1-1.3); Absolute Neutrophil 3.7 K/uL (1.8-8.0); Basophils % 0.5 % (0-1.3); Eosinophils % 1.9 % (0-4.4); Hematocrit 42.7 % (36.0-45.0); Hemoglobin 14.2 g/dL (12.0-15.0); Lymphocytes % 24.2 % (15.3-44.8); MCH 26.9 pg (27.0-35.0); MCHC 33.3 g/dL (32.0-36.0); MCV 80.9 fL (80-100); MPV 8.3 fL (7.6-11.3); Monocytes % 8.7 % (3.3-12.3); Neutrophils % 64.7 % (41.7-73.7); Nucleated Red Blood Cells % 0.1 % (0-0); Platelets 328 thou/uL (152-406); RBC Red Blood Cell Count 5.28 M/uL (3.86-4.86); Red Cell Distribution Width 16.4 % (12.1-15.2)
--- NOTE | 2024-09-15 14:29 | RAD REPORT ---
EXAM: Chest Single View HISTORY: 49 years Female CHEST PAIN COMPARISON: 11/22/2020 FINDINGS: LUNGS/PLEURA: The lungs are clear. No pleural effusions or pneumothorax. No pulmonary edema. CARDIAC/MEDIASTINUM: The cardiac silhouette is within normal limits. UPPER ABDOMEN: No significant abnormality. BONES: No acute abnormality. LINES/TUBES/OTHER: N/A IMPRESSION: No evidence of acute cardiopulmonary disease.
[2024-09-15 14:37] LABS: ALT/SGPT 22 U/L (13-56); AST/SGOT 11 U/L (15-37); Albumin 3.8 g/dL (3.4-5.0); Albumin/Globulin Ratio 0.8 (1.1-1.8); Alkaline Phosphatase 96 U/L (45-117); Anion Gap 8.7 mEq/L (5.0-15.0); BUN Blood Urea Nitrogen 14 mg/dL (7-18); Bicarbonate 28 mEq/L (21-32); Bilirubin Direct 0.2 mg/dL (0-0.2); Bilirubin Indirect, Calculated 0.6 mg/dL (0.2-0.8); Bilirubin Total 0.8 mg/dL (0.2-1.0); Globulin 4.8 g/dL (2.3-3.5); Glomerular Filtration Rate 65 ml/min (=/>90); Glucose Level 118 mg/dL (74-106); Potassium 3.7 mEq/L (3.5-5.1); Protein, Total 8.6 g/dL (6.4-8.2); Sodium Level 135 mEq/L (136-145)
--- NOTE | 2024-09-15 14:37 | RAD REPORT ---
EXAMINATION: LIMITED BREAST ULTRASOUND BREAST/AXILLA, LIMITED CLINICAL INDICATION: Female, 49 years old. right breast/axillary pain TECHNIQUE: Limited real-time sonography in multiple planes of the RIGHT breast. COMPARISON: Mammogram 08/26/2023 FINDINGS: Echogenic structure at the area of concern at the 9:00 position right breast measures 8 x 5 x 3 mm. IMPRESSION: 1. Echogenic structure at the 9:00 position of the right breast may represent a lymph node but is non specific. It has been over 12 months since the previous mammogram. 2. Recommendation: Recommend diagnostic mammogram to complete workup for this abnormality. 3. BI-RAD 0 - Incomplete: Needs Additional Imaging Evaluation
[2024-09-15 14:44] LABS: Troponin High Sensitivity < 3.0 pg/mL (<58.9)
--- NOTE | 2024-09-15 15:09 | EDPHYS ---
Physician Documentation [facility] Name: Saida Coyle Age: 49 yrs Sex: Female : 1975 Arrival Date: 09/15/2024 Time: 13:45 Bed 20 Private MD: ED Physician Jhon Pedroza HPI: 09/15 14:06 This 49 yrs old Female presents to ER via Ambulatory with complaints of Breast rn Problem - right pain. 14:06 The patient or guardian reports chest pain that is located primarily in the Right rn breast. Onset: 1 week(s) ago. The pain does not radiate. The chest pain is described as aching, dull. Modifying factors: The symptoms are alleviated by Lifting breast. the symptoms are aggravated by nothing. Severity of pain: At its worst the pain was mild in the emergency department the pain is unchanged. Patient reports right breast pain, lateral side near axilla, began a week ago. Has not been seen for this. No previous breast infections or masses. No history of cancer. No trauma. Reports when left right breast feels better. Feels pain with palpation to the breast itself. Denies deeper chest pain or shortness of breath. No abdominal pain. No hemoptysis.. 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 - Infectious Disease History:: Denies. - Social history:: Smoking status: Patient denies any tobacco usage or history of. - Family history:: not pertinent. - Hospitalizations: : No recent hospitalization is reported. ROS: 14:06 Constitutional: Negative for fever, chills, and weight loss, Cardiovascular: Negative rn for chest pain, palpitations, and edema, Respiratory: Negative for shortness of breath, cough, wheezing, and pleuritic chest pain, Abdomen/GI: Negative for abdominal pain, nausea, vomiting, diarrhea, and constipation, MS/Extremity: Negative for injury and deformity, Skin: Negative for injury, rash, and discoloration, Neuro: Negative for headache, weakness, numbness, tingling, and seizure, Exam: 14:06 Constitutional: This is a well developed, well nourished patient who is awake, alert, rn and in no acute distress. Chest/axilla: Normal chest wall appearance and motion. Mild tenderness right lateral/upper breast. No masses. No erythema or skin changes. No lymphadenopathy noted in axilla. Cardiovascular: Regular rate and rhythm. No pulse deficits. Respiratory: Speaking full sentences, unlabored. No increased work of breathing, no retractions or nasal flaring. Abdomen/GI: Soft, nontender Vital Signs: 13:50 BP 142 / 95; Pulse 95; Resp 16 S; Temp 97.5(TE); Pulse Ox 96% on R/A; Weight 108.86 kg aa5 (R); Height 5 ft. 2 in. (R); 14:30 BP 119 / 82; Pulse 83; Resp 16; Pulse Ox 98% ; me1 15:00 BP 132 / 91; Pulse 91; Resp 16; Temp 98.3; Pulse Ox 97% ; me1 13:50 Body Mass Index 43.90 (108.86 kg, 157.48 cm) aa5 MDM: 13:47 Medical Screening Exam initiated rn 15:06 Differential diagnosis: Breast abscess, breast infection, lymphadenopathy, breast rn cancer, nonspecific inflammation. HEART Score: History: Slightly Suspicious (0), ECG: Normal (0), Age: > 45 and < 65 years (1), Risk Factors: No Risk Factors Known (0), Troponin: > 1 and < 3 x normal limit (1), Total Score = 1. Data reviewed: vital signs, nurses notes, lab test result(s), radiologic studies, plain films, ultrasound, and as a result, I will discharge patient. Counseling: I had a detailed discussion with the patient and/or guardian regarding the historical points, exam findings, and any diagnostic results supporting the discharge/admit diagnosis, lab results, radiology results, the need for outpatient follow up, to return to the emergency department if symptoms worsen or persist or if there are any questions or concerns that arise at home. Special discussion: I discussed with the patient/guardian in detail that at this point there is no indication for admission to the hospital. It is understood, however, that if the symptoms persist or worsen the patient needs to return immediately for re-evaluation. Based on the history and exam findings, there is no indication for further emergent testing or inpatient evaluation. I discussed with the patient/guardian the need to see the OB Gyne specialist for further evaluation of the symptoms. I discussed with the patient/guardian the need to see the primary care provider for further evaluation of the symptoms. ED course: No acute findings and workup. Nothing was palpable but ultrasound shows 9 o'clock position small nonspecific subcentimeter mass. Unclear etiology. Recommend outpatient mammogram. Patient states that she has a physician and will schedule appointment. Normal WBC. No evidence of abscess or anything drainable. Chest x-ray images negative for pneumonia or pneumothorax per my interpretation. Troponin negative. I have personally reviewed all of the results, including but not limited to blood tests and imaging deemed necessary to safely discharge this patient at this time. All results given to and printed out for patient. I personally went over all the results with the patient and answered all questions. Patient will follow-up with PCP and or specialist as discussed. Return precautions given and understood.. 09/15 14:02 Order name: Basic Metabolic Panel; Complete Time: 14:58 rn 09/15 14:02 Order name: CBC with Diff; Complete Time: 14:42 rn 09/15 14:02 Order name: LFT's; Complete Time: 14:58 rn 09/15 14:02 Order name: Troponin HS; Complete Time: 14:58 rn 09/15 14:02 Order name: XRAY Chest (1 view); Complete Time: 14:42 rn 09/15 14:05 Order name: BREAST/AXILLA, LIMITED; Complete Time: 14:42 EDMS 09/15 14:02 Order name: EKG; Complete Time: 14:03 rn 09/15 14:02 Order name: Cardiac monitoring; Complete Time: 14:33 rn 09/15 14:02 Order name: EKG - Nurse/Tech; Complete Time: 14:33 rn 09/15 14:02 Order name: IV Saline Lock; Complete Time: 14:14 rn 09/15 14:02 Order name: Labs collected and sent; Complete Time: 14:14 rn 09/15 14:02 Order name: O2 Per Protocol; Complete Time: 14:14 09/15 14:02 Order name: O2 Sat Monitoring; Complete Time: 14:14 rn Administered Medications: No medications were administered Disposition Summary: 09/15/24 15:08 Discharge Ordered Notes: Location: Home rn Problem: new rn Symptoms: are unchanged rn Condition: Stable rn Diagnosis - Right breast pain rn Followup: rn - With: Private Physician - When: As needed - Reason: Recheck today's complaints, Re-evaluation by your physician Discharge Instructions: - Discharge Summary Sheet rn - Breast Tenderness rn Forms: - Medication Reconciliation Form rn - Antibiotic 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 EDMS EDMS 14:03 14:02 CBC+H.LAB.BRZ ordered. EDMS EDMS 14:03 14:02 HEPATIC FUNCTION+C.LAB.BRZ ordered. EDMS EDMS 14:03 14:02 Troponin High Sensitivity+C.LAB.BRZ ordered. EDMS EDMS
--- NOTE | 2024-09-15 15:09 | ER ---
Nurse's Notes [facility] Name: Saida Coyle Age: 49 yrs Sex: Female : 1975 Arrival Date: 09/15/2024 Time: 13:45 Bed 20 Private MD: Diagnosis: Right breast pain Presentation: 09/15 13:50 Chief complaint: Patient states: pain to right breast that began 1 week ago, pt also aa5 reports nausea x 2-3 days ago. Coronavirus screen: At this time, the client does not indicate any symptoms associated with coronavirus-19. Ebola Screen: Patient denies travel to an Ebola-affected area in the 21 days before illness onset. Initial Sepsis Screen: Does the patient meet any 2 criteria? No. Patient's initial sepsis screen is negative. Does the patient have a suspected source of infection? No. Patient's initial sepsis screen is negative. Risk Assessment: Do you want to hurt yourself or someone else? Patient reports no desire to harm self or others. Onset of symptoms was August 2024. 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 - Infectious Disease History:: Denies. - Social history:: Smoking status: Patient denies any tobacco usage or history of. - Family history:: not pertinent. - Hospitalizations: : No recent hospitalization is reported. Screenin:00 [facility] ED Fall Risk Assessment (Adult) History of falling in the last 3 months, me1 including since admission No falls in past 3 months (0 pts) Confusion or Disorientation No (0 pts) Intoxicated or Sedated No (0 pts) Impaired Gait No (0 pts) Mobility Assist Device Used No (0 pt) Altered Elimination No (0 pt) Score/Fall Risk Level 0 - 2 = Low Risk Maintained a safe environment, Provided non-skid footwear, Hourly rounding (assess needs \T\ fall precautionary measures) done. Abuse screen: Denies threats or abuse. Nutritional screening: No deficits noted. Tuberculosis screening: No symptoms or risk factors identified. Assessment: 14:00 General: Appears uncomfortable, obese, well groomed, well developed, Behavior is calm, me1 cooperative, appropriate for age, Reports pain to right breast that began 1 week ago, pt also reports nausea x 2-3 days ago. Pain: Complains of pain in right lateral anterior chest Pain does not radiate. Pain currently is 8 out of 10 on a pain scale. Quality of pain is described as sharp, Pain began about a week ago Is continuous. Neuro: Level of Consciousness is awake, alert, obeys commands, Oriented to person, place, time, situation, Appropriate for age. Cardiovascular: Patient's skin is warm and dry. Respiratory: Airway is patent Respiratory effort is even, unlabored, Respiratory pattern is regular, symmetrical. GI: No signs and/or symptoms were reported involving the gastrointestinal system. : No signs and/or symptoms were reported regarding the genitourinary system. EENT: No signs and/or symptoms were reported regarding the EENT system. Derm: Skin is intact, is healthy with good turgor, Skin is pink, warm \T\ dry. Musculoskeletal: Reports pain in right lateral anterior chest. Vital Signs: 13:50 BP 142 / 95; Pulse 95; Resp 16 S; Temp 97.5(TE); Pulse Ox 96% on R/A; Weight 108.86 kg aa5 (R); Height 5 ft. 2 in. (R); 14:30 BP 119 / 82; Pulse 83; Resp 16; Pulse Ox 98% ; me1 15:00 BP 132 / 91; Pulse 91; Resp 16; Temp 98.3; Pulse Ox 97% ; me1 13:50 Body Mass Index 43.90 (108.86 kg, 157.48 cm) aa5 ED Course: 13:47 Patient arrived in ED. im 13:47 Jhon Pedroza MD is Attending Physician. rn 13:50 Arm band placed on. aa5 13:51 Triage completed. aa5 14:00 Patient has correct armband on for positive identification. Bed in low position. Call me1 light in reach. Side rails up X2. Provided Education on: POC. Verbalized understanding. . Client placed on continuous cardiac and pulse oximetry monitoring. NIBP monitoring applied. recreation center director on. Pulse ox on. NIBP on. 14:00 No provider procedures requiring assistance completed. me1 14:04 Doris De La O, RN is Primary Nurse. me1 14:14 Basic Metabolic Panel Sent. me1 14:14 CBC with Diff Sent. me1 14:14 LFT's Sent. me1 14:14 Troponin HS Sent. me1 14:14 Initial lab(s) drawn, by nm, sent to lab. Inserted saline lock: 22 gauge in right me1 antecubital area, using aseptic technique. 14:18 XRAY Chest (1 view) In Process Unspecified. EDMS 14:29 BREAST/AXILLA, LIMITED In Process Unspecified. EDMS 14:33 EKG done, by ED staff, reviewed by Jhon Pedroza MD. me1 15:16 IV discontinued, intact, bleeding controlled, No redness/swelling at site. Pressure me1 dressing applied. Administered Medications: No medications were administered Medication: 14:00 VIS not applicable for this client. [facility] [place] Outcome: 15:08 Discharge ordered by . rn 15:16 Discharged to home ambulatory, me1 15:16 Condition: stable 15:16 Discharge instructions given to patient, Instructed on discharge instructions, follow up and referral plans. medication usage, Demonstrated understanding of instructions, follow-up care, medications, Prescriptions given X 1, 15:16 Patient left the ED. me1 Signatures: Dispatcher [employer] EDJhon Lyons MD MD rn Calderon, Audri RN RN aa5 Elizabeth Regan Michelle, RN RN me1 Corrections: (The following items were deleted from the chart) 14:38 13:50 Chief complaint: Patient states: pain to right breast that began 1 week ago, pt me1 also reports nausea x 2-3 days ago. aa5
--- NOTE | 2024-09-17 12:12 | EKG ---
Test Date: 2024-09-15 Test Time: 14:29:34 Activity Therapy Teacher: MEASUREMENT RESULTS: Intervals: Rate: 84 OH: 160 QRSD: 72 QT: 366 QTc: 432 Mcintyre: P: 41 OH: 160 QRS: 264 T: 56 INTERPRETIVE STATEMENTS: Normal sinus rhythm Right superior axis deviation Possible Anterior infarct, age undetermined Abnormal ECG Compared to ECG 11/22/2020 13:20:06 Right superior axis now present Sinus tachycardia no longer present Myocardial infarct finding still present Electronically Signed On 09-17-24 12:08:33 CDT by Braxton Rankin
[2024-09-17 19:05] VITALS: BP 132/91; TEMP 98.3; O2SAT 97
== END 2024-09-15 15:16 | disposition home or self-care (01) ==
LOC: ER 13:45
DX: N64.4 Mastodynia (principal); R07.9 Chest pain, unspecified
CPT/HCPCS: 36415; 71045; 76642; 80048; 80076; 84484; 85025; 93005; 99284